=== PATIENT | male | born 1960 | race Caucasian/White ===

== ENCOUNTER 2020-08-30 09:38 | Outpatient (REF) | payer BC, SELFPAY | END 2020-08-30 09:39 | disposition home or self-care (01) | LOC: CF 09:38 | PROVIDERS: PCP Nurse Practitioner Family; Visit Provider Urology | DX: E29.1 Testicular hypofunction (principal); N40.1 Benign prostatic hyperplasia with lower urinary tract symptoms; N13.8 Other obstructive and reflux uropathy; C67.9 Malignant neoplasm of bladder, unspecified | CPT/HCPCS: 81002; 88112 ==

== ENCOUNTER 2020-12-17 05:35 | Inpatient (IN) | payer OTHER, SELFPAY ==
[2020-12-17] VITALS (13 sets, daily range): BP systolic 116–151; BP diastolic 55–85; PULSE 62–72; RESP 12–16; TEMP 36–37; O2SAT 92–97; BMI 40.5
--- NOTE | ~2020-12-17 | US_ITS ---
EXAMINATION: US ABDOMEN COMPLETE and abdominal Doppler exam CLINICAL INFORMATION: Ascites and cirrhosis. Rule out portal vein thrombus. COMPARISON: None TECHNIQUE: Real-time imaging of the abdominal viscera. FINDINGS: PANCREAS: The head and body the pancreas are normal. The tail the pancreas is not well seen due to bowel gas. ABDOMINAL AORTA: The proximal, mid, and distal segments are normal in caliber. INFERIOR VENA CAVA: Visualized portions are normal. LIVER: Liver echotexture is slightly increased and heterogeneous suggestive of hepatocellular disease. The contour of the liver is irregular or scalloped suggestive of cirrhosis. No focal liver lesion is seen. There is no biliary duct dilatation. GALLBLADDER: The gallbladder wall is thickened measuring 0.7 cm. This may be related to the patient's liver disease. The gallbladder is normal in size. No gallstones are seen. COMMON BILE DUCT: Normal in caliber measuring 0.5 cm in diameter. RIGHT KIDNEY: Normal. No hydronephrosis. No renal calculi or focal parenchymal lesions. The kidney measures 13.5 cm in maximum dimension. LEFT KIDNEY: Normal. No hydronephrosis. No renal calculi or focal parenchymal lesions. The kidney measures 13.2 cm in maximum dimension. SPLEEN: The spleen is enlarged. The spleen measures 17 cm in maximum dimension. FREE FLUID: There is a small amount of ascites around the liver. Liver Doppler exam: The extrahepatic portal vein is patent with reversed hepatofugal flow. There is thrombus seen in the main portal vein with reversed hepatofugal flow. There is occlusive thrombus seen in the right portal vein. There is reversed hepatofugal flow seen in the left portal vein. There is a recannulized paraumbilical vein which appears thrombosed as well. The right, middle and left hepatic veins are patent. These have normal waveforms. The IVC is patent. The main, right and left hepatic arteries are patent. Main hepatic artery has normal peak systolic velocity of 166 cm/s. The splenic vein is patent. There are splenic varices. US/US duplex arterial venous comp IMPRESSION: Cirrhotic-appearing liver. Small amount of ascites. Enlarged spleen. Gallbladder wall thickening. This may be related to liver disease. Limited visualization of the tail of the pancreas. Thrombus in the main and right portal vein and reversed hepatofugal flow in the portal veins.
--- NOTE | ~2020-12-17 | US_ITS ---
EXAMINATION: ULTRASOUND-GUIDED PARACENTESIS CLINICAL INFORMATION: Cirrhosis and ascites COMPARISON: None TECHNIQUE: Procedure and risks and benefits including bleeding, infection and low blood pressure were discussed with the patient and informed consent was obtained. The right lower quadrant was prepped and draped in usual sterile fashion. The skin and soft tissues were anesthetized with 1% lidocaine plain. Using ultrasound guidance and a 5 Japanese Angiocath, 5.2 L of clear yellow fluid was removed. Diagnostic specimen was sent. FINDINGS: There is a moderate to large amount of ascites. US/US paracentesis abd w/image IMPRESSION: Ultrasound-guided paracentesis.
--- NOTE | ~2020-12-17 | MR_ITS ---
EXAMINATION: MR ABDOMEN WITHOUT AND WITH CONTRAST CLINICAL INFORMATION: Portal vein thrombus. Evaluate for liver mass. COMPARISON: Previous ultrasound of the abdomen with Doppler exam from earlier the same day, and CT of the abdomen and pelvis 09/17/2020 TECHNIQUE: MR abdomen was performed without and with use of 10 mL intravenous Gadavist gadolinium contrast. Postcontrast images are performed in multiphase dynamic sequences. Imaging was performed in 3 planes. FINDINGS: LUNG BASES: The lung bases are clear. There is no pleural effusion. There are paraesophageal varices. LIVER, GALLBLADDER, AND BILIARY TREE: The liver appears cirrhotic. There is a heterogeneous enhancement of the liver suggestive of severe fibrosis, particularly involving the right lobe of the liver. There is an area of decreased enhancement and capsular retraction seen in the right lobe of the liver probably related to severe fibrosis. No early arterial phase enhancing lesion with rapid wire shadows subcapsular formation characteristic of hepatocellular carcinoma is seen. The gallbladder is slightly contracted. There is gallbladder wall thickening. This may be related to liver disease. There is no intra or extrahepatic biliary duct dilatation. PANCREAS: Unremarkable. SPLEEN: The spleen is enlarged and measures 16 cm in length. ADRENAL GLANDS: Normal. KIDNEYS AND URETERS: There is a small left renal cyst. The kidneys are otherwise unremarkable. GASTROINTESTINAL TRACT: The visualized bowel is unremarkable. ABDOMINAL WALL: No significant hernia is appreciated. LYMPH NODES: No lymphadenopathy. VASCULAR: There are multiple varices including splenic, gastric, paraesophageal varices and recanalized paraumbilical vein. The left renal vein is prominent and there may be a spontaneous splenorenal shunt. There is question of a small amount of thrombus seen in the right portal vein against the wall for example image 61 series 102. No other evidence of portal vein thrombus is seen. The main and right portal vein appear small. These findings would favor a chronic thrombus and not acute thrombus. There is mass effect on the hepatic veins from the liver. The hepatic veins and IVC are patent. No aneurysm is seen. There is a small amount of ascites. OSSEOUS STRUCTURES: Marrow signal normal. MR/MR abdomen wo/w con IMPRESSION: Cirrhotic-appearing liver with severe fibrosis and capsular retraction of the right lobe. No liver mass seen. Question small amount of thrombus in the peripheral right portal vein against the wall. The main and right portal veins are small. This would favor chronic changes over acute thrombus. There is mass effect on the hepatic veins from the liver. The hepatic veins and IVC are patent. Extensive varices and probable spontaneous splenorenal shunt. Splenomegaly. Small amount of ascites. Diffuse gallbladder wall thickening. This may be related to the patient's liver disease. Small left renal cyst.
--- NOTE | ~2020-12-17 | XR_ITS ---
EXAMINATION: XR CHEST CLINICAL INFORMATION: SOB with exertion COMPARISON: . Chest 09/18/2019 TECHNIQUE: Frontal view of the chest was obtained. FINDINGS: The lungs are well-expanded and clear of acute pneumonic process. Minimal bronchial wall thickening in the upper lobes and bilateral perihilar regions is stable. Previously visualized bilateral reticular prominence has improved. Heart size and pulmonary vascularity is normal. No gross bony abnormality seen. XR/XR chest 1V IMPRESSION: No acute pneumonic process seen. Bilateral parahilar and upper lobe bronchial wall thickening suggestive of reactive airway disease or bronchitis is stable.
--- NOTE | 2020-12-17 06:04 | ED_ITS ---
HPI - General Adult General Chief complaint: General Medical Stated complaint: body swelling Time Seen by Provider: 12/17/20 05:56 Source: patient Mode of arrival: ambulatory Limitations: no limitations History of Present Illness HPI narrative: Patient comes to the emergency room complaining of lower extremity swelling, now up to his abdomen. Patient states that he has had lower extremity edema for over a year now, however the edema started getting much worse over the last week and a half. Patient also complaining of shortness of breath with exertion, orthopnea. Patient states he has a chronic smoker's cough but nothing new. Patient denies being sick lately. Patient is also known to have cirrhosis. Patient states that the pressure in his lower extremities is increasing, it is becoming more uncomfortable, therefore came to the emergency room. Patient states that he is not in any diuretic medications. Patient states that this morning he has an echocardiogram pending with Cardiology, states that he does not know why he is getting an echocardiogram. Related Data Home Medications Medication Instructions Recorded Confirmed nadolol 20 mg tablet 20 mg PO DAILY 08/30/20 omeprazole 20 mg capsule,delayed 20 mg PO DAILY 08/30/20 release sildenafil 100 mg tablet 100 mg PO DIRECTED 08/30/20 Previous Rx's Medication Instructions Recorded testosterone 20.25 mg/1.25 gram 2 pump TOPICAL DAILY 30 Days #75 g 04/12/20 (1.62 %) transdermal gel pump albuterol sulfate 90 mcg/actuation 2 puff INHALATION Q6H PRN #18 g 06/07/20 aerosol inhaler amlodipine 5 mg tablet 5 mg PO DAILY #90 tab 06/21/20 testosterone 20.25 mg/1.25 gram 2 pump TOPICAL DAILY 30 Days #75 g 08/30/20 (1.62 %) transdermal gel pump Allergies Allergy/AdvReac Type Severity Reaction Status Date / Time ibuprofen Allergy Unknown low Verified 12/15/19 00:00 plateletes aspirin [ASA] AdvReac Intermediate BLEEDING Unverified 02/23/20 15:11 NSAIDS (Non-Steroidal AdvReac Intermediate BLEEDING Unverified 02/23/20 15:11 Anti-Inflamma [NSAIDS (NON-STEROIDAL ANTI-INFLAMMA] Review of Systems Review of Systems: Constitutional : Complaining of fluid weight gain, No Fever, No Chills, No Night Sweats, No Fatigue, No Malaise ENT/Mouth : No Hearing loss, No Ear Pain, No Nasal Congestion, No Sinus Pain, No Hoarseness, No sore throat, No Rhinorrhea, No Swallowing Difficulty Eyes: No Eye Pain, No Swelling, No Redness, No Foreign Body, No Discharge, No Vision Changes Cardiovascular : No Chest Pain, complaining of worsening dyspnea on exertion, worsening orthopnea, denies chest pain, No Palpitations Respiratory : Chronic smoker's Cough, No Sputum, No Wheezing, No Smoke Exposure, Gastrointestinal : No Nausea, No Vomiting, No Diarrhea, No Constipation, complaining of abdominal distension from fluid, No Hematochezia, No Melena Genitourinary : Complaining of scrotal swelling, no testicular pain, No Dysuria, No Urinary Frequency, No Hematuria, No Urinary Incontinence, No Urgency, No Flank Pain, No Urinary Flow Changes, No Hesitancy Musculoskeletal : No joint pain, No Myalgias, No Joint Swelling, complaining of worsening lower extremity edema Skin : No Skin Lesions, No rash Neuro : No Weakness, No Numbness, No Paresthesias, No Loss of Consciousness, No Dizziness, No Headache Psych : No Anxiety/Panic, No Depression, No SI/HI/AH/VH, No Social Issues, Heme/Lymph: No Bruising, No Bleeding,No Lymphadenopathy Endocrine : No Polyuria, No Polydipsia, No Temperature Intolerance PMF Past Medical History Medical History Aortic valve calcification Asthma Bladder cancer Cervical radiculopathy Cirrhosis of liver Dyslipidemia Esophageal varices without bleeding ETOH abuse Gout Hepatitis C HTN (hypertension) Left ventricular hypertrophy Leukopenia Microalbuminuria Opioid abuse Osteoarthritis Pericarditis Portal hypertension RBBB Sacroiliitis Small bowel obstruction Smoker Thrombocytopenia Surgical History H/O repair of patent ductus arteriosus History of bladder surgery History of cervical discectomy History of patent ductus arteriosus History of right inguinal hernia Testicular lesion Family History Family History (Updated 04/05/20 @ 10:50 by LANEY Noland, [facility]) Father Liver failure ETOHism Mother Lung cancer Brain cancer Sister No problems noted. Son No problems noted. Son No problems noted. Social History Social History Advance Directives: No Advance Directives Information Provided: No Physical Exam Vital Signs: Vital Signs: Last Vital Signs Temp 98.6 F 12/17/20 05:57 Pulse 69 12/17/20 05:57 Resp 16 12/17/20 05:57 BP 151/85 H 12/17/20 05:57 Pulse Ox 97 12/17/20 05:57 Body Mass Index 40.5 Appearance: Alert. Oriented X3. No acute distress. Eyes: Pupils equal, round and reactive to light. ENT: Pharynx normal. Neck: Normal inspection. Neck supple. No lymph nodes noted. No crepitus CVS: Normal heart rate and rhythm. Pulses normal. Normal S1 and S2, +3 systolic murmur, worse over the right sternal border Respiratory: No respiratory distress. Breath sounds normal. No Wheezing. No rales Abdomen: Soft , nontender, distended Skin: Skin warm and dry. Normal skin color. Normal skin turgor. Extremities: +4 pitting edema bilaterally, from ankles all the way up to the thighs, No Lacerations. No Rash Neuro: Oriented X 3. No motor deficit. No sensory deficit. Moving all extermities. No slurred speech. Course Course Course Narrative: Labs pending, sign-out given to Dr. Barber Discharge Plan Discharge Prescriptions: No Action testosterone 20.25 mg/1.25 gram (1.62 %) gel in metered-dose pump 2 pump topical DAILY 30 Days Qty: 75 RF: 5 albuterol sulfate [Ventolin HFA] 90 mcg/actuation HFA aerosol inhaler 2 puff inhalation Q6H PRN (Reason: shortness of breath or wheezing) Qty: 18 RF: 2 amlodipine 5 mg tablet 5 mg PO DAILY Qty: 90 RF: 3 testosterone 20.25 mg/1.25 gram (1.62 %) gel in metered-dose pump 2 pump topical DAILY 30 Days Qty: 75 RF: 5
--- NOTE | 2020-12-17 06:22 | ECG_ITS ---
Test Reason : SWELLING Blood Pressure : / mmHG Vent. Rate : 064 BPM Atrial Rate : 064 BPM P-R Int : 148 ms QRS Dur : 128 ms QT Int : 438 ms P-R-T Axes : 035 -51 -27 degrees QTc Int : 451 ms Normal sinus rhythm Right bundle branch block Left anterior fascicular block Bifascicular block Abnormal ECG When compared with ECG of 20-MAY-2019 02:23, T wave inversion more evident in Anterior leads Referred By: Patsy Marsh Electronically Signed By:Jeffery Archuleta
[2020-12-17 06:51] LABS: MANUAL DIFF FLAG NO
[2020-12-17 06:55] LABS: Basophils Absolute Auto 0.1 X10*3/uL (0.0-0.2); Eosinophils Absolute Auto 0.3 X10*3/uL (0.0-0.4); Eosinophils Percent Auto 7.1 % (0-4); Hematocrit 41.5 % (42-52); Hemoglobin 13.8 g/dl (14.0-18.0); Imm Gran Abs Auto 0.19 X10*3/uL (0.00-0.03); Lymphocytes Absolute Auto 1.1 X10*3/uL (1.2-4.9); Lymphocytes Percent Auto 22.9 % (20-40); Mean Corpuscular HGB Conc 33.3 g/dl (31.0-36.0); Mean Corpuscular Hemoglobin 32.9 pg (27.0-33.0); Mean Corpuscular Volume 98.8 fL (80-98); Monocytes Absolute Auto 0.5 X10*3/uL (0.1-1.2); Monocytes Percent Auto 10.2 % (2-11); Neutrophils Absolute Auto 2.6 X10*3/uL (2.0-8.3); Neutrophils Percent Auto 54.8 % (45-73); Red Cell Distribution Width 15.9 % (11.0-16.0); White Blood Count 4.8 X10*3/uL (4.8-10.8)
[2020-12-17 06:57] LABS: Platelet Count 77 X10*3/uL (160-400)
[2020-12-17] MEDS: Furosemide 40 MG/4 ML VIAL IVPUSH (06:59)
[2020-12-17 07:08] LABS: INTERNATIONAL NORM RATIO 1.5 (0.9-1.1); Prothrombin Time 17.7 SEC (9.9-13.0)
[2020-12-17 07:18] LABS: B Type Natriuretic Peptide 144 pg/mL (<100)
[2020-12-17 07:26] LABS: Alanine Aminotransferase 32 U/L (0-40); Albumin Level 2.7 g/dL (3.5-5.0); Alkaline Phosphatase 200 U/L (39-117); Anion Gap 11 (12-20); Aspartate Amino Transferase 79 U/L (5-37); Bilirubin Direct 2.5 mg/dL (0.0-0.5); Bilirubin Total 4.6 mg/dL (0.0-1.0); Blood Urea Nitrogen 7 mg/dL (9-16); Calcium 8.3 mg/dL (8.4-10.2); Carbon Dioxide 25 mmol/L (22-29); Chloride 105 mmol/L (96-108); Creatinine Clr Calc Pharmacy 117.9; Estimated Glomerular Filt Rate > 60; Glucose Random 92 mg/dL (60-115); Magnesium 1.5 mg/dL (1.6-2.6); Sodium 137 mmol/L (135-145); Total Protein 7.2 g/dL (6.5-8.0)
--- NOTE | 2020-12-17 08:09 | PHA.MEDREC ---
Pharmacy Consult ? Medication Reconciliation Pharmacy has completed the medication reconciliation.
[2020-12-17 08:43] LABS: COVID-19 Test Negative (Negative); IDNOW Serial# 9DD0AD1C
--- NOTE | 2020-12-17 09:36 | P.HPHOSP_ITS ---
History of Present Illness Date of Service: 12/17/20 Chief Complaint: weight gain, swelling, shortness of breath This is a 60-year-old male with a past medical history of cirrhosis secondary to hepatitis-C ( previously treated) and alcohol abuse ( actively drinking with last drink 4 days ago) who presents to the hospital with complaints of lower extremity swelling which has now increased up to his abdomen with an associated weight gain greater than 30 lb. He also endorses exertional dyspnea and inability to lay supine. He reports active alcohol use with last drink 4 days ago. He reports he typically drinks 4 beers daily. He denies any changes in his salt intake. He reports no abdominal pain, nausea, vomiting or diarrhea. He denies any chest pain. He denies being on a diuretic previously. He reports that he was following up with Gastroenterology (Dr. Chaudhary) but has not seen him and quite some time. Upon arrival to the ED patient was noted to be midly hypertensive and tachycardia. His blood work revealed abnormal LFTs (Bili was 4.6, with a baseline 1.7-2.3, albumin was 2.7, INR was 1.5), Mag 1.5, platelet 77. . He was noted to have diffuse anasarca. He was given a dose of IV diuretic and admission was requested for management of decompensated cirrhosis. Review of Systems Review of Systems: General - +malaise HEENT -denies blurred vision, denies headache, denies sore throat Cardiovascular - denies chest pain or palpitations, +edema, +orthopnea Respiratory - +exertional dyspnea Gastrointestinal - denies abdominal pain, nausea, vomiting, diarrhea - denies flank pain, denies dysuria, denies frequency or urgency Musculoskeletal - denies back pain, denies hip pain, denies knee pain, denies shoulder pain Neurological - denies any focal weakness or numbness Skin, denies any bruising or redness Psychiatric - denies any suicidal ideation, hallucinations, homicidal ideation Endocrinology - denies intolerance to hot / cold temperatures [facility] Medical History Aortic valve calcification Asthma Bladder cancer Cervical radiculopathy Cirrhosis of liver Dyslipidemia Esophageal varices without bleeding ETOH abuse Gout Hepatitis C HTN (hypertension) Left ventricular hypertrophy Leukopenia Microalbuminuria Opioid abuse Osteoarthritis Pericarditis Portal hypertension RBBB Sacroiliitis Small bowel obstruction Smoker Thrombocytopenia Family History (Updated 04/05/20 @ 10:50 by Maru Huizar, RMA, [employer]) Father Liver failure ETOHism Mother Lung cancer Brain cancer Sister No problems noted. Son No problems noted. Son No problems noted. Surgical History H/O repair of patent ductus arteriosus History of bladder surgery History of cervical discectomy History of patent ductus arteriosus History of right inguinal hernia Testicular lesion Social History Alcohol intake: current Patient Tobacco Use Status: Current everyday Tobacco user Use of substances other than those prescribed or required for medical reasons: No Advance Directives: No Advance Directives Information Provided: No Meds Allergies Allergy/AdvReac Type Severity Reaction Status Date / Time ibuprofen Allergy Unknown low Verified 12/17/20 06:58 plateletes aspirin [ASA] AdvReac Intermediate BLEEDING Verified 12/17/20 06:58 NSAIDS (Non-Steroidal AdvReac Intermediate BLEEDING Verified 12/17/20 06:58 Anti-Inflamma [NSAIDS (NON-STEROIDAL ANTI-INFLAMMA] Active Medications: Current Medications Generic Name Dose Route Start Last Admin Trade Name Freq PRN Reason Stop Dose Admin Albuterol Sulfate 2 puff 12/17/20 09:32 Albuterol Sulfate 90 Mcg 8 Gm Inhaler INHALE Q6H PRN shortness of breath or wheezing Furosemide 20 mg 12/17/20 18:00 Furosemide 20 Mg/2 Ml Vial IVPUSH BID@0900,1800 [facility] Protocol Magnesium Sulfate 2 gm in 50 mls @ 25 mls/hr 12/17/20 09:32 Magnesium Sulfate/H2o IV 12/17/20 11:31 ONCE ONE Pharmacy Consult 1 each 12/17/20 07:45 Consult Rx Perform Med Rec MISCELLANE ONCE PRN Consult order Sodium Chloride 3 ml 12/17/20 16:00 0.9 % Sodium Chloride Flush 3 Ml Syringe IVFLUSH QSHIFT [facility] Home Medications Medication Instructions Recorded Confirmed Last Taken Type nadolol 20 mg tablet 20 mg PO DAILY 08/30/20 12/17/20 12/16/20 History omeprazole 20 mg capsule,delayed 20 mg PO DAILY 08/30/20 12/17/20 12/16/20 History release sildenafil 100 mg tablet 100 mg PO DIRECTED PRN 08/30/20 12/17/20 Unknown History ibuprofen 600 mg PO Q3-4H PRN 12/17/20 12/17/20 Unknown History Physical Exam Vital Signs and Narrative: Vital Signs: Last Vital Signs Temp 98.6 F 12/17/20 05:57 Pulse 63 12/17/20 08:17 Resp 16 12/17/20 08:17 BP 124/70 12/17/20 08:17 Pulse Ox 97 12/17/20 08:17 Body Mass Index 40.5 Const: Other: Constitutional - Awake and Alert, No apparent distress Eyes - PERRLA, EOMI Cardiovascular - S1S2, RRR, 2-3+ edema bilaterally Respiratory - Normal lung expansion, Normal respiratory effort, No respiratory distress, CTA bilaterally Gastrointestinal - Distended with fluid thrill, +abdominal wall edema - No CVA tenderness Extremities - no calf tenderness bilaterally, no swelling Musculoskeletal - Normal inspection, normal ROM Skin - Warm/Dry Neurological - Alert & oriented x3, No focal deficit, no asterixis Psychological - Appropriate affect Results Labs CBC and Chem 7: 12/17/20 06:46 12/17/20 06:46 Labs: Laboratory Results - last 24 hr 12/17/20 12/17/20 12/17/20 06:46 06:46 06:46 MCV 98.8 H MCH 32.9 MCHC 33.3 RDW 15.9 Plt Count 77 L MPV 12.0 Immature Gran % (Auto) 4.0 H Neut % (Auto) 54.8 Lymph % (Auto) 22.9 [place] % (Auto) 10.2 Eos % (Auto) 7.1 H Baso % (Auto) 1.0 Lymph # (Auto) 1.1 L [place] # (Auto) 0.5 Eos # (Auto) 0.3 Baso # (Auto) 0.1 Abs Immat Gran (auto) 0.19 H Absolute Neuts (auto) 2.6 Absolute Nucleated RBC 0.000 Nucleated RBC % (auto) 0.0 PT INR Anion Gap 11 L Estim Creat Clear Calc 117.9 Estimated GFR > 60 Random Glucose 92 Calcium 8.3 L Magnesium Total Bilirubin 4.6 H Direct Bilirubin 2.5 H AST 79 H ALT 32 Alkaline Phosphatase 200 H Troponin I High Sens 17.0 B-Natriuretic Peptide Total Protein 7.2 Albumin 2.7 L COVID-19 ([facility]) COVID-19 Clin Com 0712/17/20 12/17/20 06:46 06:46 06:46 MCV MCH MCHC RDW Plt Count MPV Immature Gran % (Auto) Neut % (Auto) Lymph % (Auto) [place] % (Auto) Eos % (Auto) Baso % (Auto) Lymph # (Auto) [place] # (Auto) Eos # (Auto) Baso # (Auto) Abs Immat Gran (auto) Absolute Neuts (auto) Absolute Nucleated RBC Nucleated RBC % (auto) PT 17.7 H INR 1.5 H Anion Gap Estim Creat Clear Calc Estimated GFR Random Glucose Calcium Magnesium 1.5 L Total Bilirubin Direct Bilirubin AST ALT Alkaline Phosphatase Troponin I High Sens B-Natriuretic Peptide 144 H Total Protein Albumin COVID-19 ([facility]) COVID-19 Clin Com 12/17/20 08:23 MCV MCH MCHC RDW Plt Count MPV Immature Gran % (Auto) Neut % (Auto) Lymph % (Auto) [place] % (Auto) Eos % (Auto) Baso % (Auto) Lymph # (Auto) [place] # (Auto) Eos # (Auto) Baso # (Auto) Abs Immat Gran (auto) Absolute Neuts (auto) Absolute Nucleated RBC Nucleated RBC % (auto) PT INR Anion Gap Estim Creat Clear Calc Estimated GFR Random Glucose Calcium Magnesium Total Bilirubin Direct Bilirubin AST ALT Alkaline Phosphatase Troponin I High Sens B-Natriuretic Peptide Total Protein Albumin COVID-19 ([facility]) Negative COVID-19 Clin Com See Note Imaging Radiologist's Impressions: Impressions Chest X-Ray 12/17/20 06:23 IMPRESSION: No acute pneumonic process seen. Bilateral parahilar and upper lobe bronchial wall thickening suggestive of reactive airway disease or bronchitis is stable. Assessment and Plan (1) Decompensation of cirrhosis of liver: Status: Acute This is a 60 yo M with a PMH of Cirrhosis - secondary to Hep c + EtOH abuse who presents to the hospital with complaints of progressive swelling, weight gain, shortness of breath and fatigue. His work up is consistent with acute decompensation of cirrhosis. 1. Decompensated Cirrhosis Bili above baseline, clinically has ascites, INR 1.5 likely secondary to active alcohol use, but need to rule out SBP Will get paracentesis and send off cell count / culture Alcohol cessation has been advised Will start IV lasix 20mg BID, will add aldactone - likely tomorrow Get gastroenterology involved -- has seen Dr. Chaudhary in the past, will consult him monitor labs -- add ammonia now no signs of alcohol withdrawal, last drink 4 days ago -- hold off phenobarb and monitor with ciwa 2. HypoMg replete with IV and start oral 3. Elevated BNP will rule out cardiac causes, check echo 4. Thrombocytopenia due to cirrhosis 5. History of HTN hold norvasc, observe BP Full Code DVT pptx, mechanical due to thrombocytopenia / coagulopathy Quality Stroke Does the patient have a stroke diagnosis?: No VTE Prior VTE?: No VTE Risk Level:: Medical - moderate - high VTE Device Contraindication: N/A - Device Ordered VTE Drug Contraindication: Treatment Not Indicated
[2020-12-17] MEDS: Magnesium Sulfate/H2O 2 GM/50 ML PIGGYBACK IV (10:00)
[2020-12-17 10:17] LABS: Ammonia 50 umol/L (13-55)
--- NOTE | 2020-12-17 12:31 | HO.RADPN ---
RADIOLOGY Narrative Narrative: RLQ paracentesis performed usig 5 Fr angiocath. 5.2 L clear yellow fluid removed. Diagnostic specimen sent.
--- NOTE | 2020-12-17 12:40 | PC.NURSE ---
This RN was just notified by IR that over 5L of fluid was drained during paracentesis, specimens sent to lab by IR.
--- NOTE | 2020-12-17 12:51 | PC.NURSE ---
patient returned to room from IR, skin PWD, resp even and non labored, speaking in full, clear sentences. patient c/o 6/10 aching pain to right abdomen at site of procedure. dressing intact with bright red blood strikethrough.
[2020-12-17] MEDS: Lidocaine HCl 1 % MPF 5 ML VIAL SUBCUT (12:58)
[2020-12-17 13:15] LABS: MN% 68.7 %; PMN% 31.3 %; WBC Peritoneal Fluid 0.536 X10*3/uL
[2020-12-17 13:16] LABS: RBC Peritoneal Fluid < 0.002 X10*6/uL
[2020-12-17 14:01] LABS: BF Shift QC OK YES; Lymphocyte Peritoneal Fl 2 %; Man Diluent Bkgrd OK YES; Monocytes Peritoneal Fl 9 %; Neutrophils Peritoneal Fluid 17 %; Other Peritioneal Fl 72 %
--- NOTE | 2020-12-17 14:30 | PC.NURSE ---
report given to Marilee WHITE on S3
[2020-12-17] MEDS: Albumin Human 25 % 100 ML IV ×2 (16:35→20:53)
--- NOTE | 2020-12-17 17:19 | PM.EVENT ---
Event Note Date of Service: 12/17/20 Event Note: Hx via patient, , and EMR. Imp: 60 yo male with decompensated cirrhosis and component of EtOH-hepatitis with associated ascites, edema, jaundice, coagulopathy, and thrombocytopenia. He does not appear encephalopathic and denies any signs of GI bleeding. He had Hepatitis C successfully treated in the past but unfortunately continues to drink alcohol regularly. His paracentesis today is negative for SBP based on the cell count. He currently appears quite alert and comfortable. Rec: Supportive care, diuretics with Lasix and Aldactone as long as he tolerates it from a renal standpoint, continue PPI and Nadolol for known varices, F/U labs, abdominal U/S with dopplers to R/O portal vein thrombosis, check AFP level. I did review with him the need to avoid alcohol completely, as well as the need to avoid all NSAIDs and Acetaminophen long term care social worker. I did review this in detail with him and his . They were comfortable with this plan. Thanks
[2020-12-17] MEDS: Furosemide 20 MG/2 ML VIAL IVPUSH (18:45)
[2020-12-17] MEDS: 0.9 % Sodium Chloride Flush 3 ML SYRINGE IVFLUSH ×2 (18:46→21:00)
[2020-12-17] MEDS: Spironolactone 25 MG TABLET 50 MG PO (18:46)
[2020-12-17] MEDS: Nicotine 14 MG PATCH.TD24 TRANSDERMA (18:47)
[2020-12-17] MEDS: oxyCODONE HCl Immed Release 5 MG TABLET PO (18:57)
[2020-12-18] MEDS: Albumin Human 25 % 100 ML IV ×2 (04:33→09:25)
[2020-12-18 04:35] VITALS: BP 120/59; PULSE 84; RESP 16; TEMP 36.6; O2SAT 99
[2020-12-18] MEDS: Omeprazole 20 MG CAPSULE.DR PO (05:25)
[2020-12-18] MEDS: oxyCODONE HCl Immed Release 5 MG TABLET PO ×3 (05:25→18:38)
[2020-12-18 06:23] LABS: Hematocrit 35.7 % (42-52); Mean Corpuscular HGB Conc 33.6 g/dl (31.0-36.0); Mean Corpuscular Hemoglobin 33.3 pg (27.0-33.0); Mean Corpuscular Volume 99.2 fL (80-98); Mean Platelet Volume 12.3 fL (9.4-12.4); Red Cell Distribution Width 15.9 % (11.0-16.0); White Blood Count 4.2 X10*3/uL (4.8-10.8)
[2020-12-18 06:37] LABS: INTERNATIONAL NORM RATIO 1.8 (0.9-1.1); Prothrombin Time 20.4 SEC (9.9-13.0)
[2020-12-18 06:41] LABS: Platelet Count 72 X10*3/uL (160-400)
[2020-12-18 06:43] LABS: Alanine Aminotransferase 24 U/L (0-40); Alkaline Phosphatase 155 U/L (39-117); Aspartate Amino Transferase 57 U/L (5-37); Bilirubin Total 3.3 mg/dL (0.0-1.0); Total Protein 6.3 g/dL (6.5-8.0)
[2020-12-18 06:47] LABS: Anion Gap 9 (12-20); Blood Urea Nitrogen 7 mg/dL (9-16); Calcium 8.1 mg/dL (8.4-10.2); Carbon Dioxide 29 mmol/L (22-29); Chloride 103 mmol/L (96-108); Creatinine Clr Calc Pharmacy 117.9; Estimated Glomerular Filt Rate > 60; Glucose Random 100 mg/dL (60-115); Magnesium 1.5 mg/dL (1.6-2.6); Potassium 3.4 mmol/L (3.3-5.1); Sodium 138 mmol/L (135-145)
[2020-12-18 07:31] VITALS: BP 117/58; PULSE 69; RESP 17; TEMP 36.3; O2SAT 95
[2020-12-18] MEDS: Nicotine 14 MG PATCH.TD24 TRANSDERMA (09:27)
[2020-12-18] MEDS: nadoloL 20 MG TABLET PO (09:27)
[2020-12-18] MEDS: Furosemide 20 MG/2 ML VIAL IVPUSH ×2 (09:27→18:38)
[2020-12-18] MEDS: Spironolactone 25 MG TABLET 50 MG PO ×2 (09:27→18:39)
[2020-12-18] MEDS: 0.9 % Sodium Chloride Flush 3 ML SYRINGE IVFLUSH ×2 (09:28→16:35)
--- NOTE | 2020-12-18 09:59 | CONS_ITS ---
DATE OF SERVICE: 12/17/2020 REASON FOR CONSULTATION: Alcohol-related cirrhosis with associated ascites. HISTORY OF PRESENT ILLNESS: This has been obtained from the patient, his , and the medical record. The patient is a 60-year-old male well known to me with an underlying history of chronic liver disease in relation to previous hepatitis C and ongoing alcohol abuse. I last saw him in my office in February 2020. He had previously been treated successfully for hepatitis C in 2018 with a 12-week course of Epclusa. He has had documented negative hepatitis C viral loads since that time. Unfortunately, he has continued to drink alcohol on a frequent and regular basis. He did have a liver biopsy back in 2001 describing stage 3/4 liver fibrosis. Imaging studies have documented progression with cirrhosis, and an upper endoscopy in 2018 did reveal portal gastropathy and esophageal varices. He came to the ER due to ongoing problems with persistent lower extremity edema and increasing abdominal girth. During this time, he has not noticed any jaundice, confusion, fevers, nor GI bleeding. In addition to frequent alcohol use, he has also been using ibuprofen. He denies any significant use of acetaminophen. He did undergo 5 L ultrasound-guided paracentesis since admission, and fluid analysis does not appear to show any signs of spontaneous bacterial peritonitis. He does feel better in regard to the abdominal girth. He denies any nausea nor vomiting. He denies any melena nor hematochezia. He denies any ongoing abdominal pain since the paracentesis. MEDICATIONS: At home included albuterol inhaler p.r.n., amlodipine, nadolol 20 mg daily, omeprazole 20 mg daily, testosterone gel, and ibuprofen p.r.n. His present medications here in the hospital includes IV albumin, albuterol inhaler p.r.n., Lasix 20 mg IV b.i.d., nicotine patch, omeprazole 20 mg daily, oxycodone p.r.n. PAST MEDICAL HISTORY: Cirrhosis in relation to previous hepatitis C and ongoing alcohol use. Thrombocytopenia. Bladder cancer. Previous chronic hepatitis C treated successfully in 2018 with subsequent negative hepatitis C viral loads. Nonbleeding esophageal varices documented on upper endoscopy in 2017. He had a negative colonoscopy in 2017. Small-bowel obstruction in 2019, treated with nasogastric tube decompression. Surgeries includes right inguinal hernia, neck surgery for some type of spinal stenosis, repair of patent ductus arteriosus in 1965, and bladder tumor resected by cystoscopy with Dr. Mae. FAMILY HISTORY: Negative for GI malignancy nor liver disease. SOCIAL HISTORY: He is . He does smoke. He describes drinking at least 6 beers several times per week. REVIEW OF SYSTEMS: CONSTITUTIONAL: He has been feeling poor in relation to his increasing abdominal girth and edema. CARDIAC: No chest pain. PULMONARY: No cough. No hemoptysis. GI: As above. URINARY: No dysuria. No hematuria. PHYSICAL EXAMINATION: GENERAL: The patient is a pleasant, alert, comfortable-appearing male, in no distress. SKIN: Warm and dry. HEENT: Anicteric sclerae. NECK: Supple. CHEST: Clear. CARDIAC: Normal S1, S2. ABDOMEN: Soft, but distended. Bowel sounds are normal. There is no palpable mass. There is no rebound or guarding. EXTREMITIES: Show significant edema bilaterally. NEUROLOGIC: He is alert and oriented. There is no obvious asterixis. LABORATORY DATA: White blood cell count 4.8, hemoglobin 13.8, platelets 77,000. PT 17.7, INR 1.5. Normal electrolytes. BUN 7, creatinine 0.8, total bilirubin 4.6, direct bilirubin 2.5, AST 79, ALT 32, alkaline phosphatase 200, albumin 2.7. His ascites white blood cell count was 536 with 17% neutrophils. IMPRESSION: The patient is a 60-year-old male with underlying cirrhosis in relation to previous hepatitis C that was treated successfully and ongoing alcohol abuse. He has had some decompensation since I saw him in the office last year as a result of his ongoing alcohol abuse and probably a component of some alcohol-induced hepatitis, however, aside from increasing ascites and peripheral edema, he has not shown any signs of GI bleeding, encephalopathy, nor spontaneous bacterial peritonitis based on the paracentesis. At this point, he appears comfortable and quite stable. I will continue supportive care. In addition to Lasix, I would add Aldactone to his diuretic regimen as long as he tolerates it from a Renal standpoint. I would continue his omeprazole and nadolol. His paracentesis was done with ultrasound guidance, but did not describe any other abdominal findings as the study was limited to just the paracentesis. Therefore, I would recommend a complete abdominal ultrasound with Doppler studies to rule out portal vein thrombosis. I would check an alpha-fetoprotein level as well. I did have a very detailed discussion with him and his today regarding his need to avoid alcohol completely in hopes of having any chance of long-term survival. I also advised him to avoid all NSAIDs and acetaminophen long-term. We did review the potential for referral to a [facility] if he can remain abstinent from alcohol. PLAN: At this point, I do not think he needs any other workup for his liver disease nor any endoscopic evaluation. He will have followup laboratories as well including repeat PT with INR. As long as things remain stable, I do not think he will need any steroids for his alcohol-induced hepatitis. This has all been discussed in detail with the patient and his , and they are both comfortable with the plan. Thank you for the consultation. MD CARMELA Austin/CAROLINE / [phone]
--- NOTE | 2020-12-18 11:06 | HO.PM.IMPN ---
Subjective Subjective Date of Service: 12/18/20 Interval History: seen and examined this AM feeling less fatigued today ROS General - no fevers or chills Cardiovascular - no chest pain Respiratory - no shortness of breath or cough Abdominal- no abdominal pain, nausea, vomiting, diarrhea Physical Exam Vital Signs: Vital Signs: Last Vital Signs Temp 97.4 F 12/18/20 07:31 Pulse 69 12/18/20 07:31 Resp 17 12/18/20 07:31 BP 117/58 L 12/18/20 07:31 Pulse Ox 95 12/18/20 07:31 Body Mass Index 40.5 Const: Other: General - no acute distress, appears comfortable Cardiovascular - regular rate and rhythm, S1-S2 Lungs - normal respiratory effort, clear to auscultation bilaterally, no wheezing Abdomen - less distended, still with abdominal wall edema Extremities - still with significant edema Neuro - awake and alert, no focal deficits Objective Data Current Medications Generic Name Dose Route Start Last Admin Trade Name Freq PRN Reason Stop Dose Admin Albuterol Sulfate 2 puff 12/17/20 09:32 Albuterol Sulfate 90 Mcg 8 Gm Inhaler INHALE Q6H PRN shortness of breath or wheezing Furosemide 20 mg 12/17/20 18:00 12/18/20 09:27 Furosemide 20 Mg/2 Ml Vial IVPUSH 20 mg BID@0900,1800 KARLA Administration Protocol Nadolol 20 mg 12/18/20 09:00 12/18/20 09:27 Nadolol 20 Mg Tablet PO 20 mg DAILY KARLA Administration Protocol Nicotine 14 mg 12/17/20 16:25 12/18/20 09:27 Nicotine 14 Mg Patch.Td24 TRANSDERMA 14 mg DAILY KARLA Administration Omeprazole 20 mg 12/18/20 06:30 12/18/20 05:25 Omeprazole 20 Mg Capsule. PO 20 mg DAILY@0630 KARLA Administration Oxycodone HCl 5 mg 12/17/20 16:24 12/18/20 05:25 Oxycodone Hcl Immed Release 5 Mg Tablet PO 5 mg Q6H PRN Administration Pain, Severe (Pain Scale 7-10) Pharmacy Consult 1 each 12/17/20 07:45 Consult Rx Perform Med Rec MISCELLANE ONCE PRN Consult order Sodium Chloride 3 ml 12/17/20 16:00 12/18/20 09:28 0.9 % Sodium Chloride Flush 3 Ml Syringe IVFLUSH 3 ml QSHIFT KARLA Administration Spironolactone 50 mg 12/17/20 18:00 12/18/20 09:27 Spironolactone 25 Mg Tablet PO 50 mg BID@0900,1800 KARLA Administration Protocol Labs CBC & Chem 7: 12/18/20 05:40 12/18/20 05:40 Labs: Laboratory Results - last 24 hr 12/17/20 12/17/20 12/17/20 12:15 12:15 12:15 WBC RBC Hgb Hct MCV MCH MCHC RDW Plt Count MPV Absolute Nucleated RBC Nucleated RBC % (auto) PT INR Sodium Potassium Chloride Carbon Dioxide Anion Gap BUN Creatinine Estim Creat Clear Calc Estimated GFR Random Glucose Calcium Magnesium Total Bilirubin Direct Bilirubin AST ALT Alkaline Phosphatase Lactate Dehydrogenase Cancelled Total Protein Cancelled Albumin CSF Tube Number Cancelled Cancelled CSF Volume Cancelled CSF Appearance Cancelled CSF Color Cancelled CSF WBC Cancelled CSF RBC Cancelled CSF Neutrophils Cancelled CSF Lymphocytes Cancelled CSF Monocytes % Cancelled CSF Other Cells % Cancelled CSF Appearance (b) Cancelled CSF Glucose Cancelled Peritoneal WBC Peritoneal RBC Periton Neutrophils Periton Lymphocytes Peritoneal Monocytes Peritoneal Other Cells 12/17/20 12/18/20 12/18/20 12:15 05:40 05:40 WBC RBC Hgb Hct MCV MCH MCHC RDW Plt Count MPV Absolute Nucleated RBC Nucleated RBC % (auto) PT INR Sodium 138 Potassium 3.4 Chloride 103 Carbon Dioxide 29 Anion Gap 9 L BUN 7 L Creatinine 0.80 Estim Creat Clear Calc 117.9 Estimated GFR > 60 Random Glucose 100 Calcium 8.1 L Magnesium 1.5 L Total Bilirubin 3.3 H Direct Bilirubin 2.0 H AST 57 H ALT 24 Alkaline Phosphatase 155 H D Lactate Dehydrogenase Total Protein 6.3 L Albumin 3.0 L CSF Tube Number CSF Volume CSF Appearance CSF Color CSF WBC CSF RBC CSF Neutrophils CSF Lymphocytes CSF Monocytes % CSF Other Cells % CSF Appearance (b) CSF Glucose Peritoneal WBC 0.536 Peritoneal RBC < 0.002 Periton Neutrophils 17 Periton Lymphocytes 2 Peritoneal Monocytes 9 Peritoneal Other Cells 72 12/18/20 12/18/20 05:40 05:40 WBC 4.2 L RBC 3.60 L Hgb 12.0 L Hct 35.7 L MCV 99.2 H MCH 33.3 H MCHC 33.6 RDW 15.9 Plt Count 72 L MPV 12.3 Absolute Nucleated RBC 0.000 Nucleated RBC % (auto) 0.0 PT 20.4 H INR 1.8 H Sodium Potassium Chloride Carbon Dioxide Anion Gap BUN Creatinine Estim Creat Clear Calc Estimated GFR Random Glucose Calcium Magnesium Total Bilirubin Direct Bilirubin AST ALT Alkaline Phosphatase Lactate Dehydrogenase Total Protein Albumin CSF Tube Number CSF Volume CSF Appearance CSF Color CSF WBC CSF RBC CSF Neutrophils CSF Lymphocytes CSF Monocytes % CSF Other Cells % CSF Appearance (b) CSF Glucose Peritoneal WBC Peritoneal RBC Periton Neutrophils Periton Lymphocytes Peritoneal Monocytes Peritoneal Other Cells Microbiology Microbiology Results: Microbiology 12/17/20 12:15 Gram Stain - Final Ascites Fluid Routine Culture - Preliminary No growth to date. Anaerobic Culture - Preliminary No growth to date. Quality Stroke Does the patient have a stroke diagnosis?: No VTE Prior VTE?: No VTE Risk Level:: Medical - moderate - high VTE Device Contraindication: N/A - Device Ordered VTE Drug Contraindication: Treatment Not Indicated Assessment and Plan (1) Decompensation of cirrhosis of liver: Status: Acute Assessment and Plan: This is a 60 yo M with a PMH of Cirrhosis - secondary to Hep c + EtOH abuse who presents to the hospital with complaints of progressive swelling, weight gain, shortness of breath and fatigue. His work up is consistent with acute decompensation of cirrhosis. 1. Decompensated Cirrhosis, fluid overload s/p paracentesis with removal >5L; negative for SBP by cell count, cultures negative to date continue IV lasix, aldactone added -- monitor renal function start nadolol (was on it previously) to complete abdominal doppler to rule out portal vein thrombosis 2. HypoMg 1.5mg today replete with po and iv 3. Elevated BNP echo today 4. Thrombocytopenia due to cirrhosis 5. History of HTN hold norvasc, observe BP Full Code DVT pptx, mechanical due to thrombocytopenia / coagulopathy dispo: likely home next 24-48 hours
--- NOTE | 2020-12-18 11:23 | MHC.CM.PN ---
PATIENT LIVES WITH HIS /HCP. (ON FILE AND VERIFIED) NO DME OR VNA SERVICES. HE IS INDEPENDENT WITH HIS ADLS. PLAN IS HOME TOMORROW. TO TRANSPORT. CASE MANAGEMENT FOLLOWING FOR ANY DC NEEDS.
[2020-12-18 15:31] VITALS: BP 141/75; PULSE 65; RESP 14; TEMP 36.2; O2SAT 95
[2020-12-18] MEDS: Magnesium Oxide 400 MG TABLET PO (16:34)
[2020-12-18 18:39] VITALS: BP 141/75; PULSE 65
[2020-12-18] MEDS: Albuterol Sulfate 90 MCG 8 GM INHALER 2 PUFF INHALE (21:01)
[2020-12-18 21:06] VITALS: PULSE 65; O2SAT 95
[2020-12-18 23:59] VITALS: BP 128/59; PULSE 72; RESP 16; TEMP 36.3; O2SAT 95
[2020-12-19] MEDS: oxyCODONE HCl Immed Release 5 MG TABLET PO ×2 (02:02→08:44)
[2020-12-19] MEDS: Omeprazole 20 MG CAPSULE.DR PO (05:56)
[2020-12-19 06:59] LABS: Hematocrit 38.2 % (42-52); Hemoglobin 12.7 g/dl (14.0-18.0); INTERNATIONAL NORM RATIO 1.7 (0.9-1.1); Mean Corpuscular HGB Conc 33.2 g/dl (31.0-36.0); Mean Corpuscular Hemoglobin 32.9 pg (27.0-33.0); Prothrombin Time 19.6 SEC (9.9-13.0); Red Blood Count 3.86 X10*6/uL (4.60-5.80); Red Cell Distribution Width 15.8 % (11.0-16.0)
[2020-12-19 07:03] LABS: Platelet Count 69 X10*3/uL (160-400)
[2020-12-19 07:18] LABS: Anion Gap 10 (12-20); Blood Urea Nitrogen 6 mg/dL (9-16); Calcium 8.4 mg/dL (8.4-10.2); Carbon Dioxide 30 mmol/L (22-29); Chloride 103 mmol/L (96-108); Creatinine Clr Calc Pharmacy 124.1; Estimated Glomerular Filt Rate > 60; Glucose Random 107 mg/dL (60-115); Potassium 3.2 mmol/L (3.3-5.1); Sodium 140 mmol/L (135-145)
[2020-12-19 07:23] LABS: Alanine Aminotransferase 30 U/L (0-40); Alkaline Phosphatase 174 U/L (39-117); Aspartate Amino Transferase 65 U/L (5-37); Bilirubin Direct 1.8 mg/dL (0.0-0.5); Bilirubin Total 2.8 mg/dL (0.0-1.0); Total Protein 6.5 g/dL (6.5-8.0)
[2020-12-19 07:37] VITALS: BP 120/60; PULSE 64; RESP 17; TEMP 36.3; O2SAT 94
[2020-12-19] MEDS: Magnesium Oxide 400 MG TABLET PO (07:39)
[2020-12-19] MEDS: Spironolactone 25 MG TABLET 50 MG PO (07:39)
[2020-12-19] MEDS: Furosemide 20 MG/2 ML VIAL IVPUSH (07:41)
[2020-12-19] MEDS: nadoloL 20 MG TABLET PO (07:41)
[2020-12-19] MEDS: 0.9 % Sodium Chloride Flush 3 ML SYRINGE IVFLUSH ×2 (07:41)
[2020-12-19] MEDS: Potassium Chloride ER 20 MEQ TAB.ER.PRT 40 MEQ PO (08:45)
--- NOTE | 2020-12-19 10:28 | PM.HEMONCCN ---
Subjective - Subjective Chief complaint: Abdominal discomfort Consult date: 12/19/20 Requesting Physician: Dr. Osorio Primary Care Provider: Mamadou Adames [facility]- Medical Summary: Chronic hepatitis C, liver biopsy in 2001 showed chronic hepatitis consistent with hepatitis C viral infection, grade 3, stage III. He received antiviral therapy in 2018. Thrombocytopenia with platelet counts between 40,000 to 80,000 dating back to at least 2012. Mild coagulopathy with INR of 1.5. Normal PTT and fibrinogen level in 2013. Serum protein electrophoresis showed no abnormal bands in 2013. NICOLASA screen negative. Blood flow cytometry showed no atypical findings. He had a bone marrow biopsy in [address] Mujica, which revealed active trilinear hematopoiesis with a mild plasmacytosis and decreased iron stores. No core biopsy, flow cytometry. Cytogenetics were normal. History of noninvasive papillary carcinoma for which he has undergone cystoscopy, as well as transurethral resection of bladder tumor in August 2014. 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 HPI - Consult Narrative Reason for consult: Portal vein thrombosis, chronic thrombocytopenia Narrative: Adan Marley JR is a 60 year old male with chronic hepatitis-C who has been admitted with complaints of increasing abdominal distension and pain. Review of Systems - Constitutional Reports as per HPI, Denies chills, Reports fatigue, Denies fever(s) - Cardiovascular Denies chest pain at rest - Respiratory Denies cough - Gastrointestinal Reports abdominal pain, Denies black, tarry stools, Denies bright, red blood in stools - Musculoskeletal Reports back pain - Integumentary/Breasts Skin/Breast: Reports no additional skin complaints Oncology Screenings - ECOG Performance Status ECOG Performance Status: 2 [facility] Medical History: Medical History (Last Reviewed 12/17/20 @ 06:18 by Patsy Marsh MD) Aortic valve calcification Asthma Bladder cancer Cervical radiculopathy Cirrhosis of liver Dyslipidemia Esophageal varices without bleeding ETOH abuse Gout Hepatitis C HTN (hypertension) Left ventricular hypertrophy Leukopenia Microalbuminuria Opioid abuse Osteoarthritis Pericarditis Portal hypertension RBBB Sacroiliitis Small bowel obstruction Smoker Thrombocytopenia Family History: Family History (Last Updated 04/05/20 @ 10:50 by Maru Huizar, RMA, PLANT MAINTENANCE MANAGER) Father Liver failure ETOHism Mother Lung cancer Brain cancer Sister No problems noted. Son No problems noted. Son No problems noted. Surgical History: Surgical History (Last Reviewed 12/17/20 @ 06:18 by Patsy Marsh MD) H/O repair of patent ductus arteriosus History of bladder surgery History of cervical discectomy History of patent ductus arteriosus History of right inguinal hernia Testicular lesion Social History: Social History Living Situation History: Household Members: Spouse Household Members: Children Housing: House Do you presently have visiting nurse or other home services: No Alcohol History: Alcohol intake: current Tobacco History: Patient Tobacco Use Status: Current everyday Tobacco Tobacco use type: Cigarette Cigarette Packs Per Day: 0.5 Cigarettes Per Day: 10.0 Years Smoked: 30 Smoked in Last 30 Days: Yes Patient Interested in Nicotine Replacement: Yes Patient Given Instructions on How to Stop Smoking: Yes Date Education Initiated: 12/17/20 Second Hand Smoke Exposure: Yes Substance Use History: Use of substances other than those prescribed or required for medical reasons: No Currently Displaying Signs/Symptoms of Drug Intoxication Withdrawal: No Domestic Abuse History: Have you been hit, kicked, punched, or otherwise hurt by someone within the past year? If so, by whom?: No Do you feel safe in your current relationship?: Yes Is there a partner from a previous relationship who is making you feel unsafe now?: No Are you made to feel afraid or neglected: No Healthcare Practices: Scientology Healthcare Practices: faith Advance Directives: Advance Directives: No Advance Directives Information Provided: No Homicidal Assessment: Do you have thoughts of harming others: None Do you have a plan to hurt others: No Plan Nutrition Assessment: Recently lost weight without trying: No Nutrition Risks: No Nutritional Risk Poor oral hygiene: No Occupation Assessmet: service: No Current occupational status: employed Home Medications and Allergies Current Medications: Current Medications Generic Name Dose Route Start Last Admin Trade Name Freq PRN Reason Stop Dose Admin Albuterol Sulfate 2 puff 12/17/20 09:32 12/18/20 21:01 Albuterol Sulfate 90 Mcg 8 Gm Inhaler INHALE 2 puff Q6H PRN Administration shortness of breath or wheezing Furosemide 20 mg 12/19/20 18:00 Furosemide 20 Mg Tablet PO BID@0900,1800 KARLA Protocol Magnesium Oxide 400 mg 12/18/20 17:30 12/19/20 07:39 Magnesium Oxide 400 Mg Tablet PO 400 mg BIDPC KARLA Administration Nadolol 20 mg 12/18/20 09:00 12/19/20 07:41 Nadolol 20 Mg Tablet PO 20 mg DAILY [facility] Administration Protocol Nicotine 14 mg 12/17/20 16:25 12/19/20 07:40 Nicotine 14 Mg Patch.Td24 TRANSDERMA Not Given DAILY [facility] Omeprazole 20 mg 12/18/20 06:30 12/19/20 05:56 Omeprazole 20 Mg Capsule.Dr PO 20 mg DAILY@0630 [facility] Administration Oxycodone HCl 5 mg 12/17/20 16:24 12/19/20 08:44 Oxycodone Hcl Immed Release 5 Mg Tablet PO 5 mg Q6H PRN Administration Pain, Severe (Pain Scale 7-10) Pharmacy Consult 1 each 12/17/20 07:45 Consult Rx Perform Med Rec MISCELLANE ONCE PRN Consult order Sodium Chloride 3 ml 12/17/20 16:00 12/19/20 07:41 0.9 % Sodium Chloride Flush 3 Ml Syringe IVFLUSH 3 ml QSHIFT [facility] Administration Spironolactone 50 mg 12/17/20 18:00 12/19/20 07:39 Spironolactone 25 Mg Tablet PO 50 mg BID@0900,1800 [facility] Administration Protocol Home Medications Medication Instructions Recorded Confirmed Type nadolol 20 mg tablet 20 mg PO DAILY 08/30/20 12/17/20 History omeprazole 20 mg capsule,delayed 20 mg PO DAILY 08/30/20 12/17/20 History release sildenafil 100 mg tablet 100 mg PO DIRECTED PRN 08/30/20 12/17/20 History ibuprofen 600 mg PO Q3-4H PRN 12/17/20 12/17/20 History Allergies Allergy/AdvReac Type Severity Reaction Status Date / Time ibuprofen Allergy Unknown low Verified 12/17/20 06:58 plateletes aspirin [ASA] AdvReac Intermediate BLEEDING Verified 12/17/20 06:58 NSAIDS (Non-Steroidal AdvReac Intermediate BLEEDING Verified 12/17/20 06:58 Anti-Inflamma [NSAIDS (NON-STEROIDAL ANTI-INFLAMMA] Physical Exam Vital signs: Vital Signs Temp 97.4 F 12/19/20 07:37 Pulse 64 12/19/20 07:37 Resp 17 12/19/20 07:37 BP 120/60 12/19/20 07:37 Pulse Ox 94 12/19/20 07:37 Intake & Output 12/18/20 12/19/20 12/19/20 18:59 06:59 18:59 Intake Total 460 / 1280 820 / 1280 Output Total 1250 / 3250 2000 / 3250 Balance -790 / -1970 -1180 / -1970 Urine Output (Average ml/kg/hr) 0.91 1.46 Intake: Intake, Oral Amount 360 / 1180 820 / 1180 Intake, IV Amount 100 / 100 Albumin Human 25 % 100 ml @ 100 100 / 100 mls/hr IV Q6H [facility] Rx#: [id number] Output: Output, Urine Amount 1250 / 3250 2000 / 3250 Other: Meal Refused No No NPO No No Breakfast % Eaten 100% 100% Lunch % Eaten 100% Urine Urinal Urinal Urine Color Yellow Yellow Weight 114 kg - Constitutional Present: no acute distress - Routine HEENT Exam Head: Present: normal inspection Eye: Present: EOMI, PERRL - Routine Neck Exam Present: supple. Absent: lymphadenopathy - Routine Respiratory Exam Present: CTAB. Absent: accessory muscle use - Routine Cardiovascular Exam Cardiovascular: Present: S1, S2 - Routine Abdominal Exam Present: diminished bowel sounds, distended, firm - Routine Extremities Exam Comments: Chronic bilateral swelling with venous stasis changes of skin Hem/Onc Consult Result - Labs CBC & Chem 7: 12/19/20 05:52 12/19/20 05:52 Labs: Short CBC 12/19/20 Range/Units 05:52 WBC 4.0 L (4.8-10.8) X10*3/uL Hgb 12.7 L (14.0-18.0) g/dl Hct 38.2 L (42-52) % Plt Count 69 L (160-400) X10*3/uL BMP 12/19/20 05:52 Sodium 140 Potassium 3.2 L Chloride 103 Carbon Dioxide 30 H BUN 6 L Creatinine 0.76 Calcium 8.4 Liver Function 12/19/20 Range/Units 05:52 Total Bilirubin 2.8 H (0.0-1.0) mg/dL Direct Bilirubin 1.8 H (0.0-0.5) mg/dL AST 65 H (5-37) U/L ALT 30 (0-40) U/L Alkaline Phosphatase 174 H (39-117) U/L Albumin 3.0 L (3.5-5.0) g/dL Assessment and Plan (1) Portal vein thrombosis Status: Chronic 1. This is a 60-year-old male with chronic liver cirrhosis, previous hepatitis-C that was treated successfully and ongoing alcohol abuse. He is admitted for worsening ascites related to some liver decompensation. He had an ultrasound of abdomen with Doppler which was read as- probable thrombus in portal vein. He underwent MRI of liver which revealed: Cirrhotic-appearing liver with severe fibrosis and capsular retraction of the right lobe. No liver mass seen. Question small amount of thrombus in the peripheral right portal vein against the wall. The main and right portal veins are small. This would favor chronic changes over acute thrombus. Patient is feeling lot better since his therapeutic paracentesis. He denies abdominal pain. His LFTs show slight improvement in bilirubin levels. He has chronic thrombocytopenia and coagulopathy of liver disease. He has extensive esophageal varices without any signs of overt bleeding. I do not recommend anticoagulation for this small chronic thrombus in portal vein. There is no indication for anticoagulation for chronic thrombus especially given the small size and increased risk of bleeding because of his underlying comorbidities as detailed above. Patient was strongly urged to stop drinking to avoid further decompensation of his liver. He verbalized understanding. I thank you for this consultation.
--- NOTE | 2020-12-19 11:32 | PM.DS ---
DS: Providers Provider Date of Service: 12/19/20 Date of admission: 12/17/20 09:33 Primary care physician: JOLANTA Argueta Consults: 12/17/20 09:35 Consult to Gastroenterology Routine Consulting Provider: Adan Chaudhary Reason for consultation: decompensated cirrhosis 12/18/20 14:53 Consult to Hematology / Oncology Routine Consulting Provider: [facility] [place]/Hematology Reason for consultation: Portal Vein thrombosis DS: Diagnosis Discharge Diagnosis (1) Decompensation of cirrhosis of liver: Status: Acute (2) Portal vein thrombosis: Status: Chronic (3) Alcohol abuse: Status: Acute (4) Thrombocytopenia: Status: Acute (5) Coagulopathy: Status: Acute DS: Medications Discharge Medications Home Medications: Home Medications Medication Instructions Recorded Confirmed sildenafil 100 mg tablet 100 mg PO DIRECTED PRN 08/30/20 12/17/20 Previous Rx's Medication Instructions Recorded testosterone 20.25 mg/1.25 gram 2 pump TOPICAL DAILY 30 Days #75 g 04/12/20 (1.62 %) transdermal gel pump albuterol sulfate 90 mcg/actuation 2 puff INHALATION Q6H PRN #18 g 06/07/20 aerosol inhaler furosemide 20 mg PO BID@0900,1800 #60 tab 12/19/20 magnesium oxide 400 mg PO BIDPC #60 tab 12/19/20 nadolol 20 mg PO DAILY #30 tab 12/19/20 omeprazole 20 mg PO DAILY@0630 #30 cap 12/19/20 spironolactone [Aldactone] 50 mg PO BID #60 tab 12/19/20 DS: Summary Hospital Course Hospital Course: patient presented to the hospital with signs and symptoms of fluid overload secondary to decompensated cirrhosis. He underwent a therapeutic and diagnostic paracentesis which was negative for SBP. He was started on IV Lasix and oral Aldactone with significant improvement in his overall fluid status. He was further evaluated with a Doppler of the abdomen which showed a possibility of a portal vein thrombosis. He subsequently underwent an MRI with contrast which showed assess mall, likely chronic clot. He also had the stigmata of cirrhosis evident on MRI. Gastroenterology and Hematology were consulted and ultimately the decision was made not to anticoagulate the patient due to the likely chronic nature of his clot and size as well as his significant bleeding risk. Patient was on multiple occasions advised on complete alcohol cessation. He will be discharged home on oral Lasix and Aldactone ( Norvasc will be discontinued). he is to continue nadolol and Prilosec and is to avoid NSAIDs and Tylenol indefinitely. He will have repeat blood work completed 1 week from discharge. Time Spent with Patient Time attestation: Total time spent providing and/or coordinating discharge services: Discharge coordination time: Greater than 30 minutes Quality: Stroke Does the patient have a stroke diagnosis?: No Physical Exam Vital Signs: Vital Signs: Last Vital Signs Temp 97.4 F 12/19/20 07:37 Pulse 64 12/19/20 07:37 Resp 17 12/19/20 07:37 BP 120/60 12/19/20 07:37 Pulse Ox 94 12/19/20 07:37 Body Mass Index 40.5 Const: Other: General - no acute distress, appears comfortable Cardiovascular - regular rate and rhythm, S1-S2 Lungs - normal respiratory effort, clear to auscultation bilaterally, no wheezing Abdomen - soft, nt; no fluid thrill apprecaited Extremities - edema greatly improved Neuro - awake and alert, no focal deficits DS: Data Data Completed and Pending Completed studies during hospitalization [Text1]: Pending at discharge 12/17/20 12:29 Cytology [PTH] Routine Labs on day of discharge: Laboratory Results - last 24 hr 12/19/20 12/19/20 12/19/20 05:52 05:52 05:52 WBC 4.0 L RBC 3.86 L Hgb 12.7 L Hct 38.2 L MCV 99.0 H MCH 32.9 MCHC 33.2 RDW 15.8 Plt Count 69 L MPV 12.0 Absolute Nucleated RBC 0.000 Nucleated RBC % (auto) 0.0 PT 19.6 H INR 1.7 H Sodium 140 Potassium 3.2 L Chloride 103 Carbon Dioxide 30 H Anion Gap 10 L BUN 6 L Creatinine 0.76 Estim Creat Clear Calc 124.1 Estimated GFR > 60 Random Glucose 107 Calcium 8.4 Total Bilirubin Direct Bilirubin AST ALT Alkaline Phosphatase Total Protein Albumin 12/19/20 05:52 WBC RBC Hgb Hct MCV MCH MCHC RDW Plt Count MPV Absolute Nucleated RBC Nucleated RBC % (auto) PT INR Sodium Potassium Chloride Carbon Dioxide Anion Gap BUN Creatinine Estim Creat Clear Calc Estimated GFR Random Glucose Calcium Total Bilirubin 2.8 H Direct Bilirubin 1.8 H AST 65 H ALT 30 Alkaline Phosphatase 174 H Total Protein 6.5 Albumin 3.0 L Preliminary micro results at discharge 12/17/20 12:15 Anaerobic Culture - Preliminary Ascites Fluid No growth to date. Discharge Plan Discharge Patient Disposition: Home, Self-Care Discharge Diagnosis: Decompensated Cirrhosis Referrals: Mamadou Adames SOCIAL SERVICES DIRECTOR-BC [Primary Care Provider] - 1 Week Discharge Medications: New magnesium oxide 400 mg (241.3 mg magnesium) Tablet 400 mg PO BIDPC Qty: 60 RF: 0 omeprazole 20 mg Capsule,Delayed Release(Dr/Ec) 20 mg PO DAILY@0630 Qty: 30 RF: 0 furosemide 20 mg Tablet 20 mg PO BID@0900,1800 Qty: 60 RF: 0 spironolactone [Aldactone] 50 mg tablet 50 mg PO BID Qty: 60 RF: 0 nadolol 20 mg tablet 20 mg PO DAILY Qty: 30 RF: 0 Continued testosterone 20.25 mg/1.25 gram (1.62 %) gel in metered-dose pump 2 pump topical DAILY 30 Days Qty: 75 RF: 5 albuterol sulfate [Ventolin HFA] 90 mcg/actuation HFA aerosol inhaler 2 puff inhalation Q6H PRN (Reason: shortness of breath or wheezing) Qty: 18 RF: 2 Discontinued amlodipine 5 mg tablet 5 mg PO DAILY Qty: 90 RF: 3 ibuprofen 200 mg Tablet 600 mg PO Q3-4H PRN (Reason: Pain) RF: 0 omeprazole 20 mg capsule,delayed release(DR/EC) 20 mg PO DAILY RF: 0 nadolol 20 mg tablet 20 mg PO DAILY RF: 0 Discharge Orders: Discharge Order (Routine); Ordered 12/19/20 Ordered By: Luis Miguel Osorio Diet: advance to usual diet and low salt diet Activity on Discharge: As tolerated Stand Alone Forms: Patient Portal Discharge page Other Ambulatory Orders: Basic Metabolic Panel (Routine) Timeframe: 20201226 Facility: [facility], [place] - Location: Laboratory Ordered By: Luis Miguel Osorio Liver Panel (Routine) Timeframe: 20201226 Facility: [facility], [place] - Location: Laboratory Ordered By: Luis Miguel Osorio Care Plan Goals: To stay healthy and out of the hospital. Health Concerns: Cirrhosis and alcohol use Plan of Treatment: Take lasix 20mg and Aldactone 50mg (both twice daily). Stop taking Amlodipine. Continue Nadalol and Prilosec. Most importantly, stop drinking alcohol. Assessment: 60 yo M admitted for decompnesated cirrhosis. Diursed and underwent paracentesis which was negative for SBP. Evaluated by doppler u/s and MRI of the abdomen which showed likely chronic portal vein thrombosis.
--- NOTE | 2020-12-19 11:35 | MHC.CM.PN ---
PATIENT IS DISCHARGED HOME WITH NO SERVICES (DENIES THE NEED FOR ANY) TO TRANSPORT. RN AWARE OF PLAN.
[2020-12-20 10:26] LABS: Alpha Fetoprotein 1.7 ng/mL (<6.1)
== END 2020-12-19 12:15 | disposition home or self-care (01) | DRG 432 ==
LOC: HO.ED 06:21 → HO.EDOVER 09:39 → HO.S3 14:17
PROVIDERS: Emergency Medicine; Internal Medicine; Radiology Diagnostic Radiology; Admitting Provider Family Medicine; Emergency Provider Emergency Medicine; PCP Nurse Practitioner Family; Visit Provider Family Medicine
PROC: 0W9G3ZZ Drainage of Peritoneal Cavity, Percutaneous Approach (ICD-10-PCS; principal; 2020-12-17 12:00)
DX: K70.31 Alcoholic cirrhosis of liver with ascites (principal); I81 Portal vein thrombosis; D68.9 Coagulation defect, unspecified; K70.11 Alcoholic hepatitis with ascites; F10.10 Alcohol abuse, uncomplicated; F17.210 Nicotine dependence, cigarettes, uncomplicated; Z71.6 Tobacco abuse counseling; E83.42 Hypomagnesemia; D69.6 Thrombocytopenia, unspecified; Z86.19 Personal history of other infectious and parasitic diseases; Z20.822 Contact with and (suspected) exposure to COVID-19; Z88.6 Allergy status to analgesic agent; Z79.899 Other long term (current) drug therapy
CPT/HCPCS: 36415; 49083; 71045; 74183; 76700; 80048; 80076; 82105; 82140; 82945; 83615; 83735; 83880; 84155; 84484; 85025; 85027; 85610; 87071; 87073; 87116; 87205; 87635; 88112; 89051; 93005; 93975; 94640; 99285; A9585; J1940; J3475; P9047

== ENCOUNTER 2020-12-27 11:51 | Outpatient (REF) | payer OTHER, SELFPAY ==
[2020-12-27 14:16] LABS: Alanine Aminotransferase 36 U/L (0-40); Albumin Level 3.3 g/dL (3.5-5.0); Alkaline Phosphatase 214 U/L (39-117); Anion Gap 10 (12-20); Aspartate Amino Transferase 74 U/L (5-37); Bilirubin Direct 2.2 mg/dL (0.0-0.5); Bilirubin Total 3.8 mg/dL (0.0-1.0); Blood Urea Nitrogen 8 mg/dL (9-16); Calcium 9.1 mg/dL (8.4-10.2); Carbon Dioxide 32 mmol/L (22-29); Chloride 100 mmol/L (96-108); Estimated Glomerular Filt Rate > 60; Glucose Random 93 mg/dL (60-115); Sodium 138 mmol/L (135-145)
== END 2020-12-27 11:52 | disposition home or self-care (01) ==
LOC: HO.HMGCLDS 11:51
PROVIDERS: PCP Nurse Practitioner Family; Visit Provider Family Medicine
DX: K72.90 Hepatic failure, unspecified without coma (principal)
CPT/HCPCS: 36415; 80048; 80076

== ENCOUNTER 2021-01-17 13:02 | Outpatient (REF) | payer MEDICAID, SELFPAY ==
[2021-01-17 13:53] LABS: MANUAL DIFF FLAG NO
[2021-01-17 13:59] LABS: Urine Cytology See Pathology rpt
[2021-01-17 14:04] LABS: Basophils Percent Auto 0.5 % (0-2); Eosinophils Absolute Auto 0.2 X10*3/uL (0.0-0.4); Eosinophils Percent Auto 3.3 % (0-4); Hematocrit 41.8 % (42-52); Hemoglobin 14.7 g/dl (14.0-18.0); INTERNATIONAL NORM RATIO 1.8 (0.9-1.1); Imm Gran Abs Auto 0.19 X10*3/uL (0.00-0.03); Imm Gran Pct Auto 2.9 % (0.0-0.4); Lymphocytes Absolute Auto 0.8 X10*3/uL (1.2-4.9); Lymphocytes Percent Auto 12.4 % (20-40); Mean Corpuscular HGB Conc 35.2 g/dl (31.0-36.0); Mean Corpuscular Hemoglobin 33.7 pg (27.0-33.0); Mean Corpuscular Volume 95.9 fL (80-98); Mean Platelet Volume 12.1 fL (9.4-12.4); Monocytes Absolute Auto 0.6 X10*3/uL (0.1-1.2); Monocytes Percent Auto 8.3 % (2-11); Neutrophils Absolute Auto 4.8 X10*3/uL (2.0-8.3); Neutrophils Percent Auto 72.6 % (45-73); Prothrombin Time 21.2 SEC (9.9-13.0); Red Blood Count 4.36 X10*6/uL (4.60-5.80); Red Cell Distribution Width 19.2 % (11.0-16.0); White Blood Count 6.6 X10*3/uL (4.8-10.8)
[2021-01-17 14:05] LABS: Platelet Count 68 X10*3/uL (160-400)
[2021-01-17 14:16] LABS: Ethanol < 10 mg/dL
[2021-01-17 14:27] LABS: Alanine Aminotransferase 58 U/L (0-40); Albumin Level 2.8 g/dL (3.5-5.0); Alkaline Phosphatase 233 U/L (39-117); Aspartate Amino Transferase 145 U/L (5-37); Total Protein 7.4 g/dL (6.5-8.0)
[2021-01-17 14:35] LABS: Bilirubin Total 23.5 mg/dL (0.0-1.0)
[2021-01-17 14:38] LABS: Ammonia 76 umol/L (13-55)
[2021-01-17 14:42] LABS: Prostate Specific Antigen 0.07 ng/mL (<0.05-4.0)
[2021-01-17 14:46] LABS: Bilirubin Direct 15.1 mg/dL (0.0-0.5)
[2021-01-23 01:57] LABS: Testosterone, Total 191 ng/dL (250-1100)
[2021-01-28 18:15] LABS: Testosterone, Total 141 ng/dL (250-1100)
[2021-01-28 18:15] LABS: Testosterone, Total 148 ng/dL (250-1100)
== END 2021-01-17 13:03 | disposition home or self-care (01) ==
LOC: HO.HMGCLDS 13:02
PROVIDERS: Urology; PCP Nurse Practitioner Family; Visit Provider Nurse Practitioner Family
DX: C67.9 Malignant neoplasm of bladder, unspecified (principal); N40.1 Benign prostatic hyperplasia with lower urinary tract symptoms; N13.8 Other obstructive and reflux uropathy; E29.1 Testicular hypofunction; F10.10 Alcohol abuse, uncomplicated; K74.60 Unspecified cirrhosis of liver; Z12.5 Encounter for screening for malignant neoplasm of prostate
CPT/HCPCS: 36415; 80076; 82077; 82140; 84153; 84402; 84403; 85025; 85027; 85610

== ENCOUNTER 2021-01-17 17:04 | Inpatient (IN) | payer MEDICAID, SELFPAY ==
--- NOTE | ~2021-01-17 | CT_ITS ---
EXAMINATION: CT ABDOMEN AND PELVIS WITH CONTRAST CLINICAL INFORMATION: Upper abdominal pain, elevated LFTs. COMPARISON: MR abdomen 12/18/2020, CT abdomen pelvis 09/18/2019 TECHNIQUE: Multidetector volumetric images were obtained from the superior aspect of the liver through the pubic symphysis following administration 85 mL of Omnipaque 350 intravenous contrast. Sagittal and coronal reformatted images were obtained on the technologist's workstation. Oral contrast: No This CT examination was performed using dose optimization techniques as appropriate, variously including the following: *Automated exposure control *Adjustment of mA and/or kV according to patient size (this includes techniques or standardized protocols for targeted exams where dose is matched to indication/reason for exam; i.e. extremities or head) *Use of iterative reconstruction technique DLP: 541 mGy-cm FINDINGS: LUNG BASES: The visualized lung bases are unremarkable. LIVER, GALLBLADDER, AND BILIARY TREE: Advanced liver cirrhosis with contracted appearance and severely nodular surface contour, better seen and characterized on MRI. No definite focal liver lesions are seen although again, this is better seen on MRI. No intrahepatic biliary dilatation. The gallbladder is under distended. Gallbladder wall thickening, similar to the prior CT and likely related to underlying liver disease. PANCREAS: Unremarkable. SPLEEN: Splenomegaly, similar to the prior study. No focal ADRENAL GLANDS: Splenic lesions. KIDNEYS AND URETERS: The kidneys are normal in size, shape, and attenuation. No hydronephrosis, hydroureter, or calculi seen. No perinephric stranding. Left renal cyst, similar to the prior study. BLADDER: The bladder is under distended which limits assessment. GASTROINTESTINAL TRACT: The small and large bowel are unremarkable. The appendix is unremarkable. ABDOMINAL WALL: No significant hernia is appreciated. Trace abdominal ascites. LYMPH NODES: No lymphadenopathy within the abdomen or pelvis by CT criteria. VASCULAR: Large predominantly esophageal varices. Splenorenal shunt. No abdominal aortic aneurysm. The IVC is singular and right-sided. PELVIC VISCERA: Unremarkable. OSSEOUS STRUCTURES: No acute or suspicious osseous abnormality. CT/CT abdomen pelvis w con IMPRESSION: 1. No evidence of acute change within the abdomen or pelvis. 2. Advanced liver cirrhosis with severe fibrosis and capsular retraction is seen on MRI. 3. Evidence of portal hypertension: Severe esophageal predominant varices. Splenorenal shunt. Splenomegaly. Trace ascites.
[2021-01-17 17:18] VITALS: BP 149/73; PULSE 82; RESP 16; TEMP 37.1; O2SAT 96; BMI 30.1
--- NOTE | 2021-01-17 19:01 | ECG_ITS ---
Test Reason : ABNORMAL LABS Blood Pressure : / mmHG Vent. Rate : 082 BPM Atrial Rate : 082 BPM P-R Int : 162 ms QRS Dur : 134 ms QT Int : 420 ms P-R-T Axes : 040 -64 002 degrees QTc Int : 490 ms Normal sinus rhythm Right bundle branch block Left anterior fascicular block Bifascicular block Abnormal ECG When compared with ECG of 17-DEC-2020 07:14, No significant changes seen Referred By: Latasha Zelaya Electronically Signed By:PAUL LEPE
--- NOTE | 2021-01-17 19:07 | ED_ITS ---
HPI - Recheck/Abnormal Lab/Rx General Chief Complaint: Recheck/Abnormal Lab/Rx Stated Complaint: abnormal labs Time Seen by Provider: 01/17/21 18:53 Source: patient and family Mode of arrival: ambulatory Limitations: no limitations History of Present Illness HPI narrative: 60-year-old male with a past medical history of liver cirrhosis secondary to hepatitis-C s/p treatment, chronic alcohol abuse here with worseni ng liver function tests drawn yesterday. Of note patient was admitted to [facility] December 17 through December 19 for worsening liver failure w/ anasarca, r/o SBP and new diagnosis of portal vein thrombosis. The portal vein thrombosis was thought to be chronic and therefore he was not an ticoagulated. Discharged home on Lasix, Aldactone. Patient tells me he feels like he was doing well however he had a follow-up with his primary care doctor this week and his outpatient labs showed worsening liver function. He does admit to 2 days of epigastric discomfort and nausea with no vomiting. Denies black or bloody stools. No hematemesis. He tells me he has not been drinking since leaving the hospital. Related Data Previous Rx's Medication Instructions Recorded albuterol sulfate 90 mcg/actuation 2 puff INHALATION Q6H PRN #18 g 06/07/20 aerosol inhaler (Ventolin HFA) furosemide 20 mg tablet 20 mg PO BID@0900,1800 #60 tab 12/19/20 magnesium oxide 400 mg (241.3 mg 400 mg PO BIDPC #60 tab 12/19/20 magnesium) tablet nadolol 20 mg tablet 20 mg PO DAILY #30 tab 12/19/20 omeprazole 20 mg capsule,delayed 20 mg PO DAILY@0630 #30 cap 12/19/20 release spironolactone 50 mg tablet 50 mg PO BID #60 tab 12/19/20 (Aldactone) Allergies Allergy/AdvReac Type Severity Reaction Status Date / Time ibuprofen Allergy Unknown low Verified 01/16/21 18:08 plateletes aspirin [ASA] AdvReac Intermediate BLEEDING Verified 01/16/21 18:08 NSAIDS (Non-Steroidal AdvReac Intermediate BLEEDING Verified 01/16/21 18:08 Anti-Inflamma [NSAIDS (NON-STEROIDAL ANTI-INFLAMMA] Review of Systems Review of Systems: Yes all other systems are reviewed and are negative Constitutional: Constitutional: Reports no additional constitutional complaints, Denies body ache(s), Denies chills, Denies fever(s), Denies headache(s) and Denies weakness Eyes: Eyes: Reports no additional eye complaints and Denies change in vision ENT: Reports system reviewed and no additional complaints, except as documented, Denies dizziness, Denies headache(s), Denies nasal congestion, Denies nasal discharge and Denies neck pain Cardiovascular: Cardiovascular: Reports no additional cardiovascular complaints, Denies chest pain, Denies leg edema and Denies dyspnea Respiratory: Respiratory: Reports no additional respiratory complaints, Denies cough and Denies dyspnea Gastrointestinal: Gastrointestinal: Reports no additional gastrointestinal complaints, Reports abdominal pain, Denies diarrhea, Reports nausea and Denies vomiting Genitourinary: Genitourinary: Denies urinary incontinence Musculoskeletal: Musculoskeletal: Reports no additional musculoskeletal complaints, Denies back pain, Denies arthralgias, Denies joint swelling, Denies neck pain, Denies numbness and Denies tingling Integumentary/Breasts: Skin/Breast: Reports system reviewed and no additional complaints, except as docu, Denies rash and Reports jaundice Neurologic: Reports system reviewed and no additional complaints, except as documented, Denies Abnormal speech present, Denies dizziness, Denies headache(s), Denies numbness, Denies tingling and Denies weakness FOR[facility]LY [facility], [facility] Past Medical History Attestation statement: The following information was validated with the patient. Source: old records reviewed and nursing notes reviewed Medical History Aortic valve calcification Asthma Bladder cancer Cervical radiculopathy Cirrhosis of liver Decompensation of cirrhosis of liver Dyslipidemia Esophageal varices without bleeding ETOH abuse Gout Hepatitis C HTN (hypertension) Left ventricular hypertrophy Leukopenia Microalbuminuria Opioid abuse Osteoarthritis Pericarditis Portal hypertension Portal vein thrombosis RBBB Sacroiliitis Small bowel obstruction Smoker Thrombocytopenia Surgical History H/O repair of patent ductus arteriosus History of bladder surgery History of cervical discectomy History of patent ductus arteriosus History of right inguinal hernia Testicular lesion Family History Family History Father Liver failure ETOHism Mother Lung cancer Brain cancer Sister No problems noted. Son No problems noted. Son No problems noted. Social History Social History Household Members: Spouse and Children Housing: House Do you presently have visiting nurse or other home services: No Alcohol intake: current Patient Tobacco Use Status: Current everyday Tobacco user Tobacco use type: Cigarette Cigarette Packs Per Day: 0.5 Years Smoked: 30 Second Hand Smoke Exposure: Yes Advance Directives: No Advance Directives Information Provided: No service: No Current occupational status: employed Physical Exam Vital Signs: Vital Signs: Last Vital Signs Temp 98.7 F 01/17/21 19:37 Pulse 80 01/17/21 20:31 Resp 16 01/17/21 20:31 BP 126/70 01/17/21 20:31 Pulse Ox 95 01/17/21 20:31 Body Mass Index 30.1 Const: General: cooperative, healthy appearing, comfortable and no acute distress Orientation/consciousness: patient oriented x3 Limitations: no limitations HENMT: Head: Yes normal to inspection Ears: hearing grossly normal bilaterally and TM's normal bilaterally General nose exam: Normal external nose present Face and sinus: Yes normal facial exam Mouth: Normal oral and palatal mucosa present Throat: Yes posterior oropharynx normal, Yes tonsils normal and Yes uvula midline Eyes: General: appearance normal, both eyes and all related structures Sclerae: scleral abnormal (icterus bilaterally ) Pupils: Equal, round and reactive pupils present Neck: Neck: Yes normal visual inspection Chest: Chest palpation & inspection: normal inspection of the chest Resp: Effort & Inspection: normal respiratory effort Auscultation: clear to auscultation bilaterally Cardio: Rate: regular rate Rhythm: regular rhythm Peripheral pulses: Peripheral pulses 2+ throughout GI: Inspection: Yes normal to inspection Palpation (GI): Soft to palpation and Tenderness to palpation present (GI) (Mild epigastric. No rebound or guarding) Auscultation: normal bowel sounds Back/Spine/Pelvis: Thoracic/Lumbar Spine: thoracic and lumbar spine normal to inspection Skin: General skin exam: no rashes or lesions noted Neuro: General: patient oriented x3, no focal motor deficits and normal sensation to monofilament Cranial nerves: Yes Equal, round and reactive pupils present Cognition (Neuro): normal cognition Speech: No Abnormal speech present Gait exam (Neuro): Normal gait present Motor exam (neuro): 5 motor strength present throughout Extrem: General: Yes normal to inspection, Yes no calf tenderness and Yes edema (Mild lower extremities 1+) Course Course Course Narrative: 60-year-old male with a past medical history of liver disease initially from hepatitis C however most recently from chronic alcohol abuse here with worsening liver function test drawn outpatient and several days of upper abdominal discomfort with nausea but no vomiting. Patient also had outpatient ammonia level which was mildly elevated no history of same. Has not used lactulose in the past. He denies any in confusion and family at the bedside confirms. He has not drank alcohol in approximately 1 month. Denies weight gain. Taking Aldactone and Lasix since discharge from the hospital. On 12/27/20 total bili 3.8, direct bili 2.2, AST 74, ALT 36, alk-phos 214. Labs reviewed from January 17 outpatient show total bili 23.5, direct bili 15.1, AST 145, ALT 58, alk phos 233 ammonia 71. On exam the patient has bilateral scleral icterus, his abdomen is soft but with mild tenderness in the epigastric. He tells me he had a paracentesis during his last admission. On review chart was negative for SBP. Will need labs, UA, EKG, COVID screen. 2100-Labs show worsening liver function, hypomagnesemia, elevated ammonia 81, thrombocytopenia at baseline, lipase mildly elevated, elevated INR. Magnesium replacement ordered. CT 1. No evidence of acute change within the abdomen or pelvis. 2. Advanced liver cirrhosis with severe fibrosis and capsular retraction is seen on MRI. 3. Evidence of portal hypertension: Severe esophageal predominant varices. Splenorenal shunt. Splenomegaly. Trace ascites.? Call out to GI to discuss. 2143-Admitted to Dr Lane from medicine. Call back from Dr Nicholas. Recommended initiating steroids if no contraindication for total course of 30 days. This was communicated to medicine. MDM - Recheck/Abnormal Lab/Rx Medical Records Attestation: I reviewed the patient's medical records. Lab Data Attestation: I reviewed the patient's lab results. Result diagrams: 01/17/21 19:19 01/17/21 19:55 Labs: Lab Results 01/17/21 01/17/21 01/17/21 Range/Units 19:19 19:19 19:19 WBC 6.6 (4.8-10.8) X10*3/uL RBC 4.14 L (4.60-5.80) X10*6/uL Hgb 13.8 L (14.0-18.0) g/dl Hct 39.3 L (42-52) % MCV 94.9 (80-98) fL MCH 33.3 H (27.0-33.0) pg MCHC 35.1 (31.0-36.0) g/dl RDW 19.3 H (11.0-16.0) % Plt Count 64 L (160-400) X10*3/uL MPV 12.6 H (9.4-12.4) fL Immature Gran % (Auto) 2.0 H (0.0-0.4) % Neut % (Auto) 73.5 H (45-73) % Lymph % (Auto) 12.4 L (20-40) % [place] % (Auto) 9.4 (2-11) % Eos % (Auto) 2.4 (0-4) % Baso % (Auto) 0.3 (0-2) % Lymph # (Auto) 0.8 L (1.2-4.9) X10*3/uL [place] # (Auto) 0.6 (0.1-1.2) X10*3/uL Eos # (Auto) 0.2 (0.0-0.4) X10*3/uL Baso # (Auto) 0.0 (0.0-0.2) X10*3/uL Abs Immat Gran (auto) 0.13 H (0.00-0.03) X10*3/uL Absolute Neuts (auto) 4.9 (2.0-8.3) X10*3/uL Absolute Nucleated RBC 0.000 (0.0-0.012) X10*3/uL Nucleated RBC % (auto) 0.0 (0.0-0.2) /100WBC PT (9.9-13.0) SEC INR (0.9-1.1) Sodium (135-145) mmol/L Potassium (3.3-5.1) mmol/L Chloride (96-108) mmol/L Carbon Dioxide (22-29) mmol/L Anion Gap (12-20) BUN (9-16) mg/dL Creatinine (0.5-1.4) mg/dL Estim Creat Clear Calc Estimated GFR Random Glucose (60-115) mg/dL Lactic Acid 1.0 (0.5-2.0) mmol/L Calcium (8.4-10.2) mg/dL Magnesium (1.6-2.6) mg/dL Total Bilirubin (0.0-1.0) mg/dL Direct Bilirubin (0.0-0.5) mg/dL AST (5-37) U/L ALT (0-40) U/L Alkaline Phosphatase (39-117) U/L Ammonia (13-55) umol/L B-Natriuretic Peptide 79 (<100) pg/mL Total Protein (6.5-8.0) g/dL Albumin (3.5-5.0) g/dL Lipase (8-78) U/L Urine Color Urine Appearance Urine pH (5.0-8.0) Ur Specific [place] (1.005-1.025) Urine Protein (NEG-TRACE) MG/DL Urine Glucose (UA) (NEG) MG/DL Urine Ketones (NEG) MG/DL Urine Blood (NEG) Urine Nitrite (NEG) Ur Leukocyte Esterase (NEG) Urine RBC (0) /HPF Urine WBC (0-4) /HPF Ur Squamous Epith Cells /LPF Ur Renal Epithelial Cell /LPF Urine Bacteria /LPF Urine Opiates Screen (Not Detect) Urine Fentanyl Screen (Not Detect) Ur Barbiturates Screen (Not Detect) Ur Phencyclidine Scrn (Not Detect) Ur Amphetamines Screen (Not Detect) U Benzodiazepines Scrn (Not Detect) Urine Cocaine Screen (Not Detect) U Marijuana (THC) Screen (Not Detect) Ethyl Alcohol mg/dL COVID-19 (AMILCAR) (Negative) COVID-19 Clin Com 01/17/21 01/17/21 01/17/21 Range/Units 19:19 19:19 19:55 WBC (4.8-10.8) X10*3/uL RBC (4.60-5.80) X10*6/uL Hgb (14.0-18.0) g/dl Hct (42-52) % MCV (80-98) fL MCH (27.0-33.0) pg MCHC (31.0-36.0) g/dl RDW (11.0-16.0) % Plt Count (160-400) X10*3/uL MPV (9.4-12.4) fL Immature Gran % (Auto) (0.0-0.4) % Neut % (Auto) (45-73) % Lymph % (Auto) (20-40) % [place] % (Auto) (2-11) % Eos % (Auto) (0-4) % Baso % (Auto) (0-2) % Lymph # (Auto) (1.2-4.9) X10*3/uL [place] # (Auto) (0.1-1.2) X10*3/uL Eos # (Auto) (0.0-0.4) X10*3/uL Baso # (Auto) (0.0-0.2) X10*3/uL Abs Immat Gran (auto) (0.00-0.03) X10*3/uL Absolute Neuts (auto) (2.0-8.3) X10*3/uL Absolute Nucleated RBC (0.0-0.012) X10*3/uL Nucleated RBC % (auto) (0.0-0.2) /100WBC PT 22.8 H (9.9-13.0) SEC INR 2.0 H (0.9-1.1) Sodium (135-145) mmol/L Potassium (3.3-5.1) mmol/L Chloride (96-108) mmol/L Carbon Dioxide (22-29) mmol/L Anion Gap (12-20) BUN (9-16) mg/dL Creatinine (0.5-1.4) mg/dL Estim Creat Clear Calc Estimated GFR Random Glucose (60-115) mg/dL Lactic Acid (0.5-2.0) mmol/L Calcium (8.4-10.2) mg/dL Magnesium (1.6-2.6) mg/dL Total Bilirubin (0.0-1.0) mg/dL Direct Bilirubin (0.0-0.5) mg/dL AST (5-37) U/L ALT (0-40) U/L Alkaline Phosphatase (39-117) U/L Ammonia 81 H (13-55) umol/L B-Natriuretic Peptide (<100) pg/mL Total Protein (6.5-8.0) g/dL Albumin (3.5-5.0) g/dL Lipase (8-78) U/L Urine Color Urine Appearance Urine pH (5.0-8.0) Ur Specific [place] (1.005-1.025) Urine Protein (NEG-TRACE) MG/DL Urine Glucose (UA) (NEG) MG/DL Urine Ketones (NEG) MG/DL Urine Blood (NEG) Urine Nitrite (NEG) Ur Leukocyte Esterase (NEG) Urine RBC (0) /HPF Urine WBC (0-4) /HPF Ur Squamous Epith Cells /LPF Ur Renal Epithelial Cell /LPF Urine Bacteria /LPF Urine Opiates Screen (Not Detect) Urine Fentanyl Screen (Not Detect) Ur Barbiturates Screen (Not Detect) Ur Phencyclidine Scrn (Not Detect) Ur Amphetamines Screen (Not Detect) U Benzodiazepines Scrn (Not Detect) Urine Cocaine Screen (Not Detect) U Marijuana (THC) Screen (Not Detect) Ethyl Alcohol mg/dL COVID-19 (AMILCAR) Negative (Negative) COVID-19 Clin Com See Note 01/17/21 01/17/21 01/17/21 Range/Units 19:55 19:55 20:31 WBC (4.8-10.8) X10*3/uL RBC (4.60-5.80) X10*6/uL Hgb (14.0-18.0) g/dl Hct (42-52) % MCV (80-98) fL MCH (27.0-33.0) pg MCHC (31.0-36.0) g/dl RDW (11.0-16.0) % Plt Count (160-400) X10*3/uL MPV (9.4-12.4) fL Immature Gran % (Auto) (0.0-0.4) % Neut % (Auto) (45-73) % Lymph % (Auto) (20-40) % [place] % (Auto) (2-11) % Eos % (Auto) (0-4) % Baso % (Auto) (0-2) % Lymph # (Auto) (1.2-4.9) X10*3/uL [place] # (Auto) (0.1-1.2) X10*3/uL Eos # (Auto) (0.0-0.4) X10*3/uL Baso # (Auto) (0.0-0.2) X10*3/uL Abs Immat Gran (auto) (0.00-0.03) X10*3/uL Absolute Neuts (auto) (2.0-8.3) X10*3/uL Absolute Nucleated RBC (0.0-0.012) X10*3/uL Nucleated RBC % (auto) (0.0-0.2) /100WBC PT (9.9-13.0) SEC INR (0.9-1.1) Sodium 135 (135-145) mmol/L Potassium 4.2 (3.3-5.1) mmol/L Chloride 102 (96-108) mmol/L Carbon Dioxide 25 (22-29) mmol/L Anion Gap 12 (12-20) BUN 13 D (9-16) mg/dL Creatinine 0.87 (0.5-1.4) mg/dL Estim Creat Clear Calc 105.9 Estimated GFR > 60 Random Glucose 100 (60-115) mg/dL Lactic Acid (0.5-2.0) mmol/L Calcium 8.2 L D (8.4-10.2) mg/dL Magnesium 1.3 L* (1.6-2.6) mg/dL Total Bilirubin 23.8 H (0.0-1.0) mg/dL Direct Bilirubin 15.9 H (0.0-0.5) mg/dL AST 142 H (5-37) U/L ALT 57 H (0-40) U/L Alkaline Phosphatase 218 H (39-117) U/L Ammonia (13-55) umol/L B-Natriuretic Peptide (<100) pg/mL Total Protein 7.2 (6.5-8.0) g/dL Albumin 2.8 L (3.5-5.0) g/dL Lipase 157 H (8-78) U/L Urine Color ORANGE Urine Appearance CLEAR Urine pH 6.5 (5.0-8.0) Ur Specific [place] 1.010 (1.005-1.025) Urine Protein TRACE (NEG-TRACE) MG/DL Urine Glucose (UA) 100 H (NEG) MG/DL Urine Ketones NEG (NEG) MG/DL Urine Blood 1+ H (NEG) Urine Nitrite NEG (NEG) Ur Leukocyte Esterase NEG (NEG) Urine RBC 5-9 H (0) /HPF Urine WBC 0-2 (0-4) /HPF Ur Squamous Epith Cells 1+ /LPF Ur Renal Epithelial Cell TRACE /LPF Urine Bacteria TRACE /LPF Urine Opiates Screen (Not Detect) Urine Fentanyl Screen (Not Detect) Ur Barbiturates Screen (Not Detect) Ur Phencyclidine Scrn (Not Detect) Ur Amphetamines Screen (Not Detect) U Benzodiazepines Scrn (Not Detect) Urine Cocaine Screen (Not Detect) U Marijuana (THC) Screen (Not Detect) Ethyl Alcohol < 10 mg/dL COVID-19 (AMILCAR) (Negative) COVID-19 Clin Com 01/17/21 Range/Units 20:31 WBC (4.8-10.8) X10*3/uL RBC (4.60-5.80) X10*6/uL Hgb (14.0-18.0) g/dl Hct (42-52) % MCV (80-98) fL MCH (27.0-33.0) pg MCHC (31.0-36.0) g/dl RDW (11.0-16.0) % Plt Count (160-400) X10*3/uL MPV (9.4-12.4) fL Immature Gran % (Auto) (0.0-0.4) % Neut % (Auto) (45-73) % Lymph % (Auto) (20-40) % [place] % (Auto) (2-11) % Eos % (Auto) (0-4) % Baso % (Auto) (0-2) % Lymph # (Auto) (1.2-4.9) X10*3/uL [place] # (Auto) (0.1-1.2) X10*3/uL Eos # (Auto) (0.0-0.4) X10*3/uL Baso # (Auto) (0.0-0.2) X10*3/uL Abs Immat Gran (auto) (0.00-0.03) X10*3/uL Absolute Neuts (auto) (2.0-8.3) X10*3/uL Absolute Nucleated RBC (0.0-0.012) X10*3/uL Nucleated RBC % (auto) (0.0-0.2) /100WBC PT (9.9-13.0) SEC INR (0.9-1.1) Sodium (135-145) mmol/L Potassium (3.3-5.1) mmol/L Chloride (96-108) mmol/L Carbon Dioxide (22-29) mmol/L Anion Gap (12-20) BUN (9-16) mg/dL Creatinine (0.5-1.4) mg/dL Estim Creat Clear Calc Estimated GFR Random Glucose (60-115) mg/dL Lactic Acid (0.5-2.0) mmol/L Calcium (8.4-10.2) mg/dL Magnesium (1.6-2.6) mg/dL Total Bilirubin (0.0-1.0) mg/dL Direct Bilirubin (0.0-0.5) mg/dL AST (5-37) U/L ALT (0-40) U/L Alkaline Phosphatase (39-117) U/L Ammonia (13-55) umol/L B-Natriuretic Peptide (<100) pg/mL Total Protein (6.5-8.0) g/dL Albumin (3.5-5.0) g/dL Lipase (8-78) U/L Urine Color Urine Appearance Urine pH (5.0-8.0) Ur Specific [place] (1.005-1.025) Urine Protein (NEG-TRACE) MG/DL Urine Glucose (UA) (NEG) MG/DL Urine Ketones (NEG) MG/DL Urine Blood (NEG) Urine Nitrite (NEG) Ur Leukocyte Esterase (NEG) Urine RBC (0) /HPF Urine WBC (0-4) /HPF Ur Squamous Epith Cells /LPF Ur Renal Epithelial Cell /LPF Urine Bacteria /LPF Urine Opiates Screen Not Detected (Not Detect) Urine Fentanyl Screen Not Detected (Not Detect) Ur Barbiturates Screen Not Detected (Not Detect) Ur Phencyclidine Scrn Not Detected (Not Detect) Ur Amphetamines Screen Not Detected (Not Detect) U Benzodiazepines Scrn Not Detected (Not Detect) Urine Cocaine Screen Not Detected (Not Detect) U Marijuana (THC) Screen POSITIVE H (Not Detect) Ethyl Alcohol mg/dL COVID-19 (AMILCAR) (Negative) COVID-19 Clin Com Imaging Data CT scan - abdomen: Attestation: I personally reviewed and interpreted this imaging study as follows: Radiologist's impression: FINDINGS: LUNG BASES: The visualized lung bases are unremarkable.? LIVER, GALLBLADDER, AND BILIARY TREE: Advanced liver cirrhosis with contracted appearance and severely nodular surface contour, better seen and characterized on MRI. No definite focal liver lesions are seen although again, this is better seen on MRI. No intrahepatic biliary dilatation. The gallbladder is under distended. Gallbladder wall thickening, similar to the prior CT and likely related to underlying liver disease.? PANCREAS: Unremarkable.? SPLEEN: Splenomegaly, similar to the prior study. No focal? ADRENAL GLANDS: Splenic lesions.? KIDNEYS AND URETERS: The kidneys are normal in size, shape, and attenuation. No hydronephrosis, hydroureter, or calculi seen. No perinephric stranding. Left renal cyst, similar to the prior study. BLADDER: The bladder is under distended which limits assessment.? GASTROINTESTINAL TRACT: The small and large bowel are unremarkable. The appendix is unremarkable.? ABDOMINAL WALL: No significant hernia is appreciated. Trace abdominal ascites. LYMPH NODES: No lymphadenopathy within the abdomen or pelvis by CT criteria. VASCULAR: Large predominantly esophageal varices. Splenorenal shunt. No abdominal aortic aneurysm. The IVC is singular and right-sided. PELVIC VISCERA: Unremarkable.? OSSEOUS STRUCTURES: No acute or suspicious osseous abnormality.? CT/CT abdomen pelvis w con IMPRESSION: ? 1. No evidence of acute change within the abdomen or pelvis. 2. Advanced liver cirrhosis with severe fibrosis and capsular retraction is seen on MRI. 3. Evidence of portal hypertension: Severe esophageal predominant varices. Splenorenal shunt. Splenomegaly. Trace ascites.? ECG Data Attestation: I personally reviewed and interpreted this ECG as follows: ECG interpretation date: 01/17/21 ECG interpretation time: 19:34 Interpretation: Sinus rhythm, right bundle branch block Discharge Plan Discharge Clinical Impression: Cirrhosis of liver, Thrombocytopenia, Coagulopathy, Increased ammonia level, Hypomagnesemia Patient Disposition: Admitted As Inpatient
[2021-01-17 19:27] LABS: MANUAL DIFF FLAG NO
[2021-01-17 19:31] LABS: Basophils Percent Auto 0.3 % (0-2); Eosinophils Absolute Auto 0.2 X10*3/uL (0.0-0.4); Eosinophils Percent Auto 2.4 % (0-4); Hematocrit 39.3 % (42-52); Hemoglobin 13.8 g/dl (14.0-18.0); Imm Gran Abs Auto 0.13 X10*3/uL (0.00-0.03); Lymphocytes Absolute Auto 0.8 X10*3/uL (1.2-4.9); Lymphocytes Percent Auto 12.4 % (20-40); Mean Corpuscular HGB Conc 35.1 g/dl (31.0-36.0); Mean Corpuscular Hemoglobin 33.3 pg (27.0-33.0); Mean Corpuscular Volume 94.9 fL (80-98); Mean Platelet Volume 12.6 fL (9.4-12.4); Monocytes Absolute Auto 0.6 X10*3/uL (0.1-1.2); Monocytes Percent Auto 9.4 % (2-11); Neutrophils Absolute Auto 4.9 X10*3/uL (2.0-8.3); Neutrophils Percent Auto 73.5 % (45-73); Red Blood Count 4.14 X10*6/uL (4.60-5.80); Red Cell Distribution Width 19.3 % (11.0-16.0); White Blood Count 6.6 X10*3/uL (4.8-10.8)
[2021-01-17] MEDS: cefTRIAXone sodium 1 GM in 0.9 % Sodium Chloride 50 ML IV (19:31)
[2021-01-17 19:33] LABS: Platelet Count 64 X10*3/uL (160-400)
[2021-01-17 19:37] VITALS: BP 117/62; PULSE 79; RESP 18; TEMP 37.1; O2SAT 95
[2021-01-17 19:44] LABS: Ammonia 81 umol/L (13-55); COVID-19 Test Negative (Negative); IDNOW Serial# 9DD0AD1C
[2021-01-17 20:09] LABS: Prothrombin Time 22.8 SEC (9.9-13.0)
[2021-01-17 20:22] LABS: Ethanol < 10 mg/dL
[2021-01-17] MEDS: Morphine Sulfate 4 MG/ML CARTRIDGE IVPUSH (20:28)
[2021-01-17 20:31] VITALS: BP 126/70; PULSE 80; RESP 16; O2SAT 95
[2021-01-17 20:41] LABS: Glucose Urine UA 100 MG/DL (NEG); Leukocyte Esterase Urine NEG (NEG); Nitrite Urine NEG (NEG); PH 6.5 (5.0-8.0); UACC Culture Trigger NO; Urine Blood 1+ (NEG); Urine Ketones NEG (NEG); Urine Protein TRACE MG/DL (NEG-TRACE)
[2021-01-17 20:42] LABS: Appearance Urine CLEAR; Color Urine ORANGE
[2021-01-17 20:47] LABS: Alanine Aminotransferase 57 U/L (0-40); Albumin Level 2.8 g/dL (3.5-5.0); Alkaline Phosphatase 218 U/L (39-117); Anion Gap 12 (12-20); Aspartate Amino Transferase 142 U/L (5-37); Bilirubin Direct 15.9 mg/dL (0.0-0.5); Bilirubin Total 23.8 mg/dL (0.0-1.0); Blood Urea Nitrogen 13 mg/dL (9-16); Calcium 8.2 mg/dL (8.4-10.2); Carbon Dioxide 25 mmol/L (22-29); Chloride 102 mmol/L (96-108); Creatinine Clr Calc Pharmacy 105.9; Estimated Glomerular Filt Rate > 60; Glucose Random 100 mg/dL (60-115); Lipase 157 U/L (8-78); Magnesium 1.3 mg/dL (1.6-2.6); Potassium 4.2 mmol/L (3.3-5.1); Sodium 135 mmol/L (135-145); Total Protein 7.2 g/dL (6.5-8.0)
[2021-01-17 20:49] LABS: B Type Natriuretic Peptide 79 pg/mL (<100)
[2021-01-17 20:51] LABS: Bacteria Urine TRACE /LPF; Renal Epithelial Cells Urine TRACE /LPF; Squamous Epithelial Cell Urine 1+ /LPF; WBC Urine 0-2 /HPF (0-4)
[2021-01-17 21:03] LABS: Amphetamine Screen Urine Not Detected (Not Detect); Barbiturates, Urine Not Detected (Not Detect); Benzodiazepines Screen Urine Not Detected (Not Detect); Cannabinoid Screen Urine POSITIVE (Not Detect); Cocaine Screen Urine Not Detected (Not Detect); Fentanyl, urine Not Detected (Not Detect); Opiate Screen Urine Not Detected (Not Detect); Phencyclidine Screen Urine Not Detected (Not Detect)
[2021-01-17] MEDS: iohexoL 350 MG/ML 100 ML INFUS..BTL IV (21:04)
[2021-01-17] MEDS: Magnesium Sulfate/H2O 2 GM/50 ML PIGGYBACK IV (21:09)
[2021-01-17] MEDS: Lactulose 20 GM/30 ML SOLUTION PO (21:34)
--- NOTE | 2021-01-17 22:29 | P.HPHOSP_ITS ---
History of Present Illness Date of Service: 01/17/21 Chief Complaint: Abnormal labs This is a 60-year-old male with past medical history of liver cirrhosis secondary to hepatitis C secondary to blood transfusion, treated, alcohol abuse, among others (see below), who presents to the hospital with abnormal labs. Monika martínez was discharged from the hospital in December after being managed for symptoms of fluid overload secondary to decompensated cirrhosis. At that time his primary care physician continue to follow his liver function and today he had labs done found to have elevated bilirubin and therefore sent to the hospital. Patient himself reports epigastric pain as well as lower back pain. The epigastric discomfort started today, associated with some nausea, no vomit. His reports that she did notice his eyes were starting to get yellow for about a week now, in regards to the yellowing of his skin they both noticed today. He denies any abdominal pain, no fever or chills, no diarrhea constipation, no urinary symptoms. No lower extremity edema. He denies any chest pain, no shortness of breath, no headache or change in vision. Vitals on arrival reviewed, no significant abnormality Labs are significant for 6.6, hemoglobin of 14.7, PT of 22, INR of 2.0, Mag of 1.3, with total bilirubin of 23.8 which was 3.8 on 12/27, 15.9, AST of 142, ALT of 57, alk-phos of 218, ammonia of 81, BNP of 79, albumin of 2.8, UA positive for blood and RBC, UDS positive for marijuana. Alcohol level less than 10. Patient reports that the last time he drank was prior to his last admission which was December 17. Patient was discussed with Gastroenterology, recommended starting him on steroids and admit for further management Review of Systems Review of Systems: Yes all other systems are reviewed and are negative [facility] Medical History Aortic valve calcification Asthma Bladder cancer Cervical radiculopathy Cirrhosis of liver Decompensation of cirrhosis of liver Dyslipidemia Esophageal varices without bleeding ETOH abuse Gout Hepatitis C HTN (hypertension) Left ventricular hypertrophy Leukopenia Microalbuminuria Opioid abuse Osteoarthritis Pericarditis Portal hypertension Portal vein thrombosis RBBB Sacroiliitis Small bowel obstruction Smoker Thrombocytopenia Family History Father Liver failure ETOHism Mother Lung cancer Brain cancer Sister No problems noted. Son No problems noted. Son No problems noted. Surgical History H/O repair of patent ductus arteriosus History of bladder surgery History of cervical discectomy History of patent ductus arteriosus History of right inguinal hernia Testicular lesion Social History Household Members: Spouse Housing: House Do you presently have visiting nurse or other home services: No Alcohol intake: current Patient Tobacco Use Status: Current everyday Tobacco user Tobacco use type: Cigarette Cigarette Packs Per Day: 0.5 Cigarettes Per Day: 20 Years Smoked: 30 Smoked in Last 30 Days: Yes Patient Interested in Nicotine Replacement: No Second Hand Smoke Exposure: Yes Use of substances other than those prescribed or required for medical reasons: No Currently Displaying Signs/Symptoms of Drug Intoxication Withdrawal: No Have you been hit, kicked, punched, or otherwise hurt by someone within the past year? If so, by whom?: No Do you feel safe in your current relationship?: Yes Is there a partner from a previous relationship who is making you feel unsafe now?: No Are you made to feel afraid or neglected: No Advance Directives: No Advance Directives Information Provided: No Do you have thoughts of harming others: None Do you have a plan to hurt others: No Plan Recently lost weight without trying: No Nutrition Risks: No Nutritional Risk Poor oral hygiene: No service: No Current occupational status: employed and unemployed Meds Allergies Allergy/AdvReac Type Severity Reaction Status Date / Time ibuprofen Allergy Unknown low Verified 01/16/21 18:08 plateletes aspirin [ASA] AdvReac Intermediate BLEEDING Verified 01/16/21 18:08 NSAIDS (Non-Steroidal AdvReac Intermediate BLEEDING Verified 01/16/21 18:08 Anti-Inflamma [NSAIDS (NON-STEROIDAL ANTI-INFLAMMA] Active Medications: Current Medications Generic Name Dose Route Start Last Admin Trade Name Freq PRN Reason Stop Dose Admin Magnesium Sulfate 2 gm in 50 mls @ 25 mls/hr 01/17/21 20:48 01/17/21 21:09 Magnesium Sulfate/H2o IV 01/17/21 22:47 25 mls/hr ONCE ONE Administration Lidocaine 1 patch 01/18/21 09:00 Lidocaine 4 % Patch Adh..Patch TRANSDERMA DAILY [facility] Protocol Pharmacy Consult 1 each 01/17/21 19:03 Consult Rx Perform Med Rec MISCELLANE ONCE PRN Consult order Physical Exam Vital Signs and Narrative: Vital Signs: Last Vital Signs Temp 98.7 F 01/17/21 19:37 Pulse 80 01/17/21 20:31 Resp 16 01/17/21 20:31 BP 126/70 01/17/21 20:31 Pulse Ox 95 01/17/21 20:31 Body Mass Index 30.1 Const: Other: No confusion, alert and oriented x3, answers questions appro priately General: cooperative and no acute distress Orientation/consciousness: patient oriented x3 Eyes: Other: Sclera icterus Resp: Effort & Inspection: normal respiratory effort and able to speak in complete sentences Auscultation: clear to auscultation bilaterally Cardio: Rate: regular rate Rhythm: regular rhythm GI: Palpation (GI): Soft to palpation Auscultation: normal bowel sounds Skin: Other: Jaundiced General skin exam: no rashes or lesions noted Neuro: General: patient oriented x3 Cognition (Neuro): normal cognition Extrem: General: Yes normal to inspection and Yes no pedal edema Results Labs CBC and Chem 7: 01/17/21 19:19 01/17/21 19:55 Labs: Laboratory Results - last 24 hr 01/17/21 01/17/21 01/17/21 19:19 19:19 19:19 MCV 94.9 MCH 33.3 H MCHC 35.1 RDW 19.3 H Plt Count 64 L MPV 12.6 H Immature Gran % (Auto) 2.0 H Neut % (Auto) 73.5 H Lymph % (Auto) 12.4 L [place] % (Auto) 9.4 Eos % (Auto) 2.4 Baso % (Auto) 0.3 Lymph # (Auto) 0.8 L [place] # (Auto) 0.6 Eos # (Auto) 0.2 Baso # (Auto) 0.0 Abs Immat Gran (auto) 0.13 H Absolute Neuts (auto) 4.9 Absolute Nucleated RBC 0.000 Nucleated RBC % (auto) 0.0 PT INR Anion Gap Estim Creat Clear Calc Estimated GFR Random Glucose Lactic Acid 1.0 Calcium Magnesium Total Bilirubin Direct Bilirubin AST ALT Alkaline Phosphatase Ammonia B-Natriuretic Peptide 79 Total Protein Albumin Lipase Urine Color Urine Appearance Urine pH Ur Specific [place] Urine Protein Urine Glucose (UA) Urine Ketones Urine Blood Urine Nitrite Ur Leukocyte Esterase Urine RBC Urine WBC Ur Squamous Epith Cells Ur Renal Epithelial Cell Urine Bacteria Urine Opiates Screen Urine Fentanyl Screen Ur Barbiturates Screen Ur Phencyclidine Scrn Ur Amphetamines Screen U Benzodiazepines Scrn Urine Cocaine Screen U Marijuana (THC) Screen Ethyl Alcohol COVID-19 (AMILCAR) COVID-19 Clin Com 01/17/21 01/17/21 01/17/21 19:19 19:19 19:55 MCV MCH MCHC RDW Plt Count MPV Immature Gran % (Auto) Neut % (Auto) Lymph % (Auto) [place] % (Auto) Eos % (Auto) Baso % (Auto) Lymph # (Auto) [place] # (Auto) Eos # (Auto) Baso # (Auto) Abs Immat Gran (auto) Absolute Neuts (auto) Absolute Nucleated RBC Nucleated RBC % (auto) PT 22.8 H INR 2.0 H Anion Gap Estim Creat Clear Calc Estimated GFR Random Glucose Lactic Acid Calcium Magnesium Total Bilirubin Direct Bilirubin AST ALT Alkaline Phosphatase Ammonia 81 H B-Natriuretic Peptide Total Protein Albumin Lipase Urine Color Urine Appearance Urine pH Ur Specific [place] Urine Protein Urine Glucose (UA) Urine Ketones Urine Blood Urine Nitrite Ur Leukocyte Esterase Urine RBC Urine WBC Ur Squamous Epith Cells Ur Renal Epithelial Cell Urine Bacteria Urine Opiates Screen Urine Fentanyl Screen Ur Barbiturates Screen Ur Phencyclidine Scrn Ur Amphetamines Screen U Benzodiazepines Scrn Urine Cocaine Screen U Marijuana (THC) Screen Ethyl Alcohol COVID-19 (AMILCAR) Negative COVID-19 Clin Com See Note 01/17/21 01/17/21 01/17/21 19:55 19:55 20:31 MCV MCH MCHC RDW Plt Count MPV Immature Gran % (Auto) Neut % (Auto) Lymph % (Auto) [place] % (Auto) Eos % (Auto) Baso % (Auto) Lymph # (Auto) [place] # (Auto) Eos # (Auto) Baso # (Auto) Abs Immat Gran (auto) Absolute Neuts (auto) Absolute Nucleated RBC Nucleated RBC % (auto) PT INR Anion Gap 12 Estim Creat Clear Calc 105.9 Estimated GFR > 60 Random Glucose 100 Lactic Acid Calcium 8.2 L D Magnesium 1.3 L* Total Bilirubin 23.8 H Direct Bilirubin 15.9 H AST 142 H ALT 57 H Alkaline Phosphatase 218 H Ammonia B-Natriuretic Peptide Total Protein 7.2 Albumin 2.8 L Lipase 157 H Urine Color ORANGE Urine Appearance CLEAR Urine pH 6.5 Ur Specific [place] 1.010 Urine Protein TRACE Urine Glucose (UA) 100 H Urine Ketones NEG Urine Blood 1+ H Urine Nitrite NEG Ur Leukocyte Esterase NEG Urine RBC 5-9 H Urine WBC 0-2 Ur Squamous Epith Cells 1+ Ur Renal Epithelial Cell TRACE Urine Bacteria TRACE Urine Opiates Screen Urine Fentanyl Screen Ur Barbiturates Screen Ur Phencyclidine Scrn Ur Amphetamines Screen U Benzodiazepines Scrn Urine Cocaine Screen U Marijuana (THC) Screen Ethyl Alcohol < 10 COVID-19 (AMILCAR) COVID-19 [employer] 01/17/21 20:31 MCV MCH MCHC RDW Plt Count MPV Immature Gran % (Auto) Neut % (Auto) Lymph % (Auto) [place] % (Auto) Eos % (Auto) Baso % (Auto) Lymph # (Auto) [place] # (Auto) Eos # (Auto) Baso # (Auto) Abs Immat Gran (auto) Absolute Neuts (auto) Absolute Nucleated RBC Nucleated RBC % (auto) PT INR Anion Gap Estim Creat Clear Calc Estimated GFR Random Glucose Lactic Acid Calcium Magnesium Total Bilirubin Direct Bilirubin AST ALT Alkaline Phosphatase Ammonia B-Natriuretic Peptide Total Protein Albumin Lipase Urine Color Urine Appearance Urine pH Ur Specific [place] Urine Protein Urine Glucose (UA) Urine Ketones Urine Blood Urine Nitrite Ur Leukocyte Esterase Urine RBC Urine WBC Ur Squamous Epith Cells Ur Renal Epithelial Cell Urine Bacteria Urine Opiates Screen Not Detected Urine Fentanyl Screen Not Detected Ur Barbiturates Screen Not Detected Ur Phencyclidine Scrn Not Detected Ur Amphetamines Screen Not Detected U Benzodiazepines Scrn Not Detected Urine Cocaine Screen Not Detected U Marijuana (THC) Screen POSITIVE H Ethyl Alcohol COVID-19 (AMILCAR) COVID-19 Clin Com ECG Interpretation: Sinus rhythm with Frequent APC Right bundle branch block which is old, left anterior fascicular block, Imaging Radiologist's Impressions: Impressions Abdomen/Pelvis CT 01/17/21 19:02 IMPRESSION: 1. No evidence of acute change within the abdomen or pelvis. 2. Advanced liver cirrhosis with severe fibrosis and capsular retraction is seen on MRI. 3. Evidence of portal hypertension: Severe esophageal predominant varices. Splenorenal shunt. Splenomegaly. Trace ascites. Assessment and Plan (1) Decompensated hepatic cirrhosis: Status: Acute (2) Increased ammonia level: Status: Acute (3) Hypomagnesemia: Status: Acute (4) Hyperbilirubinemia: Status: Acute (5) Coagulopathy: Status: Acute (6) Coagulopathy: Status: Acute 60-year-old male with past medical history of hepatitis-C secondary to blood transfusion treated, liver cirrhosis as a result, worsened by alcohol abuse, who presents to the hospital with complaints of abnormal labs. Found to have hyperbilirubinemia on routine labs done by his PCP # decompensated liver cirrhosis - patient has significantly elevated bilirubin, elevated AST, ALT, jaundice skin -has hyperammonemia with no confusion or change in mental status - meddry score of 70 - at this time will start him on prednisone 40 mg daily - continue furosemide, spironolactone, - no evidence or concern for SBP - gastroenterology consulted # hypomagnesemia - repleted - follow Mag level # hyperammonemia - no confusion, no change in mental status - received lactulose in the ED - will continue lactulose 1 dose daily - per GI ammonia can be just monitored if patient has no change in mental status # hyperbilirubinemia - secondary to decompensated liver failure - follow BMP # coagulopathy/thrombocytopenia - secondary to liver failure - no acute bleed - avoid NSAIDs, aspirin, anticoagulation at this time DVT prophylaxis: SCDs Quality Stroke Does the patient have a stroke diagnosis?: No VTE Prior VTE?: No VTE Risk Level:: Medical - moderate - high VTE Device Contraindication: N/A - Device Ordered VTE Drug Contraindication: Treatment Not Indicated
--- NOTE | 2021-01-17 22:32 | MHC.CM.PN ---
CM met with admitted patient, with bed assignment pending. HCP reviewed, completed and signed. HCP/ Donna Marley ([phone]). Uploaded into [employer]. Pt is independent. Lives with . Uses no DME and has no services. D/C plan is home without services. Pt is agreeable to [facility] if necessary. Transportation home provided by his . CM to follow for d/c needs.
[2021-01-17] MEDS: diphenhydrAMINE HCL 50 MG/ML VIAL 25 MG IVPUSH (22:38)
[2021-01-17 22:40] VITALS: BP 119/63; PULSE 72; RESP 16; O2SAT 98
[2021-01-17] MEDS: Acetaminophen 325 MG TABLET 650 MG PO (23:28)
[2021-01-18] VITALS (8 sets, daily range): BP systolic 107–124; BP diastolic 50–64; PULSE 59–79; RESP 18–20; TEMP 36–37.1; O2SAT 94–95
[2021-01-18] MEDS: 0.9 % Sodium Chloride Flush 3 ML SYRINGE IVFLUSH ×4 (01:21→20:05)
[2021-01-18] MEDS: oxyCODONE HCl Immed Release 5 MG TABLET PO ×3 (04:26→20:04)
[2021-01-18] MEDS: Omeprazole 20 MG CAPSULE.DR PO (05:31)
[2021-01-18 06:15] LABS: MANUAL DIFF FLAG NO
[2021-01-18 06:22] LABS: Basophils Percent Auto 0.6 % (0-2); Eosinophils Absolute Auto 0.2 X10*3/uL (0.0-0.4); Eosinophils Percent Auto 3.7 % (0-4); Hematocrit 36.1 % (42-52); Hemoglobin 12.7 g/dl (14.0-18.0); Imm Gran Abs Auto 0.17 X10*3/uL (0.00-0.03); Imm Gran Pct Auto 2.6 % (0.0-0.4); Lymphocytes Absolute Auto 1.1 X10*3/uL (1.2-4.9); Lymphocytes Percent Auto 16.6 % (20-40); Mean Corpuscular HGB Conc 35.2 g/dl (31.0-36.0); Mean Corpuscular Hemoglobin 33.2 pg (27.0-33.0); Mean Corpuscular Volume 94.5 fL (80-98); Mean Platelet Volume 12.2 fL (9.4-12.4); Monocytes Absolute Auto 0.6 X10*3/uL (0.1-1.2); Monocytes Percent Auto 9.5 % (2-11); Neutrophils Absolute Auto 4.4 X10*3/uL (2.0-8.3); Red Blood Count 3.82 X10*6/uL (4.60-5.80); Red Cell Distribution Width 19.2 % (11.0-16.0); White Blood Count 6.5 X10*3/uL (4.8-10.8)
[2021-01-18 06:33] LABS: Platelet Count 54 X10*3/uL (160-400)
[2021-01-18 06:47] LABS: Anion Gap 10 (12-20); Blood Urea Nitrogen 13 mg/dL (9-16); Calcium 7.8 mg/dL (8.4-10.2); Carbon Dioxide 26 mmol/L (22-29); Chloride 102 mmol/L (96-108); Creatinine Clr Calc Pharmacy 101.2; Estimated Glomerular Filt Rate > 60; Glucose Random 101 mg/dL (60-115); Potassium 3.6 mmol/L (3.3-5.1); Sodium 134 mmol/L (135-145)
[2021-01-18] MEDS: Lactulose 20 GM/30 ML SOLUTION PO (08:26)
[2021-01-18] MEDS: nadoloL 20 MG TABLET PO (08:27)
[2021-01-18] MEDS: predniSONE 20 MG TABLET 40 MG PO (08:27)
[2021-01-18] MEDS: Lidocaine 4 % Patch ADH..PATCH 1 PATCH TRANSDERMA (08:27)
[2021-01-18] MEDS: Magnesium Oxide 400 MG TABLET PO ×2 (08:27→17:19)
[2021-01-18] MEDS: Spironolactone 25 MG TABLET 50 MG PO ×2 (08:27→20:03)
[2021-01-18] MEDS: Furosemide 20 MG TABLET PO ×2 (08:27→17:19)
[2021-01-18 08:55] LABS: Magnesium 1.8 mg/dL (1.6-2.6)
[2021-01-18 11:23] LABS: Alanine Aminotransferase 50 U/L (0-40); Albumin Level 2.5 g/dL (3.5-5.0); Alkaline Phosphatase 196 U/L (39-117); Aspartate Amino Transferase 122 U/L (5-37); Total Protein 6.4 g/dL (6.5-8.0)
[2021-01-18 11:32] LABS: Bilirubin Total 22.5 mg/dL (0.0-1.0)
[2021-01-18 11:37] LABS: Bilirubin Direct 14.7 mg/dL (0.0-0.5)
--- NOTE | 2021-01-18 13:52 | MHC.CLN ---
NUTRITION VISITED WITH PATIENT REGARDING WEIGHT LOSS. 12/1797=267 KG; 01/17=95.3 KG. WEIGHT LOSS X 1 MONTH=-16.4%. PATIENT STATED THAT HAD FLUID OVERLOAD AT PRIOR ADMISSION AND WAS STARTED ON LASIX/DIURESED. CONTINUES WITH LASIX. SIGNIFICANT WEIGHT LOSS DEEMED PLANNED, FAVORABLE WEIGHT LOSS. REPORTS THAT HE IS EATING VERY WELL/APPETITE IS VERY GOOD. AMMONIA=81 AND TAKING LACTULOSE.
--- NOTE | 2021-01-18 13:54 | HO.PM.IMPN ---
Subjective Subjective Date of Service: 01/18/21 Interval History: Jaundiced No confusion No hematemesis, hematochezia, or melena No abd distension or edema No tremors Review of Systems Review of Systems: Yes all other systems are reviewed and are negative Physical Exam Vital Signs: Vital Signs: Last Vital Signs Temp 96.8 F 01/18/21 12:00 Pulse 66 01/18/21 12:00 Resp 18 01/18/21 12:00 BP 111/56 L 01/18/21 12:00 Pulse Ox 94 01/18/21 12:00 Body Mass Index 30.1 Gen: in no acute distress HEENT: sclera icteric, moist mucus membranes Neck: supple Lungs: clear to auscultation bilaterally Heart: regular rate and rhythm, no murmurs Abd: soft, non-tender, non-distended Ext: no edema Skin: jaundiced Neuro: alert and oriented x3, no focal findings, no asterixis Psych: appropriate affect Objective Data Current Medications Generic Name Dose Route Start Last Admin Trade Name Cristianq PRN Reason Stop Dose Admin Acetaminophen 650 mg 01/17/21 22:55 01/17/21 23:28 Acetaminophen 325 Mg Tablet PO 650 mg Q12H PRN Administration Pain, Mild (Pain Scale 1-3) Albuterol Sulfate 2 puff 01/17/21 22:55 Albuterol Sulfate 90 Mcg 8 Gm Inhaler INHALE Q6H PRN shortness of breath or wheezing Furosemide 20 mg 01/18/21 09:00 01/18/21 08:27 Furosemide 20 Mg Tablet PO 20 mg BID@0900,1800 KARLA Administration Protocol Lactulose 20 gm 01/18/21 09:00 01/18/21 08:26 Lactulose 20 Gm/30 Ml Solution PO 20 gm DAILY KARLA Administration Lidocaine 1 patch 01/18/21 09:00 01/18/21 08:27 Lidocaine 4 % Patch Adh..Patch TRANSDERMA 1 patch DAILY KARLA Administration Protocol Magnesium Oxide 400 mg 01/18/21 08:30 01/18/21 08:27 Magnesium Oxide 400 Mg Tablet PO 400 mg BIDPC KARLA Administration Nadolol 20 mg 01/18/21 09:00 01/18/21 08:27 Nadolol 20 Mg Tablet PO 20 mg DAILY KARLA Administration Protocol Omeprazole 20 mg 01/18/21 06:30 01/18/21 05:31 Omeprazole 20 Mg Capsule.Dr PO 20 mg DAILY@0630 KARLA Administration Ondansetron HCl 4 mg 01/17/21 22:55 Ondansetron Hcl 4 Mg/2 Ml Vial IVPUSH Q8H PRN Nausea and Vomiting Oxycodone HCl 5 mg 01/18/21 12:55 Oxycodone Hcl Immed Release 5 Mg Tablet PO Q6H PRN severe pain Pharmacy Consult 1 each 01/17/21 19:03 Consult Rx Perform Med Rec MISCELLANE ONCE PRN Consult order Prednisone 40 mg 01/18/21 09:00 01/18/21 08:27 Prednisone 20 Mg Tablet PO 40 mg DAILY KARLA Administration Sodium Chloride 3 ml 01/18/21 00:00 01/18/21 08:28 0.9 % Sodium Chloride Flush 3 Ml Syringe IVFLUSH 3 ml QSHIFT KARLA Administration Spironolactone 50 mg 01/18/21 09:00 01/18/21 08:27 Spironolactone 25 Mg Tablet PO 50 mg BID KARLA Administration Protocol Labs CBC & Chem 7: 01/18/21 05:48 01/18/21 05:48 Labs: Laboratory Results - last 24 hr 01/17/21 01/17/21 01/17/21 19:19 19:19 19:19 MCV 94.9 MCH 33.3 H MCHC 35.1 RDW 19.3 H Plt Count 64 L MPV 12.6 H Immature Gran % (Auto) 2.0 H Neut % (Auto) 73.5 H Lymph % (Auto) 12.4 L [place] % (Auto) 9.4 Eos % (Auto) 2.4 Baso % (Auto) 0.3 Lymph # (Auto) 0.8 L [place] # (Auto) 0.6 Eos # (Auto) 0.2 Baso # (Auto) 0.0 Abs Immat Gran (auto) 0.13 H Absolute Neuts (auto) 4.9 Absolute Nucleated RBC 0.000 Nucleated RBC % (auto) 0.0 PT INR Anion Gap Estim Creat Clear Calc Estimated GFR Random Glucose Lactic Acid 1.0 Calcium Magnesium Total Bilirubin Direct Bilirubin AST ALT Alkaline Phosphatase Ammonia B-Natriuretic Peptide 79 Total Protein Albumin Lipase Urine Color Urine Appearance Urine pH Ur Specific [place] Urine Protein Urine Glucose (UA) Urine Ketones Urine Blood Urine Nitrite Ur Leukocyte Esterase Urine RBC Urine WBC Ur Squamous Epith Cells Ur Renal Epithelial Cell Urine Bacteria Urine Opiates Screen Urine Fentanyl Screen Ur Barbiturates Screen Ur Phencyclidine Scrn Ur Amphetamines Screen U Benzodiazepines Scrn Urine Cocaine Screen U Marijuana (THC) Screen Ethyl Alcohol COVID-19 (AMILCAR) COVID-19 Clin Com 01/17/21 01/17/21 01/17/21 19:19 19:19 19:55 MCV MCH MCHC RDW Plt Count MPV Immature Gran % (Auto) Neut % (Auto) Lymph % (Auto) [place] % (Auto) Eos % (Auto) Baso % (Auto) Lymph # (Auto) [place] # (Auto) Eos # (Auto) Baso # (Auto) Abs Immat Gran (auto) Absolute Neuts (auto) Absolute Nucleated RBC Nucleated RBC % (auto) PT 22.8 H INR 2.0 H Anion Gap Estim Creat Clear Calc Estimated GFR Random Glucose Lactic Acid Calcium Magnesium Total Bilirubin Direct Bilirubin AST ALT Alkaline Phosphatase Ammonia 81 H B-Natriuretic Peptide Total Protein Albumin Lipase Urine Color Urine Appearance Urine pH Ur Specific [place] Urine Protein Urine Glucose (UA) Urine Ketones Urine Blood Urine Nitrite Ur Leukocyte Esterase Urine RBC Urine WBC Ur Squamous Epith Cells Ur Renal Epithelial Cell Urine Bacteria Urine Opiates Screen Urine Fentanyl Screen Ur Barbiturates Screen Ur Phencyclidine Scrn Ur Amphetamines Screen U Benzodiazepines Scrn Urine Cocaine Screen U Marijuana (THC) Screen Ethyl Alcohol COVID-19 (AMILCAR) Negative COVID-19 Clin Com See Note 01/17/21 01/17/21 01/17/21 19:55 19:55 20:31 MCV MCH MCHC RDW Plt Count MPV Immature Gran % (Auto) Neut % (Auto) Lymph % (Auto) [place] % (Auto) Eos % (Auto) Baso % (Auto) Lymph # (Auto) [place] # (Auto) Eos # (Auto) Baso # (Auto) Abs Immat Gran (auto) Absolute Neuts (auto) Absolute Nucleated RBC Nucleated RBC % (auto) PT INR Anion Gap 12 Estim Creat Clear Calc 105.9 Estimated GFR > 60 Random Glucose 100 Lactic Acid Calcium 8.2 L D Magnesium 1.3 L* Total Bilirubin 23.8 H Direct Bilirubin 15.9 H AST 142 H ALT 57 H Alkaline Phosphatase 218 H Ammonia B-Natriuretic Peptide Total Protein 7.2 Albumin 2.8 L Lipase 157 H Urine Color ORANGE Urine Appearance CLEAR Urine pH 6.5 Ur Specific [place] 1.010 Urine Protein TRACE Urine Glucose (UA) 100 H Urine Ketones NEG Urine Blood 1+ H Urine Nitrite NEG Ur Leukocyte Esterase NEG Urine RBC 5-9 H Urine WBC 0-2 Ur Squamous Epith Cells 1+ Ur Renal Epithelial Cell TRACE Urine Bacteria TRACE Urine Opiates Screen Urine Fentanyl Screen Ur Barbiturates Screen Ur Phencyclidine Scrn Ur Amphetamines Screen U Benzodiazepines Scrn Urine Cocaine Screen U Marijuana (THC) Screen Ethyl Alcohol < 10 COVID-19 (AMILCAR) COVID-19 [employer] Com 01/17/21 01/18/21 01/18/21 20:31 05:48 05:48 MCV 94.5 MCH 33.2 H MCHC 35.2 RDW 19.2 H Plt Count 54 L MPV 12.2 Immature Gran % (Auto) 2.6 H Neut % (Auto) 67.0 Lymph % (Auto) 16.6 L [place] % (Auto) 9.5 Eos % (Auto) 3.7 Baso % (Auto) 0.6 Lymph # (Auto) 1.1 L [place] # (Auto) 0.6 Eos # (Auto) 0.2 Baso # (Auto) 0.0 Abs Immat Gran (auto) 0.17 H Absolute Neuts (auto) 4.4 Absolute Nucleated RBC 0.000 Nucleated RBC % (auto) 0.0 PT INR Anion Gap 10 L Estim Creat Clear Calc 101.2 Estimated GFR > 60 Random Glucose 101 Lactic Acid Calcium 7.8 L Magnesium 1.8 Total Bilirubin 22.5 H Direct Bilirubin 14.7 H AST 122 H ALT 50 H Alkaline Phosphatase 196 H Ammonia B-Natriuretic Peptide Total Protein 6.4 L Albumin 2.5 L Lipase Urine Color Urine Appearance Urine pH Ur Specific [place] Urine Protein Urine Glucose (UA) Urine Ketones Urine Blood Urine Nitrite Ur Leukocyte Esterase Urine RBC Urine WBC Ur Squamous Epith Cells Ur Renal Epithelial Cell Urine Bacteria Urine Opiates Screen Not Detected Urine Fentanyl Screen Not Detected Ur Barbiturates Screen Not Detected Ur Phencyclidine Scrn Not Detected Ur Amphetamines Screen Not Detected U Benzodiazepines Scrn Not Detected Urine Cocaine Screen Not Detected U Marijuana (THC) Screen POSITIVE H Ethyl Alcohol COVID-19 (AMILCAR) COVID-19 Clin Com Assessment and Plan (1) Hyperbilirubinemia: Status: Acute (2) Coagulopathy: Status: Acute (3) Decompensated hepatic cirrhosis: Status: Acute Assessment and Plan: hospital d#2 60yo M with decompensated cirrhosis due to HCV [treated] + EtOH admitted for severe hepatitis with hyperbilirubinemia # decompensated liver cirrhosis # EtOH hepatitis [though last intake over 1 mo ago] - GI consult, prednisone d#2 - continue diuretics [furosemide + spironolactone] - continue nadolol for prevention of variceal hemorrhage # hypoMg - repleted; monitor # hyperammonemia - no asterixis; continue daily lactulose # coagulopathy # thrombocytopenia - monitor CBC + INR; avoid anticoagulants # VTE ppx - SCDs Quality Stroke Does the patient have a stroke diagnosis?: No VTE Prior VTE?: No VTE Risk Level:: Medical - moderate - high VTE Device Contraindication: N/A - Device Ordered VTE Drug Contraindication: Treatment Not Indicated
--- NOTE | 2021-01-18 14:36 | CONS_ITS ---
DATE OF SERVICE: 01/18/2021 REFERRING PHYSICIAN: Aditya Wilcox MD REASON FOR CONSULTATION: Elevated liver function tests and cirrhosis. HISTORY OF PRESENT ILLNESS: The patient is a pleasant 60-year-old man, who was admitted to the hospital after lab work showed elevation of his liver tests. He has a history of cirrhosis in the setting of hepatitis C and alcohol abuse and was recently hospitalized in December for alcohol-related cirrhosis with associated ascites. His hepatitis C was treated with a sustained viral response in 2017. After his discharge from the hospital in December, he was followed by his primary care provider who obtained lab work on January 17, which showed a significant worsening of his total bilirubin up to 23.5 from 3.8 after his discharge. The patient does report about a 1-week history of dark urine and light stools. He did not notice the yellowing of his eyes and skin and denies any pruritus. He states he has been abstinent from alcohol since his last admission. Before that, he was drinking 6 alcoholic drinks and several nips of liquor on a daily basis. He has no complaints of pruritus or abdominal swelling. He has had no GI bleeding. He was evaluated in the emergency department with laboratory studies, which confirmed the elevation of his total serum bilirubin and had imaging including CT scan of the abdomen and pelvis, which is reviewed. This is interpreted as showing no acute change within the abdomen and pelvis. Cirrhosis was seen. Portal hypertension was seen. There was trace ascites. Splenorenal shunts, splenomegaly, and varices were also noted. PAST MEDICAL HISTORY: 1. Cirrhosis with hepatitis C and alcohol abuse as above. 2. Hypertension. 3. Portal vein thrombosis. 4. Thrombocytopenia. 5. Nonbleeding esophageal varices, last endoscopy in 2017. 6. Negative colonoscopy in 2017. 7. Small bowel obstruction in 2019. 8. Right inguinal hernia repair. 9. Neck surgery. 10. Repair of ductus arteriosus in 1964. 11. Bladder tumor. CURRENT MEDICATIONS: His current medication list is reviewed in the chart. ALLERGIES: THERE ARE MULTIPLE MEDICATION ALLERGIES. FAMILY HISTORY: This is reviewed with the patient and is noncontributory. SOCIAL HISTORY: There is no current alcohol abuse. He does have a smoking history. REVIEW OF SYSTEMS: SKIN: No pruritus. HEENT: Negative. CARDIOPULMONARY: No shortness of breath or chest pain. GASTROINTESTINAL: As above. GENITOURINARY: Negative. NEUROPSYCHIATRIC: Negative. PHYSICAL EXAMINATION: GENERAL: Shows a pleasant male, lying comfortably in bed. VITAL SIGNS: Reviewed in the electronic medical record and are stable. SKIN: Icteric. HEENT: Shows scleral icterus. NECK: Without lymphadenopathy or thyromegaly. LUNGS: Clear. HEART: Shows a regular rate and rhythm. S1, S2. No murmur. ABDOMEN: Soft without focal masses or tenderness. Bowel sounds are present. No organomegaly is noted. EXTREMITIES: Show trace edema. LABORATORY DATA: Laboratory data and CT scan are reviewed. IMPRESSION: Elevated liver function tests and the setting of alcoholic liver disease and cirrhosis. At this time, he appears stable. His ammonia was slightly elevated; however, no asterixis was noted on examination. I would recommend monitoring his liver function tests. It is likely that he has entered a cholestatic phase regarding his alcoholic hepatitis. He states he has been abstinent from alcohol and I encouraged him to continue this. Based on his laboratory studies, I would recommend treatment with steroids to improve 30-day survival. He has already been started on prednisone 40 mg daily and this can be continued. He does have a followup appointment with Dr. Chaudhary next week and I advised him to keep this appointment. Thanks for asking me to see him. I will follow him in the hospital with you. MD ANANT Allison/CAROLINE / [phone]
[2021-01-18] MEDS: traZODone HCL 25 MG HALFTAB PO (22:25)
[2021-01-19] VITALS (12 sets, daily range): BP systolic 80–119; BP diastolic 50–62; PULSE 55–70; RESP 16–18; TEMP 36–36.7; O2SAT 93–95
[2021-01-19] MEDS: oxyCODONE HCl Immed Release 5 MG TABLET PO ×3 (02:43→15:36)
[2021-01-19] MEDS: Omeprazole 20 MG CAPSULE.DR PO (06:19)
[2021-01-19 06:50] LABS: Red Cell Distribution Width 19.6 % (11.0-16.0)
[2021-01-19 06:52] LABS: Hematocrit 36.9 % (42-52); Mean Corpuscular HGB Conc 35.2 g/dl (31.0-36.0); Mean Corpuscular Hemoglobin 33.9 pg (27.0-33.0); Mean Corpuscular Volume 96.3 fL (80-98); Mean Platelet Volume 13.5 fL (9.4-12.4); Red Blood Count 3.83 X10*6/uL (4.60-5.80); White Blood Count 10.1 X10*3/uL (4.8-10.8)
[2021-01-19 06:55] LABS: INTERNATIONAL NORM RATIO 1.9 (0.9-1.1); Prothrombin Time 22.1 SEC (9.9-13.0)
[2021-01-19 07:03] LABS: Platelet Count 66 X10*3/uL (160-400)
[2021-01-19 07:11] LABS: Alanine Aminotransferase 56 U/L (0-40); Albumin Level 2.5 g/dL (3.5-5.0); Alkaline Phosphatase 210 U/L (39-117); Anion Gap 10 (12-20); Aspartate Amino Transferase 121 U/L (5-37); Blood Urea Nitrogen 13 mg/dL (9-16); Carbon Dioxide 26 mmol/L (22-29); Chloride 102 mmol/L (96-108); Creatinine Clr Calc Pharmacy 96.9; Estimated Glomerular Filt Rate > 60; Glucose Random 104 mg/dL (60-115); Magnesium 1.8 mg/dL (1.6-2.6); Potassium 4.2 mmol/L (3.3-5.1); Sodium 134 mmol/L (135-145); Total Protein 6.6 g/dL (6.5-8.0)
[2021-01-19 07:14] LABS: Bilirubin Total 24.7 mg/dL (0.0-1.0)
[2021-01-19] MEDS: nadoloL 20 MG TABLET PO (08:53)
[2021-01-19] MEDS: Lactulose 20 GM/30 ML SOLUTION PO (08:53)
[2021-01-19] MEDS: Lidocaine 4 % Patch ADH..PATCH 1 PATCH TRANSDERMA (08:53)
[2021-01-19] MEDS: Furosemide 20 MG TABLET PO (08:53)
[2021-01-19] MEDS: Magnesium Oxide 400 MG TABLET PO ×2 (08:53→18:34)
[2021-01-19] MEDS: predniSONE 20 MG TABLET 40 MG PO (08:53)
[2021-01-19] MEDS: Spironolactone 25 MG TABLET 50 MG PO (08:53)
[2021-01-19] MEDS: 0.9 % Sodium Chloride Flush 3 ML SYRINGE IVFLUSH ×2 (08:54→15:36)
--- NOTE | 2021-01-19 13:59 | HO.PM.IMPN ---
Subjective Subjective Date of Service: 01/19/21 Interval History: Jaundiced Back pain No abd pain/N/V/GI bleed Review of Systems Review of Systems: Yes all other systems are reviewed and are negative Physical Exam Vital Signs: Vital Signs: Last Vital Signs Temp 96.8 F 01/19/21 12:00 Pulse 64 01/19/21 12:00 Resp 18 01/19/21 12:00 BP 102/54 L 01/19/21 12:00 Pulse Ox 94 01/19/21 12:00 Body Mass Index 30.1 Gen: in no acute distress HEENT: sclera icteric, moist mucus membranes Neck: supple Lungs: clear to auscultation bilaterally Heart: regular rate and rhythm, no murmurs Abd: soft, non-tender, non-distended Ext: no edema Skin: jaundiced Neuro: alert and oriented x3, no focal findings, no asterixis Psych: appropriate affect Objective Data Current Medications Generic Name Dose Route Start Last Admin Trade Name Freq PRN Reason Stop Dose Admin Acetaminophen 650 mg 01/17/21 22:55 01/17/21 23:28 Acetaminophen 325 Mg Tablet PO 650 mg Q12H PRN Administration Pain, Mild (Pain Scale 1-3) Albuterol Sulfate 2 puff 01/17/21 22:55 Albuterol Sulfate 90 Mcg 8 Gm Inhaler INHALE Q6H PRN shortness of breath or wheezing Furosemide 20 mg 01/18/21 09:00 01/19/21 08:53 Furosemide 20 Mg Tablet PO 20 mg BID@0900,1800 KARLA Administration Protocol Lactulose 20 gm 01/18/21 09:00 01/19/21 08:53 Lactulose 20 Gm/30 Ml Solution PO 20 gm DAILY KARLA Administration Lidocaine 1 patch 01/18/21 09:00 01/19/21 08:53 Lidocaine 4 % Patch Adh..Patch TRANSDERMA 1 patch DAILY KARLA Administration Protocol Magnesium Oxide 400 mg 01/18/21 08:30 01/19/21 08:53 Magnesium Oxide 400 Mg Tablet PO 400 mg BIDPC KARLA Administration Nadolol 20 mg 01/18/21 09:00 01/19/21 08:53 Nadolol 20 Mg Tablet PO 20 mg DAILY KARLA Administration Protocol Omeprazole 20 mg 01/18/21 06:30 01/19/21 06:19 Omeprazole 20 Mg Capsule. PO 20 mg DAILY@0630 KARLA Administration Ondansetron HCl 4 mg 01/17/21 22:55 Ondansetron Hcl 4 Mg/2 Ml Vial IVPUSH Q8H PRN Nausea and Vomiting Oxycodone HCl 5 mg 01/18/21 12:55 01/19/21 08:53 Oxycodone Hcl Immed Release 5 Mg Tablet PO 5 mg Q6H PRN Administration severe pain Pharmacy Consult 1 each 01/17/21 19:03 Consult Rx Perform Med Rec MISCELLANE ONCE PRN Consult order Prednisone 40 mg 01/18/21 09:00 01/19/21 08:53 Prednisone 20 Mg Tablet PO 40 mg DAILY KARLA Administration Sodium Chloride 3 ml 01/18/21 00:00 01/19/21 08:54 0.9 % Sodium Chloride Flush 3 Ml Syringe IVFLUSH 3 ml QSHIFT KARLA Administration Spironolactone 50 mg 01/18/21 09:00 01/19/21 08:53 Spironolactone 25 Mg Tablet PO 50 mg BID KARLA Administration Protocol Tizanidine HCl 4 mg 01/19/21 10:23 Tizanidine Hcl 4 Mg Tablet PO TID PRN back pain Labs CBC & Chem 7: 01/19/21 05:53 01/19/21 05:53 Labs: Laboratory Results - last 24 hr 01/19/21 01/19/21 01/19/21 05:53 05:53 05:53 MCV 96.3 MCH 33.9 H MCHC 35.2 RDW 19.6 H Plt Count 66 L MPV 13.5 H Absolute Nucleated RBC 0.000 Nucleated RBC % (auto) 0.0 PT 22.1 H INR 1.9 H Anion Gap 10 L Estim Creat Clear Calc 96.9 Estimated GFR > 60 Random Glucose 104 Calcium 8.0 L Magnesium 1.8 Total Bilirubin 24.7 H AST 121 H ALT 56 H Alkaline Phosphatase 210 H Total Protein 6.6 Albumin 2.5 L Microbiology Microbiology Results: Microbiology 01/17/21 19:19 Blood Culture - Preliminary Blood - Venous No growth after 24 hours. 01/17/21 19:19 Blood Culture - Preliminary Blood - Venous No growth after 24 hours. Assessment and Plan (1) Hyperbilirubinemia: Status: Acute (2) Coagulopathy: Status: Acute (3) Decompensated hepatic cirrhosis: Status: Acute Assessment and Plan: hospital d#3 60yo M with decompensated cirrhosis due to HCV [treated/cured] + EtOH admitted for severe hepatitis with hyperbilirubinemia # decompensated liver cirrhosis # EtOH hepatitis [though last intake over 1 mo ago prior to last admission in November] - GI consulted, prednisone d#09/04, will need outpt f/u and to taper steroids - continue diuretics [furosemide + spironolactone] - continue nadolol for prevention of variceal hemorrhage # hypoMg - repleted # hyperammonemia - no asterixis; continue daily lactulose # coagulopathy # thrombocytopenia - monitor CBC + INR; avoid anticoagulants # back pain - tizanidine, oxycodone # VTE ppx - SCDs # dispo - home once TBili starts to decline Quality Stroke Does the patient have a stroke diagnosis?: No VTE Prior VTE?: No VTE Risk Level:: Medical - moderate - high VTE Device Contraindication: N/A - Device Ordered VTE Drug Contraindication: Treatment Not Indicated
[2021-01-19] MEDS: TiZANidine HCL 4 MG TABLET PO ×2 (14:32→21:44)
[2021-01-19] MEDS: Albumin Human 25 % 100 ML IV (18:34)
--- NOTE | 2021-01-19 19:15 | PC.NURSE ---
Pt blood pressure found to be 80/50 manually at 1750, at that time patient reported feeling drowsy. Dr. Dawn made aware and instructed this nurse to place patient in trendelenburg position and recheck blood pressure. Pt blood pressure rechecked in trendelenburg position and found to be 112/55. Dr. Dawn made aware, and instructed this nurse to keep patient in trendelenburg position for 20 minutes. Pt slowly returned to semi fowlers position and blood pressure found to be 94/53. Dr. Dawn entered new orders for patient to receive albumin human 25% at 100mLs/hr x4 doses. Patient continues to report drowsiness. Oncoming nurse made aware of situation.
[2021-01-19 20:22] LABS: Glucose, Whole Blood 231 mg/dL (60-115)
[2021-01-19 21:27] LABS: Basophils Percent Auto 0.2 % (0-2); Eosinophils Percent Auto 0.2 % (0-4); Hematocrit 34.4 % (42-52); Imm Gran Abs Auto 0.14 X10*3/uL (0.00-0.03); Imm Gran Pct Auto 2.2 % (0.0-0.4); Lymphocytes Absolute Auto 0.5 X10*3/uL (1.2-4.9); Lymphocytes Percent Auto 8.3 % (20-40); MANUAL DIFF FLAG NO; Mean Corpuscular HGB Conc 34.9 g/dl (31.0-36.0); Mean Corpuscular Hemoglobin 33.7 pg (27.0-33.0); Mean Corpuscular Volume 96.6 fL (80-98); Mean Platelet Volume 12.7 fL (9.4-12.4); Monocytes Absolute Auto 0.2 X10*3/uL (0.1-1.2); Monocytes Percent Auto 3.5 % (2-11); Neutrophils Absolute Auto 5.5 X10*3/uL (2.0-8.3); Neutrophils Percent Auto 85.6 % (45-73); Red Blood Count 3.56 X10*6/uL (4.60-5.80); Red Cell Distribution Width 19.6 % (11.0-16.0); White Blood Count 6.4 X10*3/uL (4.8-10.8)
[2021-01-19 21:46] LABS: Platelet Count 56 X10*3/uL (160-400)
[2021-01-19 22:00] LABS: Alanine Aminotransferase 57 U/L (0-40); Albumin Level 2.9 g/dL (3.5-5.0); Alkaline Phosphatase 194 U/L (39-117); Anion Gap 13 (12-20); Aspartate Amino Transferase 119 U/L (5-37); Bilirubin Total 24.8 mg/dL (0.0-1.0); Blood Urea Nitrogen 19 mg/dL (9-16); Carbon Dioxide 22 mmol/L (22-29); Chloride 99 mmol/L (96-108); Creatinine Clr Calc Pharmacy 76.7; Estimated Glomerular Filt Rate > 60; Glucose Random 236 mg/dL (60-115); Sodium 129 mmol/L (135-145); Total Protein 6.8 g/dL (6.5-8.0)
[2021-01-19 22:43] LABS: Ammonia 90 umol/L (13-55)
[2021-01-20] VITALS (13 sets, daily range): BP systolic 92–121; BP diastolic 52–64; PULSE 52–99; RESP 16–19; TEMP 36.1–36.8; O2SAT 90–98
[2021-01-20] MEDS: Albumin Human 25 % 100 ML IV ×3 (01:16→13:20)
[2021-01-20] MEDS: TiZANidine HCL 4 MG TABLET PO ×2 (05:25→21:04)
[2021-01-20] MEDS: Omeprazole 20 MG CAPSULE.DR PO (05:25)
[2021-01-20] MEDS: oxyCODONE HCl Immed Release 5 MG TABLET PO ×3 (05:25→23:17)
[2021-01-20 06:27] LABS: Hematocrit 34.8 % (42-52); Hemoglobin 12.2 g/dl (14.0-18.0); Mean Corpuscular HGB Conc 35.1 g/dl (31.0-36.0); Mean Corpuscular Hemoglobin 33.6 pg (27.0-33.0); Mean Corpuscular Volume 95.9 fL (80-98); Mean Platelet Volume 11.6 fL (9.4-12.4); Platelet Count 59 X10*3/uL (160-400); Red Blood Count 3.63 X10*6/uL (4.60-5.80); Red Cell Distribution Width 19.8 % (11.0-16.0); White Blood Count 7.6 X10*3/uL (4.8-10.8)
[2021-01-20 07:20] LABS: Alanine Aminotransferase 53 U/L (0-40); Alkaline Phosphatase 191 U/L (39-117); Anion Gap 12 (12-20); Aspartate Amino Transferase 109 U/L (5-37); Blood Urea Nitrogen 18 mg/dL (9-16); Calcium 8.1 mg/dL (8.4-10.2); Carbon Dioxide 22 mmol/L (22-29); Chloride 101 mmol/L (96-108); Creatinine Clr Calc Pharmacy 101.2; Estimated Glomerular Filt Rate > 60; Glucose Random 119 mg/dL (60-115); Potassium 4.3 mmol/L (3.3-5.1); Sodium 131 mmol/L (135-145); Total Protein 6.7 g/dL (6.5-8.0)
[2021-01-20 07:33] LABS: Bilirubin Total 23.2 mg/dL (0.0-1.0)
--- NOTE | 2021-01-20 07:55 | HO.PM.IMPN ---
Subjective Subjective Date of Service: 01/20/21 Interval History: F/u on Jaundiced Back pain No abd pain/N/V/GI bleed, overall feels better, was able to sleep Review of Systems Gen: no fever Resp: no sob, no cough CV: no chest, no CATHERINE, no leg edema GI: No n/v, no abd pain Neuro: No confusion Physical Exam Vital Signs: Vital Signs: Last Vital Signs Temp 97.2 F 01/20/21 07:34 Pulse 62 01/20/21 07:54 Resp 16 01/20/21 07:54 BP 118/64 01/20/21 07:54 Pulse Ox 95 01/20/21 07:54 Body Mass Index 30.1 Const: Other: Gen: in no acute distress HEENT: sclera icteric, moist mucus membranes Neck: supple Lungs: clear to auscultation bilaterally Heart: regular rate and rhythm, no murmurs Abd: soft, non-tender, non-distended Ext: no edema Skin: jaundiced Neuro: alert and oriented x3, no focal findings, no asterixis Psych: appropriate affect Objective Data Current Medications Generic Name Dose Route Start Last Admin Trade Name Freq PRN Reason Stop Dose Admin Acetaminophen 650 mg 01/17/21 22:55 01/17/21 23:28 Acetaminophen 325 Mg Tablet PO 650 mg Q12H PRN Administration Pain, Mild (Pain Scale 1-3) Albuterol Sulfate 2 puff 01/17/21 22:55 Albuterol Sulfate 90 Mcg 8 Gm Inhaler INHALE Q6H PRN shortness of breath or wheezing Furosemide 20 mg 01/18/21 09:00 01/19/21 18:22 Furosemide 20 Mg Tablet PO Not Given BID@0900,1800 [facility] Protocol Albumin Human 100 mls @ 100 mls/hr 01/19/21 18:30 01/20/21 07:32 Kedbumin 25 % IV 01/20/21 13:29 Infused Q6H KARLA Infusion Lactulose 20 gm 01/18/21 09:00 01/19/21 08:53 Lactulose 20 Gm/30 Ml Solution PO 20 gm DAILY KARLA Administration Lidocaine 1 patch 01/18/21 09:00 01/19/21 08:53 Lidocaine 4 % Patch Adh..Patch TRANSDERMA 1 patch DAILY KARLA Administration Protocol Magnesium Oxide 400 mg 01/18/21 08:30 01/19/21 18:34 Magnesium Oxide 400 Mg Tablet PO 400 mg BIDPC [facility] Administration Nadolol 20 mg 01/18/21 09:00 01/19/21 08:53 Nadolol 20 Mg Tablet PO 20 mg DAILY [facility] Administration Protocol Omeprazole 20 mg 01/18/21 06:30 01/20/21 05:25 Omeprazole 20 Mg Capsule. PO 20 mg DAILY@0630 [facility] Administration Ondansetron HCl 4 mg 01/17/21 22:55 Ondansetron Hcl 4 Mg/2 Ml Vial IVPUSH Q8H PRN Nausea and Vomiting Oxycodone HCl 5 mg 01/18/21 12:55 01/20/21 05:25 Oxycodone Hcl Immed Release 5 Mg Tablet PO 5 mg Q6H PRN Administration severe pain Pharmacy Consult 1 each 01/17/21 19:03 Consult Rx Perform Med Rec MISCELLANE ONCE PRN Consult order Prednisone 40 mg 01/18/21 09:00 01/19/21 08:53 Prednisone 20 Mg Tablet PO 40 mg DAILY [facility] Administration Sodium Chloride 3 ml 01/18/21 00:00 01/20/21 01:28 0.9 % Sodium Chloride Flush 3 Ml Syringe IVFLUSH Not Given QSHIFT [facility] Spironolactone 50 mg 01/18/21 09:00 01/19/21 21:45 Spironolactone 25 Mg Tablet PO Not Given BID [facility] Protocol Tizanidine HCl 4 mg 01/19/21 10:23 01/20/21 05:25 Tizanidine Hcl 4 Mg Tablet PO 4 mg TID PRN Administration back pain Labs CBC & Chem 7: 01/20/21 05:48 01/20/21 05:37 Labs: Laboratory Results - last 24 hr 01/19/21 01/19/21 01/19/21 20:18 21:01 21:01 MCV 96.6 MCH 33.7 H MCHC 34.9 RDW 19.6 H Plt Count 56 L MPV 12.7 H Immature Gran % (Auto) 2.2 H Neut % (Auto) 85.6 H Lymph % (Auto) 8.3 L [place] % (Auto) 3.5 Eos % (Auto) 0.2 Baso % (Auto) 0.2 Lymph # (Auto) 0.5 L [place] # (Auto) 0.2 Eos # (Auto) 0.0 Baso # (Auto) 0.0 Abs Immat Gran (auto) 0.14 H Absolute Neuts (auto) 5.5 Absolute Nucleated RBC 0.000 Nucleated RBC % (auto) 0.0 Anion Gap 13 Estim Creat Clear Calc 76.7 Estimated GFR > 60 POC Glucose 231 H Random Glucose 236 H D Lactic Acid Calcium 8.0 L Total Bilirubin 24.8 H AST 119 H ALT 57 H Alkaline Phosphatase 194 H Ammonia Total Protein 6.8 Albumin 2.9 L 01/19/21 01/19/21 01/20/21 21:01 21:01 05:37 MCV MCH MCHC RDW Plt Count MPV Immature Gran % (Auto) Neut % (Auto) Lymph % (Auto) [place] % (Auto) Eos % (Auto) Baso % (Auto) Lymph # (Auto) [place] # (Auto) Eos # (Auto) Baso # (Auto) Abs Immat Gran (auto) Absolute Neuts (auto) Absolute Nucleated RBC Nucleated RBC % (auto) Anion Gap 12 Estim Creat Clear Calc 101.2 Estimated GFR > 60 POC Glucose Random Glucose 119 H D Lactic Acid 2.0 Calcium 8.1 L Total Bilirubin 23.2 H AST 109 H ALT 53 H Alkaline Phosphatase 191 H Ammonia 90 H Total Protein 6.7 Albumin 3.0 L 01/20/21 05:48 MCV 95.9 MCH 33.6 H MCHC 35.1 RDW 19.8 H Plt Count 59 L MPV 11.6 Immature Gran % (Auto) Neut % (Auto) Lymph % (Auto) [place] % (Auto) Eos % (Auto) Baso % (Auto) Lymph # (Auto) [place] # (Auto) Eos # (Auto) Baso # (Auto) Abs Immat Gran (auto) Absolute Neuts (auto) Absolute Nucleated RBC 0.000 Nucleated RBC % (auto) 0.0 Anion Gap Estim Creat Clear Calc Estimated GFR POC Glucose Random Glucose Lactic Acid Calcium Total Bilirubin AST ALT Alkaline Phosphatase Ammonia Total Protein Albumin Microbiology Microbiology Results: Microbiology 01/17/21 19:19 Blood Culture - Preliminary Blood - Venous No growth after 48 hours. 01/17/21 19:19 Blood Culture - Preliminary Blood - Venous No growth after 48 hours. Assessment and Plan (1) Decompensated hepatic cirrhosis: Status: Acute Assessment and Plan: hospital d#4 60yo M with decompensated cirrhosis due to HCV [treated/cured] + EtOH admitted for severe hepatitis with hyperbilirubinemia/delayed cholestasis # decompensated liver cirrhosis # EtOH hepatitis [though last intake over 1 mo ago prior to last admission in November] - GI consulted, prednisone d#10/05, will need outpt f/u and to taper steroids - continue diuretics [furosemide + spironolactone] - continue nadolol for prevention of variceal hemorrhage -Tibili 23.2 down from 24 # hypoMg - repleted, check today # hyperammonemia - no asterixis; continue daily lactulose # coagulopathy # thrombocytopenia - monitor CBC + INR (stable), avoid anticoagulants # back pain - tizanidine, oxycodone # VTE ppx - SCDs # dispo - home once TBili tomorrow if Tbili continues to trend down (2) Hyperbilirubinemia: Status: Acute (3) Coagulopathy: Status: Acute Quality Stroke Does the patient have a stroke diagnosis?: No VTE Prior VTE?: No VTE Risk Level:: Medical - moderate - high VTE Device Contraindication: N/A - Device Ordered VTE Drug Contraindication: Treatment Not Indicated
[2021-01-20 08:37] LABS: Magnesium 1.8 mg/dL (1.6-2.6)
[2021-01-20 09:05] LABS: Glucose, Whole Blood 138 mg/dL (60-115)
[2021-01-20] MEDS: nadoloL 20 MG TABLET PO (09:19)
[2021-01-20] MEDS: Magnesium Oxide 400 MG TABLET PO ×2 (09:19→17:04)
[2021-01-20] MEDS: Furosemide 20 MG TABLET PO (09:19)
[2021-01-20] MEDS: Lactulose 20 GM/30 ML SOLUTION PO (09:19)
[2021-01-20] MEDS: predniSONE 20 MG TABLET 40 MG PO (09:19)
[2021-01-20] MEDS: Spironolactone 25 MG TABLET 50 MG PO (09:19)
[2021-01-20] MEDS: Lidocaine 4 % Patch ADH..PATCH 1 PATCH TRANSDERMA (09:20)
[2021-01-20] MEDS: 0.9 % Sodium Chloride Flush 3 ML SYRINGE IVFLUSH ×3 (09:20→23:19)
[2021-01-20] MEDS: Spironolactone 25 MG TABLET PO (21:05)
[2021-01-21] VITALS (8 sets, daily range): BP systolic 97–110; BP diastolic 50–59; PULSE 55–77; RESP 14–18; TEMP 36.1–37.1; O2SAT 95–96
[2021-01-21] MEDS: Omeprazole 20 MG CAPSULE.DR PO (05:16)
[2021-01-21] MEDS: oxyCODONE HCl Immed Release 5 MG TABLET PO ×3 (06:20→18:02)
[2021-01-21 08:48] LABS: Ammonia 78 umol/L (13-55)
[2021-01-21] MEDS: predniSONE 20 MG TABLET 40 MG PO (08:52)
[2021-01-21] MEDS: Lidocaine 4 % Patch ADH..PATCH 1 PATCH TRANSDERMA (08:52)
[2021-01-21] MEDS: Magnesium Oxide 400 MG TABLET PO ×2 (08:52→17:17)
[2021-01-21] MEDS: Lactulose 20 GM/30 ML SOLUTION PO (08:53)
[2021-01-21] MEDS: 0.9 % Sodium Chloride Flush 3 ML SYRINGE IVFLUSH ×3 (08:53→20:57)
[2021-01-21 09:01] LABS: Alanine Aminotransferase 66 U/L (0-40); Albumin Level 3.4 g/dL (3.5-5.0); Alkaline Phosphatase 196 U/L (39-117); Anion Gap 14 (12-20); Aspartate Amino Transferase 127 U/L (5-37); Blood Urea Nitrogen 23 mg/dL (9-16); Calcium 8.6 mg/dL (8.4-10.2); Carbon Dioxide 20 mmol/L (22-29); Chloride 101 mmol/L (96-108); Creatinine Clr Calc Pharmacy 85.3; Estimated Glomerular Filt Rate > 60; Glucose Random 118 mg/dL (60-115); Potassium 4.1 mmol/L (3.3-5.1); Sodium 131 mmol/L (135-145); Total Protein 7.3 g/dL (6.5-8.0)
[2021-01-21 09:15] LABS: Bilirubin Total 25.5 mg/dL (0.0-1.0)
--- NOTE | 2021-01-21 10:08 | HO.PM.IMPN ---
Subjective Subjective Date of Service: 01/21/21 Interval History: F/u on Jaundiced Back pain No abd pain/N/V/GI bleed, overall feels better, tbili is slightly higher today Review of Systems Gen:?no fever Resp:?no sob, no cough CV:?no chest, no CATHERINE, no leg edema GI:?No n/v, no abd pain Neuro:?No confusion Physical Exam Vital Signs: Vital Signs: Last Vital Signs Temp 97.5 F 01/21/21 07:51 Pulse 57 01/21/21 09:08 Resp 17 01/21/21 07:51 BP 104/52 L 01/21/21 09:08 Pulse Ox 95 01/21/21 07:51 Body Mass Index 30.1 Gen: in no acute distress HEENT: sclera icteric, moist mucus membranes Neck: supple Lungs: clear to auscultation bilaterally Heart: regular rate and rhythm, no murmurs Abd: soft, non-tender, non-distended Ext: no edema Skin: jaundiced Neuro: alert and oriented x3, no focal findings, no asterixis Psych: appropriate affect Objective Data Current Medications Generic Name Dose Route Start Last Admin Trade Name Freq PRN Reason Stop Dose Admin Albuterol Sulfate 2 puff 01/17/21 22:55 Albuterol Sulfate 90 Mcg 8 Gm Inhaler INHALE Q6H PRN shortness of breath or wheezing Furosemide 20 mg 01/18/21 09:00 01/20/21 18:33 Furosemide 20 Mg Tablet PO Not Given BID@0900,1800 [facility] Protocol Lactulose 20 gm 01/18/21 09:00 01/21/21 08:53 Lactulose 20 Gm/30 Ml Solution PO 20 gm DAILY KARLA Administration Lidocaine 1 patch 01/18/21 09:00 01/21/21 08:52 Lidocaine 4 % Patch Adh..Patch TRANSDERMA 1 patch DAILY KARLA Administration Protocol Magnesium Oxide 400 mg 01/18/21 08:30 01/21/21 08:52 Magnesium Oxide 400 Mg Tablet PO 400 mg BIDPC KARLA Administration Nadolol 20 mg 01/18/21 09:00 01/20/21 09:19 Nadolol 20 Mg Tablet PO 20 mg DAILY KARLA Administration Protocol Omeprazole 20 mg 01/18/21 06:30 01/21/21 05:16 Omeprazole 20 Mg Capsule. PO 20 mg DAILY@0630 KARLA Administration Ondansetron HCl 4 mg 01/17/21 22:55 Ondansetron Hcl 4 Mg/2 Ml Vial IVPUSH Q8H PRN Nausea and Vomiting Oxycodone HCl 5 mg 01/18/21 12:55 01/21/21 06:20 Oxycodone Hcl Immed Release 5 Mg Tablet PO 5 mg Q6H PRN Administration severe pain Pharmacy Consult 1 each 01/17/21 19:03 Consult Rx Perform Med Rec MISCELLANE ONCE PRN Consult order Prednisone 40 mg 01/18/21 09:00 01/21/21 08:52 Prednisone 20 Mg Tablet PO 40 mg DAILY KARLA Administration Sodium Chloride 3 ml 01/18/21 00:00 01/21/21 08:53 0.9 % Sodium Chloride Flush 3 Ml Syringe IVFLUSH 3 ml QSHIFT KARLA Administration Spironolactone 25 mg 01/20/21 21:00 01/20/21 21:05 Spironolactone 25 Mg Tablet PO 25 mg BID KARLA Administration Protocol Tizanidine HCl 4 mg 01/19/21 10:23 01/20/21 21:04 Tizanidine Hcl 4 Mg Tablet PO 4 mg TID PRN Administration back pain Labs CBC & Chem 7: 01/20/21 05:48 01/21/21 08:19 Labs: Laboratory Results - last 24 hr 01/21/21 01/21/21 08:19 08:19 Anion Gap 14 Estim Creat Clear Calc 85.3 Estimated GFR > 60 Random Glucose 118 H Calcium 8.6 D Total Bilirubin 25.5 H AST 127 H ALT 66 H Alkaline Phosphatase 196 H Ammonia 78 H Total Protein 7.3 Albumin 3.4 L Assessment and Plan (1) Decompensated hepatic cirrhosis: Status: Acute Assessment and Plan: hospital d#5 60yo M with decompensated cirrhosis due to HCV [treated/cured] + EtOH admitted for severe hepatitis with hyperbilirubinemia/delayed cholestasis # decompensated liver cirrhosis # EtOH hepatitis [though last intake over 1 mo ago prior to last admission in November] - GI consulted, prednisone d#11/04, will need outpt f/u and to taper steroids - continue diuretics [furosemide + spironolactone if BP permits - continue nadolol for prevention of variceal hemorrhage -Tibili 25, up from 23 yester # hypoMg - repleted, check today # hyperammonemia - no asterixis; continue daily lactulose, #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 # coagulopathy # thrombocytopenia - monitor CBC + INR (stable), avoid anticoagulants # back pain - tizanidine, oxycodone # VTE ppx - SCDs # dispo - home once TBili tomorrow if Tbili continues to trend down (2) Hyperbilirubinemia: Status: Acute (3) Coagulopathy: Status: Acute Quality Stroke Does the patient have a stroke diagnosis?: No VTE Prior VTE?: No VTE Risk Level:: Medical - moderate - high VTE Device Contraindication: N/A - Device Ordered VTE Drug Contraindication: Treatment Not Indicated
[2021-01-21] MEDS: TiZANidine HCL 4 MG TABLET PO (12:09)
[2021-01-21] MEDS: Spironolactone 25 MG TABLET PO (21:02)
[2021-01-22] VITALS (7 sets, daily range): BP systolic 91–124; BP diastolic 51–68; PULSE 56–76; RESP 16–20; TEMP 36.1–36.8; O2SAT 96–97
[2021-01-22] MEDS: oxyCODONE HCl Immed Release 5 MG TABLET PO ×4 (00:06→19:14)
[2021-01-22] MEDS: Omeprazole 20 MG CAPSULE.DR PO (06:04)
--- NOTE | 2021-01-22 07:34 | HO.PM.IMPN ---
Subjective Subjective Date of Service: 01/22/21 Interval History: Elevated bilirubin levels, liver cirrhosis Review of Systems Patient denies any chest pain shortness breath or nausea vomiting or diarrhea. Physical Exam Vital Signs: Vital Signs: Last Vital Signs Temp 98.2 F 01/22/21 04:00 Pulse 57 01/22/21 04:00 Resp 16 01/22/21 04:00 BP 104/51 L 01/22/21 04:00 Pulse Ox 96 01/22/21 04:00 Body Mass Index 30.1 HEENT: sclera icteric, moist mucus membranes Neck: supple Lungs: clear to auscultation bilaterally Heart: regular rate and rhythm, no murmurs Abd: soft, non-tender, non-distended Ext: no edema Skin: jaundiced Neuro: alert and oriented x3, no focal findings, no asterixis Psych: appropriate affect Objective Data Current Medications Generic Name Dose Route Start Last Admin Trade Name Freq PRN Reason Stop Dose Admin Albuterol Sulfate 2 puff 01/17/21 22:55 Albuterol Sulfate 90 Mcg 8 Gm Inhaler INHALE Q6H PRN shortness of breath or wheezing Furosemide 20 mg 01/18/21 09:00 01/21/21 17:17 Furosemide 20 Mg Tablet PO Not Given BID@0900,1800 [facility] Protocol Lactulose 20 gm 01/18/21 09:00 01/21/21 08:53 Lactulose 20 Gm/30 Ml Solution PO 20 gm DAILY KARLA Administration Lidocaine 1 patch 01/18/21 09:00 01/21/21 08:52 Lidocaine 4 % Patch Adh..Patch TRANSDERMA 1 patch DAILY KARLA Administration Protocol Magnesium Oxide 400 mg 01/18/21 08:30 01/21/21 17:17 Magnesium Oxide 400 Mg Tablet PO 400 mg BIDPC KARLA Administration Nadolol 20 mg 01/18/21 09:00 01/21/21 12:08 Nadolol 20 Mg Tablet PO Not Given DAILY KARLA Protocol Omeprazole 20 mg 01/18/21 06:30 01/22/21 06:04 Omeprazole 20 Mg Capsule.Dr PO 20 mg DAILY@0630 KARLA Administration Ondansetron HCl 4 mg 01/17/21 22:55 Ondansetron Hcl 4 Mg/2 Ml Vial IVPUSH Q8H PRN Nausea and Vomiting Oxycodone HCl 5 mg 01/18/21 12:55 01/22/21 06:09 Oxycodone Hcl Immed Release 5 Mg Tablet PO 5 mg Q6H PRN Administration severe pain Pharmacy Consult 1 each 01/17/21 19:03 Consult Rx Perform Med Rec MISCELLANE ONCE PRN Consult order Prednisone 40 mg 01/18/21 09:00 01/21/21 08:52 Prednisone 20 Mg Tablet PO 40 mg DAILY KARLA Administration Sodium Chloride 3 ml 01/18/21 00:00 01/21/21 20:57 0.9 % Sodium Chloride Flush 3 Ml Syringe IVFLUSH 3 ml QSHIFT KARLA Administration Spironolactone 25 mg 01/20/21 21:00 01/21/21 21:02 Spironolactone 25 Mg Tablet PO 25 mg BID KARLA Administration Protocol Tizanidine HCl 4 mg 01/19/21 10:23 01/21/21 12:09 Tizanidine Hcl 4 Mg Tablet PO 4 mg TID PRN Administration back pain Labs CBC & Chem 7: 01/20/21 05:48 01/22/21 07:47 Labs: Laboratory Results - last 24 hr 01/21/21 01/21/21 08:19 08:19 Anion Gap 14 Estim Creat Clear Calc 85.3 Estimated GFR > 60 Random Glucose 118 H Calcium 8.6 D Total Bilirubin 25.5 H AST 127 H ALT 66 H Alkaline Phosphatase 196 H Ammonia 78 H Total Protein 7.3 Albumin 3.4 L Assessment and Plan (1) Hyperbilirubinemia: Status: Acute (2) Decompensated hepatic cirrhosis: Status: Acute Assessment and Plan: 60yo M with decompensated cirrhosis due to HCV [treated/cured] + EtOH admitted for severe hepatitis with hyperbilirubinemia/delayed cholestasis 1. decompensated liver cirrhosis EtOH hepatitis [though last intake over 1 mo ago prior to last admission in November] - GI consulted, prednisone d#12/05, will need outpt f/u and to taper steroids - continue diuretics [furosemide + spironolactone if BP permits - continue nadolol for prevention of variceal hemorrhage -Tibili 24, up from 25 yester 2.hypoMg - repleted, check today 3. 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 5. coagulopathy: thrombocytopenia - monitor CBC + INR (stable), avoid anticoagulants 6. back pain - tizanidine, oxycodone 7. VTE ppx - SCDs 8. dispo - home once TBili tomorrow if Tbili continues to trend down Quality Stroke Does the patient have a stroke diagnosis?: No VTE Prior VTE?: No VTE Risk Level:: Medical - moderate - high VTE Device Contraindication: N/A - Device Ordered VTE Drug Contraindication: Treatment Not Indicated
[2021-01-22 08:12] LABS: Prothrombin Time 23.1 SEC (9.9-13.0)
[2021-01-22] MEDS: Lidocaine 4 % Patch ADH..PATCH 1 PATCH TRANSDERMA (08:20)
[2021-01-22] MEDS: Lactulose 20 GM/30 ML SOLUTION PO (08:20)
[2021-01-22] MEDS: 0.9 % Sodium Chloride Flush 3 ML SYRINGE IVFLUSH ×3 (08:20→20:25)
[2021-01-22] MEDS: Magnesium Oxide 400 MG TABLET PO ×2 (08:21→17:06)
[2021-01-22] MEDS: predniSONE 20 MG TABLET 40 MG PO (08:21)
[2021-01-22 08:37] LABS: Albumin Level 3.1 g/dL (3.5-5.0); Anion Gap 11 (12-20); Calcium 8.7 mg/dL (8.4-10.2); Carbon Dioxide 22 mmol/L (22-29); Chloride 104 mmol/L (96-108); Creatinine Clr Calc Pharmacy 86.1; Estimated Glomerular Filt Rate > 60; Glucose Random 92 mg/dL (60-115); Potassium 4.1 mmol/L (3.3-5.1); Sodium 133 mmol/L (135-145)
[2021-01-22 08:38] LABS: Alanine Aminotransferase 78 U/L (0-40); Alkaline Phosphatase 181 U/L (39-117); Aspartate Amino Transferase 134 U/L (5-37); Blood Urea Nitrogen 25 mg/dL (9-16); Total Protein 6.8 g/dL (6.5-8.0)
[2021-01-22 08:55] LABS: Bilirubin Direct 16.1 mg/dL (0.0-0.5)
[2021-01-22] MEDS: traMADoL HCL 50 MG TABLET 25 MG PO (11:28)
--- NOTE | 2021-01-22 11:54 | MHC.CM.PN ---
LIVER FUNCTIONS WORSENING PATIENT STARTED ON STEROIDS. NO PLAN FOR DISCHARGE AT THIS TIME.
[2021-01-22] MEDS: Furosemide 20 MG TABLET PO (18:06)
[2021-01-22] MEDS: TiZANidine HCL 4 MG TABLET PO (19:14)
[2021-01-22] MEDS: Docusate Sodium 100 MG CAPSULE PO (20:22)
[2021-01-22] MEDS: Spironolactone 25 MG TABLET PO (20:22)
[2021-01-23] VITALS (8 sets, daily range): BP systolic 100–114; BP diastolic 55–70; PULSE 51–67; RESP 15–18; TEMP 36–36.5; O2SAT 95–97
[2021-01-23] MEDS: oxyCODONE HCl Immed Release 5 MG TABLET PO ×4 (01:18→23:34)
[2021-01-23] MEDS: TiZANidine HCL 4 MG TABLET PO ×2 (03:00→19:35)
[2021-01-23] MEDS: Omeprazole 20 MG CAPSULE.DR PO (05:52)
[2021-01-23 06:30] LABS: Basophils Percent Auto 0.2 % (0-2); Eosinophils Absolute Auto 0.1 X10*3/uL (0.0-0.4); Eosinophils Percent Auto 0.7 % (0-4); Hemoglobin 13.3 g/dl (14.0-18.0); MANUAL DIFF FLAG SCAN; Neutrophils Percent Auto 69.9 % (45-73); SCAN SMEAR FLAG 1
[2021-01-23 06:31] LABS: Hematocrit 37.6 % (42-52); Imm Gran Abs Auto 0.31 X10*3/uL (0.00-0.03); Imm Gran Pct Auto 3.7 % (0.0-0.4); Lymphocytes Absolute Auto 1.3 X10*3/uL (1.2-4.9); Lymphocytes Percent Auto 15.9 % (20-40); Mean Corpuscular HGB Conc 35.4 g/dl (31.0-36.0); Mean Corpuscular Hemoglobin 33.8 pg (27.0-33.0); Mean Corpuscular Volume 95.7 fL (80-98); Monocytes Absolute Auto 0.8 X10*3/uL (0.1-1.2); Monocytes Percent Auto 9.6 % (2-11); Neutrophils Absolute Auto 5.8 X10*3/uL (2.0-8.3); Red Blood Count 3.93 X10*6/uL (4.60-5.80); Red Cell Distribution Width 21.4 % (11.0-16.0); White Blood Count 8.4 X10*3/uL (4.8-10.8)
[2021-01-23 06:34] LABS: PLT ABN DIST 1; Platelet Count 70 X10*3/uL (160-400)
[2021-01-23 06:35] LABS: Prothrombin Time 22.7 SEC (9.9-13.0)
[2021-01-23 06:51] LABS: SLIDE REVIEW VERIFIED
[2021-01-23 07:08] LABS: Ammonia 107 umol/L (13-55)
[2021-01-23 07:33] LABS: Alanine Aminotransferase 94 U/L (0-40); Albumin Level 3.1 g/dL (3.5-5.0); Alkaline Phosphatase 210 U/L (39-117); Anion Gap 10 (12-20); Aspartate Amino Transferase 159 U/L (5-37); Bilirubin Direct 15.8 mg/dL (0.0-0.5); Bilirubin Total 22.3 mg/dL (0.0-1.0); Blood Urea Nitrogen 30 mg/dL (9-16); Calcium 8.5 mg/dL (8.4-10.2); Carbon Dioxide 23 mmol/L (22-29); Chloride 102 mmol/L (96-108); Creatinine Clr Calc Pharmacy 90.3; Estimated Glomerular Filt Rate > 60; Glucose Fasting 115 mg/dL (60-99); Sodium 131 mmol/L (135-145); Total Protein 6.8 g/dL (6.5-8.0)
[2021-01-23] MEDS: Lactulose 20 GM/30 ML SOLUTION PO ×2 (08:29→15:20)
[2021-01-23] MEDS: 0.9 % Sodium Chloride Flush 3 ML SYRINGE IVFLUSH ×2 (08:29→15:22)
[2021-01-23] MEDS: Spironolactone 25 MG TABLET PO ×2 (08:29→20:34)
[2021-01-23] MEDS: Magnesium Oxide 400 MG TABLET PO ×2 (08:29→17:19)
[2021-01-23] MEDS: predniSONE 20 MG TABLET 40 MG PO (08:34)
--- NOTE | 2021-01-23 14:16 | MHC.CM.PN ---
CURRENTLY AWAITING GI INPUT FOR DECISION.
--- NOTE | 2021-01-23 15:07 | HO.PM.IMPN ---
Subjective Subjective Date of Service: 01/23/21 Interval History: hepatic encephalopathy Review of Systems Seems slightly confused, bilirubin slightly better. Physical Exam Vital Signs: Vital Signs: Last Vital Signs Temp 97.1 F 01/23/21 11:40 Pulse 65 01/23/21 11:40 Resp 18 01/23/21 11:40 BP 105/63 01/23/21 11:40 Pulse Ox 97 01/23/21 11:40 Body Mass Index 30.1 Physical exam : Cvs: rrr, [id number] , no murmur res: clear to auscultation ,no rhonchii or wheezing abd: no rebound or guarding ,nt, bs present. ext pulses present , no cyanosis neuro: awake /alert , seems somewhat confused , nonfocal. Objective Data Current Medications Generic Name Dose Route Start Last Admin Trade Name Freq PRN Reason Stop Dose Admin Albuterol Sulfate 2 puff 01/17/21 22:55 Albuterol Sulfate 90 Mcg 8 Gm Inhaler INHALE Q6H PRN shortness of breath or wheezing Docusate Sodium 100 mg 01/22/21 21:00 01/22/21 20:22 Docusate Sodium 100 Mg Capsule PO 100 mg BEDTIME KARLA Administration Furosemide 20 mg 01/18/21 09:00 01/23/21 08:22 Furosemide 20 Mg Tablet PO Not Given BID@0900,1800 [facility] Protocol Lactulose 20 gm 01/23/21 21:00 Lactulose 20 Gm/30 Ml Solution PO TID KARLA Lidocaine 1 patch 01/18/21 09:00 01/23/21 08:36 Lidocaine 4 % Patch Adh..Patch TRANSDERMA Not Given DAILY [facility] Protocol Magnesium Oxide 400 mg 01/18/21 08:30 01/23/21 08:29 Magnesium Oxide 400 Mg Tablet PO 400 mg BIDPC KARLA Administration Nadolol 20 mg 01/18/21 09:00 01/23/21 08:22 Nadolol 20 Mg Tablet PO Not Given DAILY [facility] Protocol Omeprazole 20 mg 01/18/21 06:30 01/23/21 05:52 Omeprazole 20 Mg Capsule.Dr PO 20 mg DAILY@0630 KARLA Administration Ondansetron HCl 4 mg 01/17/21 22:55 Ondansetron Hcl 4 Mg/2 Ml Vial IVPUSH Q8H PRN Nausea and Vomiting Oxycodone HCl 5 mg 01/23/21 14:44 01/23/21 14:52 Oxycodone Hcl Immed Release 5 Mg Tablet PO 5 mg Q6H PRN Administration Pain, Mild (Pain Scale 1-3) Pharmacy Consult 1 each 01/17/21 19:03 Consult Rx Perform Med Rec MISCELLANE ONCE PRN Consult order Prednisone 40 mg 01/18/21 09:00 01/23/21 08:34 Prednisone 20 Mg Tablet PO 40 mg DAILY KARLA Administration Sodium Chloride 3 ml 01/18/21 00:00 01/23/21 08:29 0.9 % Sodium Chloride Flush 3 Ml Syringe IVFLUSH 3 ml QSHIFT KARLA Administration Spironolactone 25 mg 01/20/21 21:00 01/23/21 08:29 Spironolactone 25 Mg Tablet PO 25 mg BID KARLA Administration Protocol Tizanidine HCl 4 mg 01/19/21 10:23 01/23/21 03:00 Tizanidine Hcl 4 Mg Tablet PO 4 mg TID PRN Administration back pain Labs CBC & Chem 7: 01/23/21 06:06 01/23/21 06:06 Labs: Laboratory Results - last 24 hr 01/23/21 01/23/21 01/23/21 06:06 06:06 06:06 MCV MCH MCHC RDW Plt Count MPV Immature Gran % (Auto) Neut % (Auto) Lymph % (Auto) [place] % (Auto) Eos % (Auto) Baso % (Auto) Lymph # (Auto) [place] # (Auto) Eos # (Auto) Baso # (Auto) Abs Immat Gran (auto) Absolute Neuts (auto) Absolute Nucleated RBC Nucleated RBC % (auto) Smear Tech's Comments PT 22.7 H INR 2.0 H Anion Gap 10 L Estim Creat Clear Calc 90.3 Estimated GFR > 60 Fasting Glucose 115 H Calcium 8.5 Total Bilirubin 22.3 H Direct Bilirubin 15.8 H AST 159 H ALT 94 H Alkaline Phosphatase 210 H Ammonia 107 H Total Protein 6.8 Albumin 3.1 L 01/23/21 06:06 MCV 95.7 MCH 33.8 H MCHC 35.4 RDW 21.4 H Plt Count 70 L MPV 13.0 H Immature Gran % (Auto) 3.7 H Neut % (Auto) 69.9 Lymph % (Auto) 15.9 L [place] % (Auto) 9.6 Eos % (Auto) 0.7 Baso % (Auto) 0.2 Lymph # (Auto) 1.3 [place] # (Auto) 0.8 Eos # (Auto) 0.1 Baso # (Auto) 0.0 Abs Immat Gran (auto) 0.31 H Absolute Neuts (auto) 5.8 Absolute Nucleated RBC 0.000 Nucleated RBC % (auto) 0.0 Smear Tech's Comments VERIFIED PT INR Anion Gap Estim Creat Clear Calc Estimated GFR Fasting Glucose Calcium Total Bilirubin Direct Bilirubin AST ALT Alkaline Phosphatase Ammonia Total Protein Albumin Microbiology Microbiology Results: Microbiology 01/17/21 19:19 Blood Culture - Final Blood - Venous No growth after 5 days. 01/17/21 19:19 Blood Culture - Final Blood - Venous No growth after 5 days. 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 decompensated liver cirrhosis EtOH hepatitis [though last intake over 1 mo ago prior to last admission in November] - GI consulted, prednisone d#12/05, will need outpt f/u and to taper steroids - continue diuretics [furosemide + spironolactone if BP permits - continue nadolol for prevention of variceal hemorrhage -Tibili 242 up from 24 yesteray Hepatic encephalopathy: Patient ammonia level is 107 today and patient seems somewhat confused, adjusted lactulose to t.i.d. now. Goal is to have 3-4 bowel movements every day if lactulose current dosing does not respond than may need to adjust dosing further and if that does not help also add rifaximin. GI will follow-up. 2.hypoMg - repleted, check today 3. 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 5. coagulopathy: thrombocytopenia - monitor CBC + INR (stable), avoid anticoagulants 6. back pain - tizanidine, oxycodone 7. VTE ppx - SCDs 8. dispo - home once TBili tomorrow if Tbili continues to trend down Quality Stroke Does the patient have a stroke diagnosis?: No VTE Prior VTE?: No VTE Risk Level:: Medical - moderate - high VTE Device Contraindication: N/A - Device Ordered VTE Drug Contraindication: Treatment Not Indicated
[2021-01-23] MEDS: Furosemide 20 MG TABLET PO (17:19)
--- NOTE | 2021-01-23 19:38 | PM.GIPN ---
Subjective Subjective Date of Service: 01/23/21 Interval History: Patient sitting up at the table with his son. He reports feeling pretty well . He is eating well. He reports ambulating without difficulty. He denies bleeding. He is having frequent loose BM's from the Lactulose. He denies N/V nor abdominal pain. Critical Care Time (minutes): 0 Physical Exam Vital Signs: Vital Signs: Last Vital Signs Temp 96.8 F 01/23/21 19:23 Pulse 63 01/23/21 19:23 Resp 18 01/23/21 19:23 BP 111/56 L 01/23/21 19:23 Pulse Ox 97 01/23/21 19:23 Body Mass Index 30.1 Const: General: cooperative, comfortable and no acute distress Eyes: Sclerae: scleral abnormal (Icteric sclera) GI: Other: Soft, NT, Nondistended Objective Data Labs CBC & Chem 7: 01/23/21 06:06 01/23/21 06:06 Labs: Laboratory Results - last 24 hr 01/23/21 01/23/21 01/23/21 06:06 06:06 06:06 WBC RBC Hgb Hct MCV MCH MCHC RDW Plt Count MPV Immature Gran % (Auto) Neut % (Auto) Lymph % (Auto) Branch % (Auto) Eos % (Auto) Baso % (Auto) Lymph # (Auto) [place] # (Auto) Eos # (Auto) Baso # (Auto) Abs Immat Gran (auto) Absolute Neuts (auto) Absolute Nucleated RBC Nucleated RBC % (auto) Smear Tech's Comments PT 22.7 H INR 2.0 H Sodium 131 L Potassium 4.0 Chloride 102 Carbon Dioxide 23 Anion Gap 10 L BUN 30 H Creatinine 1.02 Estim Creat Clear Calc 90.3 Estimated GFR > 60 Fasting Glucose 115 H Calcium 8.5 Total Bilirubin 22.3 H Direct Bilirubin 15.8 H AST 159 H ALT 94 H Alkaline Phosphatase 210 H Ammonia 107 H Total Protein 6.8 Albumin 3.1 L 01/23/21 06:06 WBC 8.4 RBC 3.93 L Hgb 13.3 L Hct 37.6 L MCV 95.7 MCH 33.8 H MCHC 35.4 RDW 21.4 H Plt Count 70 L MPV 13.0 H Immature Gran % (Auto) 3.7 H Neut % (Auto) 69.9 Lymph % (Auto) 15.9 L Branch % (Auto) 9.6 Eos % (Auto) 0.7 Baso % (Auto) 0.2 Lymph # (Auto) 1.3 Branch # (Auto) 0.8 Eos # (Auto) 0.1 Baso # (Auto) 0.0 Abs Immat Gran (auto) 0.31 H Absolute Neuts (auto) 5.8 Absolute Nucleated RBC 0.000 Nucleated RBC % (auto) 0.0 Smear Tech's Comments VERIFIED PT INR Sodium Potassium Chloride Carbon Dioxide Anion Gap BUN Creatinine Estim Creat Clear Calc Estimated GFR Fasting Glucose Calcium Total Bilirubin Direct Bilirubin AST ALT Alkaline Phosphatase Ammonia Total Protein Albumin Microbiology Microbiology Results: Microbiology 01/17/21 19:19 Blood - Venous Blood Culture - Final No growth after 5 days. 01/17/21 19:19 Blood - Venous Blood Culture - Final No growth after 5 days. Procedures Date of Service Date of Service: 01/23/21 Progress Note: A&P Assessment and plan (1) Decompensated hepatic cirrhosis: Status: Acute (2) Increased ammonia level: Status: Acute (3) Cirrhosis of liver: Status: Acute Assessment and Plan: Imp: Cirrhosis/Alcoholic hepatitis--his liver disease is obviously advanced and has worsened in relation to the EtOH-induced hepatitis. However, things seem to have plateaued and are showing signs of slow improvement on the steroids with a decrease in the TBili and stable PT/INR. His encephalopathy seems stable as well. Rec: Continue steroids for now with an outpatient tapering. Recheck labs in AM. I would not increase the Lactulose due to the loose stools and may need to consider adding Rifaximin. However, I would base this on his clinical status rather than just the ammonia level. He may be able to be discharged in the next 24-48 hours. I did advise him to obviously avoid EtOH completely. D/W patient and in detail. They were comfortable with this plan. Thanks Fall Risk Details Current Medications: Current Medications Generic Name Dose Route Start Last Admin Trade Name Freq PRN Reason Stop Dose Admin Albuterol Sulfate 2 puff 01/17/21 22:55 Albuterol Sulfate 90 Mcg 8 Gm Inhaler INHALE Q6H PRN shortness of breath or wheezing Docusate Sodium 100 mg 01/22/21 21:00 01/22/21 20:22 Docusate Sodium 100 Mg Capsule PO 100 mg BEDTIME KARLA Administration Furosemide 20 mg 01/18/21 09:00 01/23/21 17:19 Furosemide 20 Mg Tablet PO 20 mg BID@0900,1800 KARLA Administration Protocol Lactulose 20 gm 01/23/21 21:00 01/23/21 15:20 Lactulose 20 Gm/30 Ml Solution PO 20 gm TID KARLA Administration Lidocaine 1 patch 01/18/21 09:00 01/23/21 08:36 Lidocaine 4 % Patch Adh..Patch TRANSDERMA Not Given DAILY [facility] Protocol Magnesium Oxide 400 mg 01/18/21 08:30 01/23/21 17:19 Magnesium Oxide 400 Mg Tablet PO 400 mg BIDPC KARLA Administration Nadolol 20 mg 01/18/21 09:00 01/23/21 08:22 Nadolol 20 Mg Tablet PO Not Given DAILY [facility] Protocol Omeprazole 20 mg 01/18/21 06:30 01/23/21 05:52 Omeprazole 20 Mg Capsule.Dr PO 20 mg DAILY@0630 KARLA Administration Ondansetron HCl 4 mg 01/17/21 22:55 Ondansetron Hcl 4 Mg/2 Ml Vial IVPUSH Q8H PRN Nausea and Vomiting Oxycodone HCl 5 mg 01/23/21 14:44 01/23/21 14:52 Oxycodone Hcl Immed Release 5 Mg Tablet PO 5 mg Q6H PRN Administration Pain, Mild (Pain Scale 1-3) Pharmacy Consult 1 each 01/17/21 19:03 Consult Rx Perform Med Rec MISCELLANE ONCE PRN Consult order Prednisone 40 mg 01/18/21 09:00 01/23/21 08:34 Prednisone 20 Mg Tablet PO 40 mg DAILY KARLA Administration Sodium Chloride 3 ml 01/18/21 00:00 01/23/21 15:22 0.9 % Sodium Chloride Flush 3 Ml Syringe IVFLUSH 3 ml QSHIFT KARLA Administration Spironolactone 25 mg 01/20/21 21:00 01/23/21 08:29 Spironolactone 25 Mg Tablet PO 25 mg BID KARLA Administration Protocol Tizanidine HCl 4 mg 01/19/21 10:23 01/23/21 19:35 Tizanidine Hcl 4 Mg Tablet PO 4 mg TID PRN Administration back pain Time Spent With Patient Time: Total time spent is greater than 50% in coordination of care (as documented) at patient's floor/unit and/or counseling patient: Time with patient: 15 - 24 minutes Quality Stroke Does the patient have a stroke diagnosis?: No VTE Prior VTE?: No VTE Risk Level:: Medical - moderate - high VTE Device Contraindication: N/A - Device Ordered VTE Drug Contraindication: Treatment Not Indicated
--- NOTE | 2021-01-24 00:54 | PC.NURSE ---
pt wanted iv out not getting anything iv. notified and said ok to take iv out.
[2021-01-24 03:24] VITALS: BP 88/50; PULSE 56; RESP 15; TEMP 36.2; O2SAT 96
[2021-01-24] MEDS: 0.9 % Sodium Chloride 500 ML 125 ML IV (04:44)
[2021-01-24] MEDS: oxyCODONE HCl Immed Release 5 MG TABLET PO ×3 (05:43→18:56)
[2021-01-24] MEDS: Omeprazole 20 MG CAPSULE.DR PO (05:43)
[2021-01-24 06:56] LABS: Prothrombin Time 23.1 SEC (9.9-13.0)
[2021-01-24 07:03] LABS: Ammonia 142 umol/L (13-55)
[2021-01-24 07:19] LABS: Alanine Aminotransferase 104 U/L (0-40); Albumin Level 2.9 g/dL (3.5-5.0); Alkaline Phosphatase 184 U/L (39-117); Anion Gap 12 (12-20); Aspartate Amino Transferase 170 U/L (5-37); Blood Urea Nitrogen 26 mg/dL (9-16); Calcium 8.2 mg/dL (8.4-10.2); Carbon Dioxide 21 mmol/L (22-29); Chloride 103 mmol/L (96-108); Estimated Glomerular Filt Rate > 60; Glucose Random 100 mg/dL (60-115); Potassium 3.7 mmol/L (3.3-5.1); Sodium 132 mmol/L (135-145); Total Protein 6.3 g/dL (6.5-8.0)
[2021-01-24 07:49] LABS: Bilirubin Direct 15.3 mg/dL (0.0-0.5)
[2021-01-24 08:00] VITALS: BP 92/50; PULSE 67; RESP 16; TEMP 36.1; O2SAT 95
[2021-01-24] MEDS: predniSONE 20 MG TABLET 40 MG PO (10:02)
[2021-01-24] MEDS: Magnesium Oxide 400 MG TABLET PO ×2 (10:03→16:13)
[2021-01-24] MEDS: Lactulose 20 GM/30 ML SOLUTION PO (10:04)
[2021-01-24] MEDS: 0.9 % Sodium Chloride Flush 3 ML SYRINGE IVFLUSH ×3 (10:04→19:43)
--- NOTE | 2021-01-24 10:28 | PC.NURSE ---
Skin assessment completed today. Patient's skin is jaundiced but no breakdowns noted on heels or coccyx/buttocks.
[2021-01-24 11:48] VITALS: BP 95/50; PULSE 63; RESP 17; TEMP 36.1; O2SAT 98
[2021-01-24] MEDS: Nicotine 21 MG PATCH.TD24 TRANSDERMA (12:21)
--- NOTE | 2021-01-24 14:01 | P.PNIM_ITS ---
Subjective Subjective Date of Service: 01/24/21 Interval History: Patient awake, alert, vague does not want to take lactulose if he has diarrhea, noted to have low blood pressure this a.m. complain of lightheadedness when stands up. Review of Systems General no headache, no fever chills. CVS no chest pain, no palpitation. Respiratory no cough ,no sob. Gastrointestinal no nausea ,no vomiting, no abdominal pain Physical Exam Vital Signs: Vital Signs: Last Vital Signs Temp 97.0 F 01/24/21 11:48 Pulse 63 01/24/21 11:48 Resp 17 01/24/21 11:48 BP 95/50 L 01/24/21 11:48 Pulse Ox 98 01/24/21 11:48 Body Mass Index 30.1 General no acute distress. sclera icteric Neck no JVD. CVS regular rate rhythm, Respiratory lungs clear to auscultation, no respiratory distress, no wheeze, no rhonchi. Gastrointestinal abdomen soft, nontender, bowel sounds audible Neuro nonfocal Skin no rash Objective Data Current Medications Generic Name Dose Route Start Last Admin Trade Name Freq PRN Reason Stop Dose Admin Albuterol Sulfate 2 puff 01/17/21 22:55 Albuterol Sulfate 90 Mcg 8 Gm Inhaler INHALE Q6H PRN shortness of breath or wheezing Docusate Sodium 100 mg 01/22/21 21:00 01/23/21 21:40 Docusate Sodium 100 Mg Capsule PO Not Given BEDTIME KARLA Furosemide 20 mg 01/18/21 09:00 01/24/21 10:03 Furosemide 20 Mg Tablet PO Not Given BID@0900,1800 [facility] Protocol Lactulose 20 gm 01/23/21 21:00 01/24/21 10:04 Lactulose 20 Gm/30 Ml Solution PO 20 gm TID KARLA Administration Lidocaine 1 patch 01/18/21 09:00 01/24/21 10:03 Lidocaine 4 % Patch Adh..Patch TRANSDERMA Not Given DAILY KARLA Protocol Magnesium Oxide 400 mg 01/18/21 08:30 01/24/21 10:03 Magnesium Oxide 400 Mg Tablet PO 400 mg BIDPC KARLA Administration Nadolol 20 mg 01/18/21 09:00 01/24/21 10:04 Nadolol 20 Mg Tablet PO Not Given DAILY KARLA Protocol Nicotine 21 mg 01/24/21 12:15 01/24/21 12:21 Nicotine 21 Mg Patch.Td24 TRANSDERMA 21 mg DAILY KARLA Administration Omeprazole 20 mg 01/18/21 06:30 01/24/21 05:43 Omeprazole 20 Mg Capsule.Dr PO 20 mg DAILY@0630 KARLA Administration Ondansetron HCl 4 mg 01/17/21 22:55 Ondansetron Hcl 4 Mg/2 Ml Vial IVPUSH Q8H PRN Nausea and Vomiting Oxycodone HCl 5 mg 01/23/21 14:44 01/24/21 12:22 Oxycodone Hcl Immed Release 5 Mg Tablet PO 5 mg Q6H PRN Administration Pain, Mild (Pain Scale 1-3) Pharmacy Consult 1 each 01/17/21 19:03 Consult Rx Perform Med Rec MISCELLANE ONCE PRN Consult order Prednisone 40 mg 01/18/21 09:00 01/24/21 10:02 Prednisone 20 Mg Tablet PO 40 mg DAILY KARLA Administration Sodium Chloride 3 ml 01/18/21 00:00 01/24/21 10:04 0.9 % Sodium Chloride Flush 3 Ml Syringe IVFLUSH 3 ml QSHIFT KARLA Administration Tizanidine HCl 4 mg 01/19/21 10:23 01/23/21 19:35 Tizanidine Hcl 4 Mg Tablet PO 4 mg TID PRN Administration back pain Labs CBC & Chem 7: 01/23/21 06:06 01/24/21 06:06 Labs: Laboratory Results - last 24 hr 01/24/21 01/24/21 01/24/21 06:06 06:06 06:06 PT 23.1 H INR 2.0 H Anion Gap 12 Estim Creat Clear Calc 99.0 Estimated GFR > 60 Random Glucose 100 Calcium 8.2 L Total Bilirubin 23.0 H Direct Bilirubin 15.3 H AST 170 H ALT 104 H Alkaline Phosphatase 184 H Ammonia 142 H Total Protein 6.3 L Albumin 2.9 L Assessment and Plan (1) Coagulopathy: Status: Acute (2) Hyperbilirubinemia: Status: Acute (3) Decompensated hepatic cirrhosis: Status: Acute (4) Increased ammonia level: Status: Acute Assessment and Plan: 60yo M with 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 Continue prednisone d#01/04, with outpatient tapering under GI continue nadolol for prevention of variceal hemorrhage Tibili around 22- 24 range , not much difference in last several days will arrange for safe discharge Hepatic encephalopathy:? Patient ammonia level remains elevated with no worsening of confusion, will hold lactulose for greater than 3 bowel movement per day Being followed closely by gastro. 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
--- NOTE | 2021-01-24 14:04 | MHC.CM.PN ---
AMMONIA AND BILIRUBIN LEVELS STILL ELEVATED. NO PLAN FOR DISCHARGE TODAY.
[2021-01-24 15:21] VITALS: BP 134/65; PULSE 65; RESP 18; TEMP 36.2; O2SAT 98
[2021-01-24 19:22] VITALS: BP 121/63; PULSE 77; RESP 17; TEMP 36; O2SAT 97
[2021-01-24] MEDS: TiZANidine HCL 4 MG TABLET PO (19:43)
[2021-01-24] MEDS: Pantoprazole Sodium 40 MG/10 ML VIAL IVPUSH (20:24)
--- NOTE | 2021-01-24 21:57 | MHC.PIE ---
p; pt c/o heartburn i; dr youngblood notified, new order tums q4 prn, protonix 40 mg iv bid. e; will cont to monitor
[2021-01-25] VITALS: BP 115/58; PULSE 54; RESP 18; TEMP 37.1; O2SAT 97
[2021-01-25 03:41] VITALS: BP 104/56; PULSE 70; RESP 18; TEMP 36.5; O2SAT 96
[2021-01-25] MEDS: oxyCODONE HCl Immed Release 5 MG TABLET PO ×2 (04:24→12:56)
[2021-01-25] MEDS: TiZANidine HCL 4 MG TABLET PO (04:25)
[2021-01-25] MEDS: Pantoprazole Sodium 40 MG/10 ML VIAL IVPUSH (06:00)
[2021-01-25 07:59] VITALS: BP 94/62; PULSE 58; RESP 18; TEMP 36.2; O2SAT 98
[2021-01-25] MEDS: Magnesium Oxide 400 MG TABLET PO (10:12)
[2021-01-25] MEDS: predniSONE 20 MG TABLET 40 MG PO (10:12)
[2021-01-25] MEDS: Lactulose 20 GM/30 ML SOLUTION PO (10:12)
[2021-01-25] MEDS: 0.9 % Sodium Chloride Flush 3 ML SYRINGE IVFLUSH (10:13)
[2021-01-25 10:14] VITALS: BP 98/61
[2021-01-25 11:45] VITALS: BP 95/56; PULSE 68; RESP 18; TEMP 36; O2SAT 96
[2021-01-25 12:05] LABS: Ammonia 77 umol/L (13-55)
--- NOTE | 2021-01-25 12:08 | MHC.CM.PN ---
PER CONVERSATION WITH PATIENT AND (IN ROOM) WITH PERMISSION, A REFERRAL IS NOW PLACED FOR [facility] SERVICES. PATIENT CHOOSES [facility] FIRST CHOICE. OF THIS NOTE, IT IS UNCLEAR IF PATIENT WILL DISCHARGE TODAY CURRENTLY AWAITING G.I. INPUT.
--- NOTE | 2021-01-25 12:34 | MHC.CM.PN ---
NA CAN START CARE ON Thursday01/27/21. [facility] IS ASKING FOR UPDATES ON DC PLAN CASE MANAGEMENT FOLLOWING
--- NOTE | 2021-01-25 14:21 | P.DS_ITS ---
DS: Providers Provider Date of Service: 01/25/21 Date of admission: 01/17/21 22:25 Primary care physician: JOLANTA Argueta Consults: 01/17/21 22:55 Consult to Gastroenterology Routine Consulting Provider: Jong Nicholas Reason for consultation: acute alcoholic hepatitis Has provider been notified: Yes DS: Diagnosis Discharge Diagnosis (1) Coagulopathy: Status: Acute (2) Hyperbilirubinemia: Status: Acute (3) Decompensated hepatic cirrhosis: Status: Acute (4) Increased ammonia level: Status: Acute DS: Medications Discharge Medications Home Medications: Previous Rx's Medication Instructions Recorded albuterol sulfate 90 mcg/actuation 2 puff INHALATION Q6H PRN #18 g 06/07/20 aerosol inhaler (Ventolin HFA) magnesium oxide 400 mg (241.3 mg 400 mg PO BIDPC #60 tab 12/19/20 magnesium) tablet nadolol 20 mg tablet 20 mg PO DAILY #30 tab 12/19/20 calcium carbonate 300 mg (750 mg) 750 mg PO Q4H PRN #60 tab 01/25/21 chewable tablet (Tums) furosemide 20 mg tablet 20 mg PO DAILY #60 tab 01/25/21 lactulose 20 gram/30 mL oral 20 g PO DAILY #240 ml 01/25/21 solution omeprazole 20 mg capsule,delayed 20 mg PO BID #60 cap 01/25/21 release prednisone 20 mg tablet 40 mg PO DAILY #60 tab 01/25/21 DS: Summary Hospital Course Hospital Course: hpi Chief Complaint: Abnormal labs This is a 60-year-old male with past medical history of liver cirrhosis secondary to hepatitis C secondary to blood transfusion, treated, alcohol abuse, among others (see below), who presents to the hospital with abnormal labs.? Krystle ent was discharged from the hospital in December after being managed for symptoms of fluid overload secondary to decompensated cirrhosis.? At that time his primary care physician continue to follow his liver function and today he had labs done found to have elevated bilirubin and therefore sent to the hospital.? Patient himself reports epigastric pain as well as lower back pain.? The epigastric discomfort started today, associated with some nausea, no vomit.? His reports that she did notice his eyes were starting to get yellow for about a week now, in regards to the yellowing of his skin they both noticed today. He denies any abdominal pain, no fever or chills, no diarrhea constipation, no urinary symptoms.? No lower extremity edema.? He denies any chest pain, no shortness of breath, no headache or change in vision. Vitals on arrival reviewed, no significant abnormality Labs are significant for 6.6, hemoglobin of? 14.7, PT of 22, INR of 2.0, Mag of 1.3, with total bilirubin of 23.8 which was 3.8 on 12/27, 15.9, AST of 142, ALT of 57, alk-phos of 218, ammonia of 81, BNP of 79, albumin of 2.8, UA positive for blood and RBC, UDS positive for marijuana.? Alcohol level less than 10. P atient reports that the last time he drank was prior to his last admission which was December 17. Hospital course 60yo M with history of cirrhosis due to HCV [treated/cured] + EtOH admitted for severe hepatitis with hyperbilirubinemia patient treated with steroids as per GI recommendation he was continued on diuretics but noted to have low blood pressure and since his edema is significantly better dose of Lasix has been reduced to 20 mg, patient has been continued on nadolol for variceal hemorrhage his bili remained remains stable around 20-24 range, since patient is hemodynamically stable, with no fevers, stable liver enzymes, therefore he is being discharged home with strong recommendation to abstain from alcohol, he has been recommended to follow up with Dr. Chaudhary for outpatient tapering of steroids, he is recommended to take Prilosec twice daily for GI prophylaxis, in regard to hepatitic encephalopathy he has been started on lactulose daily, his ammonia level has improved to 77 he seems less confused and answering questions appropriately, being discharged home with . He has been strongly recommended to avoid NSAIDs and Tylenol. In regard to hypomagnesemia mg has been repleted,and repeat magnesium level is within normal range, his platelet count remains low but stable. Time Spent with Patient Time attestation: Total time spent providing and/or coordinating discharge services: Discharge coordination time: Greater than 30 minutes Quality: Stroke Does the patient have a stroke diagnosis?: No Physical Exam Vital Signs: Vital Signs: Last Vital Signs Temp 96.8 F 01/25/21 11:45 Pulse 68 01/25/21 11:45 Resp 18 01/25/21 11:45 BP 95/56 L 01/25/21 11:45 Pulse Ox 96 01/25/21 11:45 Body Mass Index 30.1 General no acute distress. sclera icteric Neck no JVD. CVS? regular rate rhythm, Respiratory lungs clear to auscultation, no respiratory distress, no wheeze, no rhonchi. Gastrointestinal abdomen soft, distended soft, nontender, bowel sounds audible Extremities no edema Neuro nonfocal Skin jaundiced DS: Data Data Completed and Pending Completed studies during hospitalization [Text1]: Procedures Drainage of Peritoneal Cavity, Percutaneous Approach (12/17/20) Labs on day of discharge: Laboratory Results - last 24 hr 01/25/21 11:33 Ammonia 77 H Discharge Plan Discharge Patient Disposition: Home Health Service Discharge Diagnosis: Alcoholic hepatitis Hepatic encephalopathy Hypomagnesemia Thrombocytopenia Referrals: Kei MATAMOROS [Outside] - 1 Week Mamadou Adames FNP-ANANT [Primary Care Provider] - 1 Week Discharge Medications: New calcium carbonate [Tums] 300 mg (750 mg) Tablet,Chewable 750 mg PO Q4H PRN (Reason: Heartburn) Qty: 60 RF: 0 lactulose 20 gram/30 mL Solution 20 g PO DAILY Qty: 240 RF: 0 prednisone 20 mg Tablet 40 mg PO DAILY Qty: 60 RF: 0 Continued albuterol sulfate [Ventolin HFA] 90 mcg/actuation HFA aerosol inhaler 2 puff inhalation Q6H PRN (Reason: shortness of breath or wheezing) Qty: 18 RF: 2 magnesium oxide 400 mg (241.3 mg magnesium) Tablet 400 mg PO BIDPC Qty: 60 RF: 0 omeprazole 20 mg Capsule,Delayed Release(Dr/Ec) 20 mg PO DAILY@0630 Qty: 30 RF: 0 furosemide 20 mg Tablet 20 mg PO BID@0900,1800 Qty: 60 RF: 0 nadolol 20 mg tablet 20 mg PO DAILY Qty: 30 RF: 0 Changed omeprazole 20 mg Capsule,Delayed Release(Dr/Ec) 20 mg PO BID Qty: 60 RF: 0 furosemide 20 mg Tablet 20 mg PO DAILY Qty: 60 RF: 0 Discontinued spironolactone [Aldactone] 50 mg tablet 50 mg PO BID Qty: 60 RF: 0 Discharge Orders: Discharge Order (Routine); Ordered 01/25/21 Ordered By: Olivia Pham Diet: advance to usual diet Activity on Discharge: As tolerated Stand Alone Forms: Patient Portal Discharge page Care Plan Goals: Take prednisone 40 mg daily for 20 days and follow-up with Dr. Chaudhary for tapering dose, take Prilosec for stomach acidity, continue lactulose daily Increase lactulose dose to twice daily if there is no bowel movement, take Lasix 20 mg daily and stop using Aldactone Health Concerns: Alcohol abuse/cirrhosis of liver, completely abstain from alcohol Plan of Treatment: Outpatient follow-up with primary care physician in 7-10 days outpatient follow- up with Dr. Chaudhary in next 1-2 weeks Assessment: As above
--- NOTE | 2021-01-25 14:35 | MHC.CM.PN ---
PT CLEARED TO DC HOME TODAY WITH BRIAN MATAMOROS
[2021-01-25 15:19] VITALS: BP 113/65; PULSE 70; RESP 18; TEMP 36.4; O2SAT 98
== END 2021-01-25 16:00 | disposition home health service (06) | DRG 280 ==
LOC: HO.ED 21:19 → HO.EDOVER 22:46 → HO.S3 23:24
PROVIDERS: Family Medicine; Internal Medicine; Internal Medicine Gastroenterology; Nurse Practitioner Family; Admitting Provider Internal Medicine; Emergency Provider Emergency Medicine Emergency Medical Services; PCP Nurse Practitioner Family; Visit Provider Hospitalist
DX: K70.10 Alcoholic hepatitis without ascites (principal); D68.9 Coagulation defect, unspecified; D69.6 Thrombocytopenia, unspecified; K72.90 Hepatic failure, unspecified without coma; E83.42 Hypomagnesemia; I85.10 Secondary esophageal varices without bleeding; K74.69 Other cirrhosis of liver; M54.5 Low back pain; F10.11 Alcohol abuse, in remission; F17.210 Nicotine dependence, cigarettes, uncomplicated; Z86.19 Personal history of other infectious and parasitic diseases; Z20.822 Contact with and (suspected) exposure to COVID-19; Z71.6 Tobacco abuse counseling; Z88.6 Allergy status to analgesic agent; Z79.899 Other long term (current) drug therapy
CPT/HCPCS: 36415; 74177; 80048; 80053; 80076; 80307; 81001; 82077; 82140; 82947; 83605; 83690; 83735; 83880; 85025; 85027; 85610; 87040; 87635; 88112; 93005; 96365; 96366; 96367; 96375; 99285; J0696; J1200; J2270; J3475; P9047; Q9967

== ENCOUNTER 2021-01-28 11:21 | Inpatient (IN) | payer OTHER, SELFPAY ==
--- NOTE | ~2021-01-28 | US_ITS ---
EXAMINATION: US ABDOMEN LIMITED CLINICAL INFORMATION: Liver failure. COMPARISON: 12/17/2020 TECHNIQUE: Real-time imaging of the right upper quadrant abdominal viscera. FINDINGS: PANCREAS: The visualized portion of the pancreas head and body are normal, portion of the pancreatic body and tail, not visualized are obscured by bowel gas. LIVER: Heterogeneous liver diffusely echogenic with nodular surface compatible with patient history of liver cirrhosis. No ultrasound evidence of focal liver lesion. Reversal flow the portal vein suggesting portal hypertension. No ascites. Dilated portal veins probably varices. GALLBLADDER: Normal. Thickening of gallbladder wall nonspecific, in the setting of fatty liver cirrhosis could be hyperbilirubinemia. COMMON BILE DUCT: Normal in caliber measuring 0.6 cm in diameter. FREE FLUID: None. US/US abdomen limited IMPRESSION: Heterogeneous liver texture with nodular surface compatible with liver cirrhosis. Reversal of flow in the portal vein suggesting portal hypertension. Dilated portal veins around the liver probably varices. No ascites. Thickening of the gallbladder wall in the setting of liver failure, this might be hypoalbuminemia.
[2021-01-28 12:51] VITALS: BP 136/74; PULSE 72; RESP 16; TEMP 36.6; O2SAT 96; BMI 30.7
[2021-01-28 13:51] LABS: Mean Corpuscular Hemoglobin 33.5 pg (27.0-33.0)
[2021-01-28 13:53] LABS: Hematocrit 45.8 % (42-52); Hemoglobin 16.1 g/dl (14.0-18.0); Mean Corpuscular HGB Conc 35.2 g/dl (31.0-36.0); Mean Corpuscular Volume 95.4 fL (80-98); PLT CLUMP 1; Red Cell Distribution Width 22.5 % (11.0-16.0)
[2021-01-28 13:56] LABS: INTERNATIONAL NORM RATIO 1.9 (0.9-1.1); PLT ABN DIST 1; Prothrombin Time 21.8 SEC (9.9-13.0); White Blood Count 14.7 X10*3/uL (4.8-10.8)
[2021-01-28 14:31] LABS: Alanine Aminotransferase 211 U/L (0-40); Albumin Level 3.3 g/dL (3.5-5.0); Alkaline Phosphatase 216 U/L (39-117); Anion Gap 14 (12-20); Aspartate Amino Transferase 286 U/L (5-37); Bilirubin Total 38.6 mg/dL (0.0-1.0); Blood Urea Nitrogen 19 mg/dL (9-16); Calcium 8.8 mg/dL (8.4-10.2); Carbon Dioxide 23 mmol/L (22-29); Chloride 103 mmol/L (96-108); Creatinine Clr Calc Pharmacy 72.4; Estimated Glomerular Filt Rate > 60; Glucose Random 139 mg/dL (60-115); Lipase 206 U/L (8-78); Potassium 4.6 mmol/L (3.3-5.1); Sodium 135 mmol/L (135-145); Total Protein 7.7 g/dL (6.5-8.0)
[2021-01-28 14:40] LABS: Platelet Count 91 X10*3/uL (160-400)
[2021-01-28 14:51] LABS: Band Neutrophils Percent 6 % (3-5); Eosinophils Absolute Manual 0.1 X10*3/UL (0.0-0.8); Eosinophils Percent Manual 1 % (0-4); Lymphocytes Absolute Manual 0.7 X10*3/uL (0.6-4.8); Lymphocytes Percent Manual 5 % (20-40); Monocytes Absolute Manual 0.1 X10*3/uL (0.0-1.2); Monocytes Percent Manual 1 % (2-11); Neutrophils Absolute Manual 13.7 X10*3/uL (2.2-7.9); Neutrophils Percent Manual 87 % (45-73)
[2021-01-28 14:53] LABS: Acanthocytes 1+ (0-2) /OIF; Macrocytosis 1+ (5-14) /OIF; Platelet Estimate DECREASED (NORMAL); Platelet Morphology Comment NORMAL; RBC Morphology NOTED
--- NOTE | 2021-01-28 18:14 | ED.GENADULT ---
HPI - General Adult General Chief complaint: General Medical <Carin Girard PA-C - Last Filed: 01/28/21 18:18> Stated complaint: liver failure <Carin Girard PA-C - Last Filed: 01/28/21 18:18> Time Seen by Provider: 01/28/21 13:07 <Carin Girard PA-C - Last Filed: 01/28/21 18:18> Source: patient <Carin Girard PA-C - Last Filed: 01/28/21 18:18> Mode of arrival: ambulatory <YOHANNES Schultz Last Filed: 01/28/21 18:18> Limitations: no limitations <YOHANNES Schultz Last Filed: 01/28/21 18:18> History of Present Illness HPI narrative: 60 y/o male with history of hepatitis C 2/2 blood transfusion (s/p treatment) liver cirrhosis with portal vein thrombosis, alcohol abuse (now sober x1 month), COPD who presents to the ER with increased abdominal distention, abdominal discomfort that is not allowing him to sleep for the last 2 nights. He was just discharged from [facility] on 01/25 where he was admitted and treated for alcoholic hepatitis with steroids per GI recs. He was supposed to get repeat labs today and follow up with GI however he reportedly could not be seen for another 2-3 months. He denies fever or chills at home. He is nauseated at times but no vomiting, no blood stools, no urinary symptoms. <CHINA Monroy Last Filed: 01/28/21 19:42> MD complaint: abdominal discomfort <CHINA Monroy Last Filed: 01/28/21 19:42> Onset (ago): day(s) (2) <CHINA Monroy Last Filed: 01/28/21 19:42> Location: abdomen <CHINA Monroy Last Filed: 01/28/21 19:42> Radiation: non-radiation <CHINA Monroy Last Filed: 01/28/21 19:42> Severity: moderate <CHINA Monroy Last Filed: 01/28/21 19:42> Severity scale (1-10): 6 <CHINA Monroy - Last Filed: 01/28/21 19:42> Quality: aching <CHINA Monroy - Last Filed: 01/28/21 19:42> Pain Consistency: constant <CHINA Monroy - Last Filed: 01/28/21 19:42> Relieving factors: none <CHINA Monroy - Last Filed: 01/28/21 19:42> Exacerbating factors: other (laying down ) <CHINA Monroy - Last Filed: 01/28/21 19:42> Associated symptoms: denies other symptoms <CHINA Monroy - Last Filed: 01/28/21 19:42> Treatments prior to arrival: none <CHINA Monroy Last Filed: 01/28/21 19:42> Related Data Home medications: Home Medications Medication Instructions Recorded Confirmed furosemide 20 mg tablet 20 mg PO BID 01/28/21 01/28/21 lactulose 10 gram/15 mL oral 30 ml PO DAILY 01/28/21 01/28/21 solution omeprazole 20 mg capsule,delayed 20 mg PO DAILY@0630 01/28/21 01/28/21 release prednisone 20 mg tablet 2 tab PO DAILY 01/28/21 01/28/21 Previous Rx's Medication Instructions Recorded albuterol sulfate 90 mcg/actuation 2 puff INHALATION Q6H PRN #18 g 06/07/20 aerosol inhaler (Ventolin HFA) magnesium oxide 400 mg (241.3 mg 400 mg PO BIDPC #60 tab 12/19/20 magnesium) tablet nadolol 20 mg tablet 20 mg PO DAILY #30 tab 12/19/20 calcium carbonate 300 mg (750 mg) 750 mg PO Q4H PRN #60 tab 01/25/21 chewable tablet (Tums) <Carin Girard PA-C - Last Filed: 01/28/21 18:18> Allergies/adverse reactions: Allergies Allergy/AdvReac Type Severity Reaction Status Date / Time ibuprofen Allergy Unknown low Verified 01/16/21 18:08 plateletes aspirin [ASA] AdvReac Intermediate BLEEDING Verified 01/16/21 18:08 NSAIDS (Non-Steroidal AdvReac Intermediate BLEEDING Verified 01/16/21 18:08 Anti-Inflamma [NSAIDS (NON-STEROIDAL ANTI-INFLAMMA] <Carin Girard PA-C - Last Filed: 01/28/21 18:18> Review of Systems Constitutional: Constitutional: Denies chills, Denies fever(s), Denies headache(s), Reports lethargy and Reports poor appetite <CHINA Monroy - Last Filed: 01/28/21 19:42> Eyes: Eyes: Reports no additional eye complaints <CHINA Monroy - Last Filed: 01/28/21 19:42> ENT: Denies headache(s) and Denies sore throat <CHINA Monroy - Last Filed: 01/28/21 19:42> Cardiovascular: Cardiovascular: Denies chest pain <CHINA Monroy - Last Filed: 01/28/21 19:42> Neurologic: Denies headache(s) <CHINA Monroy - Last Filed: 01/28/21 19:42> [facility] Past Medical History Medical History: Medical History Aortic valve calcification Asthma Bladder cancer Cervical radiculopathy Cirrhosis of liver Decompensation of cirrhosis of liver Dyslipidemia Esophageal varices without bleeding ETOH abuse Gout Hepatitis C HTN (hypertension) Left ventricular hypertrophy Leukopenia Microalbuminuria Opioid abuse Osteoarthritis Pericarditis Portal hypertension Portal vein thrombosis RBBB Sacroiliitis Small bowel obstruction Smoker Thrombocytopenia <Carin Girard PA-C - Last Filed: 01/28/21 18:18> Surgical History: Surgical History H/O repair of patent ductus arteriosus History of bladder surgery History of cervical discectomy History of patent ductus arteriosus History of right inguinal hernia Testicular lesion <Carin Girard PA-C - Last Filed: 01/28/21 18:18> Family History Family History: Family History Father Liver failure ETOHism Mother Lung cancer Brain cancer Sister No problems noted. Son No problems noted. Son No problems noted. <Carin Girard PA-C - Last Filed: 01/28/21 18:18> Social History Social History: Social History Household Members: Spouse Housing: House Do you presently have visiting nurse or other home services: No Alcohol intake: current Patient Tobacco Use Status: Current everyday Tobacco user Tobacco use type: Cigarette Cigarette Packs Per Day: 0.5 Cigarettes Per Day: 20 Years Smoked: 30 Second Hand Smoke Exposure: Yes Advance Directives: No Advance Directives Information Provided: No service: No Current occupational status: employed and unemployed <Carin Girard PA-C - Last Filed: 01/28/21 18:18> Physical Exam Vital Signs: Vital Signs: Last Vital Signs Temp 97.9 F 01/28/21 12:51 Pulse 72 01/28/21 12:51 Resp 16 01/28/21 12:51 BP 136/74 01/28/21 12:51 Pulse Ox 96 01/28/21 12:51 Body Mass Index 30.7 <Carin Girard PA-C - Last Filed: 01/28/21 18:18> Vital Signs: Last Vital Signs Temp 97.9 F 01/28/21 12:51 Pulse 72 01/28/21 12:51 Resp 16 01/28/21 12:51 BP 136/74 01/28/21 12:51 Pulse Ox 96 01/28/21 12:51 Body Mass Index 30.7 <CHINA Monroy Last Filed: 01/28/21 19:42> Appearance: Alert. Jaundiced skin and eyes. Oriented X3. No acute distress. Eyes: Pupils equal, round and reactive to light. Jaundiced. ENT: Pharynx normal. Neck: Normal inspection. Neck supple. CVS: Normal heart rate and rhythm. Pulses normal. Respiratory: No respiratory distress. Breath sounds normal. Abdomen: Soft with very mild distention, mild right upper quadrant and right lower quadrant tenderness without rebound or guarding. no fluid wave. +BS x4 Skin: Skin warm and dry. Skin color is yellow throughout. Normal skin turgor. No rashes. Extremities: Trace lower extremity edema. Neuro: Oriented X 3. No motor deficit. No sensory deficit. <CHINA Monroy Last Filed: 01/28/21 19:42> Course Course Course Narrative: 60 y/o male with history of liver cirrhosis, recent ETOH hepatitis, now sober x1 month, presenting with abdominal discomfort and reported distention. Records reviewed. His LFTs are worsening. He is adamant he has not drank any alcohol since his admission here in December. He has been compliant with his medications. His abdomen is not markedly distended, only trace ascites on CT scan 1 week ago. Doubt enough to safely tap today. ? diagnostic tap by IR tomorrow. Will get repeat ABD U/S with doppler to r/o worsening portal vein thrombosis & look for ascites.. He has WBC 14.7K, possible SBP with some right sided abdominal tenderness. Will check lactic acid, blood cultures, UA and start on Rocephin for possible SBP. He has a discriminant function is markedly elevated at 84, however given concern for infection steroids are likely not warranted at this time. Will d/w GI. Plan for admission to the hospital. <CHINA Monroy - Last Filed: 01/28/21 19:42> Reevaluation(s) Reevaluation #1: Dr. Lane to admit. Med rec, covid pending as well as lactic acid and ammonia. Patient is not septic at this time. <CHINA Monroy - Last Filed: 01/28/21 19:42> Consultations Consultation #1: GI - Dr. Gaspar - ok to hold off on prednisolone for now <CHINA Monroy - Last Filed: 01/28/21 19:42> Medical Decision Making Lab Data Result diagrams: : 01/28/21 13:20 01/28/21 13:20 <Carin Girard PA-C - Last Filed: 01/28/21 18:18> Labs: Lab Results 01/28/21 01/28/21 01/28/21 Range/Units 13:20 13:20 13:20 WBC 14.7 H (4.8-10.8) X10*3/uL RBC 4.80 D (4.60-5.80) X10*6/uL Hgb 16.1 D (14.0-18.0) g/dl Hct 45.8 D (42-52) % MCV 95.4 (80-98) fL MCH 33.5 H (27.0-33.0) pg MCHC 35.2 (31.0-36.0) g/dl RDW 22.5 H (11.0-16.0) % Plt Count 91 L D (160-400) X10*3/uL MPV Not Reportable Immature Gran % (Auto) Cancelled Neut % (Auto) Cancelled Lymph % (Auto) Cancelled [place] % (Auto) Cancelled Eos % (Auto) Cancelled Baso % (Auto) Cancelled Lymph # (Auto) Cancelled [place] # (Auto) Cancelled Eos # (Auto) Cancelled Baso # (Auto) Cancelled Abs Immat Gran (auto) Cancelled Absolute Neuts (auto) Cancelled Absolute Nucleated RBC 0.000 (0.0-0.012) X10*3/uL Nucleated RBC % (auto) 0.0 (0.0-0.2) /100WBC Neutrophils % (Manual) 87 H (45-73) % Band Neutrophils % 6 H (3-5) % Lymphocytes % (Manual) 5 L (20-40) % Monocytes % (Manual) 1 L (2-11) % Eosinophils % (Manual) 1 (0-4) % Abs Neuts (Manual) 13.7 H (2.2-7.9) X10*3/uL Lymphocytes # (Manual) 0.7 (0.6-4.8) X10*3/uL Monocytes # (Manual) 0.1 (0.0-1.2) X10*3/uL Eosinophils # (Manual) 0.1 (0.0-0.8) X10*3/UL Platelet Estimate DECREASED (NORMAL) Plt Morphology Comment NORMAL RBC Morphology NOTED Macrocytosis 1+ (5-14) /OIF Acanthocytes (Spur) 1+ (0-2) /OIF PT 21.8 H (9.9-13.0) SEC INR 1.9 H (0.9-1.1) Sodium 135 (135-145) mmol/L Potassium 4.6 D (3.3-5.1) mmol/L Chloride 103 (96-108) mmol/L Carbon Dioxide 23 (22-29) mmol/L Anion Gap 14 (12-20) BUN 19 H (9-16) mg/dL Creatinine 1.13 (0.5-1.4) mg/dL Estim Creat Clear Calc 72.4 Estimated GFR > 60 Random Glucose 139 H D (60-115) mg/dL Calcium 8.8 D (8.4-10.2) mg/dL Total Bilirubin 38.6 H (0.0-1.0) mg/dL AST 286 H (5-37) U/L ALT 211 H (0-40) U/L Alkaline Phosphatase 216 H (39-117) U/L Total Protein 7.7 D (6.5-8.0) g/dL Albumin 3.3 L (3.5-5.0) g/dL Lipase 206 H (8-78) U/L <Carin Girard PA-C - Last Filed: 01/28/21 18:18> Lab Results 01/28/21 01/28/21 01/28/21 Range/Units 13:20 13:20 13:20 WBC 14.7 H (4.8-10.8) X10*3/uL RBC 4.80 D (4.60-5.80) X10*6/uL Hgb 16.1 D (14.0-18.0) g/dl Hct 45.8 D (42-52) % MCV 95.4 (80-98) fL MCH 33.5 H (27.0-33.0) pg MCHC 35.2 (31.0-36.0) g/dl RDW 22.5 H (11.0-16.0) % Plt Count 91 L D (160-400) X10*3/uL MPV Not Reportable Immature Gran % (Auto) Cancelled Neut % (Auto) Cancelled Lymph % (Auto) Cancelled [place] % (Auto) Cancelled Eos % (Auto) Cancelled Baso % (Auto) Cancelled Lymph # (Auto) Cancelled [place] # (Auto) Cancelled Eos # (Auto) Cancelled Baso # (Auto) Cancelled Abs Immat Gran (auto) Cancelled Absolute Neuts (auto) Cancelled Absolute Nucleated RBC 0.000 (0.0-0.012) X10*3/uL Nucleated RBC % (auto) 0.0 (0.0-0.2) /100WBC Neutrophils % (Manual) 87 H (45-73) % Band Neutrophils % 6 H (3-5) % Lymphocytes % (Manual) 5 L (20-40) % Monocytes % (Manual) 1 L (2-11) % Eosinophils % (Manual) 1 (0-4) % Abs Neuts (Manual) 13.7 H (2.2-7.9) X10*3/uL Lymphocytes # (Manual) 0.7 (0.6-4.8) X10*3/uL Monocytes # (Manual) 0.1 (0.0-1.2) X10*3/uL Eosinophils # (Manual) 0.1 (0.0-0.8) X10*3/UL Platelet Estimate DECREASED (NORMAL) Plt Morphology Comment NORMAL RBC Morphology NOTED Macrocytosis 1+ (5-14) /OIF Acanthocytes (Spur) 1+ (0-2) /OIF PT 21.8 H (9.9-13.0) SEC INR 1.9 H (0.9-1.1) Sodium 135 (135-145) mmol/L Potassium 4.6 D (3.3-5.1) mmol/L Chloride 103 (96-108) mmol/L Carbon Dioxide 23 (22-29) mmol/L Anion Gap 14 (12-20) BUN 19 H (9-16) mg/dL Creatinine 1.13 (0.5-1.4) mg/dL Estim Creat Clear Calc 72.4 Estimated GFR > 60 Random Glucose 139 H D (60-115) mg/dL Calcium 8.8 D (8.4-10.2) mg/dL Total Bilirubin 38.6 H (0.0-1.0) mg/dL AST 286 H (5-37) U/L ALT 211 H (0-40) U/L Alkaline Phosphatase 216 H (39-117) U/L Total Protein 7.7 D (6.5-8.0) g/dL Albumin 3.3 L (3.5-5.0) g/dL Lipase 206 H (8-78) U/L <CHINA Monroy - Last Filed: 01/28/21 19:42> Critical Care Time Critical Care Time Critical Care Time: Yes <CHINA Monroy - Last Filed: 01/28/21 19:42> Total Critical Care Time: 37 <CHINA Monroy - Last Filed: 01/28/21 19:42> Attestation: I have personally provided critical care time exclusive of time spent on separately billable procedures. Time includes review of lab data, radiology results, discussion with consultants, and monitoring for potential decompensation. Intervention performed as documented. <CHINA Monroy - Last Filed: 01/28/21 19:42> Discharge Plan Discharge Clinical Impression: Liver failure <Carin Girard PA-C - Last Filed: 01/28/21 18:18> Patient Disposition: Admitted As Inpatient <Carin Girard PA-C - Last Filed: 01/28/21 18:18> Prescriptions: No Action albuterol sulfate [Ventolin HFA] 90 mcg/actuation HFA aerosol inhaler 2 puff inhalation Q6H PRN (Reason: shortness of breath or wheezing) Qty: 18 RF: 2 prednisone 20 mg tablet 2 tab PO DAILY RF: 0 lactulose 10 gram/15 mL solution 30 ml PO DAILY RF: 0 omeprazole 20 mg capsule,delayed release(DR/EC) 20 mg PO DAILY@0630 RF: 0 furosemide 20 mg tablet 20 mg PO BID RF: 0 magnesium oxide 400 mg (241.3 mg magnesium) Tablet 400 mg PO BIDPC Qty: 60 RF: 0 nadolol 20 mg tablet 20 mg PO DAILY Qty: 30 RF: 0 calcium carbonate [Tums] 300 mg (750 mg) Tablet,Chewable 750 mg PO Q4H PRN (Reason: Heartburn) Qty: 60 RF: 0 <Carin Girard PA-C - Last Filed: 01/28/21 18:18>
[2021-01-28 20:43] VITALS: BP 109/74; PULSE 61; RESP 16; O2SAT 96
[2021-01-28] MEDS: cefTRIAXone sodium 1 GM in 0.9 % Sodium Chloride 50 ML IV (20:47)
[2021-01-28 20:58] LABS: Ethanol < 10 mg/dL; Lactic Acid 1.5 mmol/L (0.5-2.0)
[2021-01-28] MEDS: oxyCODONE HCl Immed Release 5 MG TABLET PO (20:59)
[2021-01-28 21:07] LABS: Acetaminophen LAB 2 mcg/mL (<30); Lipase 216 U/L (8-78)
[2021-01-28 21:07] LABS: Ammonia 52 umol/L (13-55)
[2021-01-28 21:33] LABS: Glucose Urine UA 100 MG/DL (NEG); Leukocyte Esterase Urine NEG (NEG); Nitrite Urine NEG (NEG); PH 6.5 (5.0-8.0); Specific Gravity - Urine 1.025 (1.005-1.025); UACC Culture Trigger NO; Urine Blood TRACE (NEG); Urine Ketones 5 MG/DL (NEG); Urine Protein 1+ MG/DL (NEG-TRACE)
[2021-01-28 21:37] LABS: Appearance Urine HAZY; Color Urine ORANGE
[2021-01-28 21:51] LABS: Amphetamine Screen Urine Not Detected (Not Detect); Barbiturates, Urine Not Detected (Not Detect); Benzodiazepines Screen Urine Not Detected (Not Detect); Cannabinoid Screen Urine Not Detected (Not Detect); Cocaine Screen Urine Not Detected (Not Detect); Fentanyl, urine Not Detected (Not Detect); Opiate Screen Urine Not Detected (Not Detect); Phencyclidine Screen Urine Not Detected (Not Detect)
[2021-01-28 21:56] LABS: Bacteria Urine TRACE /LPF; Mucus Urine TRACE /LPF; Renal Epithelial Cells Urine 1+ /LPF; Squamous Epithelial Cell Urine TRACE /LPF
[2021-01-28 21:57] LABS: Epith (RTE) Cast 0-2 /LPF; Granular Casts Urine 0-2 /LPF
[2021-01-28 21:58] LABS: Amorphous Sediment Urine TRACE /LPF
[2021-01-28 22:04] LABS: COVID-19 Test Negative (Negative)
--- NOTE | 2021-01-28 22:06 | P.HPHOSP_ITS ---
History of Present Illness Date of Service: 01/28/21 Chief Complaint: abdominal pain, insomnia This is a 60-year-old male with past medical history of decompensated liver failure secondary to alcohol abuse as well as a history of treated and cured hepatitis-C who was recently discharged from the hospital on 01/25 after being managed for decompensated liver failure and treated with prednisolone returns today stating that he has abdominal pain as well as insomnia. The abdominal pain is in the epigastric region, about 5/10, nonradiating, constant, not associated with any nausea or vomiting, patient reports no diarrhea and reports compliance with his lactulose. he also feels mildly distended abdomen although not significantly worse since his discharge, denies any fever or chills, denies any headache change in vision, no chest pain, no shortness in ups of breath, no urinary symptoms and no lower extremity edema. Patient was supposed to follow-up with perinatal breastfeeding assistant but reports that the earliest appointment he was given was in April. Patient reports that he has about 1 bowel movement a day after using lactulose and reports compliance with alcohol abstinence and his last drink was 1 month ago. On arrival to the ED patient hemodynamically stable with no significant abnormal vital Lab results reviewed showed WBC count of 14.7 (normal on 01/23), platelets of 91 which are increased from discharge, PT of 21.8, INR of 1.9, sodium of 135, BUN of 19, creatinine of 1.13 total bili of 38.6 which has increased from 20/3 on 01/24, AST of 286, ALT of 211, both have increased since discharge, ammonia of 52, albumin of 3.3, UA negative for infection, UDS negative, alcohol level negative Review of Systems Review of Systems: Yes all other systems are reviewed and are negative [facility] Medical History Aortic valve calcification Asthma Bladder cancer Cervical radiculopathy Cirrhosis of liver Decompensation of cirrhosis of liver Dyslipidemia Esophageal varices without bleeding ETOH abuse Gout Hepatitis C HTN (hypertension) Left ventricular hypertrophy Leukopenia Microalbuminuria Opioid abuse Osteoarthritis Pericarditis Portal hypertension Portal vein thrombosis RBBB Sacroiliitis Small bowel obstruction Smoker Thrombocytopenia Family History Father Liver failure ETOHism Mother Lung cancer Brain cancer Sister No problems noted. Son No problems noted. Son No problems noted. Surgical History H/O repair of patent ductus arteriosus History of bladder surgery History of cervical discectomy History of patent ductus arteriosus History of right inguinal hernia Testicular lesion Social History Household Members: Spouse Housing: House Do you presently have visiting nurse or other home services: Yes Alcohol intake: current Patient Tobacco Use Status: Current everyday Tobacco user Tobacco use type: Cigarette Cigarette Packs Per Day: 0.5 Cigarettes Per Day: 20 Years Smoked: 30 Second Hand Smoke Exposure: Yes Use of substances other than those prescribed or required for medical reasons: No Have you been hit, kicked, punched, or otherwise hurt by someone within the past year? If so, by whom?: No Do you feel safe in your current relationship?: Yes Is there a partner from a previous relationship who is making you feel unsafe now?: No Are you made to feel afraid or neglected: No Advance Directives: No Advance Directives Information Provided: No Do you have thoughts of harming others: None Do you have a plan to hurt others: No Plan Recently lost weight without trying: No Nutrition Risks: No Nutritional Risk Poor oral hygiene: No service: No Current occupational status: employed and unemployed Meds Allergies Allergy/AdvReac Type Severity Reaction Status Date / Time ibuprofen Allergy Unknown low Verified 01/16/21 18:08 plateletes aspirin [ASA] AdvReac Intermediate BLEEDING Verified 01/16/21 18:08 NSAIDS (Non-Steroidal AdvReac Intermediate BLEEDING Verified 01/16/21 18:08 Anti-Inflamma [NSAIDS (NON-STEROIDAL ANTI-INFLAMMA] Active Medications: Current Medications Generic Name Dose Route Start Last Admin Trade Name Freq PRN Reason Stop Dose Admin Albuterol Sulfate 2 puff 01/28/21 21:12 Albuterol Sulfate 90 Mcg 8 Gm Inhaler INHALE Q6H PRN shortness of breath or wheezing Calcium Carbonate 750 mg 01/28/21 21:12 Calcium Carbonate 750 Mg Tab.Chew PO Q4H PRN Heartburn Furosemide 20 mg 01/28/21 21:12 Furosemide 20 Mg Tablet PO BID KARLA Protocol Lactulose 20 gm 01/28/21 21:12 Lactulose 20 Gm/30 Ml Solution PO TID [facility] Magnesium Oxide 400 mg 01/29/21 08:30 Magnesium Oxide 400 Mg Tablet PO BIDPC [facility] Melatonin 6 mg 01/28/21 21:12 Melatonin 3 Mg Tablet PO BEDTIME [facility] Nadolol 20 mg 01/28/21 21:12 Nadolol 20 Mg Tablet PO DAILY [facility] Protocol Omeprazole 20 mg 01/29/21 06:30 Omeprazole 20 Mg Capsule.Dr PO DAILY@0630 [facility] Oxycodone HCl 5 mg 01/28/21 20:51 01/28/21 20:59 Oxycodone Hcl Immed Release 5 Mg Tablet PO 5 mg Q6H PRN Administration Pain, Severe (Pain Scale 7-10) Pharmacy Consult 1 each 01/28/21 18:09 Consult Rx Perform Med Rec MISCELLANE ONCE PRN Consult order Sodium Chloride 3 ml 01/29/21 00:00 0.9 % Sodium Chloride Flush 3 Ml Syringe IVFLUSH QSHIFT [facility] Trazodone HCl 50 mg 01/28/21 21:12 Trazodone Hcl 50 Mg Tablet PO BEDTIME [facility] Home Medications Medication Instructions Recorded Confirmed Last Taken Type furosemide 20 mg tablet 20 mg PO BID 01/28/21 01/28/21 Unknown History lactulose 10 gram/15 mL oral 30 ml PO DAILY 01/28/21 01/28/21 Unknown History solution omeprazole 20 mg capsule,delayed 20 mg PO DAILY@0630 01/28/21 01/28/21 Unknown History release prednisone 20 mg tablet 2 tab PO DAILY 01/28/21 01/28/21 Unknown History Physical Exam Vital Signs and Narrative: Vital Signs: Last Vital Signs Temp 97.9 F 01/28/21 12:51 Pulse 61 01/28/21 20:43 Resp 16 01/28/21 20:43 BP 109/74 01/28/21 20:43 Pulse Ox 96 01/28/21 20:43 Body Mass Index 30.7 Const: General: cooperative and no acute distress Orientation/consciousness: patient oriented x3 Eyes: General: appearance normal, both eyes and all related structures Pupils: Equal, round and reactive pupils present Resp: Effort & Inspection: normal respiratory effort and able to speak in complete sentences Auscultation: clear to auscultation bilaterally Cardio: Rate: regular rate Rhythm: regular rhythm GI: Other: Minimal abdominal tenderness in the epigastric region, No rebound no guarding Palpation (GI): Soft to palpation Auscultation: normal bowel sounds Skin: General skin exam: no rashes or lesions noted Neuro: General: patient oriented x3 Cranial nerves: Yes Equal, round and reactive pupils present Cognition (Neuro): normal cognition Extrem: General: Yes normal to inspection and Yes no pedal edema Results Labs CBC and Chem 7: 01/28/21 13:20 01/28/21 13:20 Labs: Laboratory Results - last 24 hr 01/28/21 01/28/21 01/28/21 13:20 13:20 13:20 MCV 95.4 MCH 33.5 H MCHC 35.2 RDW 22.5 H Plt Count 91 L D MPV Not Reportable Immature Gran % (Auto) Cancelled Neut % (Auto) Cancelled Lymph % (Auto) Cancelled [place] % (Auto) Cancelled Eos % (Auto) Cancelled Baso % (Auto) Cancelled Lymph # (Auto) Cancelled [place] # (Auto) Cancelled Eos # (Auto) Cancelled Baso # (Auto) Cancelled Abs Immat Gran (auto) Cancelled Absolute Neuts (auto) Cancelled Absolute Nucleated RBC 0.000 Nucleated RBC % (auto) 0.0 Neutrophils % (Manual) 87 H Band Neutrophils % 6 H Lymphocytes % (Manual) 5 L Monocytes % (Manual) 1 L Eosinophils % (Manual) 1 Abs Neuts (Manual) 13.7 H Lymphocytes # (Manual) 0.7 Monocytes # (Manual) 0.1 Eosinophils # (Manual) 0.1 Platelet Estimate DECREASED Plt Morphology Comment NORMAL RBC Morphology NOTED Macrocytosis 1+ (5-14) Acanthocytes (Spur) 1+ (0-2) PT 21.8 H INR 1.9 H Anion Gap 14 Estim Creat Clear Calc 72.4 Estimated GFR > 60 Random Glucose 139 H D Lactic Acid Calcium 8.8 D Total Bilirubin 38.6 H AST 286 H ALT 211 H Alkaline Phosphatase 216 H Ammonia Total Protein 7.7 D Albumin 3.3 L Lipase 206 H Urine Color Urine Appearance Urine pH Ur Specific [place] Urine Protein Urine Glucose (UA) Urine Ketones Urine Blood Urine Nitrite Ur Leukocyte Esterase Urine RBC Urine WBC Ur Squamous Epith Cells Ur Renal Epithelial Cell Amorphous Sediment Urine Bacteria Epithelial Casts Granular Casts Urine Mucus Urine Opiates Screen Urine Fentanyl Screen Acetaminophen Ur Barbiturates Screen Ur Phencyclidine Scrn Ur Amphetamines Screen U Benzodiazepines Scrn Urine Cocaine Screen U Marijuana (THC) Screen Ethyl Alcohol COVID-19 (AMILCAR) COVID-19 Clin Com 01/28/21 01/28/21 01/28/21 20:21 20:21 20:21 MCV MCH MCHC RDW Plt Count MPV Immature Gran % (Auto) Neut % (Auto) Lymph % (Auto) [place] % (Auto) Eos % (Auto) Baso % (Auto) Lymph # (Auto) [place] # (Auto) Eos # (Auto) Baso # (Auto) Abs Immat Gran (auto) Absolute Neuts (auto) Absolute Nucleated RBC Nucleated RBC % (auto) Neutrophils % (Manual) Band Neutrophils % Lymphocytes % (Manual) Monocytes % (Manual) Eosinophils % (Manual) Abs Neuts (Manual) Lymphocytes # (Manual) Monocytes # (Manual) Eosinophils # (Manual) Platelet Estimate Plt Morphology Comment RBC Morphology Macrocytosis Acanthocytes (Spur) PT INR Anion Gap Estim Creat Clear Calc Estimated GFR Random Glucose Lactic Acid 1.5 Calcium Total Bilirubin AST ALT Alkaline Phosphatase Ammonia 52 Total Protein Albumin Lipase Urine Color Urine Appearance Urine pH Ur Specific [place] Urine Protein Urine Glucose (UA) Urine Ketones Urine Blood Urine Nitrite Ur Leukocyte Esterase Urine RBC Urine WBC Ur Squamous Epith Cells Ur Renal Epithelial Cell Amorphous Sediment Urine Bacteria Epithelial Casts Granular Casts Urine Mucus Urine Opiates Screen Urine Fentanyl Screen Acetaminophen Ur Barbiturates Screen Ur Phencyclidine Scrn Ur Amphetamines Screen U Benzodiazepines Scrn Urine Cocaine Screen U Marijuana (THC) Screen Ethyl Alcohol < 10 COVID-19 (AMILCAR) COVID-19 Clin Com 01/28/21 01/28/21 01/28/21 20:29 21:23 21:26 MCV MCH MCHC RDW Plt Count MPV Immature Gran % (Auto) Neut % (Auto) Lymph % (Auto) [place] % (Auto) Eos % (Auto) Baso % (Auto) Lymph # (Auto) [place] # (Auto) Eos # (Auto) Baso # (Auto) Abs Immat Gran (auto) Absolute Neuts (auto) Absolute Nucleated RBC Nucleated RBC % (auto) Neutrophils % (Manual) Band Neutrophils % Lymphocytes % (Manual) Monocytes % (Manual) Eosinophils % (Manual) Abs Neuts (Manual) Lymphocytes # (Manual) Monocytes # (Manual) Eosinophils # (Manual) Platelet Estimate Plt Morphology Comment RBC Morphology Macrocytosis Acanthocytes (Spur) PT INR Anion Gap Estim Creat Clear Calc Estimated GFR Random Glucose Lactic Acid Calcium Total Bilirubin AST ALT Alkaline Phosphatase Ammonia Total Protein Albumin Lipase 216 H Urine Color ORANGE Urine Appearance HAZY Urine pH 6.5 Ur Specific [place] 1.025 Urine Protein 1+ H Urine Glucose (UA) 100 H Urine Ketones 5 Urine Blood TRACE Urine Nitrite NEG Ur Leukocyte Esterase NEG Urine RBC 1-4 Urine WBC 1-4 Ur Squamous Epith Cells TRACE Ur Renal Epithelial Cell 1+ Amorphous Sediment TRACE Urine Bacteria TRACE Epithelial Casts 0-2 Granular Casts 0-2 Urine Mucus TRACE Urine Opiates Screen Urine Fentanyl Screen Acetaminophen 2 Ur Barbiturates Screen Ur Phencyclidine Scrn Ur Amphetamines Screen U Benzodiazepines Scrn Urine Cocaine Screen U Marijuana (THC) Screen Ethyl Alcohol COVID-19 (AMILCAR) Negative COVID-19 [employer] Com See Note 01/28/21 21:26 MCV MCH MCHC RDW Plt Count MPV Immature Gran % (Auto) Neut % (Auto) Lymph % (Auto) [place] % (Auto) Eos % (Auto) Baso % (Auto) Lymph # (Auto) [place] # (Auto) Eos # (Auto) Baso # (Auto) Abs Immat Gran (auto) Absolute Neuts (auto) Absolute Nucleated RBC Nucleated RBC % (auto) Neutrophils % (Manual) Band Neutrophils % Lymphocytes % (Manual) Monocytes % (Manual) Eosinophils % (Manual) Abs Neuts (Manual) Lymphocytes # (Manual) Monocytes # (Manual) Eosinophils # (Manual) Platelet Estimate Plt Morphology Comment RBC Morphology Macrocytosis Acanthocytes (Spur) PT INR Anion Gap Estim Creat Clear Calc Estimated GFR Random Glucose Lactic Acid Calcium Total Bilirubin AST ALT Alkaline Phosphatase Ammonia Total Protein Albumin Lipase Urine Color Urine Appearance Urine pH Ur Specific [place] Urine Protein Urine Glucose (UA) Urine Ketones Urine Blood Urine Nitrite Ur Leukocyte Esterase Urine RBC Urine WBC Ur Squamous Epith Cells Ur Renal Epithelial Cell Amorphous Sediment Urine Bacteria Epithelial Casts Granular Casts Urine Mucus Urine Opiates Screen Not Detected Urine Fentanyl Screen Not Detected Acetaminophen Ur Barbiturates Screen Not Detected Ur Phencyclidine Scrn Not Detected Ur Amphetamines Screen Not Detected U Benzodiazepines Scrn Not Detected Urine Cocaine Screen Not Detected U Marijuana (THC) Screen Not Detected Ethyl Alcohol COVID-19 (AMILCAR) COVID-19 Clin Com Imaging Radiologist's Impressions: Impressions Abdomen Ultrasound 01/28/21 18:48 IMPRESSION: Heterogeneous liver texture with nodular surface compatible with liver cirrhosis. Reversal of flow in the portal vein suggesting portal hypertension. Dilated portal veins around the liver probably varices. No ascites. Thickening of the gallbladder wall in the setting of liver failure, this might be hypoalbuminemia. Assessment and Plan (1) Decompensated hepatic cirrhosis: Status: Acute (2) Insomnia: Status: Acute (3) Coagulopathy: Status: Acute (4) Thrombocytopenia: Status: Acute (5) Hyperbilirubinemia: Status: Acute This is a 60-year-old male with decompensated liver failure, coagulopathy, history of portal vein thrombosis which is chronic, history of alcohol abuse currently abstaining, history of treated and cured hepatitis-C, COPD who presents to the hospital after being discharged with complaints of abdominal pain and insomnia. # decompensated liver failure - patient has increased bilirubin from discharge from - he was recently discharged after being managed for the same with prednisolone - returns today with abdominal pain as well as leukocytosis - received 1 dose of ceftriaxone - afebrile - patient was supposed to be on a taper of prednisone but discussion was made with GI, at this time will hold steroid pending GI evaluation - paracentesis was not able to be done in the ED as patient did not have enough fluid for aspiration # insomnia - most likely secondary to his liver cirrhosis - will start him on melatonin and trazodone p.r.n. # coagulopathy - secondary to above - no active or acute bleed - hemoglobin stable - monitor platelets level as well as PT INR # hyperbilirubinemia - worsening - GI consult # history of portal vein thrombosis - chronic - deemed unnecessary to treat from previous evaluation by GI - monitor DVT prophylaxis: SCDs in the setting of coagulopathy Quality Stroke Does the patient have a stroke diagnosis?: No VTE Prior VTE?: No VTE Risk Level:: Medical - moderate - high VTE Device Contraindication: N/A - Device Ordered VTE Drug Contraindication: Treatment Not Indicated
[2021-01-28 22:31] VITALS: BP 123/67; PULSE 69; RESP 16; O2SAT 96
[2021-01-28] MEDS: Lactulose 20 GM/30 ML SOLUTION PO (22:33)
[2021-01-28] MEDS: traZODone HCL 50 MG TABLET PO (22:33)
[2021-01-28] MEDS: Melatonin 3 MG TABLET 6 MG PO (22:33)
[2021-01-28] MEDS: Furosemide 20 MG TABLET PO (22:34)
[2021-01-28 23:08] VITALS: BP 123/70; PULSE 80
--- NOTE | 2021-01-28 23:45 | PC.NURSE ---
pt given sandwich and willy dana. pt able to ambulate to bathroom across the [place]. pt trying to fall asleep.
--- NOTE | 2021-01-29 01:15 | PC.NURSE ---
REPORT GIVEN TO RN ON FLOOR. PT READY FOR TRANSPORT.
[2021-01-29 01:36] VITALS: BMI 31.7
[2021-01-29] MEDS: 0.9 % Sodium Chloride Flush 3 ML SYRINGE IVFLUSH ×4 (01:49→20:47)
[2021-01-29 01:50] VITALS: BP 118/62; PULSE 69; RESP 17; TEMP 36.3; O2SAT 98
[2021-01-29] MEDS: oxyCODONE HCl Immed Release 5 MG TABLET PO ×4 (02:44→22:59)
[2021-01-29] MEDS: Omeprazole 20 MG CAPSULE.DR PO (06:12)
[2021-01-29 06:53] LABS: Hematocrit 38.6 % (42-52); Hemoglobin 14.1 g/dl (14.0-18.0); Mean Corpuscular HGB Conc 36.5 g/dl (31.0-36.0); Mean Corpuscular Hemoglobin 34.1 pg (27.0-33.0); Mean Corpuscular Volume 93.5 fL (80-98); Red Blood Count 4.13 X10*6/uL (4.60-5.80); Red Cell Distribution Width 22.3 % (11.0-16.0)
[2021-01-29 07:02] LABS: PLT ABN DIST 1; WBC ABN SCTR FOR CBC 1
[2021-01-29 07:09] LABS: Anion Gap 16 (12-20); Blood Urea Nitrogen 23 mg/dL (9-16); Carbon Dioxide 19 mmol/L (22-29); Chloride 104 mmol/L (96-108); Estimated Glomerular Filt Rate > 60; Glucose Random 78 mg/dL (60-115); Potassium 3.5 mmol/L (3.3-5.1); Sodium 135 mmol/L (135-145)
[2021-01-29 07:46] VITALS: BP 127/74; PULSE 62; RESP 19; TEMP 36.3; O2SAT 98
[2021-01-29 08:07] LABS: Band Neutrophils Percent 8 % (3-5); Eosinophils Percent Manual 2 % (0-4); Lymphocytes Percent Manual 8 % (20-40); Monocytes Percent Manual 1 % (2-11); Neutrophils Percent Manual 81 % (45-73)
[2021-01-29 08:08] LABS: Acanthocytes 3+ (>5) /OIF; RBC Morphology NOTED
[2021-01-29 08:09] LABS: Platelet Estimate DECREASED (NORMAL); Platelet Morphology Comment NORMAL; Toxic Vacuolation PRESENT
[2021-01-29 08:10] LABS: Eosinophils Absolute Manual 0.3 X10*3/UL (0.0-0.8); Lymphocytes Absolute Manual 1.1 X10*3/uL (0.6-4.8); Monocytes Absolute Manual 0.1 X10*3/uL (0.0-1.2); Neutrophils Absolute Manual 12.3 X10*3/uL (2.2-7.9); Platelet Count 89 X10*3/uL (160-400); White Blood Count 13.8 X10*3/uL (4.8-10.8)
[2021-01-29] MEDS: Omeprazole 40 MG CAPSULE.DR PO (09:55)
[2021-01-29] MEDS: Lactulose 20 GM/30 ML SOLUTION PO (09:55)
[2021-01-29 09:56] VITALS: BP 127/74; PULSE 62
[2021-01-29] MEDS: Furosemide 20 MG TABLET PO ×2 (09:56→20:46)
[2021-01-29] MEDS: Magnesium Oxide 400 MG TABLET PO ×2 (09:56→16:37)
[2021-01-29] MEDS: nadoloL 20 MG TABLET PO (09:56)
--- NOTE | 2021-01-29 11:05 | MHC.CM.PN ---
EMR REVIEWED, PT ADMITTED W/ABD PAIN AND INCREASED BILLIRUBIN AFTER RECENT D/C, PT REPORTS HE LIVES W/, PT IS INDEPENDENT W/ALL CARE AND DENIES USE OF DME, PT DOES REPORT HE IS ACTIVE W/[facility] FROM WHICH STARTED AFTER PRIOR D/C. PT VERIFIES PCP AND HCP, COPY ON FILE FROM PREVIOUS ADMISSION. D/C PLAN: HOME W/RESUMP OF [facility], FAMILY FOR TRANSPORT. PCP: DAYNE PIZARRO HCP: SUREKHA THOMAS [phone]
[2021-01-29 11:36] VITALS: BP 116/60; PULSE 58; RESP 18; TEMP 36.6; O2SAT 96
--- NOTE | 2021-01-29 13:03 | P.PNIM_ITS ---
Subjective Subjective Date of Service: 01/29/21 Interval History: the patient was seen and evaluated this morning Laying in bed, feels tired and out of energy Increased jaundice Denies any fever, chills or shortness of breath No reported other overnight events. Systemic review: No fever, chills but reported feeling weak and out of energy No chest pain, palpitation No shortness of breath or coughing No abdominal pain, nausea or vomiting No urinary symptoms Has jaundice Physical Exam Vital Signs: Vital Signs: Last Vital Signs Temp 97.8 F 01/29/21 11:36 Pulse 58 01/29/21 11:36 Resp 18 01/29/21 11:36 BP 116/60 01/29/21 11:36 Pulse Ox 96 01/29/21 11:36 Body Mass Index 31.7 Const: Other: Constitutional : Alert, oriented, jaundiced in the skin and eyes Neck : Normal inspection, Supple Cardiovascular : RRR, S1 S2, no lower extremity edema Respiratory : Good bilateral air entry, no crackles, wheezes or rhonchi Gastrointestinal: soft, lax, Normal bowel sounds, no distension, mild epigastric tenderness with palpation Skin : Warm, Dry Neurological : Alert & oriented x3, No focal deficit Objective Data Current Medications Generic Name Dose Route Start Last Admin Trade Name Freq PRN Reason Stop Dose Admin Albuterol Sulfate 2 puff 01/28/21 21:12 Albuterol Sulfate 90 Mcg 8 Gm Inhaler INHALE Q6H PRN shortness of breath or wheezing Calcium Carbonate 750 mg 01/28/21 21:12 Calcium Carbonate 750 Mg Tab.Chew PO Q4H PRN Heartburn Furosemide 20 mg 01/28/21 21:12 01/29/21 09:56 Furosemide 20 Mg Tablet PO 20 mg BID KARLA Administration Protocol Lactulose 20 gm 01/29/21 09:00 01/29/21 09:55 Lactulose 20 Gm/30 Ml Solution PO 20 gm DAILY KARLA Administration Magnesium Oxide 400 mg 01/29/21 08:30 01/29/21 09:56 Magnesium Oxide 400 Mg Tablet PO 400 mg BIDPC KARLA Administration Melatonin 6 mg 01/28/21 21:12 01/28/21 22:33 Melatonin 3 Mg Tablet PO 6 mg BEDTIME KARLA Administration Nadolol 20 mg 01/28/21 21:12 01/29/21 09:56 Nadolol 20 Mg Tablet PO 20 mg DAILY KARLA Administration Protocol Omeprazole 40 mg 01/29/21 06:30 01/29/21 09:55 Omeprazole 40 Mg Capsule. PO 40 mg DAILY@0630 KARLA Administration Oxycodone HCl 5 mg 01/28/21 20:51 01/29/21 09:55 Oxycodone Hcl Immed Release 5 Mg Tablet PO 5 mg Q6H PRN Administration Pain, Severe (Pain Scale 7-10) Pharmacy Consult 1 each 01/28/21 18:09 Consult Rx Perform Med Rec MISCELLANE ONCE PRN Consult order Sodium Chloride 3 ml 01/29/21 00:00 01/29/21 09:56 0.9 % Sodium Chloride Flush 3 Ml Syringe IVFLUSH 3 ml QSHIFT KARLA Administration Trazodone HCl 50 mg 01/28/21 21:12 01/28/21 22:33 Trazodone Hcl 50 Mg Tablet PO 50 mg BEDTIME KARLA Administration Labs CBC & Chem 7: 01/29/21 05:48 01/29/21 05:48 Labs: Laboratory Results - last 24 hr 01/28/21 01/28/21 01/28/21 13:20 13:20 13:20 MCV 95.4 MCH 33.5 H MCHC 35.2 RDW 22.5 H Plt Count 91 L D MPV Not Reportable Immature Gran % (Auto) Cancelled Neut % (Auto) Cancelled Lymph % (Auto) Cancelled [place] % (Auto) Cancelled Eos % (Auto) Cancelled Baso % (Auto) Cancelled Lymph # (Auto) Cancelled [place] # (Auto) Cancelled Eos # (Auto) Cancelled Baso # (Auto) Cancelled Abs Immat Gran (auto) Cancelled Absolute Neuts (auto) Cancelled Absolute Nucleated RBC 0.000 Nucleated RBC % (auto) 0.0 Neutrophils % (Manual) 87 H Band Neutrophils % 6 H Lymphocytes % (Manual) 5 L Monocytes % (Manual) 1 L Eosinophils % (Manual) 1 Abs Neuts (Manual) 13.7 H Lymphocytes # (Manual) 0.7 Monocytes # (Manual) 0.1 Eosinophils # (Manual) 0.1 Toxic Vacuolation Platelet Estimate DECREASED Plt Morphology Comment NORMAL RBC Morphology NOTED Macrocytosis 1+ (5-14) Acanthocytes (Spur) 1+ (0-2) PT 21.8 H INR 1.9 H Anion Gap 14 Estim Creat Clear Calc 72.4 Estimated GFR > 60 Random Glucose 139 H D Lactic Acid Calcium 8.8 D Total Bilirubin 38.6 H AST 286 H ALT 211 H Alkaline Phosphatase 216 H Ammonia Total Protein 7.7 D Albumin 3.3 L Lipase 206 H Urine Color Urine Appearance Urine pH Ur Specific [place] Urine Protein Urine Glucose (UA) Urine Ketones Urine Blood Urine Nitrite Ur Leukocyte Esterase Urine RBC Urine WBC Ur Squamous Epith Cells Ur Renal Epithelial Cell Amorphous Sediment Urine Bacteria Epithelial Casts Granular Casts Urine Mucus Urine Opiates Screen Urine Fentanyl Screen Acetaminophen Ur Barbiturates Screen Ur Phencyclidine Scrn Ur Amphetamines Screen U Benzodiazepines Scrn Urine Cocaine Screen U Marijuana (THC) Screen Ethyl Alcohol COVID-19 (AMILCAR) COVID-19 Clin Com 01/28/21 01/28/21 01/28/21 20:21 20:21 20:21 MCV MCH MCHC RDW Plt Count MPV Immature Gran % (Auto) Neut % (Auto) Lymph % (Auto) [place] % (Auto) Eos % (Auto) Baso % (Auto) Lymph # (Auto) [place] # (Auto) Eos # (Auto) Baso # (Auto) Abs Immat Gran (auto) Absolute Neuts (auto) Absolute Nucleated RBC Nucleated RBC % (auto) Neutrophils % (Manual) Band Neutrophils % Lymphocytes % (Manual) Monocytes % (Manual) Eosinophils % (Manual) Abs Neuts (Manual) Lymphocytes # (Manual) Monocytes # (Manual) Eosinophils # (Manual) Toxic Vacuolation Platelet Estimate Plt Morphology Comment RBC Morphology Macrocytosis Acanthocytes (Spur) PT INR Anion Gap Estim Creat Clear Calc Estimated GFR Random Glucose Lactic Acid 1.5 Calcium Total Bilirubin AST ALT Alkaline Phosphatase Ammonia 52 Total Protein Albumin Lipase Urine Color Urine Appearance Urine pH Ur Specific [place] Urine Protein Urine Glucose (UA) Urine Ketones Urine Blood Urine Nitrite Ur Leukocyte Esterase Urine RBC Urine WBC Ur Squamous Epith Cells Ur Renal Epithelial Cell Amorphous Sediment Urine Bacteria Epithelial Casts Granular Casts Urine Mucus Urine Opiates Screen Urine Fentanyl Screen Acetaminophen Ur Barbiturates Screen Ur Phencyclidine Scrn Ur Amphetamines Screen U Benzodiazepines Scrn Urine Cocaine Screen U Marijuana (THC) Screen Ethyl Alcohol < 10 COVID-19 (AMILCAR) COVID-19 Clin Com 01/28/21 01/28/21 01/28/21 20:29 21:23 21:26 MCV MCH MCHC RDW Plt Count MPV Immature Gran % (Auto) Neut % (Auto) Lymph % (Auto) [place] % (Auto) Eos % (Auto) Baso % (Auto) Lymph # (Auto) [place] # (Auto) Eos # (Auto) Baso # (Auto) Abs Immat Gran (auto) Absolute Neuts (auto) Absolute Nucleated RBC Nucleated RBC % (auto) Neutrophils % (Manual) Band Neutrophils % Lymphocytes % (Manual) Monocytes % (Manual) Eosinophils % (Manual) Abs Neuts (Manual) Lymphocytes # (Manual) Monocytes # (Manual) Eosinophils # (Manual) Toxic Vacuolation Platelet Estimate Plt Morphology Comment RBC Morphology Macrocytosis Acanthocytes (Spur) PT INR Anion Gap Estim Creat Clear Calc Estimated GFR Random Glucose Lactic Acid Calcium Total Bilirubin AST ALT Alkaline Phosphatase Ammonia Total Protein Albumin Lipase 216 H Urine Color ORANGE Urine Appearance HAZY Urine pH 6.5 Ur Specific [place] 1.025 Urine Protein 1+ H Urine Glucose (UA) 100 H Urine Ketones 5 Urine Blood TRACE Urine Nitrite NEG Ur Leukocyte Esterase NEG Urine RBC 1-4 Urine WBC 1-4 Ur Squamous Epith Cells TRACE Ur Renal Epithelial Cell 1+ Amorphous Sediment TRACE Urine Bacteria TRACE Epithelial Casts 0-2 Granular Casts 0-2 Urine Mucus TRACE Urine Opiates Screen Urine Fentanyl Screen Acetaminophen 2 Ur Barbiturates Screen Ur Phencyclidine Scrn Ur Amphetamines Screen U Benzodiazepines Scrn Urine Cocaine Screen U Marijuana (THC) Screen Ethyl Alcohol COVID-19 (AMILCAR) Negative COVID-19 Clin Com See Note 01/28/21 01/29/21 01/29/21 21:26 05:48 05:48 MCV 93.5 MCH 34.1 H MCHC 36.5 H RDW 22.3 H Plt Count 89 L MPV Not Reportable Immature Gran % (Auto) Cancelled Neut % (Auto) Cancelled Lymph % (Auto) Cancelled [place] % (Auto) Cancelled Eos % (Auto) Cancelled Baso % (Auto) Cancelled Lymph # (Auto) Cancelled [place] # (Auto) Cancelled Eos # (Auto) Cancelled Baso # (Auto) Cancelled Abs Immat Gran (auto) Cancelled Absolute Neuts (auto) Cancelled Absolute Nucleated RBC 0.000 Nucleated RBC % (auto) 0.0 Neutrophils % (Manual) 81 H Band Neutrophils % 8 H Lymphocytes % (Manual) 8 L Monocytes % (Manual) 1 L Eosinophils % (Manual) 2 Abs Neuts (Manual) 12.3 H Lymphocytes # (Manual) 1.1 Monocytes # (Manual) 0.1 Eosinophils # (Manual) 0.3 Toxic Vacuolation PRESENT Platelet Estimate DECREASED Plt Morphology Comment NORMAL RBC Morphology NOTED Macrocytosis Acanthocytes (Spur) 3+ (>5) PT INR Anion Gap 16 Estim Creat Clear Calc 77.0 Estimated GFR > 60 Random Glucose 78 D Lactic Acid Calcium 8.0 L D Total Bilirubin AST ALT Alkaline Phosphatase Ammonia Total Protein Albumin Lipase Urine Color Urine Appearance Urine pH Ur Specific [place] Urine Protein Urine Glucose (UA) Urine Ketones Urine Blood Urine Nitrite Ur Leukocyte Esterase Urine RBC Urine WBC Ur Squamous Epith Cells Ur Renal Epithelial Cell Amorphous Sediment Urine Bacteria Epithelial Casts Granular Casts Urine Mucus Urine Opiates Screen Not Detected Urine Fentanyl Screen Not Detected Acetaminophen Ur Barbiturates Screen Not Detected Ur Phencyclidine Scrn Not Detected Ur Amphetamines Screen Not Detected U Benzodiazepines Scrn Not Detected Urine Cocaine Screen Not Detected U Marijuana (THC) Screen Not Detected Ethyl Alcohol COVID-19 (AMILCAR) COVID-19 Clin Com Assessment and Plan (1) Liver failure: Status: Acute (2) Hyperbilirubinemia: Status: Acute (3) Coagulopathy: Status: Acute Assessment and Plan: This is a 60-year-old male with decompensated liver failure, coagulopathy, history of portal vein thrombosis which is chronic, history of alcohol abuse currently abstaining, history of treated and cured hepatitis-C, COPD who presents to the hospital after being discharged with complaints of abdominal pain and insomnia. # hyperbilirubinemia # Secondary to decompensated liver failure Increased to 38 from 20/3 at time of discharge Leukocytosis likely from steroids, hold per GI Hold antibiotics as no signs of infection identified paracentesis was not able to be done in the ED as patient did not have enough fluid for aspiration Pending GI evaluation # insomnia likely secondary to his liver cirrhosis start him on melatonin and trazodone p.r.n. # coagulopathy secondary to above no active or acute bleed hemoglobin stable monitor platelets level as well as PT INR # history of portal vein thrombosis chronic deemed unnecessary to treat from previous evaluation by GI monitor DVT prophylaxis: SCDs in the setting of coagulopathy Quality Stroke Does the patient have a stroke diagnosis?: No VTE Prior VTE?: No VTE Risk Level:: Medical - moderate - high VTE Device Contraindication: N/A - Device Ordered VTE Drug Contraindication: Treatment Not Indicated
[2021-01-29 15:35] VITALS: BP 115/58; PULSE 69; RESP 18; TEMP 36.6; O2SAT 96
--- NOTE | 2021-01-29 15:53 | MHC.CLN ---
WEIGHT LOSS PATIENT REPORTS GOOD APPETITE AND INTAKE. SIGNIFICANT WEIGHT LOSS, PLANNED AND DESIRABLE, X APPROXIMATELY 6 WEEKS. ATTRIBUTES WEIGHT LOSS TO FLUID OVERLOAD AND TAKING DIURETIC (FUROSEMIDE) AND LACTULOSE. WEIGHT HX: 12/17/20=114 KG; 01/18/21=95.3 KG; 01/29/21=89.2 KG. WEIGHT LOSS -21.8% X 6 WEEKS.
--- NOTE | 2021-01-29 18:51 | CONS_ITS ---
DATE OF SERVICE: 01/29/2021 REFERRING PHYSICIAN: William Dawn MD REASON FOR CONSULTATION: Alcoholic hepatitis and epigastric pain. HISTORY OF PRESENT ILLNESS: The patient is a 60-year-old man, known to me from recent evaluation. He was hospitalized earlier in the month with alcoholic hepatitis and had been started on prednisone on January 17 because of elevated bilirubin and INR. He was discharged on January 25, but developed some epigastric pain with no associated nausea or vomiting, and difficulty sleeping. He re-presented to the emergency room yesterday, where he was evaluated with laboratory studies, which showed a worsening of his total bilirubin at 38.6, up from 23 on discharge. He was evaluated with ultrasound imaging, which showed changes of cirrhosis, reversal of flow in the portal vein, and dilated veins around the liver consistent with varices. No ascites was noted. His prednisone which he had been on at 40 mg daily was held and he was admitted to the hospital. He was taking prednisone at home and had received about 1 week of therapy with this. Today, he states his epigastric pain is better. He has no complaints of nausea or vomiting and is tolerating a diet. PAST MEDICAL HISTORY: 1. Alcohol abuse with alcoholic hepatitis and cirrhosis, currently abstinent since December. 2. History of hepatitis C, treated with sustained viral response in 2018. 3. Portal vein thrombosis. 4. Hypertension. 5. Thrombocytopenia. 6. Nonbleeding esophageal varices, endoscopy in 2018. 7. Negative colonoscopy in 2018. 8. Small bowel obstruction in 2019. 9. Right inguinal hernia repair. 10. Neck surgery. 11. Repair of ductus arteriosus in 1964. 12. Bladder tumor. CURRENT MEDICATIONS: His current medication list is reviewed in the chart. ALLERGIES: MULTIPLE ALLERGIES ARE REVIEWED. FAMILY HISTORY: This is reviewed with the patient and is noncontributory. SOCIAL HISTORY: Alcohol use is currently negative. There is a history of smoking. REVIEW OF SYSTEMS: SKIN: No pruritus. HEENT: Negative. CARDIOPULMONARY: No shortness of breath or chest pain. GASTROINTESTINAL: As above. GENITOURINARY: Negative. NEUROPSYCHIATRIC: Negative. PHYSICAL EXAMINATION: GENERAL: Shows a pleasant male, lying in bed. VITAL SIGNS: Stable. SKIN: Icteric. HEENT: Shows scleral icterus. NECK: Without lymphadenopathy or thyromegaly. LUNGS: Clear. HEART: Regular rate and rhythm. S1, S2. No murmur. ABDOMEN: Soft without focal masses or tenderness. Bowel sounds are present. No organomegaly is noted. EXTREMITIES: Show trace edema. LABORATORY DATA: Laboratory data and CT and ultrasound are reviewed. IMPRESSION: Alcoholic hepatitis. At this time, he does not appear to have received any benefit from steroids. I would recommend a quick taper given that he has been on them since January 17, 30 mg daily can be tapered every 2 days by 10 mg. He will continue to avoid alcohol. I would recommend monitoring his liver function tests and he should be able to be discharged in the next day or two if he remains stable. He has been continued on his omeprazole at 40 mg daily on the possibility that some of his epigastric pain could be related to gastritis. Thanks for asking me to see him. I will follow him in the hospital with you. MD ANANT Allison/CAROLINE / [phone]
[2021-01-29 19:32] VITALS: BP 116/60; PULSE 68; RESP 18; TEMP 37.2; O2SAT 96
[2021-01-29] MEDS: Melatonin 3 MG TABLET 6 MG PO (20:45)
[2021-01-29] MEDS: traZODone HCL 50 MG TABLET PO (20:48)
[2021-01-30] VITALS: BP 101/54; PULSE 74; RESP 18; TEMP 36.6; O2SAT 96
[2021-01-30 04:00] VITALS: BP 115/61; PULSE 75; RESP 18; TEMP 36.3; O2SAT 96
[2021-01-30] MEDS: Omeprazole 40 MG CAPSULE.DR PO (04:39)
[2021-01-30] MEDS: oxyCODONE HCl Immed Release 5 MG TABLET PO ×2 (04:39→10:33)
[2021-01-30 06:55] LABS: Prothrombin Time 23.5 SEC (9.9-13.0)
[2021-01-30 07:23] LABS: Alanine Aminotransferase 190 U/L (0-40); Albumin Level 2.7 g/dL (3.5-5.0); Alkaline Phosphatase 184 U/L (39-117); Anion Gap 11 (12-20); Aspartate Amino Transferase 252 U/L (5-37); Blood Urea Nitrogen 23 mg/dL (9-16); Calcium 7.8 mg/dL (8.4-10.2); Carbon Dioxide 22 mmol/L (22-29); Chloride 102 mmol/L (96-108); Creatinine Clr Calc Pharmacy 69.3; Estimated Glomerular Filt Rate > 60; Glucose Random 88 mg/dL (60-115); Magnesium 2.2 mg/dL (1.6-2.6); Potassium 3.3 mmol/L (3.3-5.1); Sodium 132 mmol/L (135-145); Total Protein 6.2 g/dL (6.5-8.0)
[2021-01-30 07:35] VITALS: BP 136/55; PULSE 63; RESP 16; TEMP 36.9; O2SAT 98
[2021-01-30 08:08] LABS: Bilirubin Direct 22.8 mg/dL (0.0-0.5)
[2021-01-30 08:58] VITALS: BP 136/55; PULSE 63
[2021-01-30] MEDS: Magnesium Oxide 400 MG TABLET PO (08:58)
[2021-01-30] MEDS: Furosemide 20 MG TABLET PO (08:58)
[2021-01-30] MEDS: 0.9 % Sodium Chloride Flush 3 ML SYRINGE IVFLUSH (08:58)
[2021-01-30] MEDS: nadoloL 20 MG TABLET PO (08:58)
[2021-01-30] MEDS: Lactulose 20 GM/30 ML SOLUTION PO (08:58)
[2021-01-30] MEDS: predniSONE 10 MG TABLET 30 MG PO (09:00)
[2021-01-30 11:40] VITALS: BP 126/70; PULSE 64; RESP 18; TEMP 36.4; O2SAT 96
--- NOTE | 2021-01-30 12:03 | MHC.CM.PN ---
CM MET W/PT MULTIPLE TIMES TODAY, PT HAD MULTIPLE REQUESTS PRIOR TO D/C, INCLUDING CHANGING PHARMACY ON FILE TO [facility] ON [address] [facility] [address], SETTING UP PCP AND GI APPTS (ALSO REQUESTED FROM HOSPITALIST), [facility] FOR PAIN & SLEEP MEDS AND TO MEET W/HOSPITALIST AGAIN. ALL REQUESTS WERE COMPLETED AND PT HAS PCP APPT W/DAYNE PIZARRO 02/18 AT 8:30 AM, DR ROWELL WILL NOT BE BACK IN OFFICE UNTIL LATER TODAY AND WILL FIT PT INTO SCHEDULE, PT & PT'S SUREKHA ARE AWARE AND CM WILL FOLLOW-UP W/APPT DETAILS ONCE CONFIRMED W/GI, PT & ARE OK W/THIS PLAN. D/C PLAN: HOME TODAY W/[facility], FOLLOW-UP APPTS W/GI AND PCP, FOR TRANSPORT.
--- NOTE | 2021-01-30 13:28 | P.DS_ITS ---
DS: Providers Provider Date of Service: 01/30/21 Date of admission: 01/28/21 19:43 Primary care physician: MERT Argueta Consults: 01/28/21 21:12 Consult to Gastroenterology Routine Consulting Provider: Adan Chaudhary Reason for consultation: abdominal pain Has provider been notified: Yes DS: Diagnosis Discharge Diagnosis (1) Liver failure: Status: Acute (2) Hyperbilirubinemia: Status: Acute (3) Coagulopathy: Status: Acute DS: Medications Discharge Medications Home Medications: Home Medications Medication Instructions Recorded Confirmed lactulose 10 gram/15 mL oral 30 ml PO DAILY 01/28/21 01/28/21 solution omeprazole 20 mg capsule,delayed 20 mg PO DAILY@0630 01/28/21 01/28/21 release Previous Rx's Medication Instructions Recorded albuterol sulfate 90 mcg/actuation 2 puff INHALATION Q6H PRN #18 g 06/07/20 aerosol inhaler (Ventolin HFA) magnesium oxide 400 mg (241.3 mg 400 mg PO BIDPC #60 tab 12/19/20 magnesium) tablet nadolol 20 mg tablet 20 mg PO DAILY #30 tab 12/19/20 calcium carbonate 300 mg (750 mg) 750 mg PO Q4H PRN #60 tab 01/25/21 chewable tablet (Tums) furosemide 20 mg tablet 20 mg PO BID #60 tab 01/30/21 melatonin 3 mg tablet 6 mg PO BEDTIME #30 tab 01/30/21 oxycodone 5 mg tablet 5 mg PO Q6H PRN #28 tab 01/30/21 prednisone 10 mg tablet See Taper PO DAILY #18 tab 01/30/21 trazodone 50 mg tablet 25 mg PO BEDTIME PRN #28 tab 01/30/21 DS: Summary Hospital Course Hospital Course: Admission note HPI This is a 60-year-old male with past medical history of decompensated liver failure secondary to alcohol abuse as well as a history of treated and cured hepatitis-C who was recently discharged from the hospital on 01/25 after being managed for decompensated liver failure and treated with prednisolone returns today stating that he has abdominal pain as well as insomnia.? The abdominal pain is in the epigastric region, about 5/10, nonradiating, constant, not associated with any nausea or vomiting, patient reports no diarrhea and reports compliance with his lactulose.? he also feels mildly distended abdomen although not significantly worse since his discharge, denies any fever or chills, denies any headache change in vision, no chest pain, no shortness in ups of breath, no urinary symptoms and no lower extremity edema. Patient was supposed to follow-up with rope making machine operator but reports that the earliest appointment he was given was in April. Patient reports that he has about 1 bowel movement a day after using lactulose and reports compliance with alcohol abstinence and his last drink was 1 month ago. On arrival to the ED patient hemodynamically stable with no significant abnormal vital Lab results reviewed showed WBC count of 14.7 (normal on 01/23), platelets of 91 which are increased from discharge, PT of 21.8, INR of 1.9, sodium of 135, BUN of 19, creatinine of 1.13 total bili of 38.6 which has increased from 20/ on 01/24, AST of 286, ALT of 211, both have increased since discharge, ammonia of 52, albumin of 3.3, UA negative for infection, UDS negative, alcohol level negative Hospital course Patient was admitted to the hospital for reported abdominal pain, nausea and insomnia. He was recently discharged from the hospital with bilirubin level of 23 that was found to be significantly elevated at 38 at time of presentation. In he was evaluated by rope making machine operator Dr. Nicholas who believes his epigastric pain is likely from gastritis secondary to usage of steroids for a long. . He suggested to continue with PPI and to taper steroids quickly within the next few days with recommendation to follow-up as outpatient for further evaluation and treatment. Start on sleeping aids of melatonin and trazodone with good response as he was able to sleep overnight. To continue with that at home. Prescribed a prednisone tapering dose over the next week. Continue omeprazole daily to follow-up as outpatient with GI. Time Spent with Patient Time attestation: Total time spent providing and/or coordinating discharge services: Discharge coordination time: Greater than 30 minutes Quality: Stroke Does the patient have a stroke diagnosis?: No Physical Exam Vital Signs: Vital Signs: Last Vital Signs Temp 97.6 F 01/30/21 11:40 Pulse 64 01/30/21 11:40 Resp 18 01/30/21 11:40 BP 126/70 01/30/21 11:40 Pulse Ox 96 01/30/21 11:40 Body Mass Index 31.7 Const: Other: Constitutional : Alert, oriented, jaundiced in the skin and eyes Neck : Normal inspection, Supple Cardiovascular : RRR, S1 S2, no lower extremity edema Respiratory : Good bilateral air entry, no crackles, wheezes or rhonchi Gastrointestinal: soft, lax, Normal bowel sounds, no distension, mild epigastric tenderness with palpation Skin : Warm, Dry Neurological : Alert & oriented x3, No focal deficit DS: Data Data Completed and Pending Completed studies during hospitalization [Text1]: Procedures Drainage of Peritoneal Cavity, Percutaneous Approach (12/17/20) Labs on day of discharge: Laboratory Results - last 24 hr 01/30/21 01/30/21 05:54 05:54 PT 23.5 H INR 2.0 H Sodium 132 L Potassium 3.3 Chloride 102 Carbon Dioxide 22 Anion Gap 11 L BUN 23 H Creatinine 1.20 Estim Creat Clear Calc 69.3 Estimated GFR > 60 Random Glucose 88 Calcium 7.8 L Magnesium 2.2 Total Bilirubin 35.0 H Direct Bilirubin 22.8 H AST 252 H ALT 190 H Alkaline Phosphatase 184 H Total Protein 6.2 L Albumin 2.7 L Preliminary micro results at discharge 01/28/21 20:29 Blood Culture - Preliminary Blood - Venous No growth after 24 hours. 01/28/21 20:21 Blood Culture - Preliminary Blood - Venous No growth after 24 hours. Discharge Plan Discharge Patient Disposition: Home, Self-Care Discharge Diagnosis: Hyperbilirubinemia Liver failure and coagulopathy Referrals: Kei BECERRILA [Outside] - 1 Day ([facility]) Mamadou Adames FNP- [Primary Care Provider] - 02/18/21 8:30 am ( 8:30am ) Discharge Medications: New trazodone 50 mg Tablet 25 mg PO BEDTIME PRN (Reason: Insomnia) Qty: 28 RF: 0 oxycodone 5 mg Tablet 5 mg PO Q6H PRN (Reason: Pain, Severe (Pain Scale 7-10)) Qty: 28 RF: 0 melatonin 3 mg Tablet 6 mg PO BEDTIME Qty: 30 RF: 0 prednisone 10 mg tablet See Taper mg PO DAILY Qty: 18 RF: 0 Continued albuterol sulfate [Ventolin HFA] 90 mcg/actuation HFA aerosol inhaler 2 puff inhalation Q6H PRN (Reason: shortness of breath or wheezing) Qty: 18 RF: 2 lactulose 10 gram/15 mL solution 30 ml PO DAILY RF: 0 omeprazole 20 mg capsule,delayed release(DR/EC) 20 mg PO DAILY@0630 RF: 0 magnesium oxide 400 mg (241.3 mg magnesium) Tablet 400 mg PO BIDPC Qty: 60 RF: 0 nadolol 20 mg tablet 20 mg PO DAILY Qty: 30 RF: 0 calcium carbonate [Tums] 300 mg (750 mg) Tablet,Chewable 750 mg PO Q4H PRN (Reason: Heartburn) Qty: 60 RF: 0 Changed furosemide 20 mg tablet 20 mg PO BID Qty: 60 RF: 0 Discontinued prednisone 20 mg tablet 2 tab PO DAILY RF: 0 Discharge Orders: Discharge Order (Routine); Ordered 01/30/21 Ordered By: William Dawn Diet: advance to usual diet Activity on Discharge: As tolerated Stand Alone Forms: Patient Portal Discharge page Other Ambulatory Orders: Liver Panel (Routine) Timeframe: 1 Week Facility: [facility] - Location: Laboratory Ordered By: William Dawn Prothrombin Time INR (Routine) Timeframe: 1 Week Facility: [facility] - Location: Laboratory Ordered By: William Dawn Care Plan Goals: Read below Health Concerns: Read below Plan of Treatment: You were admitted to the hospital for evaluation of abdominal pain and nausea. Blood work noticed elevated bilirubin level. You were evaluated by rope making machine operator who recommended cutting down the prednisone and to continue with omeprazole for stomach protection. Assessment: Tapering dose of prednisone over the next week Use melatonin every night and trazodone as needed to help you sleep Use oxycodone as needed for pain. To follow-up with Dr. Chaudhary in the office as scheduled
== END 2021-01-30 13:00 | disposition home or self-care (01) | DRG 280 ==
LOC: HO.ED 19:41 → HO.EDOVER 19:55 → HO.S3 01-29 00:22
PROVIDERS: Physician Assistant; Admitting Provider Internal Medicine; Emergency Provider Internal Medicine; PCP Nurse Practitioner Family; Visit Provider Student in an Organized Health Care Education/Training Program
DX: K70.40 Alcoholic hepatic failure without coma (principal); K70.10 Alcoholic hepatitis without ascites; I81 Portal vein thrombosis; D68.4 Acquired coagulation factor deficiency; D69.6 Thrombocytopenia, unspecified; K76.6 Portal hypertension; I85.10 Secondary esophageal varices without bleeding; K70.30 Alcoholic cirrhosis of liver without ascites; K29.60 Other gastritis without bleeding; G47.01 Insomnia due to medical condition; F17.210 Nicotine dependence, cigarettes, uncomplicated; I10 Essential (primary) hypertension; T38.0X5A Adverse effect of glucocorticoids and synthetic analogues, initial encounter; J44.9 Chronic obstructive pulmonary disease, unspecified; E78.5 Hyperlipidemia, unspecified; F10.20 Alcohol dependence, uncomplicated; M10.9 Gout, unspecified; M19.90 Unspecified osteoarthritis, unspecified site; M54.12 Radiculopathy, cervical region; Y90.0 Blood alcohol level of less than 20 mg/100 ml; Z79.52 Long term (current) use of systemic steroids; Z86.19 Personal history of other infectious and parasitic diseases; Z79.899 Other long term (current) drug therapy; Z85.51 Personal history of malignant neoplasm of bladder; Z87.74 Personal history of (corrected) congenital malformations of heart and circulatory system; Z20.822 Contact with and (suspected) exposure to COVID-19; Z71.6 Tobacco abuse counseling; Z71.41 Alcohol abuse counseling and surveillance of alcoholic
CPT/HCPCS: 36415; 76705; 80048; 80053; 80143; 80307; 81001; 82077; 82140; 82248; 83605; 83690; 83735; 85007; 85025; 85027; 85610; 87040; 87147; 87205; 87635; 96365; 99285; 99291; J0696

== ENCOUNTER 2021-02-06 10:37 | Outpatient (REF) | payer OTHER, SELFPAY ==
[2021-02-06 11:18] LABS: INTERNATIONAL NORM RATIO 2.2 (0.9-1.1); Prothrombin Time 25.3 SEC (9.9-13.0)
[2021-02-06 12:07] LABS: Alanine Aminotransferase 260 U/L (0-40); Albumin Level 2.7 g/dL (3.5-5.0); Alkaline Phosphatase 189 U/L (39-117); Anion Gap 13 (12-20); Aspartate Amino Transferase 300 U/L (5-37); Bilirubin Total 41.5 mg/dL (0.0-1.0); Blood Urea Nitrogen 25 mg/dL (9-16); Calcium 8.7 mg/dL (8.4-10.2); Carbon Dioxide 25 mmol/L (22-29); Chloride 97 mmol/L (96-108); Estimated Glomerular Filt Rate 55; Glucose Fasting 127 mg/dL (60-99); Magnesium 2.5 mg/dL (1.6-2.6); Potassium 3.7 mmol/L (3.3-5.1); Sodium 131 mmol/L (135-145); Total Protein 6.7 g/dL (6.5-8.0)
[2021-02-06 12:27] LABS: Bilirubin Direct 24.6 mg/dL (0.0-0.5)
[2021-02-06 12:34] LABS: Ammonia 98 umol/L (13-55)
== END 2021-02-06 10:38 | disposition home or self-care (01) ==
LOC: HO.LAB 10:37
PROVIDERS: Absent Provider Nurse Practitioner Family; PCP Nurse Practitioner Family; Visit Provider Student in an Organized Health Care Education/Training Program
DX: E83.42 Hypomagnesemia (principal); D68.9 Coagulation defect, unspecified; F10.10 Alcohol abuse, uncomplicated
CPT/HCPCS: 36415; 80053; 80076; 82140; 82248; 83735; 85610

== ENCOUNTER 2021-02-08 15:47 | Outpatient (REF) | payer OTHER, SELFPAY ==
--- NOTE | ~2021-02-08 | MR_ITS ---
EXAMINATION: MR ABDOMEN WITHOUT AND WITH CONTRAST CLINICAL INFORMATION: Alcoholic cirrhosis, jaundice and ascites. COMPARISON: Previous MRI of the abdomen 12/18/2020, ultrasound abdomen 01/28/[address] of the abdomen 01/17/2021 TECHNIQUE: MR abdomen was performed without and with use of 9 mL intravenous Gadavist gadolinium contrast. Postcontrast images are performed in multiphase dynamic sequences. Imaging was performed in 3 planes. FINDINGS: LUNG BASES: The visualized lung bases are clear. There are paraesophageal varices. LIVER, GALLBLADDER, AND BILIARY TREE: The liver appears cirrhotic. There is slight signal loss on [id number] sequences suggestive of mild fatty infiltration. There is evidence of severe fibrosis of the liver similar to previous exam. No early arterial phase enhancing lesion, rapid washout or pseudocapsule formation are seen to suggest hepatocellular carcinoma. The gallbladder is contracted. Gallbladder wall appears thickened. This is similar to previous exams and may be due to liver disease. No gallstones are seen. There is no biliary duct dilatation. PANCREAS: Unremarkable. SPLEEN: Upper normal in size measuring 13 cm. ADRENAL GLANDS: Normal. KIDNEYS AND URETERS: There is a 1 cm left renal cyst. The kidneys are otherwise unremarkable. GASTROINTESTINAL TRACT: No bowel obstruction. There is a small amount of ascites. ABDOMINAL WALL: No significant hernia is appreciated. LYMPH NODES: No lymphadenopathy. VASCULAR: There are extensive varices. The left renal vein is prominent and again there may be a spontaneous splenorenal shunt. The portal veins are patent. The main and right portal vein appears slightly small in caliber. Hepatic veins are patent. OSSEOUS STRUCTURES: Marrow signal normal. MR/MR abdomen wo/w con IMPRESSION: Severe cirrhosis, ascites and multiple varices. No suspicious liver lesion seen. Contracted gallbladder and gallbladder wall thickening. This may be due to liver disease. Small left renal cyst.
== END 2021-02-08 15:48 | disposition home or self-care (01) ==
LOC: HO.MRI 15:47
PROVIDERS: PCP Nurse Practitioner Family; Visit Provider Internal Medicine
DX: K70.31 Alcoholic cirrhosis of liver with ascites (principal); I81 Portal vein thrombosis
CPT/HCPCS: 74183; A9585

== ENCOUNTER 2021-02-12 13:15 | Inpatient (IN) | payer OTHER, SELFPAY ==
--- NOTE | ~2021-02-12 | US_ITS ---
EXAMINATION: ULTRASOUND-GUIDED PARACENTESIS CLINICAL INFORMATION: Ascites COMPARISON: Previous MRI from earlier this month and ultrasound and CT most recent January 2021 TECHNIQUE: Procedure and risks and benefits including bleeding, infection and low blood pressure were discussed with the patient and informed consent was obtained. The right lower quadrant was prepped and draped in the usual sterile fashion. The skin and soft tissues were anesthetized with 1% lidocaine plain. Using ultrasound guidance and a 5 Hebrew rapid centesis catheter, access to the ascitic fluid was obtained. 3.5 L of clear dark yellow fluid was removed. Diagnostic specimen was sent as requested by the ordering physician. FINDINGS: There is a moderate amount of ascites. US/US paracentesis abd w/image IMPRESSION: Ultrasound-guided paracentesis.
[2021-02-12 13:22] VITALS: BP 106/70; BP 99/49; PULSE 56; PULSE 60; RESP 14; TEMP 36.6; O2SAT 97; O2SAT 98; BMI 28.6
--- NOTE | 2021-02-12 13:31 | ED_ITS ---
HPI - General Adult General Chief complaint: Abdominal Pain Stated complaint: ABD PAIN TO BACK PAIN Time Seen by Provider: 02/12/21 13:28 Source: patient Mode of arrival: ambulatory Limitations: no limitations History of Present Illness HPI narrative: 60-year-old male with past medical history of liver failure secon jeannie to alcohol abuse and contracted hepatitis-C. Patient was sent from home by visiting nurse for confusion and generalized weakness and fatigue. Patient was hospitalized for elevated ammonia level and liver failure. Related Data Home Medications Medication Instructions Recorded Confirmed omeprazole 20 mg capsule,delayed 20 mg PO DAILY@0630 01/28/21 02/12/21 release furosemide 20 mg tablet 20 mg PO BID@0900,1800 02/12/21 02/12/21 melatonin 3 mg tablet 6 mg PO BEDTIME PRN 02/12/21 02/12/21 Previous Rx's Medication Instructions Recorded albuterol sulfate 90 mcg/actuation 2 puff INHALATION Q6H PRN #18 g 06/07/20 aerosol inhaler (Ventolin HFA) nadolol 20 mg tablet 20 mg PO DAILY #30 tab 12/19/20 calcium carbonate 300 mg (750 mg) 750 mg PO Q4H PRN #60 tab 01/25/21 chewable tablet (Tums) trazodone 50 mg tablet 25 mg PO BEDTIME PRN #28 tab 01/30/21 lactulose 10 gram/15 mL oral 30 ml PO DAILY 30 Days #900 ml 02/04/21 solution oxycodone 5 mg tablet 5 mg PO Q6H PRN #28 tab 02/04/21 magnesium oxide 400 mg (241.3 mg 400 mg PO BIDPC #60 tab 02/10/21 magnesium) tablet Allergies Allergy/AdvReac Type Severity Reaction Status Date / Time ibuprofen Allergy Unknown low Verified 01/16/21 18:08 plateletes aspirin [ASA] AdvReac Intermediate BLEEDING Verified 01/16/21 18:08 NSAIDS (Non-Steroidal AdvReac Intermediate BLEEDING Verified 01/16/21 18:08 Anti-Inflamma [NSAIDS (NON-STEROIDAL ANTI-INFLAMMA] Review of Systems Review of Systems: All other systems are reviewed and are negative Constitutional: Reports as per HPI and Reports no additional constitutional complaints Eyes: Reports as per HPI and Reports no additional eye complaints Reports system reviewed and no additional complaints, except as documented Cardiovascular: Reports as per HPI and Reports no additional cardiovascular complaints Respiratory: Reports as per HPI and Reports no additional respiratory complaints Gastrointestinal: Reports as per HPI and Reports no additional gastrointestinal complaints Genitourinary: Reports no additional female genitourinary complaints Musculoskeletal: Reports no additional musculoskeletal complaints Skin/Breast: Reports system reviewed and no additional complaints, except as docu Psychiatric: Reports no additional psychiatric complaints Endocrine: Reports no additional endocrine complaints Hematologic/Lymphatic: Reports no additional hematologic/lymphatic complaints Allergic/Immunologic: Reports no additional allergic/immunologic complaints Reports system reviewed and no additional complaints, except as documented and Reports Abnormal speech present REPLACED BY [facility] Past Medical History Medical History Aortic valve calcification Asthma Bladder cancer Cervical radiculopathy Cirrhosis of liver Coagulopathy Decompensated hepatic cirrhosis Decompensation of cirrhosis of liver Dyslipidemia Esophageal varices without bleeding ETOH abuse Gout Hepatitis C HTN (hypertension) Left ventricular hypertrophy Leukopenia Liver failure Microalbuminuria Opioid abuse Osteoarthritis Pericarditis Portal hypertension Portal vein thrombosis RBBB Sacroiliitis Small bowel obstruction Smoker Thrombocytopenia Thrombocytopenia Surgical History H/O repair of patent ductus arteriosus History of bladder surgery History of cervical discectomy History of patent ductus arteriosus History of right inguinal hernia Testicular lesion Family History Family History Father Liver failure ETOHism Mother Lung cancer Brain cancer Sister No problems noted. Son No problems noted. Son No problems noted. Social History Social History Household Members: Spouse Housing: House Do you presently have visiting nurse or other home services: Yes Alcohol intake: current Alcohol intake frequency: does not drink Patient Tobacco Use Status: Current everyday Tobacco user Tobacco use type: Cigarette Cigarette Packs Per Day: 0.5 Cigarettes Per Day: 20 Years Smoked: 30 Second Hand Smoke Exposure: Yes Use of substances other than those prescribed or required for medical reasons: No Advance Directives: No Advance Directives Information Provided: No service: No Current occupational status: unemployed Physical Exam Vital Signs: Vital Signs: Last Vital Signs Temp 97.6 F 02/12/21 14:19 Pulse 54 02/12/21 14:19 Resp 12 02/12/21 14:19 BP 101/51 L 02/12/21 14:19 Pulse Ox 98 02/12/21 14:19 Body Mass Index 28.6 Vital signs have been reviewed as appeared to be correct. Blood pressure normal. Heart rate normal. Respiration rate normal. Temperature normal. Oxygen saturation normal. Appearance: Alert. Oriented X3. No acute distress, + jaundice Head: Normal external exam. Normocephalic. Atraumatic. No Are[place]o signs noted. No raccoon eyes noted Eyes: PERRLA. EOMI. Conjunctiva and sclera normal. Eyelids normal. ENT: TM's Normal. Pharynx normal. Uvula midline. Moist mucous membranes. No trismus noted. No drooling noted. No muffled voice noted. Neck: Normal inspection. Neck supple. FROM. No adenopathy. Thyroid Normal. No meningeal signs. No neck mass noted. CVS: Normal heart rate and rhythm. Heart sound normal. No murmurs noted. Pulses normal throughout. Respiratory: No respiratory distress. Painless inspiration. Breath sounds normal. No wheezes/rales/rhonchi noted. Chest nontender. No accessory muscle usage noted or decreased air movement noted. Abdomen: Soft and nontender. Bowel sounds normal in all 4 quadrants. No distention noted. No organomegaly noted. No visible injury noted. Back: No CVA tenderness. Full range of motion noted. Skin: Skin warm and dry. Jaundice . Normal skin turgor. No rashes/lesions/lacerations noted. Extremities: No lower extremity edema. Extremities exhibit normal range of motion. Extremities nontender. Neuro: Oriented X 3. Cranial nerve exam: II-XII are grossly intact No motor deficit. No sensory deficit. Reflexes normal. Course Course Course Narrative: Assessment and plan. 60-year-old male with history of hepatic failure secondary to alcohol abuse and contracted hepatitis-C from blood transfusion many years ago, patient was sent for concern of increased confusion patient found to be in hepatic encephalopathy with ammonia level of 236 and hypokalemia. Will replace potassium, start on lactulose for hyperammonemia. Medical Decision Making Lab Data Lab results reviewed: Yes I reviewed the patient's lab results. Result diagrams: 02/12/21 13:43 02/12/21 14:27 Labs: Lab Results 02/12/21 02/12/21 02/12/21 Range/Units 13:42 13:43 13:43 WBC 14.6 H (4.8-10.8) X10*3/uL RBC 3.91 L (4.60-5.80) X10*6/uL Hgb 13.7 L (14.0-18.0) g/dl Hct 37.4 L (42-52) % MCV 95.7 (80-98) fL MCH 35.0 H (27.0-33.0) pg MCHC 36.6 H (31.0-36.0) g/dl RDW 20.8 H (11.0-16.0) % Plt Count 79 L (160-400) X10*3/uL MPV Not Reportable Immature Gran % (Auto) 3.1 H (0.0-0.4) % Neut % (Auto) 78.6 H (45-73) % Lymph % (Auto) 7.8 L (20-40) % [place] % (Auto) 7.7 (2-11) % Eos % (Auto) 2.5 (0-4) % Baso % (Auto) 0.3 (0-2) % Lymph # (Auto) 1.1 L (1.2-4.9) X10*3/uL [place] # (Auto) 1.1 (0.1-1.2) X10*3/uL Eos # (Auto) 0.4 (0.0-0.4) X10*3/uL Baso # (Auto) 0.0 (0.0-0.2) X10*3/uL Abs Immat Gran (auto) 0.45 H (0.00-0.03) X10*3/uL Absolute Neuts (auto) 11.5 H (2.0-8.3) X10*3/uL Absolute Nucleated RBC 0.000 (0.0-0.012) X10*3/uL Nucleated RBC % (auto) 0.0 (0.0-0.2) /100WBC Smear Tech's Comments VERIFIED PT (9.9-13.0) SEC INR (0.9-1.1) APTT (24.1-38.0) SEC Sodium (135-145) mmol/L Potassium (3.3-5.1) mmol/L Chloride (96-108) mmol/L Carbon Dioxide (22-29) mmol/L Anion Gap (12-20) BUN (9-16) mg/dL Creatinine (0.5-1.4) mg/dL Estim Creat Clear Calc Estimated GFR Random Glucose (60-115) mg/dL Lactic Acid 1.7 (0.5-2.0) mmol/L Calcium (8.4-10.2) mg/dL Total Bilirubin (0.0-1.0) mg/dL Direct Bilirubin (0.0-0.5) mg/dL AST (5-37) U/L ALT (0-40) U/L Alkaline Phosphatase (39-117) U/L Ammonia 236 H (13-55) umol/L Total Protein (6.5-8.0) g/dL Albumin (3.5-5.0) g/dL Lipase (8-78) U/L COVID-19 (AMILCAR) (Negative) COVID-19 Clin Com 02/12/21 02/12/21 02/12/21 Range/Units 13:52 13:52 14:27 WBC (4.8-10.8) X10*3/uL RBC (4.60-5.80) X10*6/uL Hgb (14.0-18.0) g/dl Hct (42-52) % MCV (80-98) fL MCH (27.0-33.0) pg MCHC (31.0-36.0) g/dl RDW (11.0-16.0) % Plt Count (160-400) X10*3/uL MPV Immature Gran % (Auto) (0.0-0.4) % Neut % (Auto) (45-73) % Lymph % (Auto) (20-40) % [place] % (Auto) (2-11) % Eos % (Auto) (0-4) % Baso % (Auto) (0-2) % Lymph # (Auto) (1.2-4.9) X10*3/uL [place] # (Auto) (0.1-1.2) X10*3/uL Eos # (Auto) (0.0-0.4) X10*3/uL Baso # (Auto) (0.0-0.2) X10*3/uL Abs Immat Gran (auto) (0.00-0.03) X10*3/uL Absolute Neuts (auto) (2.0-8.3) X10*3/uL Absolute Nucleated RBC (0.0-0.012) X10*3/uL Nucleated RBC % (auto) (0.0-0.2) /100WBC Smear Tech's Comments PT 26.7 H (9.9-13.0) SEC INR 2.3 H (0.9-1.1) APTT 49.2 H (24.1-38.0) SEC Sodium 129 L (135-145) mmol/L Potassium 2.4 L* D (3.3-5.1) mmol/L Chloride 98 (96-108) mmol/L Carbon Dioxide 21 L (22-29) mmol/L Anion Gap 12 (12-20) BUN 48 H D (9-16) mg/dL Creatinine 2.19 H (0.5-1.4) mg/dL Estim Creat Clear Calc 39.8 Estimated GFR 31 Random Glucose 111 (60-115) mg/dL Lactic Acid (0.5-2.0) mmol/L Calcium 7.9 L D (8.4-10.2) mg/dL Total Bilirubin 38.1 H (0.0-1.0) mg/dL Direct Bilirubin 22.9 H (0.0-0.5) mg/dL AST 260 H (5-37) U/L ALT 207 H (0-40) U/L Alkaline Phosphatase 196 H (39-117) U/L Ammonia (13-55) umol/L Total Protein 5.7 L (6.5-8.0) g/dL Albumin 2.2 L (3.5-5.0) g/dL Lipase 161 H (8-78) U/L COVID-19 (AMILCAR) Negative (Negative) COVID-19 Clin Com See Note Discharge Plan Discharge Clinical Impression: Acute hepatic encephalopathy, Hyperammonemia, Acute hypokalemia Patient Disposition: Admitted As Inpatient
[2021-02-12 13:50] LABS: MANUAL DIFF FLAG SCAN; SCAN SMEAR FLAG 1
[2021-02-12 13:52] LABS: Basophils Percent Auto 0.3 % (0-2); Eosinophils Absolute Auto 0.4 X10*3/uL (0.0-0.4); Eosinophils Percent Auto 2.5 % (0-4); Hematocrit 37.4 % (42-52); Hemoglobin 13.7 g/dl (14.0-18.0); Imm Gran Abs Auto 0.45 X10*3/uL (0.00-0.03); Imm Gran Pct Auto 3.1 % (0.0-0.4); Lymphocytes Absolute Auto 1.1 X10*3/uL (1.2-4.9); Lymphocytes Percent Auto 7.8 % (20-40); Mean Corpuscular HGB Conc 36.6 g/dl (31.0-36.0); Mean Corpuscular Volume 95.7 fL (80-98); Monocytes Absolute Auto 1.1 X10*3/uL (0.1-1.2); Monocytes Percent Auto 7.7 % (2-11); Neutrophils Absolute Auto 11.5 X10*3/uL (2.0-8.3); Neutrophils Percent Auto 78.6 % (45-73); PLT CLUMP 1; Red Blood Count 3.91 X10*6/uL (4.60-5.80); Red Cell Distribution Width 20.8 % (11.0-16.0)
[2021-02-12 13:56] LABS: PLT ABN DIST 1; White Blood Count 14.6 X10*3/uL (4.8-10.8)
--- NOTE | 2021-02-12 13:59 | PHA.MEDREC ---
Pharmacy Consult ? Medication Reconciliation Pharmacy has completed the medication reconciliation. There are no remarkable issues for provider's attention. Mireya Brown, MagyD
[2021-02-12 14:02] LABS: Lactic Acid 1.7 mmol/L (0.5-2.0)
[2021-02-12 14:05] LABS: INTERNATIONAL NORM RATIO 2.3 (0.9-1.1); Prothrombin Time 26.7 SEC (9.9-13.0)
[2021-02-12 14:08] LABS: Partial Thromboplastin Time 49.2 SEC (24.1-38.0)
[2021-02-12 14:08] LABS: Ammonia 236 umol/L (13-55)
[2021-02-12 14:18] LABS: Platelet Count 79 X10*3/uL (160-400)
[2021-02-12 14:19] VITALS: BP 101/51; PULSE 54; RESP 12; TEMP 36.4; O2SAT 98
[2021-02-12 14:26] LABS: COVID-19 Test Negative (Negative); IDNOW Serial# 55D5AD1C
[2021-02-12 14:51] LABS: SLIDE REVIEW VERIFIED
[2021-02-12] MEDS: Lactulose 20 GM/30 ML SOLUTION 30 GM PO (15:08)
[2021-02-12 15:10] LABS: Potassium 2.4 mmol/L (3.3-5.1)
[2021-02-12 15:11] LABS: Alanine Aminotransferase 207 U/L (0-40); Albumin Level 2.2 g/dL (3.5-5.0); Alkaline Phosphatase 196 U/L (39-117); Anion Gap 12 (12-20); Aspartate Amino Transferase 260 U/L (5-37); Bilirubin Total 38.1 mg/dL (0.0-1.0); Blood Urea Nitrogen 48 mg/dL (9-16); Calcium 7.9 mg/dL (8.4-10.2); Carbon Dioxide 21 mmol/L (22-29); Chloride 98 mmol/L (96-108); Creatinine Clr Calc Pharmacy 39.8; Estimated Glomerular Filt Rate 31; Glucose Random 111 mg/dL (60-115); Lipase 161 U/L (8-78); Sodium 129 mmol/L (135-145); Total Protein 5.7 g/dL (6.5-8.0)
[2021-02-12] MEDS: Potassium Chloride Packet 20 MEQ PACKET 40 MEQ PO (15:26)
[2021-02-12 15:27] LABS: Bilirubin Direct 22.9 mg/dL (0.0-0.5)
[2021-02-12 16:26] VITALS: BP 97/53; PULSE 56; RESP 12; TEMP 35.8; O2SAT 98
[2021-02-12] MEDS: Potassium Chloride/H20 10 MEQ/100 ML PIGGYBACK 100 MEQ IV ×2 (16:41→18:05)
[2021-02-12 18:02] VITALS: BP 105/58; PULSE 59; RESP 14; TEMP 36.4; O2SAT 99
--- NOTE | 2021-02-12 19:44 | HP_ITS ---
DATE OF SERVICE: 02/12/2021 CHIEF COMPLAINT: Increasing weakness, abdominal distention, and mild confusion. HISTORY OF PRESENTING ILLNESS: This is a 60-year-old gentleman, well known to the hospitalist service due to recent [id number] hospitalization at [facility] in last couple months. The patient was recently discharged from [facility] on January 30, 2021, after requiring hospitalization for decompensated liver cirrhosis. The patient recently finished a course of prednisone and is being followed closely as outpatient by Dr. Chaudhary and underwent an MRI study on February 08, 2021, that showed that the patient has severe cirrhosis, mild ascites and multiple varices. There was no suspicious liver lesion noted. Gallbladder was contracted with thickened wall likely due to underlying liver disease. According to the patient and his , he has been compliant with his lactulose, having 4 to 5 bowel movements daily. He has been taking all his medications including nadolol and Lasix, but despite of that, he noticed worsening of abdominal distention, generalized weakness, worsening yellow discoloration that prompted him to come to the emergency room. In the ER, workup revealed an elevated creatinine of 2.19 with a normal creatinine on February 06, 2021. The patient was also hypokalemic with a potassium 2.4, low sodium of 129. He is noted to have significantly elevated total bilirubin of 38 and an elevated direct bilirubin of 22.9 with AST 260, ammonia level of 236, albumin of 2.2, lipase of 161, and an INR of 2.3. The patient denies any hematemesis, melena. He denies any fever, but as per noted to be feeling cold, wearing sweatshirts at home. He has worsening of abdominal distention, but denies abdominal pain has lower chest discomfort since he feels that the belly is pushing his chest. In the emergency room, the patient was treated with lactulose and potassium and now being admitted to [facility] due to worsening liver test likely due to cholestasis with underlying history of alcoholic hepatitis. PAST MEDICAL HISTORY: Significant for, 1. Recent hospitalization to [facility] due to decompensated liver failure status post treatment with prednisone. 2. History of asthma. 3. History of bladder cancer. 4. History of cervical radiculopathy. 5. History of dyslipidemia. 6. History of esophageal varices without bleeding. 7. History of alcohol abuse. 8. History of hepatitis C. 9. History of gout. 10. History of hypertension. 11. History of left ventricular hypertrophy. 12. History of leukopenia. 13. History of opioid abuse. 14. History of osteoarthritis. 15. History of pericarditis. 16. Portal hypertension. 17. Portal vein thrombosis. 18. Sacroiliitis. 19. Small bowel obstruction. 20. Thrombocytopenia. 21. Tobacco use disorder. FAMILY HISTORY: Father is disease, of liver failure and alcoholism. Mother is , had lung cancer and brain cancer. Other siblings have no acute medical issues. PAST SURGICAL HISTORY: 1. Status post repair of patent ductus arteriosus. 2. History of bladder surgery. 3. History of cervical diskectomy. 4. History of right inguinal hernia. 5. History of testicular lesion. SOCIAL HISTORY: The patient lives at home with . Able to ambulate short distances without assistive device. The patient smokes half pack of cigarettes daily. Denies use of alcohol in last 1-1/2 months. Denies marijuana use. MEDICATIONS ON ADMISSION: Albuterol 2 puffs inhaler q.6 hours as needed, calcium 750 mg q.4 hours as needed, Lasix 20 mg twice daily. Lactulose 30 mL daily, magnesium 400 mg twice daily. Melatonin 6 mg at bedtime as needed. Nadolol 20 mg daily, omeprazole 20 mg daily, oxycodone 5 mg every 6 hours as needed, and trazodone 25 mg at bedtime as needed. ALLERGIES: HE IS ALLERGIC TO IBUPROFEN AND ASPIRIN THAT CAUSES BLEEDING WITH LOW PLATELETS. ASSESSMENT AND PLAN: This is a 60-year-old gentleman with past medical history significant for cirrhosis of liver due to alcoholism and hepatitis C that has been treated, who has been recently discharged from [facility] and is being followed closely by Gastroenterology as outpatient, presented to [facility] due to worsening abdominal distention, mild confusion, weakness, and lower chest discomfort. The patient is being admitted to [facility] due to elevated liver function test in the setting of alcohol liver disease and cirrhosis. PROBLEM LIST: 1. Alcoholic liver disease with decompensated liver failure. The patient noted to have worsening total/ indirect bilirubin, likely he has entered the cholestatic phase. We will continue supportive care with lactulose,add rifaximin. Case discussed with Dr. Chaudhary from Gastroenterology. We will hold Lasix, obtain abdominal ultrasound and paracentesis to rule out SBP. We will follow daily BMP, LFTs, and ammonia level. We will hold off on prednisone. If the patient noted to have worsening of liver function, we will consider transferring to [facility] for possible liver transplant. 2. Mild hepatic encephalopathy. Patient noted to have significantly elevated ammonia level, although does not have any asterixis and no significant confusion. Continue lactulose,add rifaximin and follow ammonia level. 3. History of alcohol abuse. The patient has not had any alcohol for last 1-1/2 month, strongly recommended to abstain from alcohol. 4. Tobacco use disorder. The patient smokes half pack of cigarettes a day. Smoking cessation advised. Patient declined nicotine patch at this time. 5. Coagulopathy secondary to liver disease. We will give vitamin K, follow PT/INR and platelet closely. 6. History of portal vein thrombosis that seems chronic. 7. Deep vein thrombosis prophylaxis. We will place on compression boots. MD JESSICA Mcgrath/CAROLINE / [id number] DOMENIC
[2021-02-12 20:10] VITALS: BMI 31.5
[2021-02-12] MEDS: Phytonadione (Vit K1) Oral 10 MG/ML AMPUL 5 MG PO (20:36)
[2021-02-12] MEDS: oxyCODONE HCl Immed Release 5 MG TABLET PO (20:37)
[2021-02-12] MEDS: rifAXIMin 550 MG TABLET PO (20:37)
[2021-02-12] MEDS: traZODone HCL 25 MG HALFTAB PO (20:37)
[2021-02-12] MEDS: Calcium Carbonate 750 MG TAB.CHEW PO (20:37)
[2021-02-12] MEDS: Melatonin 3 MG TABLET 6 MG PO (20:37)
[2021-02-12] MEDS: 0.9 % Sodium Chloride Flush 3 ML SYRINGE IVFLUSH (20:43)
[2021-02-12 21:13] VITALS: BP 90/51; PULSE 64; RESP 18; TEMP 36.4; O2SAT 98
[2021-02-13] VITALS (14 sets, daily range): BP systolic 86–111; BP diastolic 43–61; PULSE 60–79; RESP 14–18; TEMP 36.2–37; O2SAT 96–99
[2021-02-13] MEDS: Omeprazole 20 MG CAPSULE.DR PO (05:21)
[2021-02-13 07:50] LABS: Alanine Aminotransferase 189 U/L (0-40); Alkaline Phosphatase 159 U/L (39-117); Anion Gap 13 (12-20); Aspartate Amino Transferase 243 U/L (5-37); Blood Urea Nitrogen 51 mg/dL (9-16); Carbon Dioxide 21 mmol/L (22-29); Chloride 100 mmol/L (96-108); Creatinine Clr Calc Pharmacy 37.4; Estimated Glomerular Filt Rate 27; Glucose Random 97 mg/dL (60-115); Potassium 2.8 mmol/L (3.3-5.1); Sodium 131 mmol/L (135-145); Total Protein 5.2 g/dL (6.5-8.0)
[2021-02-13 07:57] LABS: Ammonia 155 umol/L (13-55); Bilirubin Total 34.9 mg/dL (0.0-1.0)
[2021-02-13 08:42] LABS: INTERNATIONAL NORM RATIO 2.4 (0.9-1.1); Prothrombin Time 27.5 SEC (9.9-13.0)
--- NOTE | 2021-02-13 08:55 | P.CDIC_ITS ---
CDI Concurrent Query Service Date: 02/13/21 Documentation Clarification: Please clarify if you are treating a proba ble/suspected/likely or confirmed: Acute kidney disease (failure) poa Other etiology Unable to determine Provider Response: Other Other Diagnosis: Acute kidney injury present on admission PLEASE DO NOT DELETE/MODIFY EXISTING CONTENT Additional information is needed in order to code to the highest accuracy and appropriate Severity of Illness (SOI). Please clarify the information noted below in your progress notes and discharge summary. Risk Factors/Clinical Indicators/Treatments Renal labs: Creatinine 2.19 H GFR 31 BUN 48 H patient with alcoholic hepatitis, cirrhosis of the liver, hepatic failure. CDS: Radha Vogt CCS, CDIS Contact Number: [phone] Please Review the information above and exercise your independent professional judgment in responding to the query. If you concur, pleas document in the PROGRESS NOTES and DISCHARGE SUMMARY. If you do not agree with the query, please document in the query above. THIS QUERY IS PART OF THE PERMANENT MEDICAL RECORD
--- NOTE | 2021-02-13 09:01 | P.CDIC_ITS ---
CDI Concurrent Query Service Date: 02/13/21 Documentation Clarification: Please clarify if you are treating a proba ble/suspected/likely or confirmed: Lab findings: Hyponatremia Other, please specify if known Unable to determine Provider Response: Other Other Diagnosis: Hyponatremia PLEASE DO NOT DELETE/MODIFY EXISTING CONTENT Additional information is needed in order to code to the highest accuracy and appropriate Severity of Illness (SOI). Please clarify the information noted below in your progress notes and discharge summary. Risk Factors/Clinical Indicators/Treatments LABS: sodium 129 L IV fluids. CDS: Radha Vogt CCS, CDIS Contact Number: [phone] Please Review the information above and exercise your independent professional judgment in responding to the query. If you concur, pleas document in the PROGRESS NOTES and DISCHARGE SUMMARY. If you do not agree with the query, please document in the query above. THIS QUERY IS PART OF THE PERMANENT MEDICAL RECORD
[2021-02-13] MEDS: 0.9 % Sodium Chloride Flush 3 ML SYRINGE IVFLUSH ×2 (09:15→17:35)
[2021-02-13] MEDS: Potassium Chloride/H20 10 MEQ/100 ML PIGGYBACK 100 MEQ IV (09:30)
[2021-02-13] MEDS: Potassium Chloride ER 20 MEQ TAB.ER.PRT 40 MEQ PO (09:30)
[2021-02-13] MEDS: rifAXIMin 550 MG TABLET PO ×2 (09:30→21:50)
[2021-02-13] MEDS: Phytonadione (Vit K1) Oral 10 MG/ML AMPUL 5 MG PO (09:30)
[2021-02-13] MEDS: Lactulose 20 GM/30 ML SOLUTION PO (09:30)
--- NOTE | 2021-02-13 11:08 | MHC.CM.PN ---
CM ATTEMPTED TO MEET W/PT HOWEVER PT OFF UNIT FOR PARACENTISIS, CM WILL REVISIT.
--- NOTE | 2021-02-13 11:58 | HO.RADPN ---
RADIOLOGY Narrative Narrative: RLQ paracentesis performed using 5Fr catheter. 3.5 L clear dark yellow fluid removed. Diagnostic specimen sent as requested by ordering MD.
[2021-02-13] MEDS: Lidocaine HCl 1 % MPF 5 ML VIAL SUBCUT (12:01)
[2021-02-13 12:26] LABS: MN% 67.5 %; PMN% 32.5 %; WBC Peritoneal Fluid 0.228 X10*3/uL
[2021-02-13 12:28] LABS: RBC Peritoneal Fluid < 0.002 X10*6/uL
[2021-02-13] MEDS: Albumin Human 25 % 100 ML IV ×3 (13:08→21:49)
[2021-02-13 13:25] LABS: BF Shift QC OK YES
[2021-02-13 13:26] LABS: Lymphocyte Peritoneal Fl 5 %; Monocytes Peritoneal Fl 17 %; Neutrophils Peritoneal Fluid 32 %; Other Peritioneal Fl 46 %
--- NOTE | 2021-02-13 15:08 | HO.PM.IMPN ---
Subjective Subjective Date of Service: 02/13/21 Interval History: Feels a little better less abdominal pain, no worsening confusion no headache no dizziness no nausea, no vomiting, moving bowels. Review of Systems General no headache, no dizziness no fever chills. CVS no chest pain, no palpitation. Respiratory no cough no sob. Gastrointestinal no nausea, no vomiting, abdominal discomfort Physical Exam Vital Signs: Vital Signs: Last Vital Signs Temp 97.4 F 02/13/21 12:57 Pulse 64 02/13/21 13:18 Resp 14 02/13/21 12:57 BP 107/54 L 02/13/21 13:18 Pulse Ox 99 02/13/21 12:57 Body Mass Index 31.5 General no acute distress. sclera icteric Neck no JVD. CVS? regular rate rhythm, Respiratory lungs clear to auscultation, no respiratory distress, no wheeze, no rhonchi. Gastrointestinal abdomen soft, mild distension, nontender, bowel sounds audible Neuro nonfocal, moving all 4 extremity speech clear no asterixis mild disorientation Skin jaundice Objective Data Active Medications Albuterol Sulfate (Albuterol Sulfate 90 Mcg 8 Gm Inhaler) 2 puff INHALE Q6H PRN PRN Reason: shortness of breath or wheezing Calcium Carbonate (Calcium Carbonate 750 Mg Tab.Chew) 750 mg PO Q4H PRN PRN Reason: Heartburn Last Admin: 02/12/21 20:37 Dose: 750 mg Documented by: PAULA Albumin Human (Kedbumin 25 %) 100 mls @ 100 mls/hr IV Q6H REPLACED BY [facility] Stop: 02/14/21 05:29 Last Infusion: 02/13/21 14:17 Dose: 0 mls/hr Documented by: ALEJANDRO Lactulose (Lactulose 20 Gm/30 Ml Solution) 20 gm PO DAILY REPLACED BY [facility] Last Admin: 02/13/21 09:30 Dose: 20 gm Documented by: ALEJANDRO Melatonin (Melatonin 3 Mg Tablet) 6 mg PO BEDTIME PRN PRN Reason: Insomnia Last Admin: 02/12/21 20:37 Dose: 6 mg Documented by: PAULA Omeprazole (Omeprazole 20 Mg Capsule.) 20 mg PO DAILY@0630 REPLACED BY [facility] Last Admin: 02/13/21 05:21 Dose: 20 mg Documented by: PAULA Ondansetron HCl (Ondansetron Hcl 4 Mg/2 Ml Vial) 4 mg IVPUSH Q8H PRN PRN Reason: Nausea Oxycodone HCl (Oxycodone Hcl Immed Release 5 Mg Tablet) 5 mg PO Q6H PRN PRN Reason: Pain, Severe (Pain Scale 7-10) Last Admin: 02/12/21 20:37 Dose: 5 mg Documented by: PAULA Pharmacy Consult (Consult Rx Perform Med Rec) 1 each MISCELLANE ONCE PRN PRN Reason: Consult order Pharmacy Consult (Consult Rx Perform Med Rec) 1 each MISCELLANE ONCE PRN PRN Reason: Consult order Phytonadione (Phytonadione (Vit K1) Oral 10 Mg/Ml Ampul) 5 mg PO DAILY REPLACED BY [facility] Last Admin: 02/13/21 09:30 Dose: 5 mg Documented by: ALEJANDRO Rifaximin (Rifaximin 550 Mg Tablet) 550 mg PO BID REPLACED BY [facility] Last Admin: 02/13/21 09:30 Dose: 550 mg Documented by: ALEJANDRO Sodium Chloride (0.9 % Sodium Chloride Flush 3 Ml Syringe) 3 ml IVFLUSH QSHIFT REPLACED BY [facility] Last Admin: 02/13/21 09:15 Dose: 3 ml Documented by: ALEJANDRO Trazodone HCl (Trazodone Hcl 25 Mg Halftab) 25 mg PO BEDTIME PRN PRN Reason: Insomnia Last Admin: 02/12/21 20:37 Dose: 25 mg Documented by: PAULA Labs CBC & Chem 7: 02/12/21 13:43 02/13/21 06:31 Labs: Laboratory Results - last 24 hr 02/12/21 02/13/21 02/13/21 14:27 06:31 06:31 PT 27.5 H INR 2.4 H Anion Gap 12 13 Estim Creat Clear Calc 39.8 37.4 Estimated GFR 31 27 Random Glucose 111 97 Calcium 7.9 L D 8.0 L Total Bilirubin 38.1 H 34.9 H Direct Bilirubin 22.9 H 20.0 H AST 260 H 243 H ALT 207 H 189 H Alkaline Phosphatase 196 H 159 H Ammonia Total Protein 5.7 L 5.2 L Albumin 2.2 L 2.0 L Lipase 161 H Peritoneal WBC Peritoneal RBC Periton Neutrophils Periton Lymphocytes Peritoneal Monocytes Peritoneal Other Cells 02/13/21 02/13/21 06:31 11:20 PT INR Anion Gap Estim Creat Clear Calc Estimated GFR Random Glucose Calcium Total Bilirubin Direct Bilirubin AST ALT Alkaline Phosphatase Ammonia 155 H Total Protein Albumin Lipase Peritoneal WBC 0.228 Peritoneal RBC < 0.002 Periton Neutrophils 32 Periton Lymphocytes 5 Peritoneal Monocytes 17 Peritoneal Other Cells 46 Assessment and Plan (1) Acute hepatic encephalopathy: Status: Acute (2) Hyperammonemia: Status: Acute (3) Hyperbilirubinemia: Status: Acute (4) Acute renal failure: Status: Acute (5) Hyponatremia: Status: Acute Assessment and Plan: 60-year-old gentleman with past medical history significant for cirrhosis of liver due to alcoholism and hepatitis C that has been treated, who has been recently discharged from [facility] and is being followed closely by Gastroenterology as outpatient, presented to [facility] due to worsening abdominal distention, mild confusion, weakness, and lower chest discomfort.? The patient is being admitted to [facility] due to elevated liver function test in the setting of alcohol liver disease and cirrhosis. ? 1. Alcoholic liver disease with decompensated liver failure. Total bili, LFT and ammonia trending down, patient awake alert, mildly disoriented, will continue supportive care with lactulose and rifaximin Continue to hold Lasix, patient is scheduled for ultrasound-guided therapeutic paracentesis, follow cell count Gram stain and culture sensitive, will follow daily BMP, LFTs, and ammonia level. If noted to have worsening liver failure will consider transferring to [facility] for possible liver transplant , will follow up with gi. 2 acute renal failure present on admission, creatinine noted to be worsening case discussed with Nephrology, they recommend albumin, follow BMP avoid nephrotoxins 2. Mild hepatic encephalopathy. Ammonia trending down no asterixis continue lactulose and rifaximin follow ammonia level 3. History of alcohol abuse.? The patient has not had any alcohol for last 1-1/2 month, strongly recommended to abstain from alcohol. 4. Tobacco use disorder.?Smoking cessation advised.? Patient declined nicotine patch at this time. 5. Coagulopathy secondary to liver disease.? Continue vitamin K, follow PT/INR and platelet closely. 6. History of portal vein thrombosis that seems chronic. 7. Mild hyponatremia sodium 129 improved to 131 likely due to cirrhosis and Lasix, continue to hold Lasix and follow BMP Deep vein thrombosis prophylaxis.?on compression boots. ? Quality Stroke Does the patient have a stroke diagnosis?: No VTE Prior VTE?: No VTE Risk Level:: Medical - moderate - high VTE Device Contraindication: N/A - Device Ordered VTE Drug Contraindication: Treatment Not Indicated
--- NOTE | 2021-02-13 15:43 | MHC.CM.PN ---
EMR REVIEWED, PT ADMITTED W/HEPATIC ENCEPHALOPATHY AND DECOMPANSATED LIVER DISEASE AFTER RECENT D/C, PT LETHARGIC WHEN METING W/CM, PT VERIFIES HE LIVES W/, PT IS INDEPENDENT W/ALL CARE AND DENIES USE OF DME, PT DOES VERIFY HE IS ACTIVE W/[facility] FROM WHICH STARTED AFTER PRIOR D/C. PT VERIFIES PCP AND HCP, COPY ON FILE FROM PREVIOUS ADMISSION. D/C PLAN: HOME W/RESUMP OF [facility], FOR TRANSPORT. PCP: DAYNE PIZARRO- HAS APPT 02/18 AT 8:30AM, ADDED TO D/C. GI: DR ROWELL- PT HAD APPT SCHEDULED FOR 02/14/21 HOWEVER APPT HAS BEEN CANCELLED D/T ADMISSION. HCP: SUREKHA THOMAS [phone]
[2021-02-13] MEDS: oxyCODONE HCl Immed Release 5 MG TABLET PO (16:06)
--- NOTE | 2021-02-13 16:32 | MHC.CLN ---
NUTRITION CONSULT CONSULT DUE TO LOW ALBUMIN AND LIVER CIRRHOSIS. PATIENT VERY SLEEPY AT TIME OF VISIT. WILL TRY ENSURE 240 ML BID TO PROVIDE 700 KCAL, 40 G PROTEIN. REVIEW OF WEIGHT HX SHOWS WEIGHT LOSS X 2 MONTHS OF -17.2 KG, 15.1%. PER CONVERSATION FROM PRIOR ADMISSION, PATIENT ATTRIBUTES WEIGHT LOSS TO HX OF FLUID OVERLOAD AND TAKES DIURETIC. WEIGHT LOSS DEEMED PLANNED AND FAVORABLE.
--- NOTE | 2021-02-13 19:00 | CONS_ITS ---
DATE OF SERVICE: 02/13/2021 REFERRING PHYSICIAN: Olivia Pham MD REASON FOR CONSULTATION: Alcoholic hepatitis with ascites and encephalopathy. HISTORY OF PRESENT ILLNESS: The patient is a 60-year-old man, who has been treated for alcoholic hepatitis recently and has been admitted with ascites, encephalopathy, and worsening liver and kidney function tests. He has a history of alcohol abuse and has been abstinent over the last 6 weeks. He has been in the hospital on 2 separate occasions and was treated with prednisone. He recently had an MRI confirming cirrhosis, ascites, and multiple varices, but no liver lesion. He has reportedly been compliant with his lactulose and other medications, but was admitted with some abdominal distention, weakness, and worsening blood work. He underwent paracentesis today with removal of 3.5 L and laboratory studies showed an ascites, white blood cell count of 228. Currently, he is somewhat somnolent and most of the history is obtained from the chart. He denies abdominal pain, and basically provides one-word answers. PAST MEDICAL HISTORY: 1. Alcohol abuse with cirrhosis and ascites as well as encephalopathy as above. 2. History of hepatitis C. 3. Hypertension. 4. Portal vein thrombosis. 5. Nonbleeding esophageal varices, last endoscopy in 2018. 6. Negative colonoscopy in 2018. 7. Small bowel obstruction in 2019. 8. Right inguinal hernia repair. 9. Neck surgery. 10. Repair of ductus arteriosus in 1964. 11. Bladder tumor. 12. Thrombocytopenia. CURRENT MEDICATIONS: His current medication list is reviewed in the chart. ALLERGIES: INCLUDE MULTIPLE MEDICATION ALLERGIES. THESE ARE REVIEWED. FAMILY HISTORY: Reviewed in the electronic medical record. His father did have alcoholic liver disease. SOCIAL HISTORY: Alcohol use is none for the last 6 weeks. REVIEW OF SYSTEMS: This is not reliably obtainable. PHYSICAL EXAMINATION: GENERAL: Shows a jaundiced male, who is quite sleepy, but denies abdominal pain. VITAL SIGNS: Reviewed in the electronic medical record and are stable. SKIN: Icteric. HEENT: Shows scleral icterus. NECK: Without lymphadenopathy or thyromegaly. LUNGS: Clear. HEART: Shows a regular rate and rhythm. S1, S2. No murmur. ABDOMEN: Soft without focal masses or tenderness. Bowel sounds are present. No organomegaly is noted. EXTREMITIES: Show trace edema. LABORATORY DATA: Remarkable for white blood cell count of 14.6, hematocrit 37.4, platelet count 79. Chemistries show a total bilirubin of 34.9 this morning, down from 38 on admission. Kidney function shows a BUN and creatinine with a BUN of 51 with a creatinine of 2.44. Renal consultation is being obtained. IMPRESSION: Alcoholic hepatitis with worsening liver and kidney function. At this point, I would recommend continuing treatment for his hepatic encephalopathy with lactulose and Xifaxan. Renal function tests have worsened and renal consultation is being obtained. Total bilirubin has improved, which may be a hopeful sign. I would recommend continuing supportive care. He has also been given albumin for his serum albumin of 2.0. Thanks for asking me to see him. I will follow him in the hospital with you. MD ANANT Allison/CAROLINE / [phone]
--- NOTE | 2021-02-13 20:26 | P.CONNP_ITS ---
History of Present Illness Reason for Consult Consult date: 02/13/21 Reason for consult: JULIA Chief Complaint Chief complaint: Hepatic encephalopathy Decompensated liver failure History of Present Illness Narrative: Adan is a 60-year-old gentleman who was recently discharged from [facility] on January 30, 2021, after requiring hospitalization for decompensated liver cirrhosis.? The patient recently finished a course of prednisone and is being followed closely as outpatient by Dr. Chaudhary and underwent an MRI study on February 08, 2021, that showed that the patient has severe cirrhosis, mild ascites and multiple varices.? There was no suspicious liver lesion noted.? Gallbladder was contracted with thickened wall likely due to underlying liver disease. He has been compliant with hislactulose, having 4 to 5 bowel movements daily.? He has been taking all his medications including nadolol and Lasix, but despite of that, he noticed worsening of abdominal distention, generalized weakness, worsening yellow discoloration that prompted him to come to the emergency room.? In the ER, workup revealed an elevated creatinine of 2.19 with a normal creatinine on February 06, 2021.?Nephrology has been consulted to assist in his clinical care Review of Systems Review of Systems Yes all other systems are reviewed and are negative PMFSH Past Medical History Medical History Aortic valve calcification Asthma Bladder cancer Cervical radiculopathy Cirrhosis of liver Coagulopathy Decompensated hepatic cirrhosis Decompensation of cirrhosis of liver Dyslipidemia Esophageal varices without bleeding ETOH abuse Gout Hepatitis C HTN (hypertension) Left ventricular hypertrophy Leukopenia Liver failure Microalbuminuria Opioid abuse Osteoarthritis Pericarditis Portal hypertension Portal vein thrombosis RBBB Sacroiliitis Small bowel obstruction Smoker Thrombocytopenia Thrombocytopenia Family History Family History Father Liver failure ETOHism Mother Lung cancer Brain cancer Sister No problems noted. Son No problems noted. Son No problems noted. Surgical History Surgical History H/O repair of patent ductus arteriosus History of bladder surgery History of cervical discectomy History of patent ductus arteriosus History of right inguinal hernia Testicular lesion Social History Social History Household Members: Family Housing: House Do you presently have visiting nurse or other home services: Yes Alcohol intake: current Alcohol intake frequency: does not drink Patient Tobacco Use Status: Current everyday Tobacco user Tobacco use type: Cigarette Cigarette Packs Per Day: 0.5 Cigarettes Per Day: 10 Years Smoked: 30 Patient Interested in Nicotine Replacement: No Patient Given Instructions on How to Stop Smoking: No Second Hand Smoke Exposure: Yes Use of substances other than those prescribed or required for medical reasons: No Currently Displaying Signs/Symptoms of Drug Intoxication Withdrawal: No Have you been hit, kicked, punched, or otherwise hurt by someone within the past year? If so, by whom?: No Do you feel safe in your current relationship?: Yes Is there a partner from a previous relationship who is making you feel unsafe now?: No Are you made to feel afraid or neglected: No Advance Directives: No Advance Directives Information Provided: No Do you have thoughts of harming others: None Do you have a plan to hurt others: No Plan Recently lost weight without trying: No Nutrition Risks: No Nutritional Risk Poor oral hygiene: No service: No Current occupational status: unemployed Meds Allergies Allergy/AdvReac Type Severity Reaction Status Date / Time ibuprofen Allergy Unknown low Verified 01/16/21 18:08 plateletes aspirin [ASA] AdvReac Intermediate BLEEDING Verified 01/16/21 18:08 NSAIDS (Non-Steroidal AdvReac Intermediate BLEEDING Verified 01/16/21 18:08 Anti-Inflamma [NSAIDS (NON-STEROIDAL ANTI-INFLAMMA] Active Medications: Current Medications Generic Name Dose Route Start Last Admin Trade Name Freq PRN Reason Stop Dose Admin Albuterol Sulfate 2 puff 02/12/21 16:17 Albuterol Sulfate 90 Mcg 8 Gm Inhaler INHALE Q6H PRN shortness of breath or wheezing Calcium Carbonate 750 mg 02/12/21 16:17 02/12/21 20:37 Calcium Carbonate 750 Mg Tab.Chew PO 750 mg Q4H PRN Administration Heartburn Albumin Human 100 mls @ 100 mls/hr 02/13/21 10:30 02/13/21 19:31 Kedbumin 25 % IV 02/14/21 05:29 Infused Q6H KARLA Infusion Lactulose 20 gm 02/13/21 09:00 02/13/21 09:30 Lactulose 20 Gm/30 Ml Solution PO 20 gm DAILY KARLA Administration Melatonin 6 mg 02/12/21 16:17 02/12/21 20:37 Melatonin 3 Mg Tablet PO 6 mg BEDTIME PRN Administration Insomnia Omeprazole 20 mg 02/13/21 06:30 02/13/21 05:21 Omeprazole 20 Mg Capsule.Dr PO 20 mg DAILY@06 KARLA Administration Ondansetron HCl 4 mg 02/12/21 16:24 Ondansetron Hcl 4 Mg/2 Ml Vial IVPUSH Q8H PRN Nausea Oxycodone HCl 5 mg 02/12/21 16:26 02/13/21 16:06 Oxycodone Hcl Immed Release 5 Mg Tablet PO 5 mg Q6H PRN Administration Pain, Severe (Pain Scale 7-10) Pharmacy Consult 1 each 02/12/21 13:29 Consult Rx Perform Med Rec MISCELLANE ONCE PRN Consult order Pharmacy Consult 1 each 02/12/21 15:29 Consult Rx Perform Med Rec MISCELLANE ONCE PRN Consult order Phytonadione 5 mg 02/12/21 18:00 02/13/21 09:30 Phytonadione (Vit K1) Oral 10 Mg/Ml Ampul PO 5 mg DAILY KARLA Administration Rifaximin 550 mg 02/12/21 21:00 02/13/21 09:30 Rifaximin 550 Mg Tablet PO 550 mg BID KARLA Administration Sodium Chloride 3 ml 02/13/21 00:00 02/13/21 17:35 0.9 % Sodium Chloride Flush 3 Ml Syringe IVFLUSH 3 ml QSHIFT KARLA Administration Trazodone HCl 25 mg 02/12/21 16:17 02/12/21 20:37 Trazodone Hcl 25 Mg Halftab PO 25 mg BEDTIME PRN Administration Insomnia Home Medications Medication Instructions Recorded Confirmed Last Taken Type omeprazole 20 mg capsule,delayed 20 mg PO DAILY@0630 01/28/21 02/12/21 02/12/21 History release furosemide 20 mg tablet 20 mg PO BID@0900,1800 02/12/21 02/12/21 02/12/21 History melatonin 3 mg tablet 6 mg PO BEDTIME PRN 02/12/21 02/12/21 02/10/21 History Physical Exam Vital Signs: Last Vital Signs Temp 97.2 F 02/13/21 19:49 Pulse 69 02/13/21 19:49 Resp 18 02/13/21 19:49 BP 111/54 L 02/13/21 19:49 Pulse Ox 97 02/13/21 19:49 Body Mass Index 31.5 Const Other: Jaundiced General: no acute distress Eyes EOM: EOMs intact bilaterally Neck Neck: Yes supple Resp Auscultation: diminished lung sounds Cardio Jugular venous distension: no JVD Rate: regular rate GI Palpation (GI): Soft to palpation Neuro General: moves all extremities Results Lab Results Result Diagrams: 02/12/21 13:43 02/13/21 06:31 Lab results: Chemistry 02/12/21 02/13/21 14:27 06:31 Sodium 129 L 131 L Potassium 2.4 L* D 2.8 L Carbon Dioxide 21 L 21 L BUN 48 H D 51 H Creatinine 2.19 H 2.44 H Calcium 7.9 L D 8.0 L Hematology 02/12/21 13:43 WBC 14.6 H Hgb 13.7 L Plt Count 79 L Assessment and Plan (1) Acute renal failure: Status: Acute JULIA due to compromise in renal perfusion Differential diagnosis is HRS Shall hold diuretics; 25 % Albumin 25 Gram 6 hourly X 3 days All medications should be dosed for GFR Continue rest of current supportive care Labs AM; Shall closely follow up Procedures Date of Service Date of Service: 02/13/21
[2021-02-14] VITALS (7 sets, daily range): BP systolic 90–166; BP diastolic 48–67; PULSE 65–94; RESP 14–20; TEMP 36.1–36.8; O2SAT 65–100
[2021-02-14] MEDS: 0.9 % Sodium Chloride Flush 3 ML SYRINGE IVFLUSH ×4 (01:15→20:50)
[2021-02-14] MEDS: Omeprazole 20 MG CAPSULE.DR PO (05:52)
[2021-02-14] MEDS: Albumin Human 25 % 100 ML IV ×3 (05:53→14:21)
[2021-02-14 06:54] LABS: Ammonia 147 umol/L (13-55)
[2021-02-14 07:43] LABS: Alanine Aminotransferase 145 U/L (0-40); Albumin Level 2.7 g/dL (3.5-5.0); Alkaline Phosphatase 138 U/L (39-117); Anion Gap 11 (12-20); Aspartate Amino Transferase 195 U/L (5-37); Blood Urea Nitrogen 51 mg/dL (9-16); Calcium 8.2 mg/dL (8.4-10.2); Carbon Dioxide 21 mmol/L (22-29); Chloride 103 mmol/L (96-108); Creatinine Clr Calc Pharmacy 38.6; Estimated Glomerular Filt Rate 28; Glucose Random 105 mg/dL (60-115); Potassium 2.4 mmol/L (3.3-5.1); Sodium 133 mmol/L (135-145); Total Protein 5.1 g/dL (6.5-8.0)
[2021-02-14 07:55] LABS: Bilirubin Total 38.6 mg/dL (0.0-1.0)
[2021-02-14 08:08] LABS: Bilirubin Direct 23.3 mg/dL (0.0-0.5)
[2021-02-14] MEDS: Potassium Chloride ER 20 MEQ TAB.ER.PRT 40 MEQ PO ×3 (08:34→20:49)
[2021-02-14] MEDS: rifAXIMin 550 MG TABLET PO ×2 (08:34→20:49)
[2021-02-14] MEDS: oxyCODONE HCl Immed Release 5 MG TABLET PO ×2 (08:34→19:42)
[2021-02-14] MEDS: Phytonadione (Vit K1) Oral 10 MG/ML AMPUL 5 MG PO (08:35)
[2021-02-14] MEDS: Lactulose 20 GM/30 ML SOLUTION PO ×2 (08:35→20:50)
[2021-02-14] MEDS: Potassium Chloride/H20 10 MEQ/100 ML PIGGYBACK 100 MEQ IV ×2 (08:43→09:54)
--- NOTE | 2021-02-14 12:27 | PC.NURSE ---
1146- INCORRECT O2 SAT OF 65% ENTERED INTO COMPUTER BY ELECTRIC MOTOR CONTROL ASSEMBLER. CORRECTED WITH UPDATED O2 SAT ENTERED BY ELECTRIC MOTOR CONTROL ASSEMBLER, DR BLOUNT AWARE
--- NOTE | 2021-02-14 13:08 | P.PNIM_ITS ---
Subjective Subjective Date of Service: 02/14/21 Interval History: Complaining of back pain, tolerating diet no nausea, no vomiting, no abdominal pain, no hematemesis, no melena, no acute overnight issues. Review of Systems General no headache, no dizziness no fever chills.? CVS no chest pain, no palpitation.? Respiratory no cough, no sob.? Gastrointestinal no nausea, no vomiting, abdominal discomfort Physical Exam Vital Signs: Vital Signs: Last Vital Signs Temp 97.3 F 02/14/21 11:46 Pulse 65 02/14/21 11:46 Resp 17 02/14/21 11:46 BP 105/61 02/14/21 11:46 Pulse Ox 95 02/14/21 12:14 Body Mass Index 31.5 General no acute distress. sclera icteric Neck no JVD. CVS? regular rate rhythm, Respiratory lungs clear to auscultation, no respiratory distress, no wheeze, no rhonchi. Gastrointestinal abdomen soft, less abdominal distension, nontender, bowel sounds audible Neuro nonfocal, moving all 4 extremity speech clear no asterixis, mild disorientation Skin jaundice Objective Data Active Medications Albuterol Sulfate (Albuterol Sulfate 90 Mcg 8 Gm Inhaler) 2 puff INHALE Q6H PRN PRN Reason: shortness of breath or wheezing Calcium Carbonate (Calcium Carbonate 750 Mg Tab.Chew) 750 mg PO Q4H PRN PRN Reason: Heartburn Last Admin: 02/12/21 20:37 Dose: 750 mg Documented by: PAULA Albumin Human (Kedbumin 25 %) 100 mls @ 100 mls/hr IV Q1H [facility] Stop: 02/14/21 13:44 Last Admin: 02/14/21 12:58 Dose: 100 mls/hr Documented by: KIRSTY Lactulose (Lactulose 20 Gm/30 Ml Solution) 20 gm PO BID [facility] Last Admin: 02/14/21 08:35 Dose: 20 gm Documented by: KIRSTY Melatonin (Melatonin 3 Mg Tablet) 6 mg PO BEDTIME PRN PRN Reason: Insomnia Last Admin: 02/12/21 20:37 Dose: 6 mg Documented by: PAULA Omeprazole (Omeprazole 20 Mg Capsule.) 20 mg PO DAILY@0630 [facility] Last Admin: 02/14/21 05:52 Dose: 20 mg Documented by: TRICE Ondansetron HCl (Ondansetron Hcl 4 Mg/2 Ml Vial) 4 mg IVPUSH Q8H PRN PRN Reason: Nausea Oxycodone HCl (Oxycodone Hcl Immed Release 5 Mg Tablet) 5 mg PO Q6H PRN PRN Reason: Pain, Severe (Pain Scale 7-10) Last Admin: 02/14/21 08:34 Dose: 5 mg Documented by: KIRSTY Pharmacy Consult (Consult Rx Perform Med Rec) 1 each MISCELLANE ONCE PRN PRN Reason: Consult order Pharmacy Consult (Consult Rx Perform Med Rec) 1 each MISCELLANE ONCE PRN PRN Reason: Consult order Phytonadione (Phytonadione (Vit K1) Oral 10 Mg/Ml Ampul) 5 mg PO DAILY [facility] Last Admin: 02/14/21 08:35 Dose: 5 mg Documented by: KIRSTY Potassium Chloride (Potassium Chloride Er 20 Meq Tab.Er.Prt) 40 meq PO BID [facility] Last Admin: 02/14/21 08:34 Dose: 40 meq Documented by: KIRSTY Rifaximin (Rifaximin 550 Mg Tablet) 550 mg PO BID [facility] Last Admin: 02/14/21 08:34 Dose: 550 mg Documented by: KIRSTY Sodium Chloride (0.9 % Sodium Chloride Flush 3 Ml Syringe) 3 ml IVFLUSH QSHIFT [facility] Last Admin: 02/14/21 07:28 Dose: 3 ml Documented by: KIRSTY Trazodone HCl (Trazodone Hcl 25 Mg Halftab) 25 mg PO BEDTIME PRN PRN Reason: Insomnia Last Admin: 02/12/21 20:37 Dose: 25 mg Documented by: PAULA Labs CBC & Chem 7: 02/12/21 13:43 02/14/21 05:49 Labs: Laboratory Results - last 24 hr 02/13/21 02/14/21 02/14/21 11:20 05:49 05:49 Anion Gap 11 L Estim Creat Clear Calc 38.6 Estimated GFR 28 Random Glucose 105 Calcium 8.2 L Total Bilirubin 38.6 H Direct Bilirubin 23.3 H AST 195 H ALT 145 H Alkaline Phosphatase 138 H Ammonia 147 H Total Protein 5.1 L Albumin 2.7 L D Periton Neutrophils 32 Periton Lymphocytes 5 Peritoneal Monocytes 17 Peritoneal Other Cells 46 Microbiology Microbiology Results: Microbiology 02/13/21 11:20 Gram Stain - Final Abdominal Fluid Routine Culture - Preliminary No growth to date. Anaerobic Culture - Preliminary No growth to date. 02/12/21 13:52 Blood Culture - Preliminary Blood - Venous No growth after 24 hours. 02/12/21 13:43 Blood Culture - Preliminary Blood - Venous No growth after 24 hours. Assessment and Plan (1) Hyponatremia: Status: Acute (2) Acute renal failure: Status: Acute (3) Acute hepatic encephalopathy: Status: Acute (4) Hyperammonemia: Status: Acute (5) Acute hypokalemia: Status: Acute (6) Coagulopathy: Status: Acute (7) Hyperbilirubinemia: Status: Acute Assessment and Plan: 60-year-old gentleman with past medical history significant for cirrhosis of liver due to alcoholism and hepatitis C that has been treated, who has been recently discharged from [facility] and is being followed closely by Gastroenterology as outpatient, presented to [facility] due to worsening abdominal distention, mild confusion, weakness, and lower chest discomfort.? The patient is being admitted to [facility] due to elevated liver function test in the setting of alcohol liver disease and cirrhosis. ? 1. Alcoholic liver disease with decompensated liver failure. ? ? Total bili, LFT worsened today and similar to pre-admission level, no evidence of infection, no hematemesis, no melena ammonia trending down slowly, patient remain awake alert, mildly disoriente d, will continue supportive care with lactulose and rifaximin ? ? Continue to hold Lasix, s/p ultrasound-guided paracentesis, 3.5 L of fluid was removed, culture negative,no sbp follow daily BMP, LFTs, and ammonia level.? Seen by Dr. Nicholas he agrees with above treatment 2 acute renal failure present on admission,ddx HRS creatinine remains elevated and unchanged, seen by Nephrology they recommend albumin 25 g q.6 hours x3 days, follow BMP avoid nephrotoxins 2. Mild hepatic encephalopathy.? Ammonia trending down no asterixis continue lactulose and rifaximin follow ammonia level 3. Hypokalemia, likely related to use of Lasix and diarrhea will aggressively replace and follow labs 3.History of alcohol abuse.? The patient has not had any alcohol for last 1-1/2 month, strongly recommended to abstain from alcohol. 4. Tobacco use disorder.?Smoking cessation advised.? Patient declined nicotine patch at this time. 5. Coagulopathy secondary to liver disease.? Continue vitamin K, follow PT/INR and platelet closely. 6. History of portal vein thrombosis that seems chronic. 7. Mild hyponatremia sodium 129 improved to 131 likely due to cirrhosis and Lasix, continue to hold Lasix and follow BMP ?Deep vein thrombosis prophylaxis.?on compression boots. ? Quality Stroke Does the patient have a stroke diagnosis?: No VTE Prior VTE?: No VTE Risk Level:: Medical - moderate - high VTE Device Contraindication: N/A - Device Ordered VTE Drug Contraindication: Treatment Not Indicated
--- NOTE | 2021-02-14 17:50 | P.PNGI_ITS ---
Subjective Subjective Date of Service: 02/14/21 Interval History: present. Patient is alert but somewhat sleepy.Jaundice. Eating is OK. Denies pain. No signs of bleeding. Afebrile Critical Care Time (minutes): 0 Physical Exam Vital Signs: Vital Signs: Last Vital Signs Temp 97.2 F 02/14/21 16:00 Pulse 73 02/14/21 16:00 Resp 20 02/14/21 16:00 BP 124/60 02/14/21 16:00 Pulse Ox 95 02/14/21 16:00 Body Mass Index 31.5 Const: General: cooperative, comfortable, no acute distress and alert Eyes: Sclerae: scleral abnormal (Icteric) GI: Other: Distended with ascites, but soft and NT Skin: Other: Spider angiomata on chest General skin exam: jaundice Neuro: Motor exam (neuro): Asterixis during motor activity present Extrem: General: Yes edema and Yes venous stasis dermatitis Objective Data Labs CBC & Chem 7: 02/12/21 13:43 02/14/21 05:49 Labs: Laboratory Results - last 24 hr 02/14/21 02/14/21 05:49 05:49 Sodium 133 L Potassium 2.4 L* Chloride 103 Carbon Dioxide 21 L Anion Gap 11 L BUN 51 H Creatinine 2.36 H Estim Creat Clear Calc 38.6 Estimated GFR 28 Random Glucose 105 Calcium 8.2 L Total Bilirubin 38.6 H Direct Bilirubin 23.3 H AST 195 H ALT 145 H Alkaline Phosphatase 138 H Ammonia 147 H Total Protein 5.1 L Albumin 2.7 L D Microbiology Microbiology Results: Microbiology 02/12/21 13:52 Blood - Venous Blood Culture - Preliminary No growth after 48 hours. 02/12/21 13:43 Blood - Venous Blood Culture - Preliminary No growth after 48 hours. 02/13/21 11:20 Abdominal Fluid Gram Stain - Final 02/13/21 11:20 Abdominal Fluid Routine Culture - Preliminary No growth to date. 02/13/21 11:20 Abdominal Fluid Anaerobic Culture - Preliminary No growth to date. Procedures Date of Service Date of Service: 02/14/21 Progress Note: A&P Assessment and plan (1) Cirrhosis with alcoholism: Status: Acute (2) Ascites: Status: Acute (3) Jaundice: Status: Acute (4) Hepatic encephalopathy: Status: Acute Assessment and Plan: Imp: Cirrhosis in relation to chronic EtOH(abstinent since 12/2020) and previous Hep C(successfully treated). Complications of the cirrhosis currently include ascites(tap is negative for SBP), encephalopathy, jaundice after alcohol-hepati tis earlier in the summer(s/p treatment with steroids), and renal insufficency with concern for HRS. He has had no worsening of the PT/INR and no GI bleeding. Rec: Continue supportive care. Lactulose/Xifaxan. Fluid/Ascites management per Nephrology. Maximize nutrition. F/U labs. I did review with the patient and his that if things worsen regarding his PT/INR, refractory and worsening encephalopathy, GI bleeding, and/or worsening renal function, a call to [facility] [place] [facility] can be made regarding a possible inpatient transfer if [facility] [place] is willing to take him in light of his chronic EtOH up until this past December. The patient and his are agreeable to a transfer if need be. I did advise them that his prognosis is quite guarded at the present time. They understood and were comfortable with this plan. Thanks. Fall Risk Details Current Medications: Current Medications Generic Name Dose Route Start Last Admin Trade Name Freq PRN Reason Stop Dose Admin Albuterol Sulfate 2 puff 02/12/21 16:17 Albuterol Sulfate 90 Mcg 8 Gm Inhaler INHALE Q6H PRN shortness of breath or wheezing Calcium Carbonate 750 mg 02/12/21 16:17 02/12/21 20:37 Calcium Carbonate 750 Mg Tab.Chew PO 750 mg Q4H PRN Administration Heartburn Lactulose 20 gm 02/14/21 09:00 02/14/21 08:35 Lactulose 20 Gm/30 Ml Solution PO 20 gm BID KARLA Administration Melatonin 6 mg 02/12/21 16:17 02/12/21 20:37 Melatonin 3 Mg Tablet PO 6 mg BEDTIME PRN Administration Insomnia Omeprazole 20 mg 02/13/21 06:30 02/14/21 05:52 Omeprazole 20 Mg Capsule. PO 20 mg DAILY@0630 KARLA Administration Ondansetron HCl 4 mg 02/12/21 16:24 Ondansetron Hcl 4 Mg/2 Ml Vial IVPUSH Q8H PRN Nausea Oxycodone HCl 5 mg 02/12/21 16:26 02/14/21 08:34 Oxycodone Hcl Immed Release 5 Mg Tablet PO 5 mg Q6H PRN Administration Pain, Severe (Pain Scale 7-10) Pharmacy Consult 1 each 02/12/21 13:29 Consult Rx Perform Med Rec MISCELLANE ONCE PRN Consult order Pharmacy Consult 1 each 02/12/21 15:29 Consult Rx Perform Med Rec MISCELLANE ONCE PRN Consult order Phytonadione 5 mg 02/12/21 18:00 02/14/21 08:35 Phytonadione (Vit K1) Oral 10 Mg/Ml Ampul PO 5 mg DAILY KARLA Administration Potassium Chloride 40 meq 02/14/21 09:00 02/14/21 08:34 Potassium Chloride Er 20 Meq Tab.Er.Prt PO 40 meq BID KARLA Administration Rifaximin 550 mg 02/12/21 21:00 02/14/21 08:34 Rifaximin 550 Mg Tablet PO 550 mg BID KARLA Administration Sodium Chloride 3 ml 02/13/21 00:00 02/14/21 15:29 0.9 % Sodium Chloride Flush 3 Ml Syringe IVFLUSH 3 ml QSHIFT KARLA Administration Trazodone HCl 25 mg 02/12/21 16:17 02/12/21 20:37 Trazodone Hcl 25 Mg Halftab PO 25 mg BEDTIME PRN Administration Insomnia Time Spent With Patient Time: Total time spent is greater than 50% in coordination of care (as documented) at patient's floor/unit and/or counseling patient: Time with patient: 25 - 35 minutes Quality Stroke Does the patient have a stroke diagnosis?: No VTE Prior VTE?: No VTE Risk Level:: Medical - moderate - high VTE Device Contraindication: N/A - Device Ordered VTE Drug Contraindication: Treatment Not Indicated
--- NOTE | 2021-02-14 20:44 | PM.PNNEP ---
Subjective Subjective Date of Service: 02/14/21 Interval history: Events noted. All recent data reviewed Physical Exam Vital Signs: Vital Signs: Last Vital Signs Temp 98 F 02/14/21 20:00 Pulse 73 02/14/21 20:00 Resp 14 02/14/21 20:00 BP 95/48 L 02/14/21 20:00 Pulse Ox 97 02/14/21 20:00 Body Mass Index 31.5 Const: General: no acute distress Eyes: EOM: EOMs intact bilaterally Neck: Neck: Yes supple Resp: Auscultation: diminished lung sounds Cardio: Rate: regular rate GI: Palpation (GI): Soft to palpation Neuro: General: moves all extremities Objective Data Labs CBC & Chem 7: 02/12/21 13:43 02/14/21 05:49 Labs: Laboratory Results - last 24 hr 02/14/21 02/14/21 05:49 05:49 Sodium 133 L Potassium 2.4 L* Chloride 103 Carbon Dioxide 21 L Anion Gap 11 L BUN 51 H Creatinine 2.36 H Estim Creat Clear Calc 38.6 Estimated GFR 28 Random Glucose 105 Calcium 8.2 L Total Bilirubin 38.6 H Direct Bilirubin 23.3 H AST 195 H ALT 145 H Alkaline Phosphatase 138 H Ammonia 147 H Total Protein 5.1 L Albumin 2.7 L D Microbiology Microbiology Results: Microbiology 02/12/21 13:52 Blood - Venous Blood Culture - Preliminary No growth after 48 hours. 02/12/21 13:43 Blood - Venous Blood Culture - Preliminary No growth after 48 hours. 02/13/21 11:20 Abdominal Fluid Gram Stain - Final 02/13/21 11:20 Abdominal Fluid Routine Culture - Preliminary No growth to date. 02/13/21 11:20 Abdominal Fluid Anaerobic Culture - Preliminary No growth to date. Procedures Date of Service Date of Service: 02/14/21 Assessment & Plan Assessment and plan (1) Acute renal failure: Status: Acute Assessment and Plan: JULIA due to compromise in renal perfusion Differential diagnosis is HRS Shall hold diuretics; 25 % Albumin? 25 Gram 6 hourly All medications should be dosed for GFR Keep K over 4. May have add Midodrine 10 mg tid Continue rest of current supportive care Labs AM; Shall closely follow up Time Spent With Patient Time: Total time spent is greater than 50% in coordination of care (as documented) at patient's floor/unit and/or counseling patient: Progress Note: Quality Stroke Does the patient have a stroke diagnosis?: No
[2021-02-14] MEDS: Lidocaine 4 % Patch ADH..PATCH 1 PATCH TRANSDERMA (20:50)
[2021-02-15] VITALS (7 sets, daily range): BP systolic 105–128; BP diastolic 56–65; PULSE 76–96; RESP 16–18; TEMP 36–37.2; O2SAT 92–100
[2021-02-15] MEDS: Melatonin 3 MG TABLET 6 MG PO (00:23)
[2021-02-15] MEDS: oxyCODONE HCl Immed Release 5 MG TABLET PO ×4 (03:17→21:32)
[2021-02-15] MEDS: Omeprazole 20 MG CAPSULE.DR PO (05:30)
[2021-02-15 06:04] LABS: INTERNATIONAL NORM RATIO 2.1 (0.9-1.1); Prothrombin Time 23.9 SEC (9.9-13.0)
[2021-02-15 06:29] LABS: Alanine Aminotransferase 135 U/L (0-40); Albumin Level 3.3 g/dL (3.5-5.0); Alkaline Phosphatase 147 U/L (39-117); Anion Gap 13 (12-20); Aspartate Amino Transferase 181 U/L (5-37); Blood Urea Nitrogen 38 mg/dL (9-16); Calcium 8.8 mg/dL (8.4-10.2); Carbon Dioxide 18 mmol/L (22-29); Chloride 108 mmol/L (96-108); Creatinine Clr Calc Pharmacy 50.1; Estimated Glomerular Filt Rate 38; Glucose Random 98 mg/dL (60-115); Potassium 3.2 mmol/L (3.3-5.1); Sodium 136 mmol/L (135-145); Total Protein 5.5 g/dL (6.5-8.0)
[2021-02-15 06:42] LABS: Hematocrit 29.7 % (42-52); Hemoglobin 10.7 g/dl (14.0-18.0); Mean Corpuscular Hemoglobin 35.7 pg (27.0-33.0); Red Cell Distribution Width 20.2 % (11.0-16.0); White Blood Count 8.5 X10*3/uL (4.8-10.8)
[2021-02-15 06:45] LABS: Platelet Count 46 X10*3/uL (160-400)
[2021-02-15 06:45] LABS: Bilirubin Direct 24.7 mg/dL (0.0-0.5); Bilirubin Total 41.2 mg/dL (0.0-1.0)
[2021-02-15] MEDS: Albumin Human 25 % 100 ML IV ×3 (09:05→20:45)
[2021-02-15] MEDS: Lidocaine 4 % Patch ADH..PATCH 1 PATCH TRANSDERMA (09:13)
[2021-02-15] MEDS: rifAXIMin 550 MG TABLET PO ×2 (09:13→20:46)
[2021-02-15] MEDS: Potassium Chloride ER 20 MEQ TAB.ER.PRT 40 MEQ PO ×2 (09:13→20:47)
[2021-02-15] MEDS: 0.9 % Sodium Chloride Flush 3 ML SYRINGE IVFLUSH ×2 (09:14→18:44)
[2021-02-15] MEDS: Phytonadione (Vit K1) Oral 10 MG/ML AMPUL 5 MG PO (09:15)
--- NOTE | 2021-02-15 11:27 | PM.PNNEP ---
Subjective Subjective Date of Service: 02/15/21 Interval history: Events noted. All recent data reviewed Physical Exam Vital Signs: Vital Signs: Last Vital Signs Temp 97.0 F 02/15/21 08:00 Pulse 87 02/15/21 08:00 Resp 18 02/15/21 08:00 BP 121/62 02/15/21 08:00 Pulse Ox 98 02/15/21 08:00 Body Mass Index 31.5 Const: General: no acute distress Eyes: EOM: EOMs intact bilaterally Neck: Neck: Yes supple Resp: Auscultation: diminished lung sounds Cardio: Rate: regular rate GI: Palpation (GI): Soft to palpation Neuro: General: moves all extremities Objective Data Labs CBC & Chem 7: 02/15/21 06:24 02/15/21 05:11 Labs: Laboratory Results - last 24 hr 02/15/21 02/15/21 02/15/21 05:11 05:11 06:24 WBC 8.5 RBC 3.00 L D Hgb 10.7 L D Hct 29.7 L D MCV 99.0 H MCH 35.7 H MCHC 36.0 RDW 20.2 H Plt Count 46 L D MPV Not Reportable Absolute Nucleated RBC 0.000 Nucleated RBC % (auto) 0.0 PT 23.9 H INR 2.1 H Sodium 136 Potassium 3.2 L D Chloride 108 Carbon Dioxide 18 L Anion Gap 13 BUN 38 H Creatinine 1.82 H Estim Creat Clear Calc 50.1 Estimated GFR 38 Random Glucose 98 Calcium 8.8 D Total Bilirubin 41.2 H Direct Bilirubin 24.7 H AST 181 H ALT 135 H Alkaline Phosphatase 147 H Total Protein 5.5 L Albumin 3.3 L D Microbiology Microbiology Results: Microbiology 02/13/21 11:20 Abdominal Fluid Gram Stain - Final 02/13/21 11:20 Abdominal Fluid Routine Culture - Final No growth after 2 days 02/13/21 11:20 Abdominal Fluid Anaerobic Culture - Preliminary No growth to date. 02/12/21 13:52 Blood - Venous Blood Culture - Preliminary No growth after 48 hours. 02/12/21 13:43 Blood - Venous Blood Culture - Preliminary No growth after 48 hours. Procedures Date of Service Date of Service: 02/15/21 Assessment & Plan Assessment and plan (1) Acute renal failure: Status: Acute Assessment and Plan: JULIA due to compromise in renal perfusion Differential diagnosis is HRS Shall continue to hold diuretics; 25 % Albumin? 25 Gram 6 hourly( finishing today) Renal functions improving; All medications should be dosed for GFR Keep K over 4.Could add Spironolactone soon Continue rest of current supportive care Labs AM; Shall closely follow up Time Spent With Patient Time: Total time spent is greater than 50% in coordination of care (as documented) at patient's floor/unit and/or counseling patient: Progress Note: Quality Stroke Does the patient have a stroke diagnosis?: No
--- NOTE | 2021-02-15 15:05 | MHC.CM.PN ---
PER MULTIDISCIPLINARY ROUNDS NO PLAN FOR D/C TODAY, HOSPITALIST UNSURE WHEN PT WILL D/C AT THIS TIME. PT BEING FOLLOWED BY NEPHROLOGY AND GI, D/C PLAN IS CURRENTLY HOME W/RESUMP OF [facility] W/ FOR TRANSPORT.
--- NOTE | 2021-02-15 17:32 | HO.PM.IMPN ---
Subjective Subjective Date of Service: 02/15/21 Interval History: Being followed for hepatic failure, awake alert answering questions appropriately this morning denies abdominal pain no fever chills, asking appropriate questions regarding his liver tests and treatment options Review of Systems General no headache, no dizziness no fever chills.? CVS no chest pain, no palpitation.? Respiratory no cough, no sob.? Gastrointestinal no nausea, no vomiting, abdominal discomfort Review of Systems: Yes all other systems are reviewed and are negative Physical Exam Vital Signs: Vital Signs: Last Vital Signs Temp 97.9 F 02/15/21 15:57 Pulse 77 02/15/21 15:57 Resp 18 02/15/21 15:57 BP 123/58 L 02/15/21 15:57 Pulse Ox 99 02/15/21 15:57 Body Mass Index 31.5 General no acute distress. sclera icteric Neck no JVD. CVS? regular rate rhythm, Respiratory lungs clear to auscultation, no respiratory distress, no wheeze, no rhonchi. Gastrointestinal abdomen soft, less abdominal distension, nontender, bowel sounds audible Neuro nonfocal, moving all 4 extremity speech clear no asterixis, mild disorientation Extremities trace edema Skin jaundice Objective Data Active Medications Albuterol Sulfate (Albuterol Sulfate 90 Mcg 8 Gm Inhaler) 2 puff INHALE Q6H PRN PRN Reason: shortness of breath or wheezing Calcium Carbonate (Calcium Carbonate 750 Mg Tab.Chew) 750 mg PO Q4H PRN PRN Reason: Heartburn Last Admin: 02/12/21 20:37 Dose: 750 mg Documented by: PAULA Albumin Human (Kedbumin 25 %) 100 mls @ 100 mls/hr IV Q6H KARLA Stop: 02/16/21 02:59 Last Infusion: 02/15/21 16:30 Dose: 0 mls/hr Documented by: ABRIL Lactulose (Lactulose 20 Gm/30 Ml Solution) 20 gm PO BID KARLA Last Admin: 02/15/21 09:14 Dose: Not Given Documented by: EMMA Non-Admin Reason: sev stools Lidocaine (Lidocaine 4 % Patch Adh..Patch) 1 patch TRANSDERMA DAILY KARLA; Protocol Last Admin: 02/15/21 09:13 Dose: 1 patch Documented by: EMMA Melatonin (Melatonin 3 Mg Tablet) 6 mg PO BEDTIME PRN PRN Reason: Insomnia Last Admin: 02/15/21 00:23 Dose: 6 mg Documented by: YANG Omeprazole (Omeprazole 20 Mg Capsule.) 20 mg PO DAILY@0630 [facility] Last Admin: 02/15/21 05:30 Dose: 20 mg Documented by: KIRSTY Ondansetron HCl (Ondansetron Hcl 4 Mg/2 Ml Vial) 4 mg IVPUSH Q8H PRN PRN Reason: Nausea Oxycodone HCl (Oxycodone Hcl Immed Release 5 Mg Tablet) 5 mg PO Q6H PRN PRN Reason: Pain, Severe (Pain Scale 7-10) Last Admin: 02/15/21 15:06 Dose: 5 mg Documented by: EMMA Pharmacy Consult (Consult Rx Perform Med Rec) 1 each MISCELLANE ONCE PRN PRN Reason: Consult order Pharmacy Consult (Consult Rx Perform Med Rec) 1 each MISCELLANE ONCE PRN PRN Reason: Consult order Phytonadione (Phytonadione (Vit K1) Oral 10 Mg/Ml Ampul) 5 mg PO DAILY [facility] Last Admin: 02/15/21 09:15 Dose: 5 mg Documented by: EMMA Potassium Chloride (Potassium Chloride Er 20 Meq Tab.Er.Prt) 40 meq PO BID [facility] Last Admin: 02/15/21 09:13 Dose: 40 meq Documented by: EMMA Rifaximin (Rifaximin 550 Mg Tablet) 550 mg PO BID [facility] Last Admin: 02/15/21 09:13 Dose: 550 mg Documented by: EMMA Sodium Chloride (0.9 % Sodium Chloride Flush 3 Ml Syringe) 3 ml IVFLUSH QSHIFT [facility] Last Admin: 02/15/21 09:14 Dose: 3 ml Documented by: EMMA Trazodone HCl (Trazodone Hcl 25 Mg Halftab) 25 mg PO BEDTIME PRN PRN Reason: Insomnia Last Admin: 02/12/21 20:37 Dose: 25 mg Documented by: PAULA Labs CBC & Chem 7: 02/15/21 06:24 02/15/21 05:11 Labs: Laboratory Results - last 24 hr 02/15/21 02/15/21 02/15/21 05:11 05:11 06:24 MCV 99.0 H MCH 35.7 H MCHC 36.0 RDW 20.2 H Plt Count 46 L D MPV Not Reportable Absolute Nucleated RBC 0.000 Nucleated RBC % (auto) 0.0 PT 23.9 H INR 2.1 H Anion Gap 13 Estim Creat Clear Calc 50.1 Estimated GFR 38 Random Glucose 98 Calcium 8.8 D Total Bilirubin 41.2 H Direct Bilirubin 24.7 H AST 181 H ALT 135 H Alkaline Phosphatase 147 H Total Protein 5.5 L Albumin 3.3 L D Microbiology Microbiology Results: Microbiology 02/13/21 11:20 Gram Stain - Final Abdominal Fluid Routine Culture - Final No growth after 2 days Anaerobic Culture - Preliminary No growth to date. 02/12/21 13:52 Blood Culture - Preliminary Blood - Venous No growth after 48 hours. 02/12/21 13:43 Blood Culture - Preliminary Blood - Venous No growth after 48 hours. Assessment and Plan (1) Hepatic encephalopathy: Status: Acute (2) Jaundice: Status: Acute (3) Ascites: Status: Acute (4) Cirrhosis with alcoholism: Status: Acute (5) Hyponatremia: Status: Acute (6) Acute renal failure: Status: Acute (7) Acute hepatic encephalopathy: Status: Acute (8) Hyperammonemia: Status: Acute (9) Acute hypokalemia: Status: Acute Assessment and Plan: 60-year-old gentleman with past medical history significant for cirrhosis of liver due to alcoholism and hepatitis C that has been treated, who has been recently discharged from [facility] and is being followed closely by Gastroenterology as outpatient, presented to [facility] due to worsening abdominal distention, mild confusion, weakness, and lower chest discomfort.? The patient is being admitted to [facility] due to elevated liver function test in the setting of alcohol liver disease and cirrhosis. ? 1. Alcoholic liver disease with decompensated liver failure. No new complaints of abdominal pain, dizziness or confusion ? ? Total bili, LFT trending up, no evidence of infection, no hematemesis, no melena ? ? ammonia trending down slowly, patient remain awake alert, mildly disoriented, will continue supportive care with lactulose and rifaximin ? ? Continue to hold Lasix, s/p ultrasound-guided paracentesis, 3.5 L of fluid was removed, culture negative,no sbp ?? ?follow daily BMP, LFTs, and ammonia level. Case discussed with Dr. Chaudhary he recommend transfer to [facility] only if noted to have worsening coags, confusion or encephalopathy , worsening bili likely due to cholestasis 2 acute renal failure present on admission,ddx HRS creatinine trending down, case discussed with Nephrology he feels patient has hepatorenal syndrome type 2 he recommend albumin 25 g q.6 hours x3 days, follow BMP avoid nephrotoxins 2. Mild hepatic encephalopathy.? Ammonia trending down no asterixis continue lactulose and rifaximin follow ammonia level 3. Hypokalemia, likely related to use of Lasix and diarrhea gradually improving continue to replace potassium and follow labs 3.History of alcohol abuse.? patient has not had any alcohol for last 1-1/2 month, strongly recommended to abstain from alcohol. 4. Tobacco use disorder.?Smoking cessation advised.? Patient declined nicotine patch at this time. 5. Coagulopathy secondary to liver disease.? s/p vitamin K, inr improved to 2.1 6. History of portal vein thrombosis that seems chronic. 7. Mild hyponatremia sodium 129 improved to 136 was likely due to cirrhosis and Lasix, continue to hold Lasix and follow BMP ?Deep vein thrombosis prophylaxis.?on compression boots. ? Quality Stroke Does the patient have a stroke diagnosis?: No VTE Prior VTE?: No VTE Risk Level:: Medical - moderate - high VTE Device Contraindication: N/A - Device Ordered VTE Drug Contraindication: Treatment Not Indicated
[2021-02-15] MEDS: Lactulose 20 GM/30 ML SOLUTION PO (20:47)
[2021-02-16] MEDS: Albumin Human 25 % 100 ML IV (01:13)
[2021-02-16] MEDS: 0.9 % Sodium Chloride Flush 3 ML SYRINGE IVFLUSH ×4 (01:16→20:17)
[2021-02-16] MEDS: oxyCODONE HCl Immed Release 5 MG TABLET PO ×4 (03:17→21:39)
[2021-02-16 03:45] VITALS: BP 113/63; PULSE 84; RESP 18; TEMP 36.4; O2SAT 99
[2021-02-16] MEDS: Omeprazole 20 MG CAPSULE.DR PO (06:27)
[2021-02-16 07:00] LABS: Alanine Aminotransferase 116 U/L (0-40); Albumin Level 3.7 g/dL (3.5-5.0); Alkaline Phosphatase 145 U/L (39-117); Anion Gap 10 (12-20); Aspartate Amino Transferase 140 U/L (5-37); Bilirubin Total 38.8 mg/dL (0.0-1.0); Blood Urea Nitrogen 28 mg/dL (9-16); Calcium 9.1 mg/dL (8.4-10.2); Carbon Dioxide 19 mmol/L (22-29); Chloride 109 mmol/L (96-108); Estimated Glomerular Filt Rate 41; Glucose Random 128 mg/dL (60-115); Potassium 3.3 mmol/L (3.3-5.1); Sodium 135 mmol/L (135-145); Total Protein 5.7 g/dL (6.5-8.0)
[2021-02-16 07:15] LABS: Bilirubin Direct 22.3 mg/dL (0.0-0.5)
[2021-02-16 07:35] VITALS: BP 119/69; PULSE 80; RESP 17; TEMP 36.8; O2SAT 98
[2021-02-16] MEDS: Lidocaine 4 % Patch ADH..PATCH 1 PATCH TRANSDERMA (08:54)
[2021-02-16] MEDS: rifAXIMin 550 MG TABLET PO ×2 (08:54→20:14)
[2021-02-16] MEDS: Potassium Chloride ER 20 MEQ TAB.ER.PRT 40 MEQ PO (08:54)
--- NOTE | 2021-02-16 11:35 | HO.PM.IMPN ---
Subjective Subjective Date of Service: 02/16/21 Interval History: Feeling good this morning, no acute issues overnight, denies nausea vomiting abdominal pain continue to have 2-3 bowel movements daily, more awake and alert wants to know if he can be discharged home. Review of Systems General no headache, no dizziness no fever chills.? CVS no chest pain, no palpitation.? Respiratory no cough, no sob.? Gastrointestinal no nausea, no vomiting,no abdominal discomfort Review of Systems: Yes all other systems are reviewed and are negative Physical Exam Vital Signs: Vital Signs: Last Vital Signs Temp 98.3 F 02/16/21 07:35 Pulse 80 02/16/21 07:35 Resp 17 02/16/21 07:35 BP 119/69 02/16/21 07:35 Pulse Ox 98 02/16/21 07:35 Body Mass Index 31.5 General no acute d istress. sclera ic teric Neck no JVD. CVS? regular rate rhythm, Respirato ry lungs clear to auscultation, no r espiratory distres s, no wheeze, no r honchi. Gastrointe stinal abdomen sof t, distended, nont mikel, bowel sound s audible Neuro no nfocal, moving all 4 extremity speec h clear no asterix is, alert oriented x3 Extremities no edema Skin jaundi ce Objective Data Active Medications Albuterol Sulfate (Albuterol Sulfate 90 Mcg 8 Gm Inhaler) 2 puff INHALE Q6H PRN PRN Reason: shortness of breath or wheezing Calcium Carbonate (Calcium Carbonate 750 Mg Tab.Chew) 750 mg PO Q4H PRN PRN Reason: Heartburn Last Admin: 02/12/21 20:37 Dose: 750 mg Documented by: PAULA Lactulose (Lactulose 20 Gm/30 Ml Solution) 20 gm PO BID KARLA Last Admin: 02/16/21 08:53 Dose: Not Given Documented by: EMMA Non-Admin Reason: Patient Refused Lidocaine (Lidocaine 4 % Patch Adh..Patch) 1 patch TRANSDERMA DAILY [facility]; Protocol Last Admin: 02/16/21 08:54 Dose: 1 patch Documented by: EMMA Melatonin (Melatonin 3 Mg Tablet) 6 mg PO BEDTIME PRN PRN Reason: Insomnia Last Admin: 02/15/21 00:23 Dose: 6 mg Documented by: YANG Omeprazole (Omeprazole 20 Mg Capsule.) 20 mg PO DAILY@0630 [facility] Last Admin: 02/16/21 06:27 Dose: 20 mg Documented by: HARPER Ondansetron HCl (Ondansetron Hcl 4 Mg/2 Ml Vial) 4 mg IVPUSH Q8H PRN PRN Reason: Nausea Oxycodone HCl (Oxycodone Hcl Immed Release 5 Mg Tablet) 5 mg PO Q6H PRN PRN Reason: Pain, Severe (Pain Scale 7-10) Last Admin: 02/16/21 09:08 Dose: 5 mg Documented by: EMMA Pharmacy Consult (Consult Rx Perform Med Rec) 1 each MISCELLANE ONCE PRN PRN Reason: Consult order Pharmacy Consult (Consult Rx Perform Med Rec) 1 each MISCELLANE ONCE PRN PRN Reason: Consult order Potassium Chloride (Potassium Chloride Er 20 Meq Tab.Er.Prt) 40 meq PO BID [facility] Last Admin: 02/16/21 08:54 Dose: 40 meq Documented by: EMMA Rifaximin (Rifaximin 550 Mg Tablet) 550 mg PO BID [facility] Last Admin: 02/16/21 08:54 Dose: 550 mg Documented by: EMMA Sodium Chloride (0.9 % Sodium Chloride Flush 3 Ml Syringe) 3 ml IVFLUSH QSHIFT [facility] Last Admin: 02/16/21 08:53 Dose: 3 ml Documented by: EMMA Trazodone HCl (Trazodone Hcl 25 Mg Halftab) 25 mg PO BEDTIME PRN PRN Reason: Insomnia Last Admin: 02/12/21 20:37 Dose: 25 mg Documented by: PAULA Labs CBC & Chem 7: 02/15/21 06:24 02/16/21 06:10 Labs: Laboratory Results - last 24 hr 02/16/21 06:10 Anion Gap 10 L Estim Creat Clear Calc 53.0 Estimated GFR 41 Random Glucose 128 H Calcium 9.1 Total Bilirubin 38.8 H Direct Bilirubin 22.3 H AST 140 H ALT 116 H Alkaline Phosphatase 145 H Total Protein 5.7 L Albumin 3.7 Microbiology Microbiology Results: Microbiology 02/13/21 11:20 Gram Stain - Final Abdominal Fluid Routine Culture - Final No growth after 2 days Anaerobic Culture - Preliminary No growth to date. Assessment and Plan (1) Hepatic encephalopathy: Status: Acute (2) Jaundice: Status: Acute (3) Ascites: Status: Acute (4) Cirrhosis with alcoholism: Status: Acute (5) Hyponatremia: Status: Acute (6) Acute renal failure: Status: Acute (7) Hyperammonemia: Status: Acute (8) Acute hypokalemia: Status: Acute (9) Chronic obstructive pulmonary disease, unspecified: Status: Acute Assessment and Plan: 60-year-old gentleman with past medical history significant for cirrhosis of liver due to alcoholism and hepatitis C that has been treated, who has been recently discharged from [facility] and is being followed closely by Gastroenterology as outpatient, presented to [facility] due to worsening abdominal distention, mild confusion, weakness, and lower chest discomfort.? The patient is being admitted to [facility] due to elevated liver function test in the setting of alcohol liver disease and cirrhosis. ? 1. Alcoholic liver disease with decompensated liver failure. ? ? No new complaints of abdominal pain, dizziness or confusion, more awake alert this a.m. ? ? Total bili, LFT trending down, no evidence of infection, no hematemesis, no melena ? ? ammonia trending down slowly, patient remain awake alert, will continue supportive care with lactulose and rifaximin ? ? Continue to hold Lasix, s/p ultrasound-guided paracentesis, 3.5 L of fluid was removed, culture negative,no sbp ?? ?follow BMP, LFTs, and ammonia level on 02/18. ?? Case discussed with Dr. Chaudhary 02/15, he recommend transfer to [facility] only if noted to have worsening coags, confusion or encephalopathy , worsening bili likely due to cholestasis 2 acute renal failure present on admission,ddx HRS creatinine trending down slowly, case discussed with Nephrology he feels patient has hepatorenal syndrome type 2 he recommend albumin 25 g q.6 hours finished 3 day therapy, follow BMP avoid nephrotoxins 2. Mild hepatic encephalopathy. Resolved, Ammonia trending down no asterixis continue lactulose and rifaximin follow ammonia level 3. Hypokalemia, likely related to use of Lasix and diarrhea, potassium normalized, continue to replace potassium and follow labs 3.History of alcohol abuse.?? patient has not had any alcohol for last 1-1/2 month, strongly recommended to abstain from alcohol. 4. Tobacco use disorder.?Smoking cessation advised.? Patient declined nicotine patch at this time. 5. Coagulopathy secondary to liver disease.? s/p vitamin K, inr improved to 2.1 6. History of portal vein thrombosis that seems chronic. 7. Mild hyponatremia sodium 129 improved to 136 was likely due to cirrhosis and Lasix, continue to hold Lasix and follow BMP ?Deep vein thrombosis prophylaxis.?on compression boots. ? Quality Stroke Does the patient have a stroke diagnosis?: No VTE Prior VTE?: No VTE Risk Level:: Medical - moderate - high VTE Device Contraindication: N/A - Device Ordered VTE Drug Contraindication: Treatment Not Indicated
[2021-02-16 11:36] VITALS: BP 128/64; PULSE 81; RESP 17; TEMP 36.4; O2SAT 98
[2021-02-16] MEDS: Lactulose 20 GM/30 ML SOLUTION PO ×2 (15:30→20:14)
[2021-02-16 15:33] VITALS: BP 111/59; PULSE 84; RESP 18; TEMP 36.6; O2SAT 99
--- NOTE | 2021-02-16 16:09 | PM.PNNEP ---
Subjective Subjective Date of Service: 02/16/21 Interval history: no events Cr favorable Physical Exam Vital Signs: Vital Signs: Last Vital Signs Temp 98 F 02/16/21 15:33 Pulse 84 02/16/21 15:33 Resp 18 02/16/21 15:33 BP 111/59 L 02/16/21 15:33 Pulse Ox 99 02/16/21 15:33 Body Mass Index 31.5 Const: Other: Jaundiced General: no acute distress Eyes: EOM: EOMs intact bilaterally Neck: Neck: Yes supple Resp: Auscultation: diminished lung sounds Cardio: Jugular venous distension: no JVD Rate: regular rate GI: Palpation (GI): Soft to palpation Neuro: General: moves all extremities Objective Data Labs CBC & Chem 7: 02/15/21 06:24 02/16/21 06:10 Labs: Laboratory Results - last 24 hr 02/16/21 06:10 Sodium 135 Potassium 3.3 Chloride 109 H Carbon Dioxide 19 L Anion Gap 10 L BUN 28 H Creatinine 1.72 H Estim Creat Clear Calc 53.0 Estimated GFR 41 Random Glucose 128 H Calcium 9.1 Total Bilirubin 38.8 H Direct Bilirubin 22.3 H AST 140 H ALT 116 H Alkaline Phosphatase 145 H Total Protein 5.7 L Albumin 3.7 Microbiology Microbiology Results: Microbiology 02/13/21 11:20 Abdominal Fluid Gram Stain - Final 02/13/21 11:20 Abdominal Fluid Routine Culture - Final No growth after 2 days 02/13/21 11:20 Abdominal Fluid Anaerobic Culture - Preliminary No growth to date. 02/12/21 13:52 Blood - Venous Blood Culture - Preliminary No growth after 48 hours. 02/12/21 13:43 Blood - Venous Blood Culture - Preliminary No growth after 48 hours. Procedures Date of Service Date of Service: 02/16/21 Assessment & Plan Assessment and plan (1) Acute renal failure: Status: Acute Assessment and Plan: JULIA due to compromise in renal perfusion, pre-renal azotemia so far responding to albumin therapy. Defending intravascular space is barboza Unlikely type 1 HRS. Plan: start midodrine 5mg TID Shall continue to hold diuretics OK to d/C albumin D/C PO KCL for now Time Spent With Patient Time: Total time spent is greater than 50% in coordination of care (as documented) at patient's floor/unit and/or counseling patient: Progress Note: Quality Stroke Does the patient have a stroke diagnosis?: No
[2021-02-16] MEDS: Midodrine HCl 5 MG TABLET PO (18:09)
[2021-02-16 19:34] VITALS: BP 109/66; PULSE 88; RESP 18; TEMP 37.5; O2SAT 99
[2021-02-16] MEDS: Melatonin 3 MG TABLET 6 MG PO (21:39)
[2021-02-16 23:49] VITALS: BP 123/58; PULSE 93; RESP 16; TEMP 36.7; O2SAT 98
[2021-02-17] VITALS (8 sets, daily range): BP systolic 105–127; BP diastolic 55–62; PULSE 85–103; RESP 16–18; TEMP 36.1–37; O2SAT 97–98
[2021-02-17] MEDS: oxyCODONE HCl Immed Release 5 MG TABLET PO ×4 (04:05→22:18)
[2021-02-17] MEDS: Omeprazole 20 MG CAPSULE.DR PO (05:14)
[2021-02-17] MEDS: 0.9 % Sodium Chloride Flush 3 ML SYRINGE IVFLUSH ×3 (08:24→22:20)
[2021-02-17] MEDS: Lidocaine 4 % Patch ADH..PATCH 1 PATCH TRANSDERMA (08:25)
[2021-02-17] MEDS: Lactulose 20 GM/30 ML SOLUTION PO ×2 (08:25→22:18)
[2021-02-17] MEDS: rifAXIMin 550 MG TABLET PO ×2 (08:25→22:18)
[2021-02-17] MEDS: Midodrine HCl 5 MG TABLET PO ×3 (08:25→16:07)
--- NOTE | 2021-02-17 11:56 | HO.PM.IMPN ---
Subjective Subjective Date of Service: 02/17/21 Interval History: Being followed for decompensated liver cirrhosis, complaining of bilateral knee pain, no other acute issues overnight, denies fever chills no abdominal pain, tolerating diet. Review of Systems General no headache, no dizziness no fever chills.? CVS no chest pain, no palpitation.? Respiratory no cough, no sob.? Gastrointestinal no nausea, no vomiting,no abdominal discomfort Review of Systems: Yes all other systems are reviewed and are negative Physical Exam Vital Signs: Vital Signs: Last Vital Signs Temp 98.6 F 02/17/21 07:41 Pulse 94 02/17/21 08:25 Resp 17 02/17/21 07:41 BP 105/62 02/17/21 08:25 Pulse Ox 98 02/17/21 07:41 Body Mass Index 31.5 General no acute distress. sclera icteric Neck no JVD. CVS? regular rate?rhythm, Respiratory lungs clear toauscultation, no respiratory distress, no wheeze, no rhonchi. Gastrointestinal abdomen soft, distended, nontender, bowel sounds audible Neuro nonfocal, moving all?4 extremity speech clear no asterixis, alert oriented?x3 Extremities no?edema Skin jaundice Objective Data Active Medications Albuterol Sulfate (Albuterol Sulfate 90 Mcg 8 Gm Inhaler) 2 puff INHALE Q6H PRN PRN Reason: shortness of breath or wheezing Calcium Carbonate (Calcium Carbonate 750 Mg Tab.Chew) 750 mg PO Q4H PRN PRN Reason: Heartburn Last Admin: 02/12/21 20:37 Dose: 750 mg Documented by: PAULA Lactulose (Lactulose 20 Gm/30 Ml Solution) 20 gm PO BID COUNTS INCLUDE 234 BEDS AT THE [facility] Last Admin: 02/17/21 08:25 Dose: 20 gm Documented by: KRISTEL Lidocaine (Lidocaine 4 % Patch Adh..Patch) 1 patch TRANSDERMA DAILY COUNTS INCLUDE 234 BEDS AT THE [facility]; Protocol Last Admin: 02/17/21 08:25 Dose: 1 patch Documented by: KRISTEL Melatonin (Melatonin 3 Mg Tablet) 6 mg PO BEDTIME PRN PRN Reason: Insomnia Last Admin: 02/16/21 21:39 Dose: 6 mg Documented by: HARPER Midodrine (Midodrine Hcl 5 Mg Tablet) 5 mg PO TIDWM COUNTS INCLUDE 234 BEDS AT THE [facility] Last Admin: 02/17/21 08:25 Dose: 5 mg Documented by: KRISTEL Omeprazole (Omeprazole 20 Mg Capsule.) 20 mg PO DAILY@0630 COUNTS INCLUDE 234 BEDS AT THE [facility] Last Admin: 02/17/21 05:14 Dose: 20 mg Documented by: HARPER Ondansetron HCl (Ondansetron Hcl 4 Mg/2 Ml Vial) 4 mg IVPUSH Q8H PRN PRN Reason: Nausea Oxycodone HCl (Oxycodone Hcl Immed Release 5 Mg Tablet) 5 mg PO Q6H PRN PRN Reason: Pain, Severe (Pain Scale 7-10) Last Admin: 02/17/21 10:15 Dose: 5 mg Documented by: KRISTEL Pharmacy Consult (Consult Rx Perform Med Rec) 1 each MISCELLANE ONCE PRN PRN Reason: Consult order Pharmacy Consult (Consult Rx Perform Med Rec) 1 each MISCELLANE ONCE PRN PRN Reason: Consult order Rifaximin (Rifaximin 550 Mg Tablet) 550 mg PO BID COUNTS INCLUDE 234 BEDS AT THE [facility] Last Admin: 02/17/21 08:25 Dose: 550 mg Documented by: KRISTEL Sodium Chloride (0.9 % Sodium Chloride Flush 3 Ml Syringe) 3 ml IVFLUSH QSHIFT COUNTS INCLUDE 234 BEDS AT THE [facility] Last Admin: 02/17/21 08:24 Dose: 3 ml Documented by: KRISTEL Trazodone HCl (Trazodone Hcl 25 Mg Halftab) 25 mg PO BEDTIME PRN PRN Reason: Insomnia Last Admin: 02/12/21 20:37 Dose: 25 mg Documented by: PAULA Labs CBC & Chem 7: 02/15/21 06:24 02/16/21 06:10 Microbiology Microbiology Results: Microbiology 02/13/21 11:20 Gram Stain - Final Abdominal Fluid Routine Culture - Final No growth after 2 days Anaerobic Culture - Preliminary No growth to date. Assessment and Plan (1) Hepatic encephalopathy: Status: Acute (2) Ascites: Status: Acute (3) Cirrhosis with alcoholism: Status: Acute (4) Hyponatremia: Status: Acute (5) Acute renal failure: Status: Acute (6) Acute hepatic encephalopathy: Status: Acute (7) Acute hypokalemia: Status: Acute Assessment and Plan: 60-year-old gentleman with past medical history significant for cirrhosis of liver due to alcoholism and hepatitis C that has been treated, who has been recently discharged from [facility] and is being followed closely by Gastroenterology as outpatient, presented to [facility] due to worsening abdominal distention, mild confusion, weakness, and lower chest discomfort.? The patient is being admitted to [facility] due to elevated liver function test in the setting of alcohol liver disease and cirrhosis. ? 1. Alcoholic liver disease with decompensated liver failure. ? ? No abdominal pain,no dizziness or confusion, more awake alert this a.m. ? ? Total bili, LFT trending down slowly, no evidence of infection, no hematemesis, no melena ? ? ammonia trending down slowly, patient remain awake alert,cont. lactulose 20gm bid hold dose for > 3bm /day and rifaximin ? ? Continue to hold Lasix, s/p ultrasound-guided paracentesis, 3.5 L of fluid was removed, culture negative,no sbp ?? ?check? BMP, LFTs, and ammonia level at am ?? Case discussed with Dr. Chaudhary 02/15, he recommend transfer to [facility] only if noted to have worsening coags, confusion or encephalopathy , worsening bili likely due to cholestasis. 2 acute renal failure present on admission,ddx HRS creatinine trending down slowly, case discussed with Nephrology he feels patient has hepatorenal syndrome type 2 he recommend albumin 25 g q.6 hours finished 3 day therapy, check BMP at am,avoid nephrotoxins 2. Mild hepatic encephalopathy.? Resolved, Ammonia trending down no asterixis continue lactulose and rifaximin ,check ammonia level 3. Hypokalemia, likely related to use of Lasix and diarrhea, potassium normalized, continue low dose potassium and follow labs 3.History of alcohol abuse.?? patient has not had any alcohol for last 2 month, strongly recommended to abstain from alcohol. 4. Tobacco use disorder.?Smoking cessation advised.? Patient declined nicotine patch at this time. 5. Coagulopathy secondary to liver disease.? s/p vitamin K, inr improved to 2.1 6. History of portal vein thrombosis that seems chronic. 7. Mild hyponatremia sodium 129 improved to 136 was likely due to cirrhosis and Lasix, continue to hold Lasix and follow BMP 8. Bilateral knee pain worse with ambulation likely due to arthritis knee examination is benign recommended knee brace and is on as needed oxycodone. ?Deep vein thrombosis prophylaxis.?on compression boots. Quality Stroke Does the patient have a stroke diagnosis?: No VTE Prior VTE?: No VTE Risk Level:: Medical - moderate - high VTE Device Contraindication: N/A - Device Ordered VTE Drug Contraindication: Treatment Not Indicated
--- NOTE | 2021-02-17 16:36 | PM.PNNEP ---
Subjective Subjective Date of Service: 02/17/21 Interval history: no events lab holiday today Physical Exam Vital Signs: Vital Signs: Last Vital Signs Temp 97.8 F 02/17/21 15:25 Pulse 85 02/17/21 16:07 Resp 18 02/17/21 15:25 BP 125/61 02/17/21 16:07 Pulse Ox 98 02/17/21 15:25 Body Mass Index 31.5 Const: Other: Jaundiced General: no acute distress Eyes: EOM: EOMs intact bilaterally Neck: Neck: Yes supple Resp: Auscultation: diminished lung sounds Cardio: Jugular venous distension: no JVD Rate: regular rate GI: Palpation (GI): Soft to palpation Neuro: General: moves all extremities Objective Data Labs CBC & Chem 7: 02/15/21 06:24 02/16/21 06:10 Microbiology Microbiology Results: Microbiology 02/12/21 13:52 Blood - Venous Blood Culture - Final No growth after 5 days. 02/12/21 13:43 Blood - Venous Blood Culture - Final No growth after 5 days. 02/13/21 11:20 Abdominal Fluid Gram Stain - Final 02/13/21 11:20 Abdominal Fluid Routine Culture - Final No growth after 2 days 02/13/21 11:20 Abdominal Fluid Anaerobic Culture - Preliminary No growth to date. Procedures Date of Service Date of Service: 02/17/21 Assessment & Plan Assessment and plan (1) Acute renal failure: Status: Acute Assessment and Plan: JULIA due to compromise in renal perfusion, pre-renal azotemia so far responding to albumin therapy. Defending intravascular space is barboza Unlikely type 1 HRS. Plan: c/w midodrine 5mg TID started on 02/16/21 Shall continue to hold diuretics OK to d/C albumin D/C PO KCL for now Time Spent With Patient Time: Total time spent is greater than 50% in coordination of care (as documented) at patient's floor/unit and/or counseling patient: Progress Note: Quality Stroke Does the patient have a stroke diagnosis?: No
[2021-02-17] MEDS: Melatonin 3 MG TABLET 6 MG PO (22:18)
[2021-02-18] VITALS (7 sets, daily range): BP systolic 103–152; BP diastolic 50–73; PULSE 85–98; RESP 16–19; TEMP 36.1–37.6; O2SAT 96–99
[2021-02-18] MEDS: oxyCODONE HCl Immed Release 5 MG TABLET PO ×3 (05:52→20:17)
[2021-02-18] MEDS: Omeprazole 20 MG CAPSULE.DR PO (05:53)
[2021-02-18 05:54] LABS: Hemoglobin 9.4 g/dl (14.0-18.0); PLT ABN DIST 1
[2021-02-18 05:56] LABS: Hematocrit 26.8 % (42-52); Mean Corpuscular HGB Conc 35.1 g/dl (31.0-36.0); Mean Corpuscular Hemoglobin 35.9 pg (27.0-33.0); Mean Corpuscular Volume 102.3 fL (80-98); Platelet Count 38 X10*3/uL (160-400); Red Blood Count 2.62 X10*6/uL (4.60-5.80); Red Cell Distribution Width 19.4 % (11.0-16.0); White Blood Count 8.9 X10*3/uL (4.8-10.8)
[2021-02-18 06:26] LABS: Anion Gap 13 (12-20); Blood Urea Nitrogen 24 mg/dL (9-16); Calcium 8.8 mg/dL (8.4-10.2); Carbon Dioxide 17 mmol/L (22-29); Chloride 107 mmol/L (96-108); Creatinine Clr Calc Pharmacy 48.5; Estimated Glomerular Filt Rate 37; Glucose Random 120 mg/dL (60-115); Potassium 3.9 mmol/L (3.3-5.1); Sodium 133 mmol/L (135-145)
[2021-02-18 06:31] LABS: Ammonia 91 umol/L (13-55)
[2021-02-18] MEDS: rifAXIMin 550 MG TABLET PO ×2 (07:50→20:16)
[2021-02-18] MEDS: Lidocaine 4 % Patch ADH..PATCH 1 PATCH TRANSDERMA (07:50)
[2021-02-18] MEDS: Midodrine HCl 5 MG TABLET PO ×2 (07:50→12:05)
[2021-02-18] MEDS: 0.9 % Sodium Chloride Flush 3 ML SYRINGE IVFLUSH (07:51)
[2021-02-18 12:20] LABS: OBS Int Ctl Valid YES; OBS1 POSITIVE (NEGATIVE)
--- NOTE | 2021-02-18 17:03 | P.PNIM_ITS ---
Subjective Subjective Date of Service: 02/18/21 Interval History: Ambulating; no lightheadedness Denies hematochezia or melena, though Hb noted to be drifting down and FOBT positive Review of Systems Review of Systems: Yes all other systems are reviewed and are negative Physical Exam Vital Signs: Vital Signs: Last Vital Signs Temp 97.9 F 02/18/21 15:52 Pulse 94 02/18/21 15:52 Resp 18 02/18/21 15:52 BP 145/73 H 02/18/21 15:52 Pulse Ox 99 02/18/21 15:52 Body Mass Index 31.5 Gen: in no acute distress HEENT: sclera icteric, moist mucus membranes Neck: supple Lungs: clear to auscultation bilaterally Heart: regular rate and rhythm, no murmurs Abd: soft, non-tender, distended with ascites Ext: no edema Skin: warm/well-perfused, jaundiced Neuro: alert and oriented x3, mild asterixis Psych: appropriate affect Objective Data Active Medications Albuterol Sulfate (Albuterol Sulfate 90 Mcg 8 Gm Inhaler) 2 puff INHALE Q6H PRN PRN Reason: shortness of breath or wheezing Calcium Carbonate (Calcium Carbonate 750 Mg Tab.Chew) 750 mg PO Q4H PRN PRN Reason: Heartburn Last Admin: 02/12/21 20:37 Dose: 750 mg Documented by: PAULA Lactulose (Lactulose 20 Gm/30 Ml Solution) 20 gm PO BID [facility] [place] Last Admin: 02/18/21 07:52 Dose: Not Given Documented by: ISAC Non-Admin Reason: Patient Refused Lidocaine (Lidocaine 4 % Patch Adh..Patch) 1 patch TRANSDERMA DAILY [facility] [place]; Protocol Last Admin: 02/18/21 07:50 Dose: 1 patch Documented by: ISAC Melatonin (Melatonin 3 Mg Tablet) 6 mg PO BEDTIME PRN PRN Reason: Insomnia Last Admin: 02/17/21 22:18 Dose: 6 mg Documented by: TRICE Midodrine (Midodrine Hcl 5 Mg Tablet) 5 mg PO TIDWM [facility] Last Admin: 02/18/21 12:05 Dose: 5 mg Documented by: ISAC Omeprazole (Omeprazole 20 Mg Capsule.) 20 mg PO DAILY@0630 [facility] Last Admin: 02/18/21 05:53 Dose: 20 mg Documented by: TRICE Ondansetron HCl (Ondansetron Hcl 4 Mg/2 Ml Vial) 4 mg IVPUSH Q8H PRN PRN Reason: Nausea Oxycodone HCl (Oxycodone Hcl Immed Release 5 Mg Tablet) 5 mg PO Q6H PRN PRN Reason: Pain, Severe (Pain Scale 7-10) Last Admin: 02/18/21 12:05 Dose: 5 mg Documented by: ISAC Pharmacy Consult (Consult Rx Perform Med Rec) 1 each MISCELLANE ONCE PRN PRN Reason: Consult order Pharmacy Consult (Consult Rx Perform Med Rec) 1 each MISCELLANE ONCE PRN PRN Reason: Consult order Rifaximin (Rifaximin 550 Mg Tablet) 550 mg PO BID [facility] [place] Last Admin: 02/18/21 07:50 Dose: 550 mg Documented by: ISAC Sodium Chloride (0.9 % Sodium Chloride Flush 3 Ml Syringe) 3 ml IVFLUSH QSHIFT [facility] [place] Last Admin: 02/18/21 16:42 Dose: Not Given Documented by: ISAC Non-Admin Reason: flushed earlier Trazodone HCl (Trazodone Hcl 25 Mg Halftab) 25 mg PO BEDTIME PRN PRN Reason: Insomnia Last Admin: 02/12/21 20:37 Dose: 25 mg Documented by: PAULA Labs CBC & Chem 7: 02/18/21 05:43 02/18/21 05:43 Labs: Laboratory Results - last 24 hr 02/18/21 02/18/21 02/18/21 05:43 05:43 05:43 MCV 102.3 H MCH 35.9 H MCHC 35.1 RDW 19.4 H Plt Count 38 L MPV Not Reportable Absolute Nucleated RBC 0.000 Nucleated RBC % (auto) 0.0 Anion Gap 13 Estim Creat Clear Calc 48.5 Estimated GFR 37 Random Glucose 120 H Calcium 8.8 Magnesium 2.0 Ammonia 91 H Stool Collect Date Stool Occult Blood Stool 2 Collect Date Stool Occult Blood #2 Stool 3 Collect Date Stool Occult Blood #3 02/18/21 02/18/21 11:53 11:53 MCV MCH MCHC RDW Plt Count MPV Absolute Nucleated RBC Nucleated RBC % (auto) Anion Gap Estim Creat Clear Calc Estimated GFR Random Glucose Calcium Magnesium Ammonia Stool Collect Date Cancelled Stool Occult Blood Cancelled POSITIVE Stool 2 Collect Date Cancelled Stool Occult Blood #2 Cancelled Stool 3 Collect Date Cancelled Stool Occult Blood #3 Cancelled Microbiology Microbiology Results: Microbiology 02/13/21 11:20 Gram Stain - Final Abdominal Fluid Routine Culture - Final No growth after 2 days Anaerobic Culture - Final NO GROWTH AFTER 5 DAYS 02/12/21 13:52 Blood Culture - Final Blood - Venous No growth after 5 days. 02/12/21 13:43 Blood Culture - Final Blood - Venous No growth after 5 days. Assessment and Plan (1) Hepatic encephalopathy: Status: Acute (2) Ascites: Status: Acute Assessment and Plan: hospital d#7 60yo F with decompensated cirrhosis due to EtOH + treated HCV presented with ascites, confusion, weakness, chest discomfort # decompensated alcoholic cirrhosis - GI following; transfer to [facility] if worsening coags, confusion/encephalopathy - Tbili improving slightly; recheck in am # hyponatremia - due to cirrhosis; hold furosemide; improved; follow BMP # anemia due to cirrhosis - hx varices, last EGD 2017, no overt bleeding, will discuss need for/urgency of EGD with GI # hepatic encephalopathy - continue lactulose + rifaximin # ascites - s/p paracentesis with removal of 3.5L fluid 02/13/21 # JULIA - suspect HRS type 2, slightly improved s/p albumin x3d, continue midodrine; Nephrology following; avoid nephrotoxins # coagulopathy - INR 2.1, s/p vitamin K # thrombocytopenia - due to cirrhosis; monitor platelets, avoid heparin # portal venous thrombosis - chronic, due to cirrhosis # hypoK - repleted # EtOH abuse - abstinent for 2 mo # tobacco abuse - declines NRT # knee arthritis - prn oxycodone # VTE ppx - SCDs Quality Stroke Does the patient have a stroke diagnosis?: No VTE Prior VTE?: No VTE Risk Level:: Medical - moderate - high VTE Device Contraindication: N/A - Device Ordered VTE Drug Contraindication: Treatment Not Indicated
--- NOTE | 2021-02-18 17:05 | MHC.CM.PN ---
PER MULTIDISCIPLINARY ROUNDS PT'S HGB TRENDING DOWN AND PLAN IS TO KEEP PT ONE MORE DAY. D/C PLAN CONT'S TO BE HOME W/RESUMP OF [facility] AND FOR TRANSPORT.
--- NOTE | 2021-02-18 18:23 | PM.GIPN ---
Subjective Subjective Date of Service: 02/18/21 Interval History: Patient is eager to go home. Denies melena, BRBPR, N/V, abdominal pain. However, abdomen remains distended with LE edema--he was eating potato chips when I came in the room. His mental status seems good according to the patient and his son. Critical Care Time (minutes): 0 Physical Exam Vital Signs: Vital Signs: Last Vital Signs Temp 97.9 F 02/18/21 15:52 Pulse 94 02/18/21 15:52 Resp 18 02/18/21 15:52 BP 145/73 H 02/18/21 15:52 Pulse Ox 99 02/18/21 15:52 Body Mass Index 31.5 Const: General: cooperative and comfortable Eyes: Sclerae: scleral abnormal (Scleral icterus) GI: Other: Distended with ascites, but somewhat soft and NT Neuro: Other: Alert, conversing appropriately, + asterixis Extrem: Other: Bilateral LE edema with venous stasis changes/discoloration Objective Data Labs CBC & Chem 7: 02/18/21 05:43 02/18/21 05:43 Labs: Laboratory Results - last 24 hr 02/18/21 02/18/21 02/18/21 05:43 05:43 05:43 WBC 8.9 RBC 2.62 L Hgb 9.4 L Hct 26.8 L MCV 102.3 H MCH 35.9 H MCHC 35.1 RDW 19.4 H Plt Count 38 L MPV Not Reportable Absolute Nucleated RBC 0.000 Nucleated RBC % (auto) 0.0 Sodium 133 L Potassium 3.9 Chloride 107 Carbon Dioxide 17 L Anion Gap 13 BUN 24 H Creatinine 1.88 H Estim Creat Clear Calc 48.5 Estimated GFR 37 Random Glucose 120 H Calcium 8.8 Magnesium 2.0 Ammonia 91 H Stool Collect Date Stool Occult Blood Stool 2 Collect Date Stool Occult Blood #2 Stool 3 Collect Date Stool Occult Blood #3 02/18/21 02/18/21 11:53 11:53 WBC RBC Hgb Hct MCV MCH MCHC RDW Plt Count MPV Absolute Nucleated RBC Nucleated RBC % (auto) Sodium Potassium Chloride Carbon Dioxide Anion Gap BUN Creatinine Estim Creat Clear Calc Estimated GFR Random Glucose Calcium Magnesium Ammonia Stool Collect Date Cancelled Stool Occult Blood Cancelled POSITIVE Stool 2 Collect Date Cancelled Stool Occult Blood #2 Cancelled Stool 3 Collect Date Cancelled Stool Occult Blood #3 Cancelled Microbiology Microbiology Results: Microbiology 02/13/21 11:20 Abdominal Fluid Gram Stain - Final 02/13/21 11:20 Abdominal Fluid Routine Culture - Final No growth after 2 days 02/13/21 11:20 Abdominal Fluid Anaerobic Culture - Final NO GROWTH AFTER 5 DAYS 02/12/21 13:52 Blood - Venous Blood Culture - Final No growth after 5 days. 02/12/21 13:43 Blood - Venous Blood Culture - Final No growth after 5 days. Procedures Date of Service Date of Service: 02/18/21 Progress Note: A&P Assessment and plan (1) Hepatic encephalopathy: Status: Acute (2) Jaundice: Status: Acute (3) Ascites: Status: Acute (4) Cirrhosis with alcoholism: Status: Acute (5) Hyperammonemia: Status: Acute (6) Anemia: Status: Acute (7) Heme + stool: Status: Acute Assessment and Plan: Imp: Cirrhosis, severe jaundice/cholestasis, ascites , encephalopathy, anemia with Heme + stool. He appears stable regarding his jaundice, encephalopthy, and ascites. I suspect his anemia is multifactorial in relation to some blood loss from portal gastropathy/gastritis, ? hemolysis, and chronic illness. There doesn't appear to be any acute GI bleeding presently. Patient is eager to go home but I advised him that we need a plan for any possible diuretics as an outpatient, as well as nutrition teaching re: his salt intake and fluid retention. Rec: Hemolysis w/u in AM. Ask renal consult about diuretics. Nutrition teaching re: salt intake. Will need Lactulose and Xifaxan Rx's at home. I will try to make a referral for him to [facility] as an outpatient(assuming he remains sober from alcohol). D/W patient in detail. Thanks Fall Risk Details Current Medications: Current Medications Generic Name Dose Route Start Last Admin Trade Name Freq PRN Reason Stop Dose Admin Albuterol Sulfate 2 puff 02/12/21 16:17 Albuterol Sulfate 90 Mcg 8 Gm Inhaler INHALE Q6H PRN shortness of breath or wheezing Calcium Carbonate 750 mg 02/12/21 16:17 02/12/21 20:37 Calcium Carbonate 750 Mg Tab.Chew PO 750 mg Q4H PRN Administration Heartburn Lactulose 20 gm 02/14/21 09:00 02/18/21 07:52 Lactulose 20 Gm/30 Ml Solution PO Not Given BID KARLA Lidocaine 1 patch 02/14/21 19:55 02/18/21 07:50 Lidocaine 4 % Patch Adh..Patch TRANSDERMA 1 patch DAILY KARLA Administration Protocol Melatonin 6 mg 02/12/21 16:17 02/17/21 22:18 Melatonin 3 Mg Tablet PO 6 mg BEDTIME PRN Administration Insomnia Midodrine 5 mg 02/16/21 17:00 02/18/21 17:33 Midodrine Hcl 5 Mg Tablet PO Not Given TIDWM KARLA Omeprazole 20 mg 02/13/21 06:30 02/18/21 05:53 Omeprazole 20 Mg Capsule.Dr PO 20 mg DAILY@0630 KARLA Administration Ondansetron HCl 4 mg 02/12/21 16:24 Ondansetron Hcl 4 Mg/2 Ml Vial IVPUSH Q8H PRN Nausea Oxycodone HCl 5 mg 02/12/21 16:26 02/18/21 12:05 Oxycodone Hcl Immed Release 5 Mg Tablet PO 5 mg Q6H PRN Administration Pain, Severe (Pain Scale 7-10) Pharmacy Consult 1 each 02/12/21 13:29 Consult Rx Perform Med Rec MISCELLANE ONCE PRN Consult order Pharmacy Consult 1 each 02/12/21 15:29 Consult Rx Perform Med Rec MISCELLANE ONCE PRN Consult order Rifaximin 550 mg 02/12/21 21:00 02/18/21 07:50 Rifaximin 550 Mg Tablet PO 550 mg BID KARLA Administration Sodium Chloride 3 ml 02/13/21 00:00 02/18/21 16:42 0.9 % Sodium Chloride Flush 3 Ml Syringe IVFLUSH Not Given QSHIFT KARLA Trazodone HCl 25 mg 02/12/21 16:17 02/12/21 20:37 Trazodone Hcl 25 Mg Halftab PO 25 mg BEDTIME PRN Administration Insomnia Time Spent With Patient Time: Total time spent is greater than 50% in coordination of care (as documented) at patient's floor/unit and/or counseling patient: Time with patient: 25 - 35 minutes Quality Stroke Does the patient have a stroke diagnosis?: No VTE Prior VTE?: No VTE Risk Level:: Medical - moderate - high VTE Device Contraindication: N/A - Device Ordered VTE Drug Contraindication: Treatment Not Indicated
[2021-02-18] MEDS: Lactulose 20 GM/30 ML SOLUTION PO (20:16)
[2021-02-18] MEDS: Melatonin 3 MG TABLET 6 MG PO (20:17)
--- NOTE | 2021-02-18 21:47 | PM.PNNEP ---
Subjective Subjective Date of Service: 02/18/21 Interval history: Events noted. All recent data reviewed. D/W Hospitalist. Physical Exam Vital Signs: Vital Signs: Last Vital Signs Temp 98.6 F 02/18/21 19:34 Pulse 92 02/18/21 19:34 Resp 19 02/18/21 19:34 BP 103/67 02/18/21 19:34 Pulse Ox 96 02/18/21 19:34 Body Mass Index 31.5 Const: General: no acute distress Eyes: EOM: EOMs intact bilaterally Neck: Neck: Yes supple Resp: Auscultation: diminished lung sounds Cardio: Rate: regular rate GI: Palpation (GI): Soft to palpation Neuro: General: moves all extremities Objective Data Labs CBC & Chem 7: 02/18/21 05:43 02/18/21 05:43 Labs: Laboratory Results - last 24 hr 02/18/21 02/18/21 02/18/21 05:43 05:43 05:43 WBC 8.9 RBC 2.62 L Hgb 9.4 L Hct 26.8 L MCV 102.3 H MCH 35.9 H MCHC 35.1 RDW 19.4 H Plt Count 38 L MPV Not Reportable Absolute Nucleated RBC 0.000 Nucleated RBC % (auto) 0.0 Sodium 133 L Potassium 3.9 Chloride 107 Carbon Dioxide 17 L Anion Gap 13 BUN 24 H Creatinine 1.88 H Estim Creat Clear Calc 48.5 Estimated GFR 37 Random Glucose 120 H Calcium 8.8 Magnesium 2.0 Ammonia 91 H Stool Collect Date Stool Occult Blood Stool 2 Collect Date Stool Occult Blood #2 Stool 3 Collect Date Stool Occult Blood #3 02/18/21 02/18/21 11:53 11:53 WBC RBC Hgb Hct MCV MCH MCHC RDW Plt Count MPV Absolute Nucleated RBC Nucleated RBC % (auto) Sodium Potassium Chloride Carbon Dioxide Anion Gap BUN Creatinine Estim Creat Clear Calc Estimated GFR Random Glucose Calcium Magnesium Ammonia Stool Collect Date Cancelled Stool Occult Blood Cancelled POSITIVE Stool 2 Collect Date Cancelled Stool Occult Blood #2 Cancelled Stool 3 Collect Date Cancelled Stool Occult Blood #3 Cancelled Microbiology Microbiology Results: Microbiology 02/13/21 11:20 Abdominal Fluid Gram Stain - Final 02/13/21 11:20 Abdominal Fluid Routine Culture - Final No growth after 2 days 02/13/21 11:20 Abdominal Fluid Anaerobic Culture - Final NO GROWTH AFTER 5 DAYS 02/12/21 13:52 Blood - Venous Blood Culture - Final No growth after 5 days. 02/12/21 13:43 Blood - Venous Blood Culture - Final No growth after 5 days. Procedures Date of Service Date of Service: 02/18/21 Assessment & Plan Assessment and plan (1) Acute renal failure: Status: Acute Assessment and Plan: JULIA due to compromise in renal perfusion, pre-renal azotemia so far responding well to supportive care. Unlikely type 1 HRS c/w?midodrine 5mg TID for now Shall continue to hold diuretics Renal functions stable; Labs AM Time Spent With Patient Time: Total time spent is greater than 50% in coordination of care (as documented) at patient's floor/unit and/or counseling patient: Progress Note: Quality Stroke Does the patient have a stroke diagnosis?: No
[2021-02-19 04:00] VITALS: BP 119/55; PULSE 92; RESP 16; TEMP 37.5; O2SAT 97
[2021-02-19] MEDS: 0.9 % Sodium Chloride Flush 3 ML SYRINGE IVFLUSH ×2 (04:30→09:15)
[2021-02-19] MEDS: oxyCODONE HCl Immed Release 5 MG TABLET PO ×2 (04:55→12:12)
[2021-02-19] MEDS: Omeprazole 20 MG CAPSULE.DR PO (05:38)
[2021-02-19 06:05] LABS: Hematocrit 26.5 % (42-52); Hemoglobin 9.3 g/dl (14.0-18.0); Mean Corpuscular HGB Conc 35.1 g/dl (31.0-36.0); Mean Corpuscular Hemoglobin 35.8 pg (27.0-33.0); Mean Corpuscular Volume 101.9 fL (80-98); Mean Platelet Volume 12.8 fL (9.4-12.4); Red Cell Distribution Width 19.1 % (11.0-16.0); White Blood Count 8.7 X10*3/uL (4.8-10.8)
[2021-02-19 06:07] LABS: Immature Retic Fraction 5.9 % (2.3-13.4); Reticulocyte Percent 3.8 % (0.5-1.8); Reticulocytes Absolute 0.098 X10*6/uL (0.026-0.095)
[2021-02-19 06:09] LABS: Platelet Count 38 X10*3/uL (160-400)
[2021-02-19 06:10] LABS: INTERNATIONAL NORM RATIO 2.4 (0.9-1.1); Prothrombin Time 27.7 SEC (9.9-13.0)
[2021-02-19 06:56] LABS: Alanine Aminotransferase 107 U/L (0-40); Albumin Level 3.1 g/dL (3.5-5.0); Alkaline Phosphatase 145 U/L (39-117); Anion Gap 11 (12-20); Aspartate Amino Transferase 127 U/L (5-37); Bilirubin Total 44.8 mg/dL (0.0-1.0); Blood Urea Nitrogen 25 mg/dL (9-16); Calcium 8.6 mg/dL (8.4-10.2); Carbon Dioxide 17 mmol/L (22-29); Chloride 107 mmol/L (96-108); Creatinine Clr Calc Pharmacy 51.5; Estimated Glomerular Filt Rate 40; Glucose Random 110 mg/dL (60-115); Lactate Dehydrogenase 264 U/L (118-273); Potassium 3.6 mmol/L (3.3-5.1); Sodium 131 mmol/L (135-145); Total Protein 5.3 g/dL (6.5-8.0)
[2021-02-19 07:13] LABS: Bilirubin Direct 24.9 mg/dL (0.0-0.5)
[2021-02-19 08:00] VITALS: BP 104/61; PULSE 92; RESP 18; TEMP 36.3; O2SAT 97
[2021-02-19] MEDS: Midodrine HCl 5 MG TABLET PO ×2 (09:15→12:12)
[2021-02-19] MEDS: rifAXIMin 550 MG TABLET PO (09:15)
[2021-02-19] MEDS: Lidocaine 4 % Patch ADH..PATCH 1 PATCH TRANSDERMA (09:15)
[2021-02-19 11:55] VITALS: BP 150/68; PULSE 93; RESP 18; TEMP 36.6; O2SAT 97
--- NOTE | 2021-02-19 15:17 | P.F2F_ITS ---
Service Date Service Date: 02/19/21 Encounter Date of encounter: 02/19/21 Reasons for Services Reason for half-way: neurological assessment, medication management, medication treatment and teach disease management Reason for physical therapy: home safety and mobility, therapeutic exercises, gait/transfer training, assess need for DME, ADL training, energy conservation and other Reason for occupational therapy: home safety and mobility, therapeutic exercises, gait/transfer training, assess need for DME, ADL training and energy conservation Overseeing Care: Mamadou Adames Homebound: Leaving the home is medically contraindicated at this time without the asist of a device and/or another person due th the listed conditions above and below. Reason homebound: unsteady gait / fall risk, poor balance / fall risk and immunosuppression / infection risk Certification: Based on the above findings, I certify that this patient is confined to the home and needs intermittent half-way care, physical therapy and/or speech therapy, or continues to need occupational therapy. The patient is under my care, and I have initiated the establishment of the plan of care. The patient will be followed by a physician who will periodically review the plan of care.
--- NOTE | 2021-02-19 15:29 | PM.DS ---
DS: Providers Provider Date of Service: 02/19/21 Date of admission: 02/12/21 16:14 Date of discharge: 02/19/21 Primary care physician: Mamadou Adames [facility]- Consults: 02/12/21 16:18 Consult to Gastroenterology Routine Consulting Provider: Adan Chaudhary Reason for consultation: liver failure Has provider been notified: Yes 02/12/21 16:19 Consult to Nephrology Routine Consulting Provider: Edilberto Martinez Reason for consultation: julia Has provider been notified: No DS: Diagnosis Discharge Diagnosis (1) Acute renal failure: Status: Acute (2) Decompensated HCV cirrhosis: Status: Acute (3) Cirrhosis with alcoholism: Status: Acute (4) Hepatic encephalopathy: Status: Acute (5) Coagulopathy: Status: Acute (6) Anemia: Status: Acute DS: Summary Hospital Course Hospital Course: From admission H+P by hospitalist Olivia Pham, 02/12/21: This is a 60-year-old gentleman, well known to the hospitalist service due to recent [id number] hospitalization at [facility] in last couple months. The patient was recently discharged from [facility] on January 30, 2021, after requiring hospitalization for decompensated liver cirrhosis.? The patient recently finished a course of prednisone and is being followed closely as outpatient by Dr. Chaudhary and underwent an MRI study on February 08, 2021, that showed that the patient has severe cirrhosis, mild ascites and multiple varices.? There was no suspicious liver lesion noted.? Gallbladder was contracted with thickened wall likely due to underlying liver disease. According to the patient and his , he has been compliant with his lactulose, having 4 to 5 bowel movements daily.? He has been taking all his medications including nadolol and Lasix, but despite of that, he noticed worsening of abdominal distention, generalized weakness, worsening yellow discoloration that prompted him to come to the emergency room.? In the ER, workup revealed an elevated creatinine of 2.19 with a normal creatinine on February 06, 2021.? The patient was also hypokalemic with a potassium 2.4, low sodium of 129.? He is noted to have significantly elevated total bilirubin of 38 and an elevated direct bilirubin of 22.9 with AST 260, ammonia level of 236, albumin of 2.2, lipase of 161, and an INR of 2.3.? The patient denies any hematemesis, melena.? He denies any fever, but as per noted to be feeling cold, wearing sweatshirts at home.? He has worsening of abdominal distention, but denies abdominal pain has lower chest discomfort since he feels that the belly is pushing his chest.? In the emergency room, the patient was treated with lactulose and potassium and now being admitted to [facility] due to worsening liver test likely due to cholestasis with underlying history of alcoholic hepatitis. This 60yo M with decompensated cirrhosis due to EtOH + treated HCV presented with ascites and confusion. GI was consulted. He was started on rifaximin in addition to lactulose for hepatic encephalopathy and confusion resolved. He underwent paracentesis with removal of 3.5L of ascites fluid on 02/13. 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 He was noted to have anemia with heme-positive stools but no overt bleeding; anemia was attributed to likely portal gastropathy/gastritis, very mild hemolysis, and chronic illness. No emergent inpatient EGD was indicated per GI. He was discharged with new prescriptions for rifaximin, lactulose, and spironolactone. The importance of maintaining sobriety of alcohol was counseled. The patient declined inpatient transfer to [facility] for transplant evaluation; Dr Chaudhary will arrange as outpatient. The patient should have CBCd, CMP, PT/INR, and magnesium redrawn in 1 week and should follow up with Primary Care, Gastroenterology, and Nephrology in 1-2 weeks. Time Spent with Patient Time attestation: Total time spent providing and/or coordinating discharge services: Discharge coordination time: Greater than 30 minutes Quality: Stroke Does the patient have a stroke diagnosis?: No Physical Exam Vital Signs: Vital Signs: Last Vital Signs Temp 97.8 F 02/19/21 11:55 Pulse 93 02/19/21 11:55 Resp 18 02/19/21 11:55 BP 150/68 H 02/19/21 11:55 Pulse Ox 97 02/19/21 11:55 Body Mass Index 31.5 Gen: in no acute distress HEENT: sclera icteric, moist mucus membranes Neck: supple Lungs: clear to auscultation bilaterally Heart: regular rate and rhythm, no murmurs Abd: soft, non-tender, distended with ascites Ext: no edema Skin: warm/well-perfused, jaundiced Neuro: alert and oriented x3, no asterixis Psych: appropriate affect DS: Data Data Completed and Pending Completed studies during hospitalization [Text1]: Laboratory Results WBC 8.7 X10*3/uL (4.8-10.8) 02/19/21 05:25 RBC 2.60 X10*6/uL (4.60-5.80) L 02/19/21 05:25 Hgb 9.3 g/dl (14.0-18.0) L 02/19/21 05:25 Hct 26.5 % (42-52) L 02/19/21 05:25 MCV 101.9 fL (80-98) H 02/19/21 05:25 MCH 35.8 pg (27.0-33.0) H 02/19/21 05:25 MCHC 35.1 g/dl (31.0-36.0) 02/19/21 05:25 RDW 19.1 % (11.0-16.0) H 02/19/21 05:25 Plt Count 38 X10*3/uL (160-400) L 02/19/21 05:25 MPV 12.8 fL (9.4-12.4) H 02/19/21 05:25 Immature Gran % (Auto) 3.1 % (0.0-0.4) H 02/12/21 13:43 Neut % (Auto) 78.6 % (45-73) H 02/12/21 13:43 Lymph % (Auto) 7.8 % (20-40) L 02/12/21 13:43 [place] % (Auto) 7.7 % (2-11) 02/12/21 13:43 Eos % (Auto) 2.5 % (0-4) 02/12/21 13:43 Baso % (Auto) 0.3 % (0-2) 02/12/21 13:43 Lymph # (Auto) 1.1 X10*3/uL (1.2-4.9) L 02/12/21 13:43 [place] # (Auto) 1.1 X10*3/uL (0.1-1.2) 02/12/21 13:43 Eos # (Auto) 0.4 X10*3/uL (0.0-0.4) 02/12/21 13:43 Baso # (Auto) 0.0 X10*3/uL (0.0-0.2) 02/12/21 13:43 Abs Immat Gran (auto) 0.45 X10*3/uL (0.00-0.03) H 02/12/21 13:43 Absolute Neuts (auto) 11.5 X10*3/uL (2.0-8.3) H 02/12/21 13:43 Absolute Nucleated RBC 0.000 X10*3/uL (0.0-0.012) 02/19/21 05:25 Nucleated RBC % (auto) 0.0 /100WBC (0.0-0.2) 02/19/21 05:25 Smear Tech's Comments VERIFIED 02/12/21 13:43 Absolute Retic 0.098 X10*6/uL (0.026-0.095) H 02/19/21 05:25 Percent Retic 3.8 % (0.5-1.8) H 02/19/21 05:25 Immature Retic Fraction 5.9 % (2.3-13.4) 02/19/21 05:25 Retic Hgb Equivalent 42.0 pg (30.0-35.0) H 02/19/21 05:25 PT 27.7 SEC (9.9-13.0) H 02/19/21 05:25 INR 2.4 (0.9-1.1) H 02/19/21 05:25 APTT 49.2 SEC (24.1-38.0) H 02/12/21 13:52 Sodium 131 mmol/L (135-145) L 02/19/21 05:25 Potassium 3.6 mmol/L (3.3-5.1) 02/19/21 05:25 Chloride 107 mmol/L (96-108) 02/19/21 05:25 Carbon Dioxide 17 mmol/L (22-29) L 02/19/21 05:25 Anion Gap 11 (12-20) L 02/19/21 05:25 BUN 25 mg/dL (9-16) H 02/19/21 05:25 Creatinine 1.77 mg/dL (0.5-1.4) H 02/19/21 05:25 Estim Creat Clear Calc 51.5 02/19/21 05:25 Estimated GFR 40 02/19/21 05:25 Random Glucose 110 mg/dL (60-115) 02/19/21 05:25 Lactic Acid 1.7 mmol/L (0.5-2.0) 02/12/21 13:42 Calcium 8.6 mg/dL (8.4-10.2) 02/19/21 05:25 Magnesium 2.0 mg/dL (1.6-2.6) 02/18/21 05:43 Total Bilirubin 44.8 mg/dL (0.0-1.0) H 02/19/21 05:25 Direct Bilirubin 24.9 mg/dL (0.0-0.5) H 02/19/21 05:25 AST 127 U/L (5-37) H 02/19/21 05:25 ALT 107 U/L (0-40) H 02/19/21 05:25 Alkaline Phosphatase 145 U/L (39-117) H 02/19/21 05:25 Ammonia 91 umol/L (13-55) H 02/18/21 05:43 Lactate Dehydrogenase 264 U/L (118-273) 02/19/21 05:25 Total Protein 5.3 g/dL (6.5-8.0) L 02/19/21 05:25 Albumin 3.1 g/dL (3.5-5.0) L 02/19/21 05:25 Lipase 161 U/L (8-78) H 02/12/21 14:27 Peritoneal WBC 0.228 X10*3/uL 02/13/21 11:20 Peritoneal RBC < 0.002 X10*6/uL 02/13/21 11:20 Periton Neutrophils 32 % 02/13/21 11:20 Periton Lymphocytes 5 % 02/13/21 11:20 Peritoneal Monocytes 17 % 02/13/21 11:20 Peritoneal Other Cells 46 % 02/13/21 11:20 Stool Collect Date Cancelled 02/18/21 11:53 Stool Occult Blood Cancelled 02/18/21 11:53 Stool Occult Blood POSITIVE (NEGATIVE) 02/18/21 11:53 Stool 2 Collect Date Cancelled 02/18/21 11:53 Stool Occult Blood #2 Cancelled 02/18/21 11:53 Stool 3 Collect Date Cancelled 02/18/21 11:53 Stool Occult Blood #3 Cancelled 02/18/21 11:53 COVID-19 (AMILCAR) Negative (Negative) 02/12/21 13:52 COVID-19 Clin Com See Note 02/12/21 13:52 Blood Type A Positive 02/19/21 08:02 Antibody Screen NEGATIVE 02/19/21 08:02 DOMINIK, Polyspecific NEGATIVE 02/19/21 05:25 Positive DOMINIK Work-up TNP 02/19/21 05:25 Impressions Paracentesis Ultrasound 02/13/21 12:00 IMPRESSION: Ultrasound-guided paracentesis. Discharge Plan Discharge Patient Disposition: Home Health Service Discharge Diagnosis: decompensated liver cirrhosis, ascites, hepatic encephalopathy, anemia Referrals: Kei MATAMOROS [Outside] - 1 Day (RESUMPTION OF DETENTION) Edilberto Martinez MD [Physician] - 1 Week Mamadou Adames FNP- [Primary Care Provider] - 03/11/21 4:00 pm (You have a primary care follow up appointment scheduled on March 11 at 4:00 pm. Please call your doctor's office if you need to reschedule. ) Adan Chaudhary [Physician] - 1 Week Discharge Medications: New Xifaxan 550 mg Tablet 550 mg PO BID Qty: 60 RF: 0 lactulose 20 gram/30 mL Solution 20 g PO BID Qty: 1800 RF: 0 spironolactone 25 mg tablet 25 mg PO DAILY Qty: 30 RF: 0 nicotine 14 mg/24 hr patch 24 hour 1 patch transdermal DAILY Qty: 28 RF: 0 Continued albuterol sulfate [Ventolin HFA] 90 mcg/actuation HFA aerosol inhaler 2 puff inhalation Q6H PRN (Reason: shortness of breath or wheezing) Qty: 18 RF: 2 oxycodone 5 mg tablet 5 mg PO Q6H PRN (Reason: Pain, Severe (Pain Scale 7-10)) Qty: 28 RF: 0 magnesium oxide 400 mg (241.3 mg magnesium) tablet 400 mg PO BIDPC Qty: 60 RF: 0 omeprazole 20 mg capsule,delayed release(DR/EC) 20 mg PO DAILY@0630 RF: 0 trazodone 50 mg Tablet 25 mg PO BEDTIME PRN (Reason: Insomnia) Qty: 28 RF: 0 nadolol 20 mg tablet 20 mg PO DAILY Qty: 30 RF: 0 calcium carbonate [Tums] 300 mg (750 mg) Tablet,Chewable 750 mg PO Q4H PRN (Reason: Heartburn) Qty: 60 RF: 0 melatonin 3 mg tablet 6 mg PO BEDTIME PRN (Reason: Insomnia) RF: 0 Discontinued lactulose 10 gram/15 mL solution 30 ml PO DAILY 30 Days Qty: 900 RF: 0 furosemide 20 mg tablet 20 mg PO BID@0900,1800 RF: 0 Discharge Orders: Discharge Order (Routine); Ordered 02/19/21 Ordered By: Aditya Wilcox Diet: advance to usual diet and other Activity on Discharge: As tolerated Stand Alone Forms: Patient Portal Discharge page Other Ambulatory Orders: Complete Blood Count no Diff (Routine) Timeframe: 1 Week Facility: [facility] - Location: Laboratory Ordered By: Aditya Wilcox Comprehensive Met. Panel (Routine) Timeframe: 1 Week Facility: [facility] - Location: Laboratory Ordered By: Aditya Wilcox Magnesium (Routine) Timeframe: 1 Week Facility: [facility] - Location: Laboratory Ordered By: Aditya Wilcox Prothrombin Time INR (Routine) Timeframe: 1 Week Facility: [facility] - Location: Laboratory Ordered By: Aditya Wilcox Activity Restrictions/Additional Instructions: restrict sodium to 2000 mg/d Care Plan Goals: avoid complications of cirrhosis while undergoing evaluation for liver transplant Health Concerns: cirrhosis with ascites hepatic encephalopathy acute kidney injury tobacco abuse Plan of Treatment: avoid alcohol follow up with Dr Chaudhary [Gastroenterology] in 1 week and seek referral to [facility] transplant clinic continue lactulose to achieve 3-4 soft bowel movements/day; also add rifaximin 550 mg twice daily stop furosemide; start spironolactone 25 mg daily follow up with Dr Martinez [Nephrology] in 1 week use nicotine patch to help quit smoking Draw laboratory studies in 1 week: CBCd, CMP, magnesium, PT/INR See your primary care provider in 1 week Assessment: as above
== END 2021-02-19 15:54 | disposition home health service (06) | DRG 280 ==
LOC: HO.ED 15:29 → HO.EDOVER 16:41 → HO.S3 18:29
PROVIDERS: Internal Medicine; Radiology Diagnostic Radiology; Admitting Provider Hospitalist; Emergency Provider Emergency Medicine; PCP Nurse Practitioner Family; Visit Provider Family Medicine
PROC: 0W9G3ZZ Drainage of Peritoneal Cavity, Percutaneous Approach (ICD-10-PCS; principal; 2021-02-13 10:30)
DX: K70.11 Alcoholic hepatitis with ascites (principal); K70.31 Alcoholic cirrhosis of liver with ascites; I81 Portal vein thrombosis; N17.9 Acute kidney failure, unspecified; D68.9 Coagulation defect, unspecified; E87.1 Hypo-osmolality and hyponatremia; D64.9 Anemia, unspecified; K72.00 Acute and subacute hepatic failure without coma; E87.6 Hypokalemia; F17.210 Nicotine dependence, cigarettes, uncomplicated; F10.11 Alcohol abuse, in remission; Z71.6 Tobacco abuse counseling; Z20.822 Contact with and (suspected) exposure to COVID-19; Z88.6 Allergy status to analgesic agent; Z79.84 Long term (current) use of oral hypoglycemic drugs; Z79.899 Other long term (current) drug therapy
CPT/HCPCS: 36415; 49083; 80048; 80053; 80076; 82140; 82248; 82272; 83605; 83615; 83690; 83735; 85025; 85027; 85045; 85610; 85730; 86850; 86880; 86900; 86901; 87040; 87071; 87073; 87205; 87635; 89051; 99285; P9047

== ENCOUNTER 2021-02-22 12:22 | Emergency (ER) | payer OTHER, SELFPAY ==
[2021-02-22] VITALS (11 sets, daily range): BP systolic 77–107; BP diastolic 33–50; PULSE 84–92; RESP 16–22; TEMP 36.4–36.5; O2SAT 90–98; BMI 34.7
--- NOTE | ~2021-02-22 | XR_ITS ---
EXAMINATION: XR CHEST CLINICAL INFORMATION: Central line placement COMPARISON: Chest radiograph from 02/22/2021 TECHNIQUE: Frontal view of the chest was obtained. FINDINGS: Bilateral low lung volumes. Redemonstration of patchy opacities of the bilateral lung shepherd. Interval placement of a right-sided central venous catheter with tip in the mid to distal SVC. No pneumothorax. Trachea is midline. Cardiac mediastinal silhouette is not enlarged. No large pleural effusion. Osseous structures are intact. Partially visualized lower cervical spinal hardware. Soft tissues are unremarkable. XR/XR chest 1V IMPRESSION: 1. Bilateral low lung volumes. 2. Redemonstration of patchy opacities of the bilateral lung shepherd. 3. Interval placement of a right-sided central venous catheter with tip in the mid to distal SVC.
--- NOTE | ~2021-02-22 | XR_ITS ---
EXAMINATION: XR CHEST CLINICAL INFORMATION: Shortness of breath COMPARISON: Chest radiograph from 12/17/2020 TECHNIQUE: Frontal view of the chest was obtained. FINDINGS: Patchy opacities throughout the bilateral lung shepherd with mid and lower lobe predominance, right greater than left, suggesting infectious/inflammatory etiology. No pneumothorax. Trachea is midline. Cardiomediastinal silhouette is not enlarged. No large pleural effusion. Osseous structures are intact. Lower cervical spinal hardware is noted. Soft tissues are unremarkable. XR/XR chest 1V IMPRESSION: Patchy opacities throughout the bilateral lung shepherd with mid and lower lobe predominance, right greater than left, suggesting infectious/inflammatory etiology.
--- NOTE | 2021-02-22 12:24 | ED.SOB ---
HPI - SOB/Dyspnea General Chief Complaint: Dyspnea <CHINA Carlton Last Filed: 02/22/21 17:34> Stated Complaint: shortness of breath, abd swelling <CHINA Carlton Last Filed: 02/22/21 17:34> Time Seen by Provider: 02/22/21 12:24 <CHINA Carlton Last Filed: 02/22/21 17:34> Source: patient <CHINA Carlton Last Filed: 02/22/21 17:34> Mode of arrival: EMS <CHINA Carlton Last Filed: 02/22/21 17:34> Limitations: no limitations <CHINA Carlton Last Filed: 02/22/21 17:34> History of Present Illness HPI Narrative: 60-year-old male with liver failure secondary to EtOH and hep C who was discharged from [facility] 3 days ago for acute hepatic encephalopathy presents today for increasing shortness of breath. Patient reports a 20 lb weight gain since discharge, increased abdominal distension. EMS blood pressure was 80/40. Patient has not had fevers, no abdominal pain, no nausea or vomiting. Patient has reduced oral intake because he feels so full. No cough. No chest pain. Patient tells me he is a full code. <CHINA Carlton Last Filed: 02/22/21 17:34> Related Data Home Medications: Home Medications Medication Instructions Recorded Confirmed omeprazole 20 mg capsule,delayed 20 mg PO DAILY@0630 01/28/21 02/22/21 release melatonin 3 mg tablet 6 mg PO BEDTIME PRN 02/12/21 02/22/21 Previous Rx's Medication Instructions Recorded albuterol sulfate 90 mcg/actuation 2 puff INHALATION Q6H PRN #18 g 06/07/20 aerosol inhaler (Ventolin HFA) nadolol 20 mg tablet 20 mg PO DAILY #30 tab 12/19/20 calcium carbonate 300 mg (750 mg) 750 mg PO Q4H PRN #60 tab 01/25/21 chewable tablet (Tums) trazodone 50 mg tablet 25 mg PO BEDTIME PRN #28 tab 01/30/21 oxycodone 5 mg tablet 5 mg PO Q6H PRN #28 tab 02/04/21 magnesium oxide 400 mg (241.3 mg 400 mg PO BIDPC #60 tab 02/10/21 magnesium) tablet lactulose 20 gram/30 mL oral 20 g PO BID #1800 ml 02/19/21 solution nicotine 14 mg/24 hr daily 1 patch TRANSDERMAL DAILY #28 ea 02/19/21 transdermal patch rifaximin 550 mg tablet (Xifaxan) 550 mg PO BID #60 tab 02/19/21 spironolactone 25 mg tablet 25 mg PO DAILY #30 tab 02/19/21 <CHINA Carlton Last Filed: 02/22/21 17:34> Allergies/Adverse Reactions: Allergies Allergy/AdvReac Type Severity Reaction Status Date / Time ibuprofen Allergy Unknown low Verified 01/16/21 18:08 plateletes aspirin [ASA] AdvReac Intermediate BLEEDING Verified 01/16/21 18:08 NSAIDS (Non-Steroidal AdvReac Intermediate BLEEDING Verified 01/16/21 18:08 Anti-Inflamma [NSAIDS (NON-STEROIDAL ANTI-INFLAMMA] <CHINA Carlton Last Filed: 02/22/21 17:34> Review of Systems Constitutional: Constitutional: Denies body ache(s), Denies chills, Reports fatigue, Denies fever(s) and Reports weight gain <CHINA Carlton Last Filed: 02/22/21 17:34> Eyes: Eyes: Denies blurry vision and Denies change in vision <CHINA Carlton Last Filed: 02/22/21 17:34> ENT: Denies vertigo, Denies dizziness, Denies otalgia, Denies post nasal drip and Denies sore throat <CHINA Carlton Last Filed: 02/22/21 17:34> Cardiovascular: Cardiovascular: Reports Abdominal Distension, Denies chest pain, Denies leg edema, Denies lightheadedness and Reports dyspnea <CHINA Carlton Last Filed: 02/22/21 17:34> Respiratory: Respiratory: Denies chest congestion, Denies cough, Denies pain on inspiration, Reports dyspnea and Denies wheezing <CHINA Carlton Last Filed: 02/22/21 17:34> Gastrointestinal: Gastrointestinal: Denies abdominal pain, Reports early satiety, Denies diarrhea, Denies nausea and Denies vomiting <CHINA Carlton Last Filed: 02/22/21 17:34> Genitourinary: Genitourinary: Reports no additional male genitourinary complaints <CHINA Carlton - Last Filed: 02/22/21 17:34> Musculoskeletal: Musculoskeletal: Denies back pain, Denies myalgias and Denies numbness <CHINA Carlton - Last Filed: 02/22/21 17:34> Integumentary/Breasts: Skin/Breast: Reports dry skin and Reports pruritus <CHINA Carlton - Last Filed: 02/22/21 17:34> Neurologic: Denies confusion, Denies vertigo, Denies dizziness, Denies focal weakness, Denies memory loss and Denies numbness <CHINA Carlton - Last Filed: 02/22/21 17:34> Psychiatric: Psychiatric: Denies confusion and Denies memory loss <CHINA Carlton - Last Filed: 02/22/21 17:34> Endocrine: Endocrine: Reports fatigue <CHINA Carlton Last Filed: 02/22/21 17:34> Allergic/Immunologic: Allergic/Immunologic: Denies wheezing <CHINA Carlton - Last Filed: 02/22/21 17:34> [facility] Past Medical History Medical History: Medical History (Updated 02/22/21 @ 15:05 by CHINA Carlton) Alcohol abuse Aortic valve calcification Asthma Bladder cancer Cervical radiculopathy Cirrhosis of liver Coagulopathy Decompensated HCV cirrhosis Decompensated hepatic cirrhosis Decompensation of cirrhosis of liver Dyslipidemia Esophageal varices without bleeding ETOH abuse Gout Hepatitis C HTN (hypertension) Hypogonadism in male Increased ammonia level Left ventricular hypertrophy Leukopenia Liver failure Microalbuminuria Opioid abuse Osteoarthritis Pericarditis Portal hypertension Portal vein thrombosis RBBB Sacroiliitis Small bowel obstruction Smoker Systolic murmur Thrombocytopenia Thrombocytopenia <CHINA Carlton - Last Filed: 02/22/21 17:34> Surgical History: Surgical History H/O repair of patent ductus arteriosus History of bladder surgery History of cervical discectomy History of patent ductus arteriosus History of right inguinal hernia Testicular lesion <CHINA Carlton Last Filed: 02/22/21 17:34> Family History Family History: Family History Father Liver failure ETOHism Mother Lung cancer Brain cancer Sister No problems noted. Son No problems noted. Son No problems noted. <CHINA Carlton - Last Filed: 02/22/21 17:34> Social History Social History: Social History Household Members: Family Housing: House Do you presently have visiting nurse or other home services: Yes Alcohol intake: current Alcohol intake frequency: former alcohol drinker Patient Tobacco Use Status: Current everyday Tobacco user Tobacco use type: Cigarette Cigarette Packs Per Day: 0.5 Cigarettes Per Day: 10 Years Smoked: 30 Second Hand Smoke Exposure: Yes Use of substances other than those prescribed or required for medical reasons: No Advance Directives: Yes Advance Directives on File: Yes Advance Directives Date on File: 01/18/21 service: No Current occupational status: unemployed <CHINA Carlton - Last Filed: 02/22/21 17:34> Physical Exam Vital Signs: Vital Signs: Last Vital Signs Temp 97.6 F 02/22/21 16:20 Pulse 84 02/22/21 17:09 Resp 17 02/22/21 17:09 BP 99/44 L 02/22/21 17:09 Pulse Ox 96 02/22/21 17:09 Body Mass Index 34.7 <CHINA Carlton - Last Filed: 02/22/21 17:34> Vital Signs: Last Vital Signs Temp 97.6 F 02/22/21 16:20 Pulse 84 02/22/21 17:09 Resp 17 02/22/21 17:09 BP 99/44 L 02/22/21 17:09 Pulse Ox 96 02/22/21 17:09 Body Mass Index 34.7 <Gianna Huang DO - Last Filed: 02/22/21 16:24> Const: General: alert and ill appearing acutely and chronically; No confusion <CHINA Carlton - Last Filed: 02/22/21 17:34> Nutritional Appearance: obese <CHINA Carlton - Last Filed: 02/22/21 17:34> Orientation/consciousness: patient oriented x3 and No confusion <CHINA Carlton - Last Filed: 02/22/21 17:34> Limitations: no limitations <Lyric Fordvic [facility] Last Filed: 02/22/21 17:34> HENMT: Head: Yes normal to inspection, Yes No palpable skull fracture present, Yes normocephalic and Yes atraumatic <Lyric Clive [facility] Last Filed: 02/22/21 17:34> Ears: hearing grossly normal bilaterally <Lyric Duffy [facility] Last Filed: 02/22/21 17:34> General nose exam: Normal external nose present <Lyric Duffy [facility] Last Filed: 02/22/21 17:34> Eyes: Sclerae: scleral abnormal bilateral (icterus) <Lyric Duffy [facility] Last Filed: 02/22/21 17:34> Pupils: Equal, round and reactive pupils present <Lyric Duffy [facility] Last Filed: 02/22/21 17:34> EOM: EOMs intact bilaterally <Lyric Duffy [facility] Last Filed: 02/22/21 17:34> Neck: Neck: Yes full ROM, Yes no meningeal signs, Yes trachea midline and Yes supple <Lyriclizette Fordvic [facility] Last Filed: 02/22/21 17:34> Resp: Effort & Inspection: normal respiratory effort and able to speak in complete sentences <Lyric Duffy [facility] Last Filed: 02/22/21 17:34> Auscultation: clear to auscultation bilaterally, no crackles, no rales, no rhonchi and no wheezes <Lyric Duffy [facility] Last Filed: 02/22/21 17:34> Cardio: Rate: regular rate <Lyric Duffy [facility] Last Filed: 02/22/21 17:34> Rhythm: regular rhythm <Lyric Duffy [facility] Last Filed: 02/22/21 17:34> Heart sounds: S1 normal heart sound present and S2 normal heart sound present <Lyric Duffy [facility] Last Filed: 02/22/21 17:34> GI: Inspection: Yes distended <Lyric Duffy [facility] Last Filed: 02/22/21 17:34> Palpation (GI): nontender, no guarding and not rigid <Lyric Duffy PA - Last Filed: 02/22/21 17:34> Percussion: Yes Fluid wave present <Lyric Duffy [facility] Last Filed: 02/22/21 17:34> Auscultation: abnormal bowel sounds <Lyric Duffy [facility] Last Filed: 02/22/21 17:34> : General: Yes no CVA tenderness <Lyric Duffy [facility] Last Filed: 02/22/21 17:34> Back/Spine/Pelvis: Back: no CVA tenderness <Lyric Duffy [facility] Last Filed: 02/22/21 17:34> Skin: General skin exam: dry skin and jaundice (severe) <Lyric Duffy [facility] Last Filed: 02/22/21 17:34> Neuro: General: patient oriented x3, no meningeal signs, no focal motor deficits and No confusion <Lyric Duffy [facility] Last Filed: 02/22/21 17:34> Cranial nerves: Yes Equal, round and reactive pupils present <Lyric Duffy [facility] Last Filed: 02/22/21 17:34> Extrem: General: Yes full ROM and Yes capillary refill normal <Lyric Duffy [facility] Last Filed: 02/22/21 17:34> Psych: Appearance: disheveled <Lyric Duffy [facility] Last Filed: 02/22/21 17:34> Mental Status: mental status grossly normal <Lyric Duffy [facility] Last Filed: 02/22/21 17:34> Speech and movement: Slowed speech present (Psych) <Lyric Duffy [facility] Last Filed: 02/22/21 17:34> Affect: normal affect <Lyric Duffy [facility] Last Filed: 02/22/21 17:34> Attitude: cooperative <Lyric Duffy [facility] Last Filed: 02/22/21 17:34> Course Course Course Narrative: 60-year-old male with liver failure presents with a blood pressure of 77/33 today and increasing shortness of breath. Patient has a distended abdomen, is severely jaundiced. Fluid wave and distended abdomen. No abdominal tenderness to palpation. Lungs clear to auscultation bilaterally. The patient was just discharged from [facility] 4 days ago. He now has an oxygen requirement, this is the 1st time he has had an oxygen requirement. Initiated septic workup, getting coags, ammonia, gave albumin and fluids. <CHINA Carlton - Last Filed: 02/22/21 17:34> 60-year-old male with liver failure presents with a blood pressure of 77/33 today and increasing shortness of breath. Patient has a distended abdomen, is severely jaundiced. Fluid wave and distended abdomen. No abdominal tenderness to palpation. Lungs clear to auscultation bilaterally. The patient was just discharged from [facility] 4 days ago. He now has an oxygen requirement, this is the 1st time he has had an oxygen requirement. Initiated septic workup, getting coags, ammonia, gave albumin and fluids. Dr. Huang note - I have spoken to the hospitalists and center medical and lab director, [place] [facility] [place] placed given fluctuating pressures though BP of 90s is somewhat his norm. If no return call from [facility] [place] need admission here both ICU and hospitalists are aware. Cannot go to [facility] they do not accept his insurance. Family aware and aware of severity of illness. 4pm. - Dr. Huang <Gianna Huang DO - Last Filed: 02/22/21 16:24> Reevaluation(s) Reevaluation #1: CXR shows patchy opacities bilateral lung shepherd with mid and lower lobe predominance, right greater than left, suggesting infectious/inflammatory etiology. Started antibiotics for HAP; Azith plus Vanco plus Zosyn Gave midodrine for hypotension <CHINA Carlton - Last Filed: 02/22/21 17:34> Reevaluation #2: Patient is fluid responsive and systolic blood pressure is now 99. Patient's last blood pressure is 99/38. Patient has a leukocytosis of 17.5, he is hyponatremic at 1:29 a.m., creatinine 4.02. Patient's last creatinine 3 days ago was 1.77. Patient has a lactate 2.5. His ammonia is only slightly elevated at 56, albumin is 3.1. Patient has elevated LFTs, with AST 132 ALT 98 alk-phos 148. Patient has a source for his leukocytosis, he is already being given antibiotics for his pneumonia. DR Wilcox called, says this patient should go to ICU or liver transplant hospital. Patient tells me their insurance won't cover [facility], pt got [place] [facility] [place] few days [place] for [place]. Will try to admit to [facility] Huang placed a central line. Awaiting call back from [facility] for possible transfer. Dr Huang talked to hospitalist and center medical and lab director. If we do not hear back from [facility], and if pt's SBP stays above 90, hospitalist will admit. Below 90, center medical and lab director will admit. <CHINA Carlton - Last Filed: 02/22/21 17:34> Reevaluation #3: Dr Francis, radiologist called, and stated with patient's INR being so high and unstable blood pressures, he cannot do paracentesis today Dr iWlcox will not accept patioent. States pt needs liver transplant center [facility] called for transfer, refused due to capacity [facility] refused due to capacity and that patient is not established patient <CHINA Carlton - Last Filed: 02/22/21 17:34> Additional Reevaluation(s): transfer [facility], ER, Dr Ibarra accepting <CHINA Carlton - Last Filed: 02/22/21 17:34> MDM - SOB/Dyspnea Lab Data Result diagrams: : 02/22/21 13:25 02/22/21 13:25 <CHINA Carlton - Last Filed: 02/22/21 17:34> Labs: Lab Results 02/22/21 02/22/21 02/22/21 Range/Units 13:03 13:25 13:25 WBC 17.5 H (4.8-10.8) X10*3/uL RBC 2.96 L (4.60-5.80) X10*6/uL Hgb 10.8 L (14.0-18.0) g/dl Hct 30.7 L (42-52) % MCV 103.7 H (80-98) fL MCH 36.5 H (27.0-33.0) pg MCHC 35.2 (31.0-36.0) g/dl RDW 19.6 H (11.0-16.0) % Plt Count 68 L D (160-400) X10*3/uL MPV Not Reportable Immature Gran % (Auto) 1.1 H (0.0-0.4) % Neut % (Auto) 85.2 H (45-73) % Lymph % (Auto) 4.5 L (20-40) % Pitkin % (Auto) 6.3 (2-11) % Eos % (Auto) 2.7 (0-4) % Baso % (Auto) 0.2 (0-2) % Lymph # (Auto) 0.8 L (1.2-4.9) X10*3/uL Pitkin # (Auto) 1.1 (0.1-1.2) X10*3/uL Eos # (Auto) 0.5 H (0.0-0.4) X10*3/uL Baso # (Auto) 0.0 (0.0-0.2) X10*3/uL Abs Immat Gran (auto) 0.20 H (0.00-0.03) X10*3/uL Absolute Neuts (auto) 14.9 H (2.0-8.3) X10*3/uL Absolute Nucleated RBC 0.000 (0.0-0.012) X10*3/uL Nucleated RBC % (auto) 0.0 (0.0-0.2) /100WBC PT (9.9-13.0) SEC INR (0.9-1.1) APTT (24.1-38.0) SEC Sodium 129 L (135-145) mmol/L Potassium 3.6 (3.3-5.1) mmol/L Chloride 102 (96-108) mmol/L Carbon Dioxide 14 L (22-29) mmol/L Anion Gap 17 (12-20) BUN 56 H D (9-16) mg/dL Creatinine 4.02 H* (0.5-1.4) mg/dL Estim Creat Clear Calc 21.6 Estimated GFR 15 Random Glucose 95 (60-115) mg/dL Lactic Acid (0.5-2.0) mmol/L Calcium 8.8 (8.4-10.2) mg/dL Total Bilirubin 47.2 H (0.0-1.0) mg/dL AST 132 H (5-37) U/L ALT 98 H (0-40) U/L Alkaline Phosphatase 148 H (39-117) U/L Ammonia (13-55) umol/L Total Protein 5.6 L (6.5-8.0) g/dL Albumin 3.1 L (3.5-5.0) g/dL COVID-19 (AMILCAR) Negative (Negative) COVID-19 Clin Com See Note Blood Type Antibody Screen 02/22/21 02/22/21 02/22/21 Range/Units 13:25 13:25 15:19 WBC (4.8-10.8) X10*3/uL RBC (4.60-5.80) X10*6/uL Hgb (14.0-18.0) g/dl Hct (42-52) % MCV (80-98) fL MCH (27.0-33.0) pg MCHC (31.0-36.0) g/dl RDW (11.0-16.0) % Plt Count (160-400) X10*3/uL MPV Immature Gran % (Auto) (0.0-0.4) % Neut % (Auto) (45-73) % Lymph % (Auto) (20-40) % Pitkin % (Auto) (2-11) % Eos % (Auto) (0-4) % Baso % (Auto) (0-2) % Lymph # (Auto) (1.2-4.9) X10*3/uL Pitkin # (Auto) (0.1-1.2) X10*3/uL Eos # (Auto) (0.0-0.4) X10*3/uL Baso # (Auto) (0.0-0.2) X10*3/uL Abs Immat Gran (auto) (0.00-0.03) X10*3/uL Absolute Neuts (auto) (2.0-8.3) X10*3/uL Absolute Nucleated RBC (0.0-0.012) X10*3/uL Nucleated RBC % (auto) (0.0-0.2) /100WBC PT 35.5 H D (9.9-13.0) SEC INR 3.0 H (0.9-1.1) APTT 61.5 H* D (24.1-38.0) SEC Sodium (135-145) mmol/L Potassium (3.3-5.1) mmol/L Chloride (96-108) mmol/L Carbon Dioxide (22-29) mmol/L Anion Gap (12-20) BUN (9-16) mg/dL Creatinine (0.5-1.4) mg/dL Estim Creat Clear Calc Estimated GFR Random Glucose (60-115) mg/dL Lactic Acid 2.5 H* (0.5-2.0) mmol/L Calcium (8.4-10.2) mg/dL Total Bilirubin (0.0-1.0) mg/dL AST (5-37) U/L ALT (0-40) U/L Alkaline Phosphatase (39-117) U/L Ammonia 56 H (13-55) umol/L Total Protein (6.5-8.0) g/dL Albumin (3.5-5.0) g/dL COVID-19 (AMILCAR) (Negative) COVID-19 Clin Com Blood Type Antibody Screen 02/22/21 Range/Units 16:17 WBC (4.8-10.8) X10*3/uL RBC (4.60-5.80) X10*6/uL Hgb (14.0-18.0) g/dl Hct (42-52) % MCV (80-98) fL MCH (27.0-33.0) pg MCHC (31.0-36.0) g/dl RDW (11.0-16.0) % Plt Count (160-400) X10*3/uL MPV Immature Gran % (Auto) (0.0-0.4) % Neut % (Auto) (45-73) % Lymph % (Auto) (20-40) % Pitkin % (Auto) (2-11) % Eos % (Auto) (0-4) % Baso % (Auto) (0-2) % Lymph # (Auto) (1.2-4.9) X10*3/uL Pitkin # (Auto) (0.1-1.2) X10*3/uL Eos # (Auto) (0.0-0.4) X10*3/uL Baso # (Auto) (0.0-0.2) X10*3/uL Abs Immat Gran (auto) (0.00-0.03) X10*3/uL Absolute Neuts (auto) (2.0-8.3) X10*3/uL Absolute Nucleated RBC (0.0-0.012) X10*3/uL Nucleated RBC % (auto) (0.0-0.2) /100WBC PT (9.9-13.0) SEC INR (0.9-1.1) APTT (24.1-38.0) SEC Sodium (135-145) mmol/L Potassium (3.3-5.1) mmol/L Chloride (96-108) mmol/L Carbon Dioxide (22-29) mmol/L Anion Gap (12-20) BUN (9-16) mg/dL Creatinine (0.5-1.4) mg/dL Estim Creat Clear Calc Estimated GFR Random Glucose (60-115) mg/dL Lactic Acid (0.5-2.0) mmol/L Calcium (8.4-10.2) mg/dL Total Bilirubin (0.0-1.0) mg/dL AST (5-37) U/L ALT (0-40) U/L Alkaline Phosphatase (39-117) U/L Ammonia (13-55) umol/L Total Protein (6.5-8.0) g/dL Albumin (3.5-5.0) g/dL COVID-19 (AMILCAR) (Negative) COVID-19 Clin Com Blood Type A Positive Antibody Screen NEGATIVE <CHINA Carlton - Last Filed: 02/22/21 17:34> Lab Results 02/22/21 02/22/21 02/22/21 Range/Units 13:03 13:25 13:25 WBC 17.5 H (4.8-10.8) X10*3/uL RBC 2.96 L (4.60-5.80) X10*6/uL Hgb 10.8 L (14.0-18.0) g/dl Hct 30.7 L (42-52) % MCV 103.7 H (80-98) fL MCH 36.5 H (27.0-33.0) pg MCHC 35.2 (31.0-36.0) g/dl RDW 19.6 H (11.0-16.0) % Plt Count 68 L D (160-400) X10*3/uL MPV Not Reportable Immature Gran % (Auto) 1.1 H (0.0-0.4) % Neut % (Auto) 85.2 H (45-73) % Lymph % (Auto) 4.5 L (20-40) % Pitkin % (Auto) 6.3 (2-11) % Eos % (Auto) 2.7 (0-4) % Baso % (Auto) 0.2 (0-2) % Lymph # (Auto) 0.8 L (1.2-4.9) X10*3/uL Pitkin # (Auto) 1.1 (0.1-1.2) X10*3/uL Eos # (Auto) 0.5 H (0.0-0.4) X10*3/uL Baso # (Auto) 0.0 (0.0-0.2) X10*3/uL Abs Immat Gran (auto) 0.20 H (0.00-0.03) X10*3/uL Absolute Neuts (auto) 14.9 H (2.0-8.3) X10*3/uL Absolute Nucleated RBC 0.000 (0.0-0.012) X10*3/uL Nucleated RBC % (auto) 0.0 (0.0-0.2) /100WBC PT (9.9-13.0) SEC INR (0.9-1.1) APTT (24.1-38.0) SEC Sodium 129 L (135-145) mmol/L Potassium 3.6 (3.3-5.1) mmol/L Chloride 102 (96-108) mmol/L Carbon Dioxide 14 L (22-29) mmol/L Anion Gap 17 (12-20) BUN 56 H D (9-16) mg/dL Creatinine 4.02 H* (0.5-1.4) mg/dL Estim Creat Clear Calc 21.6 Estimated GFR 15 Random Glucose 95 (60-115) mg/dL Lactic Acid (0.5-2.0) mmol/L Calcium 8.8 (8.4-10.2) mg/dL Total Bilirubin 47.2 H (0.0-1.0) mg/dL AST 132 H (5-37) U/L ALT 98 H (0-40) U/L Alkaline Phosphatase 148 H (39-117) U/L Ammonia (13-55) umol/L Total Protein 5.6 L (6.5-8.0) g/dL Albumin 3.1 L (3.5-5.0) g/dL COVID-19 (AMILCAR) Negative (Negative) COVID-19 Clin Com See Note Blood Type Antibody Screen 02/22/21 02/22/21 02/22/21 Range/Units 13:25 13:25 15:19 WBC (4.8-10.8) X10*3/uL RBC (4.60-5.80) X10*6/uL Hgb (14.0-18.0) g/dl Hct (42-52) % MCV (80-98) fL MCH (27.0-33.0) pg MCHC (31.0-36.0) g/dl RDW (11.0-16.0) % Plt Count (160-400) X10*3/uL MPV Immature Gran % (Auto) (0.0-0.4) % Neut % (Auto) (45-73) % Lymph % (Auto) (20-40) % Pitkin % (Auto) (2-11) % Eos % (Auto) (0-4) % Baso % (Auto) (0-2) % Lymph # (Auto) (1.2-4.9) X10*3/uL Pitkin # (Auto) (0.1-1.2) X10*3/uL Eos # (Auto) (0.0-0.4) X10*3/uL Baso # (Auto) (0.0-0.2) X10*3/uL Abs Immat Gran (auto) (0.00-0.03) X10*3/uL Absolute Neuts (auto) (2.0-8.3) X10*3/uL Absolute Nucleated RBC (0.0-0.012) X10*3/uL Nucleated RBC % (auto) (0.0-0.2) /100WBC PT 35.5 H D (9.9-13.0) SEC INR 3.0 H (0.9-1.1) APTT 61.5 H* D (24.1-38.0) SEC Sodium (135-145) mmol/L Potassium (3.3-5.1) mmol/L Chloride (96-108) mmol/L Carbon Dioxide (22-29) mmol/L Anion Gap (12-20) BUN (9-16) mg/dL Creatinine (0.5-1.4) mg/dL Estim Creat Clear Calc Estimated GFR Random Glucose (60-115) mg/dL Lactic Acid 2.5 H* (0.5-2.0) mmol/L Calcium (8.4-10.2) mg/dL Total Bilirubin (0.0-1.0) mg/dL AST (5-37) U/L ALT (0-40) U/L Alkaline Phosphatase (39-117) U/L Ammonia 56 H (13-55) umol/L Total Protein (6.5-8.0) g/dL Albumin (3.5-5.0) g/dL COVID-19 (AMILCAR) (Negative) COVID-19 Clin Com Blood Type Antibody Screen 02/22/21 Range/Units 16:17 WBC (4.8-10.8) X10*3/uL RBC (4.60-5.80) X10*6/uL Hgb (14.0-18.0) g/dl Hct (42-52) % MCV (80-98) fL MCH (27.0-33.0) pg MCHC (31.0-36.0) g/dl RDW (11.0-16.0) % Plt Count (160-400) X10*3/uL MPV Immature Gran % (Auto) (0.0-0.4) % Neut % (Auto) (45-73) % Lymph % (Auto) (20-40) % Pitkin % (Auto) (2-11) % Eos % (Auto) (0-4) % Baso % (Auto) (0-2) % Lymph # (Auto) (1.2-4.9) X10*3/uL Pitkin # (Auto) (0.1-1.2) X10*3/uL Eos # (Auto) (0.0-0.4) X10*3/uL Baso # (Auto) (0.0-0.2) X10*3/uL Abs Immat Gran (auto) (0.00-0.03) X10*3/uL Absolute Neuts (auto) (2.0-8.3) X10*3/uL Absolute Nucleated RBC (0.0-0.012) X10*3/uL Nucleated RBC % (auto) (0.0-0.2) /100WBC PT (9.9-13.0) SEC INR (0.9-1.1) APTT (24.1-38.0) SEC Sodium (135-145) mmol/L Potassium (3.3-5.1) mmol/L Chloride (96-108) mmol/L Carbon Dioxide (22-29) mmol/L Anion Gap (12-20) BUN (9-16) mg/dL Creatinine (0.5-1.4) mg/dL Estim Creat Clear Calc Estimated GFR Random Glucose (60-115) mg/dL Lactic Acid (0.5-2.0) mmol/L Calcium (8.4-10.2) mg/dL Total Bilirubin (0.0-1.0) mg/dL AST (5-37) U/L ALT (0-40) U/L Alkaline Phosphatase (39-117) U/L Ammonia (13-55) umol/L Total Protein (6.5-8.0) g/dL Albumin (3.5-5.0) g/dL COVID-19 (AMILCAR) (Negative) COVID-19 Clin Com Blood Type A Positive Antibody Screen NEGATIVE <Gianna Huang DO - Last Filed: 02/22/21 16:24> ECG Data Interpretation: Sinus at a rate of 91, [place] 164, QRS 150, QTC 492, patient has a right bundle-branch block, normal axis, no ST depressions or elevations noted. <CHINA Carlton - Last Filed: 02/22/21 17:34> Procedures Central Line Placement Right IJ: Time Out Performed: Yes <Gianna Huang DO - Last Filed: 02/22/21 16:24> Patient Placed on Monitor/Pulse Ox: Yes <Gianna Huang DO - Last Filed: 02/22/21 16:24> MD Prep: mask, gown and gloves <Gianna Huang DO - Last Filed: 02/22/21 16:24> Central Line Prep: Chlorhexidine scrub <Gianna Huang DO - Last Filed: 02/22/21 16:24> Local Anesthetic: lidocaine 1% <Gianna Huang DO - Last Filed: 02/22/21 16:24> Amount of anesthesia used (mL): 5 <Gianna Huang DO - Last Filed: 02/22/21 16:24> Ultrasound Used for Placement: Yes <Gianna Huang DO - Last Filed: 02/22/21 16:24> Central Line Lumen Inserted: triple <Gianna Huang DO - Last Filed: 02/22/21 16:24> Post Procedure: sutured in place, good blood return, all ports aspirated, flushed, capped and sterile dressing applied <Gianna Huang DO - Last Filed: 02/22/21 16:24> Post Procedure X-Ray: tip of catheter in good position and no pneumothorax seen <Gianna Huang DO - Last Filed: 02/22/21 16:24> Patient Tolerated Procedure: well and no complications <Gianna Huang DO - Last Filed: 02/22/21 16:24> Complications: none <Gianna Huang DO - Last Filed: 02/22/21 16:24> Discharge Plan Discharge Clinical Impression: Acute kidney injury Pneumonia Qualifiers: Pneumonia type: due to unspecified organism Laterality: bilateral Lung location: lower lobe of lung Qualified Code(s): J18.9 - Pneumonia, unspecified organism Ascites Qualifiers: Ascites type: due to alcoholic cirrhosis Qualified Code(s): K70.31 - Alcoholic cirrhosis of liver with ascites <CHINA Carlton - Last Filed: 02/22/21 17:34> Patient Disposition: [facility] <CHINA Carlton - Last Filed: 02/22/21 17:34> Transfer Details: [facility], ER, Dr Ibarra accepted <CHINA Carlton Last Filed: 02/22/21 17:34> [facility], ER, Dr Ibarra accepted <Gianna Huang DO - Last Filed: 02/22/21 16:24> Prescriptions: No Action albuterol sulfate [Ventolin HFA] 90 mcg/actuation HFA aerosol inhaler 2 puff inhalation Q6H PRN (Reason: shortness of breath or wheezing) Qty: 18 RF: 2 oxycodone 5 mg tablet 5 mg PO Q6H PRN (Reason: Pain, Severe (Pain Scale 7-10)) Qty: 28 RF: 0 magnesium oxide 400 mg (241.3 mg magnesium) tablet 400 mg PO BIDPC Qty: 60 RF: 0 omeprazole 20 mg capsule,delayed release(DR/EC) 20 mg PO DAILY@0630 RF: 0 trazodone 50 mg Tablet 25 mg PO BEDTIME PRN (Reason: Insomnia) Qty: 28 RF: 0 nadolol 20 mg tablet 20 mg PO DAILY Qty: 30 RF: 0 calcium carbonate [Tums] 300 mg (750 mg) Tablet,Chewable 750 mg PO Q4H PRN (Reason: Heartburn) Qty: 60 RF: 0 melatonin 3 mg tablet 6 mg PO BEDTIME PRN (Reason: Insomnia) RF: 0 Xifaxan 550 mg Tablet 550 mg PO BID Qty: 60 RF: 0 lactulose 20 gram/30 mL Solution 20 g PO BID Qty: 1800 RF: 0 spironolactone 25 mg tablet 25 mg PO DAILY Qty: 30 RF: 0 nicotine 14 mg/24 hr patch 24 hour 1 patch transdermal DAILY Qty: 28 RF: 0 <CHINA Carlton - Last Filed: 02/22/21 17:34>
--- NOTE | 2021-02-22 12:50 | ECG_ITS ---
Test Reason : SOB Blood Pressure : / mmHG Vent. Rate : 091 BPM Atrial Rate : 091 BPM P-R Int : 164 ms QRS Dur : 150 ms QT Int : 400 ms P-R-T Axes : 070 -53 010 degrees QTc Int : 492 ms Normal sinus rhythm Possible Left atrial enlargement Right bundle branch block Left anterior fascicular block Bifascicular block Abnormal ECG When compared with ECG of 17-JAN-2021 19:34, No significant change was found Referred By: Lyric Duffy Electronically Signed By:JUDY ESCOBAR
[2021-02-22 13:32] LABS: IDNOW Serial# 9DD0AD1C
[2021-02-22 13:33] LABS: COVID-19 Test Negative (Negative)
[2021-02-22] MEDS: Albumin Human 25 % 100 ML IV ×2 (13:33→16:14)
[2021-02-22] MEDS: Midodrine HCl 10 MG TABLET PO (13:39)
[2021-02-22] MEDS: Piperacillin Sodium/Tazobactam 3.375 GM in 0.9 % Sodium Chloride 50 ML IV (13:39)
[2021-02-22 13:48] LABS: Basophils Percent Auto 0.2 % (0-2); Mean Corpuscular Volume 103.7 fL (80-98); Neutrophils Percent Auto 85.2 % (45-73); Red Cell Distribution Width 19.6 % (11.0-16.0)
[2021-02-22 13:50] LABS: Eosinophils Absolute Auto 0.5 X10*3/uL (0.0-0.4); Eosinophils Percent Auto 2.7 % (0-4); Hematocrit 30.7 % (42-52); Hemoglobin 10.8 g/dl (14.0-18.0); Imm Gran Pct Auto 1.1 % (0.0-0.4); Lymphocytes Absolute Auto 0.8 X10*3/uL (1.2-4.9); Lymphocytes Percent Auto 4.5 % (20-40); Mean Corpuscular HGB Conc 35.2 g/dl (31.0-36.0); Mean Corpuscular Hemoglobin 36.5 pg (27.0-33.0); Monocytes Absolute Auto 1.1 X10*3/uL (0.1-1.2); Monocytes Percent Auto 6.3 % (2-11); Neutrophils Absolute Auto 14.9 X10*3/uL (2.0-8.3); Platelet Count 68 X10*3/uL (160-400); Red Blood Count 2.96 X10*6/uL (4.60-5.80); White Blood Count 17.5 X10*3/uL (4.8-10.8)
[2021-02-22 13:51] LABS: MANUAL DIFF FLAG NO
[2021-02-22 14:01] LABS: Lactic Acid 2.5 mmol/L (0.5-2.0)
[2021-02-22 14:10] LABS: Ammonia 56 umol/L (13-55)
[2021-02-22 14:11] LABS: Alanine Aminotransferase 98 U/L (0-40); Albumin Level 3.1 g/dL (3.5-5.0); Alkaline Phosphatase 148 U/L (39-117); Anion Gap 17 (12-20); Aspartate Amino Transferase 132 U/L (5-37); Blood Urea Nitrogen 56 mg/dL (9-16); Calcium 8.8 mg/dL (8.4-10.2); Carbon Dioxide 14 mmol/L (22-29); Chloride 102 mmol/L (96-108); Glucose Random 95 mg/dL (60-115); Potassium 3.6 mmol/L (3.3-5.1); Sodium 129 mmol/L (135-145); Total Protein 5.6 g/dL (6.5-8.0)
[2021-02-22 14:19] LABS: Bilirubin Total 47.2 mg/dL (0.0-1.0)
[2021-02-22 14:20] LABS: Creatinine Clr Calc Pharmacy 21.6; Estimated Glomerular Filt Rate 15
[2021-02-22] MEDS: vancomycin HCL 1,250 MG in 0.9 % Sodium Chloride 250 ML 166.67 MG IV (15:24)
[2021-02-22 15:34] LABS: Prothrombin Time 35.5 SEC (9.9-13.0)
[2021-02-22 15:36] LABS: Reflex Lactate? Lactic Acid Added
[2021-02-22 15:51] LABS: Partial Thromboplastin Time 61.5 SEC (24.1-38.0)
--- NOTE | 2021-02-22 16:22 | PC.NURSE ---
central line placed by dr cornejo. per dr cornejo, do nto start levophed unless systolic BP consistently below 90.
[2021-02-22] MEDS: Azithromycin 500 MG in 0.9 % Sodium Chloride 250 ML 125 MG IV (17:01)
--- NOTE | 2021-02-22 18:19 | PC.NURSE ---
attempted to call nurse to nurse at [facility], did not get through to a nurse for report. ems also aware.
== END 2021-02-22 18:41 | disposition short-term general hospital (02) ==
PROVIDERS: Physician Assistant; Emergency Provider Emergency Medicine; PCP Nurse Practitioner Family
DX: J18.9 Pneumonia, unspecified organism (principal); R06.02 Shortness of breath; K70.31 Alcoholic cirrhosis of liver with ascites; N17.9 Acute kidney failure, unspecified; F17.210 Nicotine dependence, cigarettes, uncomplicated; Z20.822 Contact with and (suspected) exposure to COVID-19; Z71.6 Tobacco abuse counseling; Z79.899 Other long term (current) drug therapy
CPT/HCPCS: 36415; 36556; 71045; 80053; 82140; 83605; 85025; 85610; 85730; 86850; 86900; 86901; 87040; 87635; 93005; 96361; 96365; 96366; 96367; 96375; 99285; J0456; J2543; J3370; P9047